=== PATIENT | female | born 1950 | race Caucasian/White ===

== ENCOUNTER 2016-09-24 08:36 | Inpatient (IN) | payer OTHER ==
[2016-09-24] MEDS ORDERED: LIDOCAINE 2% JELLY 20 ML (UROJECT) ONE (09:13)
[2016-09-24] MEDS ORDERED: LIDOCAINE 1% 30 ML SDV ONE (09:13)
[2016-09-24] MEDS ORDERED: IOPAMIDOL (ISOVUE-300) 100 ML BTL ONE ×2 (09:14→17:10)
[2016-09-24] MEDS ORDERED: ONDANSETRON 4 MG/2 ML VIAL ONE (09:42)
[2016-09-24] MEDS ORDERED: fentaNYL 100 MCG/2 ML INJ ONE ×2 (09:43→13:57)
[2016-09-24] MEDS ORDERED: MIDAZOLAM 2 MG/2 ML VIAL ONE (09:43)
[2016-09-24] MEDS ORDERED: GLUCAGON,HUMAN RECOMBINANT 1 MG VIAL ONE (10:30)
[2016-09-24] MEDS ORDERED: fentaNYL 100 MCG/2 ML INJ IVP ONE (14:00)
[2016-09-24] MEDS ORDERED: ONDANSETRON DISINTEGRATING 4 MG TAB PO PRN (16:50)
[2016-09-24] MEDS ORDERED: ACETAMINOPHEN 325 MG TAB PO PRN (16:50)
[2016-09-24] MEDS ORDERED: ONDANSETRON 4 MG/2 ML VIAL IVP PRN (16:50)
[2016-09-24] MEDS ORDERED: HYDROmorphONE/DILAUDID 1 MG/ML SYR IVP ONE (16:53)
[2016-09-24] MEDS ORDERED: HYDROmorphONE/DILAUDID 6 MG/30 ML PCA IV PRN (16:53)
[2016-09-24] MEDS ORDERED: NALOXONE HCL 0.4 MG/ML INJ IVP PRN (16:53)
--- NOTE | 2016-09-24 17:38 | GHP ---
[f rep st] HISTORY AND PHYSICAL DATE OF ADMISSION: 09/24/2016 CHIEF COMPLAINT: Abdominal pain post PEG placement. HISTORY OF PRESENT ILLNESS: This is a 65-year-old female with a history of head and neck cancer, wh o was having a gastrostomy tube placed by Dr. Spears today in preparation for chemo and radiation. In speaking with Dr. Spears, it sounds as though the procedure was very uncomplicated. I reviewed t he operative report which reported no extraluminal contrast post procedure. She tells me her pain i s severe, located in the epigastrium, and worse with any palpation. It has been mildly relieved by IV pain medicines. Recent history is notable for having a colonic perforation due to what sounds li ke diverticulitis, where she received a partial colectomy as well as an ostomy. This was done at [facility]. Her abdominal incision has never fully healed post surgery. Notably, she is on oxycodone 20 mg 4 times a day. Sometimes, she takes a little bit of extra. She thinks she is taking somewhere between 80 and 100 mg daily. PAST MEDICAL/SURGICAL HISTORY: 1. Oropharyngeal cancer, squamous cell, followed by Dr. Dior. 2. Recent colon perforation due to diverticulitis, status post partial colectomy as well as ostomy. 3. Hypothyroid. 4. Asthma. 5. Breast cancer, stage I, status post XRT 4 years ago. 6. Chronic pain, on continuous narcotics. MEDICATIONS: Please see medication reconciliation. ALLERGIES: She had Woods-Edgardo to doxycycline. She has also has a codeine allergy listed. FAMILY HISTORY: No one has cancer in her family. SOCIAL HISTORY: She does not drink or smoke anymore. She did smoke in the past. REVIEW OF SYSTEMS: A 10-point review of systems is conducted and is negative except per the HPI. PHYSICAL EXAMINATION: GENERAL: She appears to be quite uncomfortable, holding her abdomen. VITAL SIGNS: Not currently in the computer. HEENT: Shows her to be normocephalic, atraumatic. CARDIOVA SCULAR: Shows a regular rate and rhythm. No murmurs, rubs, or gallops. PULMONARY: Lungs clear to auscultation bilaterally. ABDOMEN: Soft. She is extremely tender to palpation, mostly in the epi gastrium. She has a PEG tube in the left upper quadrant. She has a left-sided colostomy with a bag , with liquid-appearing stool. SKIN: Shows no rash. : Shows no Kay. NEUROLOGIC: Shows her to be alert and oriented x3. She is moving all extremities. PSYCHIATRIC: Shows a tearful affect. LABORATORY DATA: There are no current labs. I did order labs. DATA: 1. I discussed this with Dr. Spears. We will admit to observation. 2. I reviewed the PEG placement. 3. I reviewed her pathology showing squamous cell cancer. IMPRESSION AND PLAN: A 65-year-old female with oropharyngeal cancer, with uncontrolled pain status post PEG placement. 1. Abdominal pain: Seems out of proportion to a PEG placement. Per the operative note and Dr. Rashad hodgson' report, the procedure was quite unremarkable. Regardless, I have placed a CT scan of her abdom en given the degree of her pain. Her pain may be due to the fact that she is on chronic narcotics a nd has been n.p.o. during the day. 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 2. Oropharyngeal cancer: She will be followed by Dr. Dior. The plan will be for radiation as wel l as chemotherapy. 3. Recent colon perforation, with ostomy in place and nonhealing abdominal incision: I have placed a wound care consult. This was approximately 5 weeks ago. 4. Hypothyroid: Synthroid. 5. Asthma: Inhalers. 6. Chronic pain, on continuous narcotics: We will continue her outpatient oxycodone in addition to IV narcotics for acute pain. 7. Code status: She would like to be a full code. /[id number]/MODL
[2016-09-24] MEDS: morphINE PCA 30 MG/30 ML PCA IV PRN (18:19)
[2016-09-24] MEDS ORDERED: LORazepam 2 MG/ML INJ IVP PRN (18:31)
[2016-09-24 18:38] LABS: % IMMATURE GRANULYOCYTES 0.4 % (0.0-1.1); ABSOLUTE IMMATURE GRANULOCYTES 0.02 10^3/uL (0.00-0.10); ADD DIFF? NO; ADD MORPH? NO; ADD SCAN? NO; ATYPICAL LYMPHOCYTE FLAG 0 (0-99); FRAGMENT RBC FLAG 0 (0-99); HEMATOCRIT 30.2 % (38.0-47.0); HEMOGLOBIN 9.6 g/dL (12.6-16.3); LEFT SHIFT FLG 0 (0-99); LIPEMIA HEMOLYSIS FLAG 80 (0-99); MEAN CELL HEMOGLOBIN 30.3 pg (27.9-34.1); MEAN CELL HEMOGLOBIN CONCENTR. 31.8 g/dL (32.4-36.7); MEAN CELL VOLUME 95.3 fL (81.5-99.8); MEAN PLATELET VOLUME 8.5 fL (8.7-11.7); PLATELET CLUMPS FLAG 10 (0-99); PLATELET COUNT 384 10^3/uL (150-400); RED BLOOD CELL COUNT 3.17 10^6/uL (4.18-5.33); RED CELL DISTRIBUTION WIDTH 17.4 % (11.5-15.2)
[2016-09-24 18:51] LABS: ANION GAP 8 mEq/L (8-16); CALCIUM 8.4 mg/dL (8.5-10.4); CARBON DIOXIDE 22 mEq/l (22-31); CHLORIDE 106 mEq/L (97-110); CREATININE 0.5 mg/dL (0.6-1.0); GLOMERULAR FILTRATION RATE > 60; GLUCOSE 91 mg/dL (70-100); POTASSIUM 3.9 mEq/L (3.5-5.2); SODIUM 136 mEq/L (134-144)
[2016-09-24 18:52] LABS: INR 1.04 (0.83-1.16); PROTIME(PATIENT) 13.5 SEC (12.0-15.0)
[2016-09-24] MEDS: clonazePAM 1 MG TAB PO PRN (19:34)
[2016-09-25] MEDS: clonazePAM 1 MG TAB PO PRN ×2 (03:11→17:25)
[2016-09-25] MEDS: morphINE PCA 30 MG/30 ML PCA IV PRN (06:02)
[2016-09-25] MEDS: NS 1,000 ML IV SCH ×2 (06:03→22:13)
[2016-09-25] MEDS ORDERED: ALBUTEROL 60 PUFFS/8 GM MDI IH PRN (13:16)
[2016-09-25] MEDS ORDERED: OXYCODONE HCL 20 MG PO PRN (13:16)
[2016-09-25] MEDS ORDERED: ALBUTEROL 200 PUFFS/18 GM MDI IH PRN (13:17)
--- NOTE | 2016-09-25 13:43 | HOSPPROG ---
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 ct images reviewed/interpreted by me Objective: Vital Signs Temp Pulse Resp BP Pulse Ox 36.6 C 83 18 121/64 H 97 09/25/16 10:00 09/25/16 12:00 09/25/16 12:00 09/25/16 12:00 09/25/16 12:00 Laboratory Results 09/24/16 18:32 09/24/16 18:32 09/24/16 09/25/16 09/26/16 05:59 05:59 05:59 Intake Total 1529 Output Total 1025 Balance 504 PT 13.5 SEC (12.0-15.0) 09/24/16 18:32 INR 1.04 (0.83-1.16) 09/24/16 18:32 - Physical Exam Constitutional: no apparent distress, appears nourished Eyes: PERRL, anicteric sclera Ears, Nose, Mouth, Throat: moist mucous membranes, hearing normal Cardiovascular: regular rate and rhythym, no murmur, rub, or gallop Respiratory: no respiratory distress, no rales or rhonchi Gastrointestinal: normoactive bowel sounds, soft, non-tender abdomen, other ( low abd incision c/d/i w one area healing by secondary intention. this area has no fluctuance) Genitourinary: no bladder fullness, No dhaliwal in urethra Skin: warm, normal color Musculoskeletal: full muscle strength, no muscle tenderness Neurologic: AAOx3, sensation intact bilaterally Psychiatric: interacting appropriately ICD10 Worksheet Patient Problems: Problems Problem Status Onset Head and neck cancer Acute
[2016-09-25] MEDS ORDERED: BUPIVACAINE 0.5% 30 ML SDV ONE (14:53)
[2016-09-25] MEDS: oxyCODONE IR 5 MG TAB PO PRN ×2 (14:58→20:00)
[2016-09-25 16:41] LABS: COLOR YELLOW; LEUKOCYTE ESTERASE,URINE NEGATIVE (NEGATIVE); NITRITE,URINE NEGATIVE (NEGATIVE)
[2016-09-25] MEDS ORDERED: PHENAZOPYRIDINE HCL 100 MG TAB PO ONE (22:30)
[2016-09-25] MEDS ORDERED: oxyCODONE IR 5 MG TAB PO ONE (22:34)
[2016-09-26] MEDS: oxyCODONE IR 5 MG TAB PO PRN ×2 (00:08→08:52)
[2016-09-26 00:13] VITALS: RESP 18
[2016-09-26] MEDS ORDERED: LEVOTHYROXINE 75 MCG TAB PO SCH (09:00)
[2016-09-26] MEDS ORDERED: SYNTHROID 75 MCG PO SCH (09:00)
[2016-09-26] MEDS ORDERED: FLUTICASONE/SALMETER 250/50MCG DISKUS IH SCH (09:00)
[2016-09-26 09:29] VITALS: BP 137/75; PULSE 78; TEMP 97.6; O2SAT 96
--- NOTE | 2016-09-26 11:24 | HOSPPROG ---
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 hungry, eating. seen by wound care/ostomy nurse Objective: Vital Signs Temp Pulse Resp BP Pulse Ox 36.4 C 78 18 137/75 H 96 09/26/16 07:45 09/26/16 07:45 09/26/16 07:45 09/26/16 07:45 09/26/16 07:45 Laboratory Results 09/24/16 18:32 09/24/16 18:32 09/25/16 09/26/16 09/27/16 05:59 05:59 05:59 Intake Total 1529 1242 Output Total 1025 1700 Balance 504 -458 PT 13.5 SEC (12.0-15.0) 09/24/16 18:32 INR 1.04 (0.83-1.16) 09/24/16 18:32 - Physical Exam Constitutional: no apparent distress, cachectic Eyes: PERRL, anicteric sclera Ears, Nose, Mouth, Throat: moist mucous membranes, hearing normal Cardiovascular: regular rate and rhythym, no murmur, rub, or gallop Respiratory: no respiratory distress, no rales or rhonchi, other (stabples out, midline incision c./d/i) Gastrointestinal: normoactive bowel sounds, soft, non-tender abdomen Genitourinary: no bladder fullness, No dhaliwal in urethra Skin: warm, normal color Musculoskeletal: full muscle strength, no muscle tenderness Neurologic: AAOx3 ICD10 Worksheet Patient Problems: Problems Problem Status Onset Head and neck cancer Acute
--- NOTE | 2016-09-26 11:53 | WOCRNPDOC ---
DAINCRJose Advanced Assessment Note - Skin Integrity Problem, Advanced Assess Medial Abdomen Surgical Wound/Incision Dressing Type: Gauze Dressing Description: Shadowed Closure Description: Bowlegs, Approximated Exudate Amount: Scant Exudate Color: Reddish/Yellow Exudate Characteristic(s): Serosanguinous Integumentary Issue Intervention: Johnnie Removed (10 johnnie removed from midline incision), Silver Gel Applied Marnie Wound Tissue: Erythema (mild, discrete) Marnie Wound Swelling: Mild Wound Bed Color: Red Wound Bed Constitution: Granulation Tissue Wound Edges: Epithelizing Site Odor: None Site Measurement - Head-to-Toe Length X Width X Depth (cm): 1.1cmx1.5cmx0.2cm Skin Integrity Problem Comment: Small, superficial wound along midline abdominal incision, w/ dried, crusted serosanguinous exudate. No necrosis evident. Patient still had 10 intact johnnie from her surgery at [facility] last month. Midline incision well-approximated and fully epithelialized w/ exception of the small wound medially. Removed all 10 exisiting johnnie w/out complication. Dressing applied to midline wound, which should continue to heal by secondary intention. Orders written for home care, and patient advised [facility] if [facility].
--- NOTE | 2016-09-26 12:08 | GDS ---
[f rep st] DISCHARGE SUMMARY DISCHARGE DIAGNOSES: 1. Abdominal pain, status post PEG tube, without evidence of complication. 2. Head and neck cancer, currently undergoing chemotherapy. 3. Recent admission to an outside hospital with colon perforation secondary to diverticulitis with partial colectomy and ostomy. 4. Wound healing by secondary intention in 1 small spot. 5. Chronic pain, on continuous narcotics. HOSPITAL COURSE: Please see admission history and physical by Dr. Abdirizak Manzano. The patient present ed with severe abdominal pain following an outpatient procedure. CAT scan showed no evidence of per foration and appropriate placement of the G-tube through no abdominal viscera. This is felt to be t hat she had been n.p.o. all morning, had not taken her oxycodone, and just had an exaggerated pain r esponse. 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 She was seen by Wound Ost[facility] today, did some local debridement of 1 small may be 2 cm area that is healing by secondary intention. She removed her romy. Her wound looks good . She has no evidence of infection. She is discharged home today on her unchanged home medication regimen. /[id number]/MODL
--- NOTE | 2016-09-26 14:57 | PDIAF ---
- Diagnosis Diagnosis: laryngeal cancer Code Status: Full Code - Medication Management Discharge Medications: Medications to Continue on Transfer Albuterol [Proventil Inhaler HFA (*)] 2 puffs IH Q6 PRN 09/22/16 [Last Taken ] Fluticasone/Salmeter 250/50Mcg [Advair 250/50 (*)] 1 puffs IH DAILY 09/22/16 [ Last Taken 09/24/16 08:00] Oxycodone HCl [Dazidox] 20 mg PO Q4H PRN 09/22/16 [Last Taken 09/24/16 04:00] Synthroid 75 mcg (*) 75 mcg PO DAILY 09/22/16 [Last Taken 09/24/16 08:00] Discharge Medications: Refer to the Discharge Home Medication list for PRN reason. - Orders Services needed: Home Care, Registered Nurse Home Care Face to Face: I certify that this patient was under my care and that I had the required [id number] encounter meeting the encounter requirements on the discharge day. My findings support the fact that the patient is homebound as defined in CMS Chapter 7 Medicare Benefits Manual 30.1.1, The condition of the patient is such that there exists a normal inability to leave home and consequently, leaving home would require a considerable and taxing effort. - Follow Up Care Current Providers and Referrals: Alex Dior MD [Primary Care Provider] -
== END 2016-09-26 13:04 | disposition home health service (06) | DRG 948 ==
LOC: FIMAGING 08:36 → F3E 15:58 → F1N 17:41 → OBSVTOIN 09-25 13:40
PROVIDERS: ADMIT Radiology Diagnostic Radiology; ATTEND Internal Medicine
PROC: 0DH63UZ Insertion of Feeding Device into Stomach, Percutaneous Approach (ICD-10-PCS; principal; 2016-09-24 11:15)
DX: G89.18 Other acute postprocedural pain (principal); C76.0 Malignant neoplasm of head, face and neck; G89.29 Other chronic pain; F11.20 Opioid dependence, uncomplicated; J45.909 Unspecified asthma, uncomplicated; E03.9 Hypothyroidism, unspecified; Z93.3 Colostomy status; Z85.3 Personal history of malignant neoplasm of breast
CPT/HCPCS: 97162-GP; C1729; C1769; G0378; J1170; J1610; J1644; J2250; J2270; J2405; J3010; Q9967

== ENCOUNTER 2016-10-06 16:29 | Inpatient (IN) | payer OTHER ==
--- NOTE | 2016-10-06 16:44 | EDPHY ---
H & P Stated Complaint: fever CA pt Time Seen by Provider: 10/06/16 16:43 HPI/ROS: CHIEF COMPLAINT: Fever, dehydration HISTORY OF PRESENT ILLNESS: The patient presents to the ED from the cancer center with complaints of fever dehydration. The patient has a history of a or pharyngeal cancer. She is currently receiving chemotherapy and radiation. Last radiation was this morning. Last chemotherapy was Tuesday 1 week ago. The patient has had a complicated past medical history including history of a perforated diverticula earlier this year requiring colostomy. The patient has had some symptoms of dysuria for the past week. The patient was hospitalized 1 week ago for PEG tube placement. The patient reportedly had a negative urinalysis at that point time. The patient denies any rash. She has chronic abdominal pain. The patient has been using both benzodiazepines and oral narcotics for her outpatient pain management. REVIEW OF SYSTEMS: A comprehensive 10 point review of systems is otherwise negative aside from elements mentioned in the history of present illness. Source: Patient Exam Limitations: No limitations - Personal History Current Tetanus/Diphtheria Vaccine: Yes Current Tetanus Diphtheria and Acellular Pertussis (TDAP): Yes - Medical/Surgical History Hx Asthma: No Hx Chronic Respiratory Disease: No Hx Diabetes: No Hx Cardiac Disease: No Hx Renal Disease: No Hx Cirrhosis: No Hx Alcoholism: No Hx HIV/AIDS: No Hx Splenectomy or Spleen Trauma: No Other PMH: Appy, colostomy peg tube Breast CA squamous cell - Social History Smoking Status: Former smoker - Physical Exam Exam: General Appearance: Cachectic female Eyes: Pupils equal and round no pallor or injection ENT, Mouth: Dry mucous membranes Respiratory: There are no retractions, lungs are clear to auscultation Cardiovascular: Tachycardic Gastrointestinal: Colostomy and PEG tube Neurological: A&O, normal motor function, normal sensory exam, normal cranial nerves Skin: Warm and dry, no rashes Musculoskeletal: Neck is supple nontender Extremities: symmetrical, full range of motion Constitutional: Initial Vital Signs Temperature (C) 37.3 C 10/06/16 16:40 Heart Rate 118 H 10/06/16 16:40 Respiratory Rate 16 10/06/16 16:40 Blood Pressure 106/69 10/06/16 16:40 O2 Sat (%) 90 L 10/06/16 16:40 O2 Delivery Mode Nasal Cannula O2 (L/minute) 2 Allergies/Adverse Reactions: doxycycline Allergy (Severe, Verified 09/22/16 13:40) Anaphylaxis codeine Allergy (Intermediate, Verified 09/24/16 15:16) Vomiting lorazepam [From Ativan] Allergy (Verified 10/06/16 20:45) Home Medications: Medication Instructions Recorded Albuterol [Proventil Inhaler HFA 2 puffs IH Q6 PRN 09/22/16 (*)] Fluticasone/Salmeter 250/50Mcg 1 puffs IH DAILY 09/22/16 [Advair 250/50 (*)] Levothyroxine Sodium [Synthroid] 75 mcg PO DAILY 10/06/16 Metoclopramide [Reglan 10 mg tab 10 mg PO Q8H 10/06/16 (*)] Oxycodone HCl [OXYCODONE HCL] 20 mg PO TID 10/06/16 Prochlorperazine Maleate 10 mg PO Q6H PRN 10/06/16 [Compazine 10mg (*)] clonazePAM [Clonazepam] 1 mg PO TID PRN 10/06/16 oxyCODONE HCL [OXYCODONE HCL] 10 mg PO QID PRN 10/06/16 Medical Decision Making - Diagnostics Imaging Results: Imaging Impressions Chest X-Ray 10/06/16 17:38 Impression: Suspect airways disease with possible associated left basilar atelectasis. ED Course/Re-evaluation: The patient presents to the ED with dehydration, fever and increasing weakness. The patient has a history of head neck cancer and is currently receiving chemotherapy and radiation. The patient arrived and had blood cultures x2 obtained. Chest x-ray demonstrates no evidence of obvious pneumonia. The patient is noted to be dehydrated with an elevated BUN of 25. The patient did have 2 L of normal saline given IV as well as IV morphine. The patient is not neutropenic. Her initial lactate is reassuring. The patient has no evidence of sepsis, severe sepsis or septic shock. The patient will require admission to the hospital for further evaluation of her fever and dehydration. Consultation was made with Dr. Lo from the hospitalist service who will admit the patient. Differential Diagnosis: Differential diagnosis considered includes dehydration, neutropenic fever, peritonitis, urinary tract infection, pneumonia, renal failure, metabolic abnormality - Data Points Laboratory Results: Laboratory Results 10/06/16 17:37 10/06/16 17:37 10/06/16 10/06/16 10/06/16 17:37 17:37 17:37 WBC 7.14 10^3/uL 10^3/uL (3.80-9.50) RBC 2.94 10^6/uL L 10^6/uL (4.18-5.33) Hgb 9.2 g/dL L g/dL (12.6-16.3) Hct 28.0 % L % (38.0-47.0) MCV 95.2 fL fL (81.5-99.8) MCH 31.3 pg pg (27.9-34.1) MCHC 32.9 g/dL g/dL (32.4-36.7) RDW 16.5 % H % (11.5-15.2) Plt Count 375 10^3/uL 10^3/uL (150-400) MPV 9.4 fL fL (8.7-11.7) Neut % (Auto) 69.8 % % (39.3-74.2) Lymph % (Auto) 13.0 % L % (15.0-45.0) [place] % (Auto) 14.6 % H % (4.5-13.0) Eos % (Auto) 1.3 % % (0.6-7.6) Baso % (Auto) 0.6 % % (0.3-1.7) Nucleat RBC Rel Count 0.0 % % (0.0-0.2) Absolute Neuts (auto) 4.99 10^3/uL 10^3/uL (1.70-6.50) Absolute Lymphs (auto) 0.93 10^3/uL L 10^3/uL (1.00-3.00) Absolute Monos (auto) 1.04 10^3/uL H 10^3/uL (0.30-0.80) Absolute Eos (auto) 0.09 10^3/uL 10^3/uL (0.03-0.40) Absolute Basos (auto) 0.04 10^3/uL 10^3/uL (0.02-0.10) Absolute Nucleated RBC 0.00 10^3/uL 10^3/uL (0-0.01) Immature Gran % 0.7 % % (0.0-1.1) Immature Gran # 0.05 10^3/uL 10^3/uL (0.00-0.10) ABG Lactic Acid Sodium 133 mEq/L L mEq/L (134-144) Potassium 4.0 mEq/L mEq/L (3.5-5.2) Chloride 98 mEq/L mEq/L (97-110) Carbon Dioxide 26 mEq/l mEq/l (22-31) Anion Gap 9 mEq/L mEq/L (8-16) BUN 25 mg/dL H mg/dL (7-23) Creatinine 0.5 mg/dL L mg/dL (0.6-1.0) Estimated GFR > 60 Glucose 105 mg/dL H mg/dL (70-100) Calcium 8.8 mg/dL mg/dL (8.5-10.4) Total Bilirubin 0.9 mg/dL mg/dL (0.1-1.4) Conjugated Bilirubin 0.4 mg/dL mg/dL (0.0-0.5) Unconjugated Bilirubin 0.5 mg/dL mg/dL (0.0-1.1) AST 23 IU/L IU/L (14-46) ALT 23 IU/L IU/L (9-52) Alkaline Phosphatase 73 IU/L IU/L (38-126) Total Protein 6.1 g/dL L g/dL (6.3-8.2) Albumin 3.1 g/dL L g/dL (3.5-5.0) 10/06/16 17:37 WBC RBC Hgb Hct MCV MCH MCHC RDW Plt Count MPV Neut % (Auto) Lymph % (Auto) [place] % (Auto) Eos % (Auto) Baso % (Auto) Nucleat RBC Rel Count Absolute Neuts (auto) Absolute Lymphs (auto) Absolute Monos (auto) Absolute Eos (auto) Absolute Basos (auto) Absolute Nucleated RBC Immature Gran % Immature Gran # ABG Lactic Acid 0.8 mmol/L mmol/L (0.5-1.6) Sodium Potassium Chloride Carbon Dioxide Anion Gap BUN Creatinine Estimated GFR Glucose Calcium Total Bilirubin Conjugated Bilirubin Unconjugated Bilirubin AST ALT Alkaline Phosphatase Total Protein Albumin Medications Given: Discontinued Medications Sodium Chloride (Ns) 1,000 mls @ 0 mls/hr IV ONCE ONE PRN Reason: Wide Open Stop: 10/06/16 17:33 Last Admin: 10/06/16 17:34 Dose: 1,000 mls Sodium Chloride (Ns) 1,000 mls @ 0 mls/hr IV ONCE ONE PRN Reason: Wide Open Stop: 10/06/16 17:33 Last Admin: 10/06/16 18:05 Dose: Not Given Pantoprazole Sodium 40 mg/ (Sodium Chloride) 100 mls @ 200 mls/hr IV ONCE ONE Stop: 10/06/16 22:29 Last Admin: 10/06/16 22:54 Dose: 100 mls Metoclopramide HCl (Reglan Injection) 10 mg IVP EDNOW ONE Stop: 10/06/16 18:37 Last Admin: 10/06/16 18:37 Dose: 10 mg Morphine Sulfate (Morphine) 1 mg IVP EDNOW ONE Stop: 10/06/16 18:20 Last Admin: 10/06/16 18:36 Dose: 1 mg Ondansetron HCl (Zofran) 4 mg IVP EDNOW ONE Stop: 10/06/16 18:23 Last Admin: 10/06/16 18:36 Dose: Not Given Departure - Departure Disposition: [facility] Inpatient Acute Clinical Impression: Head and neck cancer, Fever, Dehydration Condition: Fair
[2016-10-06] MEDS ORDERED: NS 1,000 ML IV ONE ×2 (17:32)
[2016-10-06 17:49] LABS: % IMMATURE GRANULYOCYTES 0.7 % (0.0-1.1); ABSOLUTE IMMATURE GRANULOCYTES 0.05 10^3/uL (0.00-0.10); ADD DIFF? NO; ADD MORPH? NO; ADD SCAN? NO; ATYPICAL LYMPHOCYTE FLAG 70 (0-99); FRAGMENT RBC FLAG 0 (0-99); HEMOGLOBIN 9.2 g/dL (12.6-16.3); LEFT SHIFT FLG 20 (0-99); LIPEMIA HEMOLYSIS FLAG 80 (0-99); MEAN CELL HEMOGLOBIN 31.3 pg (27.9-34.1); MEAN CELL HEMOGLOBIN CONCENTR. 32.9 g/dL (32.4-36.7); MEAN CELL VOLUME 95.2 fL (81.5-99.8); MEAN PLATELET VOLUME 9.4 fL (8.7-11.7); PLATELET CLUMPS FLAG 0 (0-99); PLATELET COUNT 375 10^3/uL (150-400); RED BLOOD CELL COUNT 2.94 10^6/uL (4.18-5.33); RED CELL DISTRIBUTION WIDTH 16.5 % (11.5-15.2)
[2016-10-06 18:06] LABS: ANION GAP 9 mEq/L (8-16); CALCIUM 8.8 mg/dL (8.5-10.4); CARBON DIOXIDE 26 mEq/l (22-31); CHLORIDE 98 mEq/L (97-110); CREATININE 0.5 mg/dL (0.6-1.0); GLOMERULAR FILTRATION RATE > 60; GLUCOSE 105 mg/dL (70-100); SODIUM 133 mEq/L (134-144)
[2016-10-06] MEDS ORDERED: ONDANSETRON 4 MG/2 ML VIAL IVP ONE (18:22)
[2016-10-06] MEDS ORDERED: METOCLOPRAMIDE 10 MG/2 ML VIAL ONE (18:26)
[2016-10-06] MEDS ORDERED: METOCLOPRAMIDE 10 MG/2 ML VIAL IVP ONE (18:36)
[2016-10-06] MEDS ORDERED: ONDANSETRON DISINTEGRATING 4 MG TAB PO PRN (19:28)
[2016-10-06] MEDS ORDERED: PROMETHAZINE HCL 25 MG/ML INJ IVP PRN (20:13)
[2016-10-06] MEDS ORDERED: MAGNESIUM HYDROXIDE 30 ML UDCUP PO PRN (20:15)
[2016-10-06] MEDS ORDERED: ALBUTEROL 200 PUFFS/18 GM MDI IH PRN (20:15)
[2016-10-06] MEDS ORDERED: POLYETHYLENE GLYCOL 3350 17 GM PKT PO PRN (20:15)
[2016-10-06] MEDS ORDERED: LORazepam 2 MG/ML INJ IVP PRN (20:15)
[2016-10-06] MEDS ORDERED: BISACODYL 10 MG SUPP PR PRN (20:15)
[2016-10-06] MEDS ORDERED: LACTULOSE 20 GM/30 ML UDCUP PO PRN (20:15)
[2016-10-06] MEDS ORDERED: PROCHLORPERAZINE MALEATE 10 MG TAB PO PRN (20:15)
[2016-10-06] MEDS ORDERED: KETOROLAC 15 MG/1 ML SDV ONE (20:20)
[2016-10-06] MEDS ORDERED: NS 1,000 ML IV SCH (20:30)
[2016-10-06 20:33] LABS: ALBUMIN 3.1 g/dL (3.5-5.0); BILIRUBIN,TOTAL 0.9 mg/dL (0.1-1.4); BILIRUBIN-CONJUGATED 0.4 mg/dL (0.0-0.5); BILIRUBIN-UNCONJUGATED 0.5 mg/dL (0.0-1.1); TOTAL PROTEIN 6.1 g/dL (6.3-8.2)
[2016-10-06] MEDS: SENNOSIDES/DOCUSATE SODIUM TAB PO SCH (21:32)
--- NOTE | 2016-10-06 21:33 | GHP ---
[f rep st] HISTORY AND PHYSICAL DATE OF ADMISSION: 10/06/2016 CHIEF COMPLAINT: Fever, dehydration. HISTORY OF PRESENT ILLNESS: Patient is a 65-year-old female with recent diagnosis of squamous cell carcinoma head and neck in July 2016. She presented from the Cancer Center with complaints of fever and dehydration. Per daughter temperature there was 102. Her last dose of chemotherapy was on Tuesday the 24th and 2nd dose of radiation was today. Today was the 1st day she took tube feeds in several days due to cramping associated with it. Would have nausea and fullness with tube feeds. Daughter and her home care nurse gave it to her today with good tolerance. The patient was recently admitted 09/25/2016 to [facility] for abdominal pain after a PEG tube was placed. CT abdomen at that time was reassuring. Patient reports chills, cramping pain in stomach associated with tube feeds, but none now. Has a headache from the right side of head to midline. Denies cough. Denies increased stool in her ostomy. Has mild burning with urination. No myalgias. The patient has been sleeping more. When she presented to the emergency room she had RR of 8 and eyes were rolling back in head per nursing staff. REVIEW OF SYSTEMS: I completed a 10-point review of systems, negative except as noted in HPI. PAST MEDICAL HISTORY: 1. Head and neck cancer squamous cell carcinoma. Chemo 1 week ago. Second dose of XRT today. Chronic pain with opioid dependence. 2. Colonic perforation secondary to diverticulitis with subsequent colostomy. 3. Hypothyroidism. 4. Asthma. 5. History of breast cancer, status post radiation therapy. PAST SURGICAL HISTORY: 1. Colostomy. 2. Appendectomy. SOCIAL HISTORY: Lives in [place] with her daughter. Denies alcohol, tobacco or illicits. ALLERGIES: Ativan causes agitation, doxycycline, codeine. HOME MEDICATIONS: 1. Reglan 10 mg q.8. 2. Compazine 10 mg as needed. 3. Levothyroxine 75 mcg daily. 4. Clonazepam 1 mg p.o. t.i.d. 5. OxyContin 20 mg t.i.d. 6. Advair. 7. Albuterol. 8. Oxycodone 10 mg p.o. q.i.d. p.r.n. PHYSICAL EXAM: VITAL SIGNS: Temperature 37.3 here, 102 at Cancer Center. Blood pressure 107/71, heart rate 107, respirations 16, 95% on room air. GENERAL: Patient is severely cachectic with temporal muscle wasting. Somnolent during exam. Will doze off. HEENT: Dry mucous membranes, yellow discoloration and ulceration inside right cheek. No evidence of abscess or purulence. CV: Tachy but regular. No murmur, gallops, or rubs. LUNGS: Clear to auscultation anteriorly. ABDOMEN: Ostomy with yellow-brown stool. Abdomen is soft, nontender, nondistended. Quiet bowel sounds. : No suprapubic tenderness. MUSCULOSKELETAL: Severe muscle wasting throughout all limbs. Weak throughout. NEUROLOGIC: 2 through 12 intact. PSYCH: Alert and oriented x3, but will close her eyes and doze off during conversation. LABORATORY: Lactic acid is 0.8. Sodium 134, potassium 4, chloride 98, carbon dioxide 26, BUN 25, creatinine 0.6, glucose 105, WBC 7, hemoglobin 9.2, hematocrit 28, platelets 375. Chest x-ray personally reviewed by me. Bronchitis. No evidence of pneumonia. UA is pending. ASSESSMENT AND PLAN: 1. Fever: Unclear etiology at this time. Fever [address] [facility]. Chest x -ray is unrevealing. Does complain of dysuria so we will check a UA. Abdominal exam is benign at this time. However, if recurrent fever or increased abdominal pain, would scan abdomen. Will hold off on antibiotics at this time as hemodynamically stable. Blood cultures are pending. 2. Cachexia of malignancy: Patient severely malnourished with inability to tolerate tube feeds recently. We will order a dietary consult for feeds. 3. Chronic pain with chronic opioid use: Concern of over-sedation today which was likely secondary to clonazepam which was new to her. She was using this during radiation for claustrophobia. I recommend that she not use this medication any longer. Consider Ativan; however, daughter said that she had a worse reaction to that. I will dose reduce her OxyContin to 10 mg t.i.d. from 20, reassess in the morning. She has p.r.n. Toradol and low-dose morphine if needed. 4. Hypothyroidism: Continue Synthroid. 5. Squamous cell carcinoma of head and neck: Followed by Dr. Dior. Had planned for XRT tomorrow, but given hospitalization query if patient is going to be able to tolerate further treatment given severe cachexia and weakness. I did strongly recommend to daughter and patient that they be evaluated for Palliative Care that can assist for symptom management through the course. They were agreeable to this and will talk to them tomorrow. 6. Diet: Tube feeds. IV fluids for now. 7. Deep venous thrombosis prophylaxis: Lovenox. DISPOSITION: Patient warrants inpatient admission given fever, weakness and dehydration. Time spent on visit: 75min in which 40 min spent counseling pt and daughter on pain control, goals and palliative care. Remaining time spent examining pt, reviewing labs and old records. /[id number]/MODL MTDD
[2016-10-06] MEDS ORDERED: NON-FORMULARY NEW DRUG (Oxycodone Hcl [Oxycodone Hcl] 20 MG) PO SCH (22:00)
[2016-10-06] MEDS ORDERED: PANTOPRAZOLE SODIUM 40 MG in NS 100 ML IV ONE (22:00)
[2016-10-06] MEDS ORDERED: oxyCODONE IR 5 MG TAB PO PRN (22:32)
[2016-10-06] MEDS: CHLORHEXIDINE GLUCONATE 15 ML UDL PO SCH (23:00)
[2016-10-06] MEDS: PANTOPRAZOLE SODIUM 40 MG in NS 100 ML IV SCH (23:24)
[2016-10-07] MEDS: KETOROLAC 15 MG/1 ML SDV IVP SCH ×4 (01:21→18:20)
[2016-10-07] MEDS: LEVOTHYROXINE 75 MCG TAB PO SCH (04:49)
[2016-10-07 06:05] LABS: % IMMATURE GRANULYOCYTES 0.3 % (0.0-1.1); ABSOLUTE IMMATURE GRANULOCYTES 0.02 10^3/uL (0.00-0.10); ADD DIFF? NO; ADD MORPH? NO; ADD SCAN? NO; ATYPICAL LYMPHOCYTE FLAG 0 (0-99); FRAGMENT RBC FLAG 0 (0-99); HEMATOCRIT 25.8 % (38.0-47.0); HEMOGLOBIN 8.4 g/dL (12.6-16.3); LEFT SHIFT FLG 50 (0-99); LIPEMIA HEMOLYSIS FLAG 80 (0-99); MEAN CELL HEMOGLOBIN 31.5 pg (27.9-34.1); MEAN CELL HEMOGLOBIN CONCENTR. 32.6 g/dL (32.4-36.7); MEAN CELL VOLUME 96.6 fL (81.5-99.8); MEAN PLATELET VOLUME 9.4 fL (8.7-11.7); PLATELET CLUMPS FLAG 0 (0-99); PLATELET COUNT 329 10^3/uL (150-400); RED BLOOD CELL COUNT 2.67 10^6/uL (4.18-5.33); RED CELL DISTRIBUTION WIDTH 16.5 % (11.5-15.2)
[2016-10-07 06:30] LABS: CALCIUM 8.3 mg/dL (8.5-10.4); CARBON DIOXIDE 21 mEq/l (22-31); CHLORIDE 104 mEq/L (97-110); CREATININE 0.5 mg/dL (0.6-1.0); GLOMERULAR FILTRATION RATE > 60; GLUCOSE 96 mg/dL (70-100); SODIUM 133 mEq/L (134-144)
[2016-10-07 06:51] LABS: ANION GAP 8 mEq/L (8-16); POTASSIUM 3.7 mEq/L (3.5-5.2)
[2016-10-07] MEDS: SENNOSIDES/DOCUSATE SODIUM TAB PO SCH ×2 (08:54→20:08)
[2016-10-07] MEDS: CHLORHEXIDINE GLUCONATE 15 ML UDL PO SCH ×2 (08:54→20:20)
[2016-10-07] MEDS: ENOXAPARIN 40 MG/0.4 ML SYR SC SCH (08:55)
[2016-10-07] MEDS: FLUTICASONE/SALMETER 250/50MCG DISKUS IH SCH (08:56)
[2016-10-07] MEDS: PANTOPRAZOLE SODIUM 40 MG in NS 100 ML IV SCH (10:34)
[2016-10-07] MEDS: METOCLOPRAMIDE 10 MG TAB PO SCH ×2 (10:34→15:39)
--- NOTE | 2016-10-07 10:45 | HOSPPROG ---
Hospitalist Progress Note Assessment/Plan: Assessment: 65-year-old female presenting with SIRS in setting of squamous cell carcinoma Plan: 1. SIRS. Acute, new problem, further w/u indicated. Tachycardia (118) and Fever (102F) w/o clearly identifiable source of infxn, CXR w/ peribronchial thickening but no PNA (personally interpreted) - cont in IVF - BCx sent, send RVP, UA - get CTA chest given risk of PE, CT abd/pelv given GI symptoms - hold on Abx 2. BETSEY. 2/2 hypovolemia, evidenced by elevated BUN, Cr in normal range due to low muscle mass - give IVF - monitor UOP 3. Hyponatremia. Acute, 2/2 hypovolemia, cont IVF and recheck Na in AM 4. Squamous Cell Carcinoma. Of head and neck, cont pain Rx (lower 2/2 sedating side effects) - d/w Dr. Dorado, appreciate consultation, we will get her to 1N when able - palliative consultation 5. Atelectasis. Present on CXR, IS 6. Anxiety. 2/2 underlying illness, adjusted benzo to ativan PRN 7. Severe protein calorie malnutrition. Temp muscle wasting, meets ASPEN, cont TF w/ dietary guidance Diet. TF w/ PO, dietary consult appreciated PPx. High risk, on lovenox 40 Code. Full Dispo. ADD uncertain, ongoing SIRS w/ ongoing w/u Subjective: patient very anxious Objective: Vital Signs Temp Pulse Resp BP Pulse Ox 37.7 C 86 18 113/63 96 10/07/16 09:42 10/07/16 07:26 10/07/16 07:26 10/07/16 07:26 10/07/16 07:26 Laboratory Results 10/07/16 05:42 10/07/16 05:42 10/06/16 10/07/16 10/08/16 05:59 05:59 05:59 Intake Total 2100 Output Total 0 Balance 2100 - Time Spent With Patient Time Spent with Patient: greater than 35 minutes Time Spent with Patient: Greater than 35 minutes spent on this patients care, greater than 50% of time spent counseling, educating, and coordinating care regarding the above mentioned plan. - Physical Exam Constitutional: chronically ill appearing, uncomfortable, cachectic, No not in pain (R neck) Cardiovascular: tachycardia, No systolic murmur, No irregularly irregular, No edema Respiratory: no respiratory distress, no rales or rhonchi, clear to auscultation Gastrointestinal: normoactive bowel sounds, soft, non-tender abdomen, no palpable masses, other (scaffoid), No distension Musculoskeletal: other (tender R neck) Neurologic: AAOx3, sensation intact bilaterally Psychiatric: not encephalopathic, thought process linear, anxious, No agitated ICD10 Worksheet Patient Problems: Problems Problem Status Onset Fever Acute Dehydration Acute Palliative care encounter Acute Head and neck cancer Acute
[2016-10-07 11:00] LABS: COLOR YELLOW; LEUKOCYTE ESTERASE,URINE TRACE (NEGATIVE); NITRITE,URINE NEGATIVE (NEGATIVE)
[2016-10-07 11:03] LABS: MUCUS 2+ /lpf (NONE-1+)
[2016-10-07] MEDS ORDERED: ALTEPLASE 2 MG VIAL IVP PRN (12:06)
--- NOTE | 2016-10-07 14:33 | PDPCPN ---
Palliative Care Progress Note Assessment/Plan: Referring provider: Dr Lo Reason for consult: Symptom control HPI: Leonie Ortiz is a 65 yo female with PMH breast CA 2013 in remission, diverticulitis s/p colostomy and locally advanced squamous cell carcinoma of the neck admitted to the hospital for fever of 102 and weakness. Dx with cancer 08/2016 with complication of bowel perf after 1 round of chemo. PEG tube placed for nutrition support during second round of chemo with complications of pain associated with PEG placement. Chemo and XRT recently resumed after being on hold due to previous complications. Work up ongoing of source of infection. Palliative care consulted for symptom management. Met with Leonie and her daughter Marbella at the bedside. They expressed frustration with the setbacks and complications during her cancer treatment. They are hoping to resolve these acute issues to continue with chemotherapy. Per oncology possibility for prolonged remission and treatable disease. Leonie is having ongoing right sided neck pain due to tumor with radiation up the right side of her face. She has tried topical CBD oil as well as icy hot. On oxycontin at home with slight decrease due to possible oversedation. She is not sure if the toradol is helping or not all she knows is "i am in pain". She wants to remain alert and is hesitant to take additional narcotics. Assessment: Physical: - Pain: right facial pain - on oxycontin 10mg TID riky with PRN available - morphine IV PRN - toradol IV PRN - added lidocaine cream which can be helpful for nerve related facial pain. Cannot use 4 hours prior to any radiation treatments - poor appetite/stomach cramping/nausea: - using PEG tube for nutrition - at home on reglan - has zofran PRN - constipation - at risk with opiates - senna and colace scheduled Emotional/psychological: frustrated with not getting better and knowing what is next Advanced Care Planning: Is patient decisional?: Yes Code Status: Full MD POA: unsure who is MDPOA but daughter is contact Plan: Continue with chemotherapy for hopeful remission of disease. PC to follow for symptom management and emotional support. Subjective: the right side of my face hurts Objective: Social History: Has 1 daughter who lives with her. Medication list reviewed ROS: General: fatigue, weakness, weight loss ENT: right facial pain Resp: negative GI: has PEG tube : negative MS: negative Skin: negative Neuro: negative Psych: some memory loss Functional assessment: PPS: 50% Functional status: needs some assistance with ADLs. Vital Signs Temp Pulse Resp BP Pulse Ox 37.7 C 86 18 113/63 96 10/07/16 09:42 10/07/16 07:26 10/07/16 07:26 10/07/16 07:26 10/07/16 07:26 Laboratory Results 10/07/16 05:42 10/07/16 05:42 10/06/16 10/07/16 10/08/16 05:59 05:59 05:59 Intake Total 2100 Output Total 0 Balance 2100 Physical Exam - Physical Exam General Appearance: alert, mild distress, cachetic Respiratory: No respiratory distress, No accessory muscle use Skin: normal color, warm/dry Extremities: No pedal edema Neuro/Psych: alert, disoriented to time ICD10 Worksheet Patient Problems: Problems Problem Status Onset Dehydration Acute Fever Acute Head and neck cancer Acute Palliative care encounter Acute - ICD10 Problem Qualifiers (1) Palliative care encounter
[2016-10-07] MEDS: LIDOCAINE 4% 15 GM CREAM TP SCH ×2 (15:40→20:19)
--- NOTE | 2016-10-07 16:53 | SOAPPROG ---
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 Received Carboplatin + Paclitaxel Cycle 1, Day 1 08/20/16 Diverticular perf. 08/20/16 requiring emergency surgery w/ diverting ostomy. Primary tumor showed immediate Tx response, but with complications delaying continued Tx, she showed mass progression. Now on a plan for Radiation Therapy + low dose systemic chemotherapy for hopefully more manageable Combined Modality approach. She was to have started chemotherapy this week- now delayed with this inpt. hospitalization, 2.) Wt. loss- for nutritional support as discussed today. 3.) S/P Diverting Colostomy - see above. 4.) Hx. of Stage IA, R breast Cancer in remission- diagnosis 07/21/12, [id number] UIQ location G3 ER+, WA+, HER-2/Eduardo Neg (1+), Ki-67 high, 27 % PI. Oncotype Recurrence Score 25 ( Intermediate risk), S/P breast conserving surgery and now on Adjuvant Anastrazole Tx. Plan: 1.) Encourage enteral tube feeding and po diet as can be tolerated. 2.) To continue with daily outpt. Radiation Therapy. 3.) To reschedule outpt. low dose weekly chemotherapy, paclitaxel based once patient stabilized. 4.) Discussed clinical status and Tx plans with patient and her daughter at length today. 5.) Will re- assess 10/08/16. 10/07/16 16:53 Subjective: Sx: Having pain at R anterior cervical cancer mass site. Feels she has a good strategy for regain of wt. via Tube feedings. Daughter at bedside Objective: Low grade fever noted, VSS Thin WF in NAD, lying on Left side. HEENT- partial alopecia, anicteric, no oral lesions. Neck- mass in R neck measures at least 5 x 5 cm. NT. Chest- clear CVS- RSR, no extra HS ABD- soft, NT BS+ EXT- (+) for muscle wasting. Labs as noted here: Hgb 8.4, BUN/CR 22.0.5 Vital Signs Temp Pulse Resp BP Pulse Ox 37.7 C 86 18 113/63 96 10/07/16 09:42 10/07/16 07:26 10/07/16 07:26 10/07/16 07:26 10/07/16 07:26 Laboratory Results 10/07/16 05:42 10/07/16 05:42 10/06/16 10/07/16 10/08/16 05:59 05:59 05:59 Intake Total 2100 Output Total 0 Balance 2100 ICD10 Worksheet Patient Problems: Problems Problem Status Onset Dehydration Acute Fever Acute Head and neck cancer Acute Palliative care encounter Acute
[2016-10-07] MEDS: NS W/ 20 KCl/L 1,000 ML IV SCH (20:08)
[2016-10-08] MEDS: KETOROLAC 15 MG/1 ML SDV IVP SCH ×5 (00:07→23:33)
[2016-10-08] MEDS: ACETAMINOPHEN 325 MG TAB PO PRN (00:24)
[2016-10-08] MEDS: METOCLOPRAMIDE 10 MG TAB PO SCH ×3 (01:09→18:01)
[2016-10-08] MEDS: oxyCODONE IR 5 MG TAB PO PRN ×3 (04:18→22:31)
[2016-10-08] MEDS: LEVOTHYROXINE 75 MCG TAB PO SCH (06:00)
[2016-10-08 06:18] LABS: % IMMATURE GRANULYOCYTES 0.9 % (0.0-1.1); ABSOLUTE IMMATURE GRANULOCYTES 0.07 10^3/uL (0.00-0.10); ADD DIFF? NO; ADD MORPH? NO; ADD SCAN? NO; ATYPICAL LYMPHOCYTE FLAG 60 (0-99); FRAGMENT RBC FLAG 0 (0-99); HEMATOCRIT 25.6 % (38.0-47.0); HEMOGLOBIN 8.3 g/dL (12.6-16.3); LEFT SHIFT FLG 50 (0-99); LIPEMIA HEMOLYSIS FLAG 80 (0-99); MEAN CELL HEMOGLOBIN CONCENTR. 32.4 g/dL (32.4-36.7); MEAN CELL VOLUME 95.5 fL (81.5-99.8); MEAN PLATELET VOLUME 9.4 fL (8.7-11.7); PLATELET CLUMPS FLAG 10 (0-99); PLATELET COUNT 348 10^3/uL (150-400); RED BLOOD CELL COUNT 2.68 10^6/uL (4.18-5.33); RED CELL DISTRIBUTION WIDTH 16.5 % (11.5-15.2)
[2016-10-08 06:39] LABS: ANION GAP 5 mEq/L (8-16); CARBON DIOXIDE 22 mEq/l (22-31); CHLORIDE 104 mEq/L (97-110); CREATININE 0.4 mg/dL (0.6-1.0); GLOMERULAR FILTRATION RATE > 60; GLUCOSE 105 mg/dL (70-100); POTASSIUM 4.3 mEq/L (3.5-5.2); SODIUM 131 mEq/L (134-144)
[2016-10-08] MEDS: NS W/ 20 KCl/L 1,000 ML IV SCH (06:41)
[2016-10-08] MEDS: FLUTICASONE/SALMETER 250/50MCG DISKUS IH SCH (09:12)
[2016-10-08] MEDS ORDERED: IOPAMIDOL (ISOVUE 370) 100 ML BTL IV ONE (09:17)
[2016-10-08] MEDS: ENOXAPARIN 40 MG/0.4 ML SYR SC SCH (10:29)
[2016-10-08] MEDS: SENNOSIDES/DOCUSATE SODIUM TAB PO SCH ×2 (10:29→23:11)
[2016-10-08] MEDS: PANTOPRAZOLE SODIUM 40 MG in NS 100 ML IV SCH (10:30)
[2016-10-08] MEDS: LIDOCAINE 4% 15 GM CREAM TP SCH ×4 (10:30→21:33)
[2016-10-08] MEDS: CHLORHEXIDINE GLUCONATE 15 ML UDL PO SCH ×2 (10:30→21:31)
[2016-10-08] MEDS ORDERED: ERTAPENEM 1 GM in NS 100 ML IV SCH (11:30)
--- NOTE | 2016-10-08 15:02 | HOSPPROG ---
Hospitalist Progress Note Assessment/Plan: Assessment: 65-year-old female presenting with SIRS in setting of squamous cell carcinoma Plan: 1. SIRS. Tachycardia (118) and Fever (102F) w/o clearly identifiable source of infxn, although CT abd results are concerning for possible smoldering pelvic abscess - d/w Dr. Cai who has d/w Dr. Spears, he reports area is not amenable to IR biopsy, but TVUS would be best to characterize it further - d/w Dr. Nicholson, it is certainly possible that she has some microperforation from her prior nolan's, placing on empiric Abx based on prior cx/sensitivity results for combination of enterococcus/e. coli - daughter is ordering outside CT records from [facility] for comparison - cont in IVF 2. BETSEY. 2/2 hypovolemia, resolved 3. Hyponatremia. Acute, 2/2 hypovolemia, resolved 4. Squamous Cell Carcinoma. Of head and neck, cont pain Rx (lowered 2/2 sedating side effects) - palliative consultation - adding low dose gabapentin HS - chemo/XRT on hold while acutely ill 5. Atelectasis. Present on CXR, IS 6. Anxiety. 2/2 underlying illness, adjusted benzo to ativan PRN 7. Severe protein calorie malnutrition. Temp muscle wasting, meets ASPEN, cont TF w/ dietary guidance - place on TPN 8. Chronic pain w/ continuous opiate dependency. Reducing dosages of opiates 9. Hydronephrosis. Mild, 2/2 obstructed ureter from fluid collection - does not currently warrant renal stent, but will continue monitoring Cr level Diet. TF w/ PO, dietary consult appreciated PPx. High risk, on lovenox 40 Code. Full Dispo. ADD uncertain, ongoing SIRS w/ ongoing w/u High medical complexity, high risk of worsening morbidity/mortality, 2/2 above. Subjective: Patient reports that she is more cognitively aware this morning than she was yesterday Objective: Vital Signs Temp Pulse Resp BP Pulse Ox 37.1 C 93 91 H 118/57 L 92 10/08/16 12:00 10/08/16 12:00 10/08/16 12:00 10/08/16 12:00 10/08/16 07:48 Microbiology 10/07/16 20:26 Respiratory Panel (PCR) - Final Nasal, Sinus - Other No Organism Detected Laboratory Results 10/08/16 05:55 10/08/16 05:55 10/07/16 10/08/16 10/09/16 05:59 05:59 05:59 Intake Total 2100 1000 Output Total 0 950 400 Balance 2099 50 -400 - Physical Exam Constitutional: no apparent distress, chronically ill appearing, uncomfortable, cachectic Cardiovascular: systolic murmur (2/6 systolic murmur at the sternum and apex), tachycardia, No irregularly irregular, No edema Respiratory: no respiratory distress, no rales or rhonchi, clear to auscultation Gastrointestinal: normoactive bowel sounds, tenderness (Left lower quadrant mild to moderate palpation), other (Ostomy bag in place), No guarding, No distension Skin: other (No erythema induration fluctuance or edema on the abdomen wall) Neurologic: AAOx3, No weakness (Motor strength 5/5 bilateral lower extremities) Psychiatric: interacting appropriately, not encephalopathic, thought process linear, anxious, No agitated ICD10 Worksheet Patient Problems: Problems Problem Status Onset Fever Acute Dehydration Acute Palliative care encounter Acute Head and neck cancer Acute
[2016-10-08] MEDS ORDERED: D10W 1,000 ML IV PRN (15:04)
--- NOTE | 2016-10-08 15:18 | SOAPPROG ---
SOAP Progress Note Assessment/Plan: Assessment: 1.) Suspected Khoa Pouch perf. with microabscess formation seen by CT today. In need of Surgical consult as to surgical intervention. Discussed with patient and her daughter simultaneously with Dr. Nicholson this afternoon. ABx therapy initiated earlier today. 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 Received Carboplatin + Paclitaxel Cycle 1, Day 1 08/20/16 Diverticular perf. 08/20/16 requiring emergency surgery w/ diverting ostomy. Primary tumor showed immediate Tx response, but with complications delaying continued Tx, she showed mass progression. Now on a plan for Radiation Therapy + low dose systemic chemotherapy for hopefully more manageable Combined Modality approach. She was to have started chemotherapy this week- now delayed with this inpt. hospitalization, 3.) Wt. loss- Likely to be on TPN, with prolonged nutritional support likely needed. 4.) S/P Diverting Colostomy - see above. 5.) Hx. of Stage IA, R breast Cancer in remission- diagnosis 07/21/12, [id number] UIQ location G3 ER+, ND+, HER-2/Eduardo Neg (1+), Ki-67 high, 27 % PI. Oncotype Recurrence Score 25 ( Intermediate risk), S/P breast conserving surgery and now on Adjuvant Anastrazole Tx. 6.) UTI w/ E. coli and E. faecalis. Plan: 1.) Agree with surgical consult as to need for Explor. Lap. and revision of Khoa pouch/perf+ microabscess. 2.) Obviously the new finding interrupts the possibility of resuming combined modality chemotherapy + Radiation Therapy to her Oropharyngeal Sq. Cell CA 3.) Will update Dr. Anand- Radiation Oncology to consider if single modality Rad. Therapy could be resumed next week. Radiation Oncology dept. called by me this afternoon. Additionally, I have contacted Dr. Letha Hadley's primary Medical Oncologist to involve him in new situation and plans from here. 4.) Discussed clinical status and Tx plans with patient and her daughter at length today. Discussion took place in the presence of ID Service- Dr. Sanjuanita Nicholson and I reviewed the urgency of her situation simultaneously. 5.) Our service will re- assess 10/09/16. Dr. Anne-Marie Foreman MD is applications programmer this weekend, and I will inform her of the situation. 10/08/16 15:28 Subjective: Feeling poorly, gary. with fever and unfolding issue of potential perf. with abscess. Daughter at the bedside. Objective: Temp to 102 with tachycardic episode noted- at [place] last evening. Now VSS HEENT- alopecia, anicteric, no oral lesions Neck- R neck mass, unchanged/(+) tender and measures at least 5 x 5 x 3 cm on physical exam. Chest- clear CVS- RSR, no extra HS ABD- soft, NT, no rebound. BS+, Midline incision with small dehiscence at middle of incision, now healing and w/o drainage or odor. Ostomy functioning well. EXT- thin, without edema. Pulses strong/equal. L PICC line in place and NT Labs as noted here: Hgb 8.3, WBC 7.46, BUN/Cr 11/0.4. Urine Cx: (+) for E. Faecalis and E. Coli. Imaging: CTA (-) for PE CT abd/pelvis: Khoa pouch- suggested microperf with microabscess formation adjacent. Possible tubulo-ovarian abscess. Vital Signs Temp Pulse Resp BP Pulse Ox 37.1 C 93 91 H 118/57 L 92 10/08/16 12:00 10/08/16 12:00 10/08/16 12:00 10/08/16 12:00 10/08/16 07:48 Microbiology 10/07/16 20:26 Respiratory Panel (PCR) - Final Nasal, Sinus - Other No Organism Detected Laboratory Results 10/08/16 05:55 10/08/16 05:55 10/07/16 10/08/16 10/09/16 05:59 05:59 05:59 Intake Total 2100 1000 Output Total 0 950 400 Balance 2100 50 -400 ICD10 Worksheet Patient Problems: Problems Problem Status Onset Dehydration Acute Fever Acute Head and neck cancer Acute Palliative care encounter Acute
[2016-10-08] MEDS: FLUCONAZOLE/NaCl 100 ML IV SCH (16:19)
[2016-10-08] MEDS: PIPERACILLIN/TAZO 3.375 GM/DEX 50 ML IV SCH (18:01)
--- NOTE | 2016-10-08 18:14 | GCON ---
[f rep st] CONSULTATION 65-year-old woman with history of squamous cell cancer of unknown origin found as incidental finding on dental exam for loose tooth. The patient has had, over the last 3 months, increasing amounts of soft tissue swelling seen by ENT. Both core biopsy and excisional biopsy demonstrate malignancy li henok from head and neck. She has undergone chemotherapy and is due for radiation. The patient had chemotherapy which resulted in a colon perforation, underwent end colostomy diversion in August. The patient also had G-tube placed by Interventional Radiology here at [facility] on y . The patient currently presented to the hospital with feelings of malaise. Workup was perform ed which demonstrates possible intraabdominal collection above the adnexal structures, possibly with in the uterus as well as phlegmon in the left lower pelvis possibly from disruption of previous stap led rectal stump. Currently the patient is feeling well. She has no specific complaints. She othe rwise would like to eat and try to gain some weight. PAST MEDICAL HISTORY: Significant for squamous cell cancer undergoing chemotherapy and radiation, c hronic pain with opioid dependence, hypothyroidism, asthma, previous history of breast cancer with r adiation therapy. PAST SURGICAL HISTORY: Includes appendectomy and recent end colostomy as well as biopsies of the ri ght neck. SOCIAL HISTORY: The patient denies alcohol, drug, or tobacco use. ALLERGIES: Ativan, codeine, and doxycycline. REVIEW OF SYSTEMS: 10-point review of systems is otherwise negative except for generalized malaise and fever of unknown origin. MEDICATIONS: Her home medications include Reglan, Compazine, levothyroxine, clonazepam, OxyContin, Advair, albuterol, and oxycodone. PHYSICAL EXAMINATION: VITAL SIGNS: Today has a temperature of 37.1, down from 37.5 on admission. Heart rate of 93, blood pressure 118/57, saturating 92% on room air. GENERAL: She appears grossly cachectic. She has alopecia from chemotherapy. HEENT: Sclerae anicteric. Oropharynx is slightly dry. She has a large right-sided mass at the angle of the mandible. Nontender to palpation. Firm. NECK: She has no JVD or thyromegaly. Her trachea is midline. LUNGS: Clear bilaterally. HEART: Regular heart tones. S1 and S2 audible. ABDOMEN: Soft. G-tube site is clean, dry, intact. Mid line incision has a small eschar in the middle but no signs of acute infection. She has a colostomy which is pink, patent, and productive of gas and stool. Extremities: Thin but she has 2+/2+ femor al dorsalis pedis pulses. She has no edema, no CVA tenderness. LABORATORY STUDIES: Reviewed. White blood count of 7.4, hemoglobin of 8.3, hematocrit of 25, plate let count of 384. She has chemistries showing sodium 131, potassium 4.3, chloride 104, bicarb 22, B UN 11, creatinine 0.4. IMAGING STUDIES: Also reviewed, showing phlegmon, possible abscess in the pericolic gutter on the l eft, new enhancing mass on the left lobe of the liver, mild left hydroureter and hydronephrosis. Tr ansvaginal ultrasound shows endometrial fluid and phlegmon in the left adnexa. IMPRESSION: Unlikely new abscess, possible from previous surgery, possible new endometrial infectio n. I will discuss this with Radiology on the next opportunity. PLAN OF CARE: Possible IR drainage versus antibiotic therapy only. Discuss this with Dr. Edouard as well as Dr. Nicholson of Infectious Disease. Will continue to follow while the patient is in the hosp ital. /[id number]/MODL
--- NOTE | 2016-10-08 18:18 | GCON ---
[f rep st] CONSULTATION INFECTIOUS DISEASE CONSULTATION. DATE OF CONSULTATION: 10/08/2016 REASON FOR CONSULTATION: Pelvic abscess. HISTORY OF PRESENT ILLNESS: A 65-year-old woman with a recent diagnosis of squamous cell carcinoma of the head and neck on 07/23/2016 with [id number] disease with PET scan positive for 4.2 x 3.0 right jugular digastric lymph node. Patient received carboplatin and paclitaxel cycle 1, day 1, 08/20/2016 but following that, patient developed abdominal pain and was admitted to the hospital for a diverticular perforation on the same day and subsequently underwent diverting colostomy on the . Intraoperative cultures at that time showed Enterococcus that was ampicillin and Levaquin susceptible E coli, next anaerobes and Casandra albicans. Reviewing medical records from [facility], patient was given Zosyn but discharged on fluconazole alone. In the interim, the patient received a PEG on 09/25/[address] scan of the upper portion of the abdomen without abnormalities noted. Subsequently, patient with fevers at home and was seen in Hematology/Oncology and was transferred to the emergency room for further evaluation due to fever and dehydration. Patient primarily reports right neck pain but on further review, patient does have some crampy abdominal pain in the belly that is generalized. No nausea, vomiting, diarrhea. Patient was approximately 10-15 pounds weight loss over the course of her illness. REVIEW OF SYSTEMS: A complete 10-point review of systems was performed and is negative except as mentioned in the HPI. PAST MEDICAL HISTORY: 1. Head/neck cancer, squamous cell carcinoma as above. Last chemo 08/20/2016. Patient received last XRT on admission 10/06/2016. 2. Sigmoid perforation secondary to diverticulitis with resultant Khoa pouch. 3. Abdominal incisional abscess status post I and D on 09/01. 4. 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 5. Stage IA right breast cancer, in remission, diagnosed 07/21/2012. PAST SURGICAL HISTORY: Exploratory laparotomy, colostomy and sigmoid resection with Khoa pouch formation 08/24/2016, appendectomy. SOCIAL HISTORY: The patient is a former smoker. No alcohol or illicits. 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 She lives in [place] with her daughter. ALLERGIES: Doxycycline causes Woods-Edgardo syndrome. She also reports allergies to Ativan and codeine. MEDICATIONS: The patient received 1 dose of ceftriaxone, 1 g, on 10/07/2016, dose of ertapenem today. She is also on Tylenol, Ventolin, Peridex mouthwash, Lovenox, lactulose, Synthroid, Reglan, morphine, Zofran, Protonix, MiraLAX, Advair. FAMILY HISTORY: Reviewed and noncontributory. PHYSICAL EXAMINATION: VITAL SIGNS: T-max 38.1, T current 37.1, blood pressure 118/57, heart rate 93, saturation 91% on room air. GENERAL: This is a very cachectic woman lying in bed, who is somewhat somnolent but awakes and is conversational. HEENT: Pupils are reactive bilaterally. No conjunctival hemorrhages. Oropharynx: No mucositis. Good dentition, dry mucous membranes. NECK: Patient with obvious swelling on the right side of her neck which is quite tender. Trachea was midline. CARDIOVASCULAR: Regular rate, no murmurs. CHEST: Clear to auscultation bilaterally. ABDOMEN: Midline incision is healed except for a very small superficial area mid incision. She had an ostomy in the left lower quadrant with significant gas and stool present. Her belly was nontender. EXTREMITIES: She has some muscle wasting. No swelling, no joint swelling. SKIN: No splinter hemorrhages or Janeway lesions. NEUROLOGICAL: She was moving all 4 extremities equally and although sleepy was mentating appropriately. LABORATORY: White count 7.4, hematocrit 25, neutrophils 76%. Platelets of 348 , creatinine 0.4, LFTs on admission were within normal limits except for a low total protein albumin at 6.[address] scan was personally reviewed by me with Radiology and showed likely microperforation of the Khoa pouch with a left pelvis phlegmon with microabscess formation, some mild left hydronephrosis likely due to hemipelvis phlegmon. The phlegmon is approximately 5 x 4 cm and non amenable by [address] chest showed spiculated right upper lobe nodules that are not changed since PET in July of 2016. Transvaginal ultrasound is pending at time of dictation. Urine culture growing multiple organisms with low CFUs including E coli, Enterococcus. Blood cultures from 10/06/2016 are no growth to date. ASSESSMENT AND PLAN: This is a 65-year-old woman with squamous cell carcinoma with recent bowel perforation due to diverticulitis requiring a diverting colostomy, who was identified to have tachycardia and fever without a focal infection on admission; therefore, a alberts CT scan was performed, and patient was found to have phlegmon/abscess associated with the incision line of the Khoa pouch. Case was discussed with surgical services, difficult to ascertain if this is associated with the rectal stump and/or reflects ongoing leakage versus residual abscess from prior perforation. Interestingly, patient without leukocytosis but this is not unexpected in this severely debilitated woman with squamous cell carcinoma. 1. Pelvic versus Abdominal abscess with concern of ongoing bowel leak. 2. History of severe drug reaction with Woods-Edgardo to doxycycline. 3. Organisms in urine reflect colonization as patient has no symptoms of UTI RECOMMENDATIONS: 1. Would start Zosyn at standard dosing 3.375 g IV q.6 to cover past culture results which include Enterococcus E coli, mixed anaerobes. Would also initiate fluconazole to cover C albicans. 2. While sorting out source of this phlegmon, it is reasonable to make patient n.p.o. and give TPN for nutritional support for concern of anastomotic leak 3. We will continue to follow cultures. 4. Patient with transvaginal ultrasound to better access phlegmon and location. 5. Appreciate surgical services close assessment to determine if surgical intervention is needed. Thank you for this consult. Time was 75 minutes, greater than 50% time spent with education and counseling regarding potential options of plan, coordination of care with Dr. Edouard, Dr. Cai and radiology. Addendum: Additional CT scan plus transvaginal ultrasound suggest abscess that is 5 x 4 cm is intra uterine, i.e. patient has endometritis. Therefore no evidence of anastomotic leak. Further Gynecology service was consulted for possible D and C. /[id number]/MODL MTDD
[2016-10-08] MEDS: ONDANSETRON 4 MG/2 ML VIAL IVP PRN (23:33)
[2016-10-09] MEDS: METOCLOPRAMIDE 10 MG TAB PO SCH ×3 (01:19→18:04)
[2016-10-09] MEDS: PIPERACILLIN/TAZO 3.375 GM/DEX 50 ML IV SCH ×4 (01:19→18:04)
[2016-10-09 04:57] LABS: ADD MORPH? NO; ADD SCAN? YES; ATYPICAL LYMPHOCYTE FLAG 0 (0-99); FRAGMENT RBC FLAG 0 (0-99); HEMATOCRIT 23.2 % (38.0-47.0); HEMOGLOBIN 7.6 g/dL (12.6-16.3); LIPEMIA HEMOLYSIS FLAG 80 (0-99); MEAN CELL HEMOGLOBIN 31.5 pg (27.9-34.1); MEAN CELL HEMOGLOBIN CONCENTR. 32.8 g/dL (32.4-36.7); MEAN CELL VOLUME 96.3 fL (81.5-99.8); PLATELET CLUMPS FLAG 0 (0-99); PLATELET COUNT 304 10^3/uL (150-400); RED BLOOD CELL COUNT 2.41 10^6/uL (4.18-5.33); RED CELL DISTRIBUTION WIDTH 16.4 % (11.5-15.2)
[2016-10-09 04:58] LABS: LEFT SHIFT FLG 100 (0-99)
[2016-10-09 05:05] LABS: INR 1.14 (0.83-1.16); PROTIME(PATIENT) 14.5 SEC (12.0-15.0)
[2016-10-09 05:06] LABS: APTT 36.9 SEC (23.0-38.0)
[2016-10-09 05:09] LABS: ALANINE AMINOTRANSFERASE 25 IU/L (9-52); ALBUMIN 2.2 g/dL (3.5-5.0); ALKALINE PHOSPHATASE 55 IU/L (38-126); ANION GAP 6 mEq/L (8-16); ASPARTATE AMINOTRANSFERASE 15 IU/L (14-46); BILIRUBIN,TOTAL 0.6 mg/dL (0.1-1.4); CARBON DIOXIDE 24 mEq/l (22-31); CHLORIDE 104 mEq/L (97-110); CREATININE 0.6 mg/dL (0.6-1.0); GLOMERULAR FILTRATION RATE > 60; GLUCOSE 90 mg/dL (70-100); MAGNESIUM 1.6 mg/dL (1.6-2.3); POTASSIUM 4.2 mEq/L (3.5-5.2); SODIUM 134 mEq/L (134-144); TOTAL PROTEIN 4.4 g/dL (6.3-8.2)
[2016-10-09 05:27] LABS: ADD DIFF? YES; SCAN POSITIVE
[2016-10-09 05:32] LABS: LARGE PLATELETS PRESENT; MICROCYTES 1+; PLATELET ESTIMATE ADEQUATE (ADEQ); POLYCHROMASIA 1+; TOXIC GRANULATION PRESENT
--- NOTE | 2016-10-09 05:41 | SOAPPROG ---
SOAP Progress Note Assessment/Plan: Assessment:rough night second to head pain only. no abd complaints. no rectal or pelvic complaints. no nausea. desiring to eat. afebrile. comfortable. abd soft, flat, nontender. soft brown stool in stoma. CT images reviewed - complex pelvic phlegmon with small areas of contained air. care plan discussed at length with patient. i agree with continued ABX treatment at this time rather than surgical drainage (area not amenable to percutaneous sampling). need to optimize nutrition - would use tube feeds with po as able. would re- image next week to assess for abscess evolution. may still require future surgical drainage. plan discussed in detail with patient. all questions entertained. Plan: 10/09/16 05:37 Objective: Vital Signs Temp Pulse Resp BP Pulse Ox 36.7 C 95 14 113/57 L 95 10/09/16 02:54 10/09/16 02:54 10/09/16 02:54 10/09/16 02:54 10/09/16 02:54 Microbiology 10/06/16 21:30 Urine Culture - Final Urine,Catheterized Escherichia Coli Enterococcus Faecalis Five Or More [place] Types 10/07/16 20:26 Respiratory Panel (PCR) - Final Nasal, Sinus - Other No Organism Detected Laboratory Results 10/09/16 04:50 10/09/16 04:50 10/07/16 10/08/16 10/09/16 05:59 05:59 05:59 Intake Total 2100 1000 400 Output Total 0 950 1000 Balance 2100 50 -600 PT 14.5 SEC (12.0-15.0) 10/09/16 04:50 INR 1.14 (0.83-1.16) 10/09/16 04:50 ICD10 Worksheet Patient Problems: Problems Problem Status Onset Dehydration Acute Fever Acute Head and neck cancer Acute Palliative care encounter Acute
[2016-10-09] MEDS: KETOROLAC 15 MG/1 ML SDV IVP SCH ×3 (05:48→18:04)
[2016-10-09] MEDS: LEVOTHYROXINE 75 MCG TAB PO SCH (05:48)
[2016-10-09] MEDS: LIDOCAINE 4% 15 GM CREAM TP SCH ×4 (06:48→22:22)
[2016-10-09] MEDS: FLUTICASONE/SALMETER 250/50MCG DISKUS IH SCH (08:32)
[2016-10-09] MEDS: ENOXAPARIN 40 MG/0.4 ML SYR SC SCH (09:23)
[2016-10-09] MEDS: SENNOSIDES/DOCUSATE SODIUM TAB PO SCH ×3 (09:24→20:23)
[2016-10-09] MEDS: CHLORHEXIDINE GLUCONATE 15 ML UDL PO SCH ×2 (09:24→20:20)
[2016-10-09] MEDS: PANTOPRAZOLE SODIUM 40 MG in NS 100 ML IV SCH (09:25)
[2016-10-09] MEDS: FLUCONAZOLE/NaCl 100 ML IV SCH (09:25)
--- NOTE | 2016-10-09 10:20 | SOAPPROG ---
SOAP Progress Note Assessment/Plan: Assessment/Plan: 1. Complicated pelvic phlegmon - not amenable to IR drainage Transvaginal US reviewed; Appreciate general surgery favor abx and close observation w repeat imaging early next week per surgery ok for TF for nutrition appreciate ID as well 2. Oropharyngeal SCC of unknown primary dx 07/2016, TxN2b, M0 PET scan + 4.2 x [address] w SUV 5.9 Received carbo+taxol C1D1 08/20/16 Diverticular perf same day requiring emergency surgery w diverting ostomy Primary tumor w immediate response but complications delayed tx and mass has progressed Now on plan for XRT w low dose chemo would delay chemo until repeat imaging on phlegmon next week If cytotoxic chemo a concern consider cetuximab for radiation helper electrical Continue radiation next week 3. Wt loss - TF to start soon for nutrition 4. Diverting ostomy 5. Hx of Stage IA breast ca in remission on adjuvant anastrozole 6. UTI w E Coli and E faecalis 7. Anemia - multifactorial; consider transfusing given pt weakness 10/09/16 10:06 10/09/16 10:23 10/09/16 10:23 Subjective: Fatigues and sad today feels situation is hopeless Denies pain occasional SOB which is not new ostomy functioning Objective: Vital Signs Temp Pulse Resp BP Pulse Ox 37.1 C 82 14 106/63 93 10/09/16 08:00 10/09/16 08:35 10/09/16 08:35 10/09/16 08:00 10/09/16 08:35 Microbiology 10/06/16 21:30 Urine Culture - Final Urine,Catheterized Escherichia Coli Enterococcus Faecalis Five Or More [place] Types 10/07/16 20:26 Respiratory Panel (PCR) - Final Nasal, Sinus - Other No Organism Detected Laboratory Results 10/09/16 04:50 10/09/16 04:50 10/08/16 10/09/16 10/10/16 05:59 05:59 05:59 Intake Total 1000 400 Output Total 950 1400 Balance 50 -1000 PT 14.5 SEC (12.0-15.0) 10/09/16 04:50 INR 1.14 (0.83-1.16) 10/09/16 04:50 Gen - cachectic HEENT - R neck mass measures 5x5cm on exam Chest - CTA CV - RRR Abd - soft, BS+, ostomy intact; G tube intact Ext - thin, no edema ICD10 Worksheet Patient Problems: Problems Problem Status Onset Dehydration Acute Fever Acute Head and neck cancer Acute Palliative care encounter Acute
[2016-10-09] MEDS ORDERED: MAGNESIUM HYDROXIDE 30 ML UDCUP PO ONE (12:36)
[2016-10-09] MEDS ORDERED: MAGNESIUM HYDROXIDE 30 ML UDCUP PO PRN (12:37)
--- NOTE | 2016-10-09 12:41 | PCMIDPN ---
Assessment/Plan: # SIRS due to pelvic infection: CT findings now determined to be Endometritis with associated phlegmon L adnexa, suspect this is a complication of prior diverticular perforation mid August, suspect GI tarun. Prior isolates include Ecoli, enterococcus, mixed anaerobes, aidan albicans (all at OSH). No evidence of bowel leak after re-eval CT in setting of prior CT scans. 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 Likely transition to PO Augmentin + fluconazole for dc to be crushed into PEG --duration of antibiotics to be determined # Bandemia: likely due to infection above zosyn 3.75gm IV q6h fluconazole 200mg IV daily 08/22/2016 E coli AMPICILLIN <=2 S CEFAZOLIN <=4 S GENTAMICIN <=1 S LEVOFLOXACIN 0.12 S PIPERACILLIN/TAZOBACTAM VITEK <=4 S TRIMETH/SULFA S 2 diff colonies enterococcus AMPICILLIN <=2 S LEVOFLOXACIN 1 S Subjective: Patient reports a rough night due to right neck pain. Objective: Vital Signs Temp Pulse Resp BP Pulse Ox 37.0 C 85 18 107/50 L 95 10/09/16 12:00 10/09/16 12:00 10/09/16 12:00 10/09/16 12:00 10/09/16 12:00 Microbiology 10/06/16 21:30 Urine Culture - Final Urine,Catheterized Escherichia Coli Enterococcus Faecalis Five Or More [place] Types Laboratory Results 10/09/16 04:50 10/09/16 04:50 10/08/16 10/09/16 10/10/16 05:59 05:59 05:59 Intake Total 1000 400 Output Total 950 1400 Balance 50 -1000 - Physical Exam General Appearance: alert, cachetic, non-toxic EENT: dry mucous membranes, No thrush Respiratory: lungs clear, No accessory muscle use Neck: tender lateral (Right neck swelling and tenderness due to malignancy) Cardiac/Chest: regular rate, rhythm Abdomen: non-tender, soft, other (Ostomy with light brown stool, peg tube in place with some small amount of discharge but no surrounding erythema) Pelvic Exam: No dhaliwal Skin: No rash Neuro/Psych: alert, normal mood/affect, oriented x 3 - Line/s LUE PICC Lines: No drainage, No erythema - Time Spent With Patient Time Spent with Patient: greater than 35 minutes (Reviewed CT scans with Dr. Mei and Dr. Concepcion, coordination of care with Dr. Edouard. Reviewed findings with patient and daugher) Time Spent with Patient: Greater than 35 minutes spent on this patients care, greater than 50% of time spent counseling, educating, and coordinating care regarding the above mentioned plan. ICD10 Worksheet Patient Problems: Problems Problem Status Onset Dehydration Acute Fever Acute Head and neck cancer Acute Palliative care encounter Acute
--- NOTE | 2016-10-09 12:41 | HOSPPROG ---
Hospitalist Progress Note Assessment/Plan: Assessment: 65-year-old female presenting with SIRS in setting of squamous cell carcinoma, c/b possible endometritis Plan: 1. SIRS. Tachycardia (118) and Fever (102F) w/o clearly identifiable source of infxn, although CT abd results are concerning for possible endometritis - d/w Dr. Nicholson, we agree that the TVUS seems more indicative of endometritis and that the findings appear to be evolved from prior CT imaging - d/w Dr. Peres from OB, consultation appreciated, she recommends ongoing use of Abx at this time - cont on Zosyn, will consider adjustment to PO - cont in IVF 2. BETSEY. 2/2 hypovolemia, resolved 3. Hyponatremia. Acute, 2/2 hypovolemia, resolved 4. Squamous Cell Carcinoma. Of head and neck, cont pain Rx (lowered 2/2 sedating side effects) - palliative consultation - added low dose gabapentin HS - chemo/XRT on hold while acutely ill 5. Atelectasis. Present on CXR, IS 6. Anxiety. 2/2 underlying illness, adjusted benzo to ativan PRN 7. Severe protein calorie malnutrition. Temp muscle wasting, meets ASPEN, cont TF w/ dietary guidance - supplements, encourage PO, hold on TPN 8. Chronic pain w/ continuous opiate dependency. Reduced doses of opiates, pain level increasing - counseled patient and daughter re: risk of oversedation w/ increasing doses, but we are monitoring her so safe to trial higher dose of CR to 15mg bid as well as increase range/frequency of oxy IR - start MoM to prevent constipation 9. Hydronephrosis. Mild, 2/2 obstructed ureter from fluid collection - does not currently warrant renal stent, but will continue monitoring Cr level Diet. TF w/ PO, dietary consult appreciated PPx. High risk, on lovenox 40 Code. Full Dispo. ADD uncertain, ongoing infxn w/u High medical complexity, high risk of worsening morbidity/mortality, 2/2 above. Subjective: No bowel movements, patient reports suboptimal pain control of the right neck Objective: Vital Signs Temp Pulse Resp BP Pulse Ox 37.0 C 85 18 107/50 L 95 10/09/16 12:00 10/09/16 12:00 10/09/16 12:00 10/09/16 12:00 10/09/16 12:00 Microbiology 10/06/16 21:30 Urine Culture - Final Urine,Catheterized Escherichia Coli Enterococcus Faecalis Five Or More [place] Types Laboratory Results 10/09/16 04:50 10/09/16 04:50 10/08/16 10/09/16 10/10/16 05:59 05:59 05:59 Intake Total 1000 400 Output Total 950 1400 Balance 50 -1000 PT 14.5 SEC (12.0-15.0) 10/09/16 04:50 INR 1.14 (0.83-1.16) 10/09/16 04:50 - Physical Exam Constitutional: no apparent distress, chronically ill appearing, uncomfortable, cachectic Cardiovascular: regular rate and rhythym, no murmur, rub, or gallop, No edema Respiratory: no respiratory distress, no rales or rhonchi, clear to auscultation Gastrointestinal: tenderness (Left lower quadrant), guarding (Voluntary left lower quadrant), other (Ostomy bag in place, healthy-appearing stoma), No normoactive bowel sounds (Hypoactive bowel sounds), No distension Genitourinary: other (Fullness in the suprapubic area) Neurologic: AAOx3 Psychiatric: interacting appropriately, not encephalopathic, thought process linear, anxious, No agitated ICD10 Worksheet Patient Problems: Problems Problem Status Onset Fever Acute Dehydration Acute Palliative care encounter Acute Head and neck cancer Acute
[2016-10-09] MEDS: oxyCODONE IR 5 MG TAB PO PRN ×2 (14:39→20:20)
--- NOTE | 2016-10-09 15:49 | GCON ---
[f rep st] CONSULTATION REFERRING PHYSICIAN: Balbir Edouard MD HISTORY OF PRESENT ILLNESS: The patient is a 65-year-old G1, P1-0-0-1, with a history of head and neck squamous cell carcinoma that was found earlier this year. She has begun treatment, including chemotherapy. Her course has been complicated by a perforated diverticulitis that resulted in surgery at the end of August, where she underwent an exploratory laparotomy with end colostomy diversion. She also had a G-tube placed by Interventional Radiology at [facility] on September 24. She was initially doing well after surgery. However, she recently presented to the hospital on October 06 after having a fever at and complaining of malaise with evidence of SIRS and dehydration. She had a normal CT of the chest. She then underwent a CT scan of the pelvis which showed a phlegmon had formed in the left pelvis. At this time, she underwent a transvaginal ultrasound which confirmed there is a tubo-ovarian abscess/ phlegmon on the left and also a large collection of fluid and gas within the uterus, concerning for possible endometritis. This finding was not present on her prior CT scan. The patient today states she is feeling overall well though with low morale. She is most distressed that her cancer treatment is being delayed for other medical issues. She denies any abdominal pain or cramping. She denies any vaginal discharge or vaginal bleeding. She went through menopause at approximately age 51. She has not taken any hormone therapy. She did take an aromatase inhibitor after diagnosis of breast cancer 4 years ago. REVIEW OF SYSTEMS: Negative except as stated in the HPI. PAST MEDICAL HISTORY: Head and neck squamous cell cancer as noted, chronic pain with opioid dependence, hypothyroidism, asthma, previous history of breast cancer with radiation therapy, history of frequent pneumonia, history of idiopathic neuropathy of bilateral feet. PAST SURGICAL HISTORY: Appendectomy, orthopedic repair of leg and elbow after accident, tonsillectomy. SOCIAL HISTORY: The patient denies alcohol, drug, or tobacco use. ALLERGIES: Ativan, codeine, and doxycycline (rash). FAMILY HISTORY: Noncontributory. MEDICATIONS: Reglan, Compazine, levothyroxine, clonazepam, OxyContin, Advair, albuterol, and oxycodone. BOTTLE SORTER HISTORY: History of 1 which resulted in a term, uncomplicated vaginal delivery. Remote history of mild cervical dysplasia that was treated with cryotherapy and subsequently resolved. Denies any history of pelvic inflammatory disease or pelvic infections such as gonorrhea or chlamydia. She denies having any surgery on her uterus or ovaries. PHYSICAL EXAM: VITAL SIGNS: Blood pressure 107/50, pulse 85, respirations 18, temperature 37. GENERAL: Alert, awake, and oriented, in no acute distress. Cachectic appearing. Alopecia from chemotherapy. LUNGS: Respirations clear. HEART: Regular heart tones. ABDOMEN: Soft, nondistended, nontender. G-tube site is clean, dry, and intact. Vertical incision inferior to the umbilicus is well healed. Colostomy which is pink, patent, and productive of gas and stool. EXTREMITIES: No edema. Normal pulses. LABORATORY TESTS: White blood count of 7.4, hemoglobin 8.3, hematocrit 25, platelet count 384. Chemistries showing sodium 134, potassium 4.2, chloride 104 , carbon dioxide 24, creatinine 0.6, BUN 5. Liver function tests normal apart from a low total protein of 4.4 and low albumin of 2.2. Urinalysis demonstrates trace ketones, trace leukocyte esterase, 3-5 WBCs, and 2+ mucus. Urine culture indicative of 6000 colony-forming units/mL of E coli, 2000 colony- forming units/mL of Enterococcus, and 5 or more mixed colony types of urogenital and skin tarun. Blood cultures show no growth at 36 hours. IMAGING: Transvaginal ultrasound was performed and images were reviewed by me. The ultrasound demonstrates a left adnexal phlegmon, as was previously shown on the CT abdomen and pelvis, a normal right ovary and also fluid and gas within the endometrial cavity measuring 4.5 cm in length by 1.9 cm long. IMPRESSION: Expect there has been seeding of the left adnexa and uterus from her prior ruptured diverticulitis, resulting in a left-sided tubo-ovarian abscess, and now concurrent endometritis with a large fluid collection in the uterus. Fluid collection could be a pyometra, blood, or other serous inflammatory fluid. She is currently receiving IV Zosyn for antibiotic therapy as recommended by Infectious Disease consultation, which should provide adequate anaerobic and gram negative coverage. She is currently clinically stable with normal vital signs. At this point, blood culture shows no growth to date. She has no evidence of urine infection. General Surgery, Dr. Mei, has been consulted and recommends ongoing treatment with antibiotics at this time with consideration for surgical intervention in the future if antibiotic therapy is not successful. Per the chart, discussion with Interventional Radiology has occurred and they do not feel the intraabdominal phlegmon is amenable to percutaneous drainage at this time. PLAN: I discussed the patient's course and her care in detail and answered all of her questions. We reviewed my impression that this is a complication from her prior ruptured diverticulitis. I discussed with her that if in the event the general surgery team feels it is indicated to perform an exploratory laparotomy, I would recommend she have removal of the uterus and bilateral tubes and ovaries at that time, as they appear to have been seeded with this infection. However, I agree that a trial of IV antibiotics should be completed prior to entertaining this type of surgical intervention. We also discussed the fluid collection inside the uterus, and we reviewed the options of waiting to see if this improves on repeat imaging or proceeding with transcervical drainage of the fluid collection. After discussing the risks and benefits, she strongly desires to proceed with drainage of the fluid collection as her goal is to get better as soon as possible so she can resume cancer treatment. We discussed this procedure does not guarantee faster clinical improvement nor does it necessarily make it less likely she will need additional surgery. There is a benefit of obtaining a sample of the fluid for microbacterial analysis to tailor antibiotics moving forward, and also the possibility of hastening her improvement from this infection and reducing the risk of spontaneous uterine perforation which could negatively impact her course. We discussed the risks and benefits of the procedure in detail. She would like to be under anesthesia as she states she has already been through a lot of pain and would like to be completely asleep during the procedure. We discussed risks including pain, infection, possible risk of bleeding or blood transfusion. We discussed there is a risk of failure to complete the procedure due to cervical stenosis. We also discussed the most serious risk of uterine perforation, for which she is at higher risk given the active infection. We reviewed the plan to dilate the cervix, evacuate the fluid collection, and place an indwelling Kay catheter for ongoing flushing and drainage of the uterus. After discussion in detail, she strongly desires to proceed with this procedure. Consent forms were signed. She will be made n.p.o. after midnight with plan to proceed to the operating room at 0800 tomorrow. We will do cervical preparation with misoprostol 200 mcg per vagina tonight. Thank you for this consult. Home Office Claims Examiner will continue to follow this patient. /[id number]/MODL MTDD
[2016-10-09] MEDS: oxyCODONE CR 15 MG TAB PO SCH ×2 (16:11→22:17)
[2016-10-09] MEDS: GABAPENTIN 300 MG CAP PO SCH (20:21)
[2016-10-09] MEDS ORDERED: TPN 1 EA BAG IV SCH (21:00)
[2016-10-09] MEDS ORDERED: GABAPENTIN 100 MG CAP PO SCH (21:00)
[2016-10-09] MEDS ORDERED: MISOPROSTOL 200 MCG TAB VG ONE (21:00)
[2016-10-09] MEDS: NS W/ 20 KCl/L 1,000 ML IV SCH (22:17)
[2016-10-10] MEDS: PIPERACILLIN/TAZO 3.375 GM/DEX 50 ML IV SCH ×4 (00:39→19:44)
[2016-10-10] MEDS: KETOROLAC 15 MG/1 ML SDV IVP SCH ×4 (00:39→19:44)
[2016-10-10] MEDS: METOCLOPRAMIDE 10 MG TAB PO SCH ×3 (00:40→19:48)
[2016-10-10] MEDS: oxyCODONE IR 5 MG TAB PO PRN ×3 (00:40→13:10)
[2016-10-10] MEDS: ACETAMINOPHEN 325 MG TAB PO PRN ×2 (02:59→03:02)
[2016-10-10] MEDS: LEVOTHYROXINE 75 MCG TAB PO SCH (04:26)
[2016-10-10 04:52] LABS: % IMMATURE GRANULYOCYTES 1.6 % (0.0-1.1); ABSOLUTE IMMATURE GRANULOCYTES 0.09 10^3/uL (0.00-0.10); ADD DIFF? NO; ADD MORPH? NO; ADD SCAN? NO; ATYPICAL LYMPHOCYTE FLAG 90 (0-99); FRAGMENT RBC FLAG 40 (0-99); HEMATOCRIT 24.2 % (38.0-47.0); HEMOGLOBIN 7.7 g/dL (12.6-16.3); LEFT SHIFT FLG 20 (0-99); LIPEMIA HEMOLYSIS FLAG 80 (0-99); MEAN CELL HEMOGLOBIN 30.3 pg (27.9-34.1); MEAN CELL HEMOGLOBIN CONCENTR. 31.8 g/dL (32.4-36.7); MEAN CELL VOLUME 95.3 fL (81.5-99.8); MEAN PLATELET VOLUME 9.2 fL (8.7-11.7); PLATELET CLUMPS FLAG 0 (0-99); PLATELET COUNT 392 10^3/uL (150-400); RED BLOOD CELL COUNT 2.54 10^6/uL (4.18-5.33); RED CELL DISTRIBUTION WIDTH 16.5 % (11.5-15.2)
[2016-10-10 05:11] LABS: ALANINE AMINOTRANSFERASE 23 IU/L (9-52); ALBUMIN 2.2 g/dL (3.5-5.0); ALKALINE PHOSPHATASE 60 IU/L (38-126); ANION GAP 5 mEq/L (8-16); ASPARTATE AMINOTRANSFERASE 14 IU/L (14-46); BILIRUBIN,TOTAL 0.5 mg/dL (0.1-1.4); CALCIUM 8.1 mg/dL (8.5-10.4); CARBON DIOXIDE 24 mEq/l (22-31); CHLORIDE 103 mEq/L (97-110); CREATININE 0.7 mg/dL (0.6-1.0); GLOMERULAR FILTRATION RATE > 60; GLUCOSE 89 mg/dL (70-100); MAGNESIUM 1.7 mg/dL (1.6-2.3); POTASSIUM 4.7 mEq/L (3.5-5.2); SODIUM 132 mEq/L (134-144); TOTAL PROTEIN 4.8 g/dL (6.3-8.2)
[2016-10-10] MEDS: LIDOCAINE 4% 15 GM CREAM TP SCH ×4 (05:34→22:08)
[2016-10-10] MEDS ORDERED: LIDOCAINE 1% 300 MG/30 ML SDV ONE (07:31)
[2016-10-10] MEDS ORDERED: SILVER NITRATE APPLICATOR 1 APPL TP ONE (07:31)
[2016-10-10] MEDS ORDERED: DEXAMETHASONE 4 MG/ML VIAL ONE (07:54)
[2016-10-10] MEDS ORDERED: fentaNYL 100 MCG/2 ML INJ ONE ×3 (07:54→09:37)
[2016-10-10] MEDS ORDERED: ONDANSETRON 4 MG/2 ML VIAL ONE (07:54)
[2016-10-10] MEDS ORDERED: LIDOCAINE 2% 100 MG/5 ML SYR ONE (07:54)
[2016-10-10] MEDS ORDERED: PROPOFOL 200 MG/20 ML VIAL ONE (07:55)
[2016-10-10] MEDS ORDERED: MIDAZOLAM 2 MG/2 ML VIAL ONE (07:56)
[2016-10-10] MEDS ORDERED: HYDROmorphONE/DILAUDID 1 MG/ML SYR IVP PRN ×2 (09:00→13:47)
[2016-10-10] MEDS ORDERED: HYDROmorphONE/DILAUDID 2 MG/ML INJ ONE (09:09)
[2016-10-10] MEDS ORDERED: oxyCODONE IR 5 MG TAB ONE (09:16)
--- NOTE | 2016-10-10 09:27 | GOP ---
[f rep st] OPERATIVE REPORT DATE OF OPERATION: 10/10/2016 SURGEON: Fabby Peres MD ANESTHESIA: General with LMA. ANESTHESIOLOGIST: Dr. Neela ROWAN. PREOPERATIVE DIAGNOSIS: Pyometra secondary to perforated diverticulitis. POSTOPERATIVE DIAGNOSIS: Pyometra secondary to perforated diverticulitis. PROCEDURE PERFORMED: Cervical dilation, evacuation of uterine pyometra, placement of intrauterine Kay catheter. FINDINGS: Small midline uterus on bimanual exam. Gush of purulent fluid at time of entry into uterus with dilator. SPECIMENS: 1) Catheter-specimen urine for culture 2) Pyometrial fluid for gram stain, aerobic/anaerobic culture ESTIMATED BLOOD LOSS: Minimal. 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 She had a ruptured diverticulitis 2 months ago that resulted in an intraabdominal surgery for a diverting colostomy. She was initially doing well, however presented to the hospital on October 06 with malaise, fever at home and SIRS. Imaging demonstrated a left lower quadrant phlegmon and also was consistent with endometritis and uterine pyometra, which was likely an extension from the extra uterine disease. She was started on IV Zosyn per ID consult. Given the fluid within the uterus as noted on transvaginal ultrasound, I recommended cervical dilation to drain this collection and placement of catheter for further drainage. We discussed the risks and benefits of the procedure and she agreed to proceed. DESCRIPTION OF PROCEDURE: Patient was brought to the operating room and a time- out was performed. General anesthetic with LMA was obtained. She was prepped and draped in the normal sterile fashion in dorsal lithotomy with Gregory stirrups. A bladder catheterization was performed and the urine was sent off for evaluation. A final time-out was performed. A speculum was placed and the cervix was further cleansed with Betadine. A single-tooth tenaculum was placed on the anterior lip of the cervix. The cervix was sequentially dilated from 2 mm to 7 mm. As noted above, at time of entry into the uterus there was a gush of purulent fluid. The fluid was collected sterilely and was sent for evaluation. An 18-gauge Kay catheter was inserted through the internal os and was filled with 20 cc of saline. A small amount of purulent discharge was able to be drawn back from the catheter confirming that it was in the correct intrauterine location. The vagina was thoroughly irrigated. All instruments were removed. Hemostasis was noted at this time. The patient was awakened and brought to the recovery room in stable condition. She will continue IV Zosyn until further microbiology analysis is available to help tailor antibiotics. Counts were correct x2. COMPLICATIONS: None. /[id number]/MODL MTDD
--- NOTE | 2016-10-10 10:27 | SOAPPROG ---
SOAP Progress Note Assessment/Plan: Assessment/Plan: 1. Complicated pelvic phlegmon - appreciate Dr Peres Turns out pt had pyometra due to previous perforated diverticulitis Pt s/p evacuation this morning and cultures sent Abx per ID 2. Oropharyngeal SCC of unknown primary dx 07/2016, TxN2b, M0 PET scan + 4.[address] w SUV 5.9 Received carbo+taxol C1D1 08/20/16 Diverticular perforation same day requiring emergency surgery w diverting ostomy Primary tumor w immediate response but complications delayed tx and mass has progressed Now back on XRT Cytotoxic chemo a concern given above but believe low dose should be considered for best response Can also consider cetuximab for radiation overnight stocker 3. Wt loss - cont TF 4. Diverting ostomy 5. Hx of Stage IA breast ca in remission on adjuvant anastrozole 6. UTI w E Coli and E faecalis 7. Anemia - Hgb stable; multifactorial; consider transfusing given pt weakness 10/10/16 10:27 Subjective: Pt not seen this am as still recovering in PACU Objective: Vital Signs Temp Pulse Resp BP Pulse Ox 36.6 C 71 16 141/78 H 100 10/10/16 09:52 10/10/16 09:52 10/10/16 09:52 10/10/16 09:52 10/10/16 09:52 Laboratory Results 10/10/16 04:40 10/10/16 04:40 10/09/16 10/10/16 10/11/16 05:59 05:59 05:59 Intake Total 400 1560 800 Output Total 1400 1300 5 Balance -1000 260 795 PT 14.5 SEC (12.0-15.0) 10/09/16 04:50 INR 1.14 (0.83-1.16) 10/09/16 04:50 Pt not examined today Vitals and labs reviewed ICD10 Worksheet Patient Problems: Problems Problem Status Onset Dehydration Acute Fever Acute Head and neck cancer Acute Palliative care encounter Acute
[2016-10-10] MEDS: PANTOPRAZOLE SODIUM 40 MG in NS 100 ML IV SCH (11:11)
[2016-10-10] MEDS: oxyCODONE CR 15 MG TAB PO SCH ×3 (11:15→21:37)
[2016-10-10] MEDS: ENOXAPARIN 40 MG/0.4 ML SYR SC SCH (11:28)
[2016-10-10] MEDS: CHLORHEXIDINE GLUCONATE 15 ML UDL PO SCH ×2 (11:38→21:37)
[2016-10-10] MEDS: ONDANSETRON 4 MG/2 ML VIAL IVP PRN (12:03)
[2016-10-10] MEDS: FLUCONAZOLE 100 MG TAB TUBE SCH (12:05)
[2016-10-10] MEDS: FLUTICASONE/SALMETER 250/50MCG DISKUS IH SCH (12:18)
[2016-10-10] MEDS: SENNOSIDES/DOCUSATE SODIUM TAB PO SCH ×2 (12:49→21:37)
--- NOTE | 2016-10-10 13:17 | PCMIDPN ---
Assessment/Plan: # SIRS due to pelvic infection: Pyometra/Endometritis with associated phlegmon L adnexa, suspect this is a complication of prior diverticular perforation mid August. s/p D&C this AM. Prior isolates include Ecoli, enterococcus, mixed anaerobes, aidan albicans (see sensi below). No clear evidence of bowel leak. --antibiotic therapy and repeat imaging 7-10 day to re-assess phlegmon --continue zosyn, fluconazole for now. Based on current micro data could transition to PO Augmentin + fluconazole for dc to be crushed into PEG --duration of antibiotics to be determined --follow uterine fluid cultures from today meds zosyn 3.75gm IV q6h, #1 fluconazole 200mg PO daily, #2 microbiology 10/06 blood cx (2) NGTD 10/10 pelvic tissue cx pending 08/22/2016 cultures E coli AMPICILLIN <=2 S CEFAZOLIN <=4 S GENTAMICIN <=1 S LEVOFLOXACIN 0.12 S PIPERACILLIN/TAZOBACTAM VITEK <=4 S TRIMETH/SULFA S 2 diff colonies enterococcus AMPICILLIN <=2 S LEVOFLOXACIN 1 S Subjective: some low pelvic pain s/p D&C; overall feeling a bit better worried about not being able to tolerate radiation tomorrow Objective: Vital Signs Temp Pulse Resp BP Pulse Ox 36.7 C 78 18 138/72 H 94 10/10/16 11:45 10/10/16 12:15 10/10/16 12:15 10/10/16 11:45 10/10/16 12:15 Laboratory Results 10/10/16 04:40 10/10/16 04:40 10/09/16 10/10/16 10/11/16 05:59 05:59 05:59 Intake Total 400 1560 800 Output Total 1400 1300 5 Balance -1000 260 795 - Physical Exam General Appearance: alert, no apparent distress, cachetic EENT: pale conjunctiva, other (good dentition), No scleral icterus, No thrush Respiratory: lungs clear Neck: tender lateral (obvious right neck swelling) Cardiac/Chest: regular rate, rhythm Extremities: No pedal edema Abdomen: non-tender, soft Pelvic Exam: other (dhaliwal in VAGINA with seronsang fluid in bag) Skin: pallor, No rash Neuro/Psych: alert, normal mood/affect, oriented x 3 - Line/s LUE PICC Lines: No drainage, No erythema - Time Spent With Patient Time Spent with Patient: greater than 35 minutes (case discussed with Dr. Edouard ) Time Spent with Patient: Greater than 35 minutes spent on this patients care, greater than 50% of time spent counseling, educating, and coordinating care regarding the above mentioned plan. ICD10 Worksheet Patient Problems: Problems Problem Status Onset Dehydration Acute Fever Acute Head and neck cancer Acute Palliative care encounter Acute
--- NOTE | 2016-10-10 14:04 | HOSPPROG ---
Hospitalist Progress Note Assessment/Plan: Assessment: 65-year-old female presenting with SIRS and pyometria/endometritis in setting of squamous cell carcinoma Plan: 1. SIRS. Tachycardia (118) and Fever (102F) most likely 2/2 pyometria/ endometritis and ongoing phlegmon in L adnexa - cont IVF, Abx, monitor fever curve and WBC 2. BETSEY. 2/2 hypovolemia, resolved 3. Hyponatremia. Acute, 2/2 hypovolemia, resolved 4. Squamous Cell Carcinoma. Of head and neck, is currently scheduled for XRT tomorrow by Dr. Da Silva - patient will let us know tomorrow if she feels up to XRT - appreciate ongoing [facility] vision care associate involvement - appreciate onc consultation, plan to resume chemo as outpt once infxn is stabilized 5. Atelectasis. Present on CXR, IS 6. Anxiety. 2/2 underlying illness, adjusted benzo to ativan PRN 7. Severe protein calorie malnutrition. Temp muscle wasting, meets ASPEN, cont TF w/ dietary guidance - supplements, encourage PO, hold on TPN 8. Chronic pain w/ continuous opiate dependency. Escalating pain post-procedure - increased dose of oxycodone CR to 15mg tid 10/09 - increased frequency of oxy IR to q3 10/10 - initiated on gabapentin 300 HS 6/3 PM - discontinued klonopin on presentation b/c oversedation - cont PRN nsaid - cont bowel regimen - reduce CR above if demonstrating signs of oversedation 9. Hydronephrosis. Mild, 2/2 obstructed ureter from fluid collection - does not currently warrant renal stent, but will continue monitoring Cr level 10. Pyometria/Endometritis. Likely cause of patient's recent decline in energy, mentation, and pelvic pain - s/p cervical drainage of purulent fluid 10/[address] Peres, catheter remains in place for ongoing drainage - d/w Dr. Nicholson, we agree that patient will need ongoing outpt imaging surveillance in 7-10 days to assess whether additional pelvic fluid collection/ adnexa is improving w/ Abx - if not, patient has been seen by Drs. Cai/Sigifredo, and surgery would be next if not improving - cont Zosyn and Fluconazole, see Dr. Nicholson's consult for transition to PO when appropriate Diet. TF w/ PO, dietary consult appreciated PPx. High risk, on lovenox 40 Code. Full Dispo. ADD uncertain, ongoing IV Abx and post-procedural reassessment Subjective: Dr. Nicholson and I counseled the patient regarding her ongoing need for antibiotics, surveillance imaging, more aggressive pain management today postprocedure early, consideration of XRT tomorrow Objective: Vital Signs Temp Pulse Resp BP Pulse Ox 37.0 C 80 18 105/62 94 10/10/16 13:29 10/10/16 13:29 10/10/16 13:29 10/10/16 13:29 10/10/16 13:29 Laboratory Results 10/10/16 04:40 10/10/16 04:40 10/09/16 10/10/16 10/11/16 05:59 05:59 05:59 Intake Total 400 1560 800 Output Total 1400 1300 5 Balance -1000 260 795 PT 14.5 SEC (12.0-15.0) 10/09/16 04:50 INR 1.14 (0.83-1.16) 10/09/16 04:50 - Time Spent With Patient Time Spent with Patient: greater than 35 minutes Time Spent with Patient: Greater than 35 minutes spent on this patients care, greater than 50% of time spent counseling, educating, and coordinating care regarding the above mentioned plan. - Physical Exam Constitutional: chronically ill appearing, uncomfortable, cachectic, No not in pain Cardiovascular: regular rate and rhythym, no murmur, rub, or gallop, No edema Respiratory: no respiratory distress, no rales or rhonchi, clear to auscultation Gastrointestinal: normoactive bowel sounds, other (ostomy in place), No tenderness, No guarding, No distension Genitourinary: other (dhaliwal in place) Neurologic: AAOx3 Psychiatric: not encephalopathic, thought process linear, anxious, No agitated ICD10 Worksheet Patient Problems: Problems Problem Status Onset Fever Acute Dehydration Acute Palliative care encounter Acute Head and neck cancer Acute
[2016-10-10] MEDS: NS 1,000 ML IV SCH ×2 (14:12→21:37)
--- NOTE | 2016-10-10 16:30 | SOAPPROG ---
SOAP Progress Note Assessment/Plan: Assessment: decent night. underwent endometrial drainage by EVALUATION ADVISOR. she remains without abdominal or pelvic complaints. pain reasonably controlled. tube feeds and po restarted. AVSS. abd soft, nontender. discussed care plan at length again with daughter and patient. await endometrial cultures. will unlikely need pelvic abscess addressed surgically. would suggest reimaging later in week to assure no significant change in pelvic phlegmon - query sterile post peritonitis changes given lack of symptoms? agree with continuing ABX in interim time given severe malnutrition and immunocompromised state. tube feeding care directly reviewed with daughter. no other new reccs at this time. Plan: 10/09/16 05:37 10/10/16 16:26 Objective: Vital Signs Temp Pulse Resp BP Pulse Ox 36.7 C 73 18 99/62 L 94 10/10/16 15:38 10/10/16 15:38 10/10/16 15:38 10/10/16 15:38 10/10/16 15:38 Laboratory Results 10/10/16 04:40 10/10/16 04:40 10/09/16 10/10/16 10/11/16 05:59 05:59 05:59 Intake Total 400 1560 1050 Output Total 1400 1300 305 Balance -1000 260 745 PT 14.5 SEC (12.0-15.0) 10/09/16 04:50 INR 1.14 (0.83-1.16) 10/09/16 04:50 ICD10 Worksheet Patient Problems: Problems Problem Status Onset Dehydration Acute Fever Acute Head and neck cancer Acute Palliative care encounter Acute
--- NOTE | 2016-10-10 19:22 | SOAPPROG ---
SOAP Progress Note Assessment/Plan: Assessment: POD#0 s/p cervical dilation, evacuation of pyometra, and placement of intrauterine balloon Recovering appropriately No further drainage seen, expect all purulent fluid was removed at time of procedure. At this time would not expect pyometra to reaccumulate as cervix is dilated and patent Plan: Reimage in 7-10 days as recommended by surgery and ID Continue abx, tailor per pending cultures Offered to remove catheter tonight as no further drainage and no further e/o fluid collection in uterus, pt prefers to leave in for now in the event any further drainage may occur. Would remove at time of discharge from hospital ( can be done by nursing staff). Balloon has 30 cc fluid. Pt aware I am not in hospital tomorrow and will f/u with her on Tuesday assuming she has not been discharged If moving forward she needs surgical intervention for LLQ phlegmon with general surgery, would also recommend hysterectomy at that time. 10/10/16 19:15 10/10/16 19:22 10/10/16 19:23 Subjective: Feels very well. Pain controlled after adjustments made by Dr. Edouard, though she is worried about pain control tonight. Uterine catheter not bothersome to her. Objective: Vital Signs Temp Pulse Resp BP Pulse Ox 36.7 C 73 18 99/62 L 94 10/10/16 15:38 10/10/16 15:38 10/10/16 15:38 10/10/16 15:38 10/10/16 15:38 Laboratory Results 10/10/16 04:40 10/10/16 04:40 10/09/16 10/10/16 10/11/16 05:59 05:59 05:59 Intake Total 400 1560 1050 Output Total 1400 1300 305 Balance -1000 260 745 PT 14.5 SEC (12.0-15.0) 10/09/16 04:50 INR 1.14 (0.83-1.16) 10/09/16 04:50 Gen: NAD Abd: soft, nontender Bedside US performed: Limited visualization due to overlying bowel gas, dhaliwal bulb seen, no other significant fluid collection seen Attempted to flush catheter as drainage minimal--some fluid is coming out around bulb through cervix. No other significant drainage. ICD10 Worksheet Patient Problems: Problems Problem Status Onset Dehydration Acute Fever Acute Head and neck cancer Acute Palliative care encounter Acute
[2016-10-10] MEDS: GABAPENTIN 300 MG CAP PO SCH (21:37)
[2016-10-11] MEDS: KETOROLAC 15 MG/1 ML SDV IVP SCH ×4 (00:26→17:59)
[2016-10-11] MEDS: METOCLOPRAMIDE 10 MG TAB PO SCH ×4 (00:26→23:18)
[2016-10-11] MEDS: PIPERACILLIN/TAZO 3.375 GM/DEX 50 ML IV SCH ×4 (00:26→17:59)
[2016-10-11] MEDS: LEVOTHYROXINE 75 MCG TAB PO SCH (05:32)
[2016-10-11] MEDS: CHLORHEXIDINE GLUCONATE 15 ML UDL PO SCH ×2 (11:14→21:18)
[2016-10-11] MEDS: LIDOCAINE 4% 15 GM CREAM TP SCH ×4 (11:14→21:46)
[2016-10-11] MEDS: oxyCODONE CR 15 MG TAB PO SCH ×3 (11:15→23:16)
[2016-10-11] MEDS: FLUCONAZOLE 100 MG TAB TUBE SCH (11:15)
[2016-10-11] MEDS: PANTOPRAZOLE SODIUM 40 MG in NS 100 ML IV SCH (11:15)
[2016-10-11] MEDS: ENOXAPARIN 40 MG/0.4 ML SYR SC SCH (11:15)
[2016-10-11] MEDS: SENNOSIDES/DOCUSATE SODIUM TAB PO SCH ×2 (11:16→21:47)
[2016-10-11] MEDS: FLUTICASONE/SALMETER 250/50MCG DISKUS IH SCH (11:24)
--- NOTE | 2016-10-11 12:21 | HOSPPROG ---
Hospitalist Progress Note Assessment/Plan: DIAGNOSES: - SIRS - endometriosis, possibly as a complication of recent perforated diverticulitis - Recent diverting ileostomy for complicated perforated diverticulitis - recently placed percutaneous gastrostomy tube for feeding, with significant residuals today and yesterday upon attempted bolus feeding - Severe protein calorie malnutrition - Advanced stage squamous cell carcinoma of head and neck, currently restarting radiation therapy, considerations for restarting chemotherapy or under discussion - Chronic pain of cancer with chronic daily opiate use - PLANS: -Continue current antibiotics -Will change her tube feeds to continuous infusion by pump at this time until her residuals have decreased -Continue physical occupational therapy -Follow course of her endometritis as Kay catheter is removed from the uterus -Continue Rad Therapy -Await further word from oncology as far as possible radiation treatments - SUBJECTIVE: feels better overall Did eat some solid food last night No abdominal Pain No fever symptoms The nurses do note she had very significant residuals from her tube feeds last night and this morning and also that there is a slight leak around her tube which was placed 2 weeks ago OBJECTIVE Vitals reviewed: stable without fever Exam: alert oriented to person place and time, but does have some memory deficit and some mild processing difficulties that she and her daughter say are typical for her at this point skin warm dry pale resps not labored lungs clear BSs heart regular abd soft nondistended nontender, bowel sounds present and normal in quality, feeding tube in good position limbs warm, no edema iv site ok laboratory data all pending at this time Objective: Vital Signs Temp Pulse Resp BP Pulse Ox 36.5 C 81 16 109/62 92 10/11/16 04:00 10/11/16 04:00 10/11/16 04:00 10/11/16 04:00 10/11/16 04:00 Microbiology 10/10/16 08:45 Gram Stain - Final Pelvis - Tissue 10/10/16 10/11/16 10/12/16 06:59 06:59 06:59 Intake Total 1560 1230 Output Total 1300 455 Balance 260 775 PT 14.5 SEC (12.0-15.0) 10/09/16 04:50 INR 1.14 (0.83-1.16) 10/09/16 04:50 ICD10 Worksheet Patient Problems: Problems Problem Status Onset Dehydration Acute Fever Acute Head and neck cancer Acute Palliative care encounter Acute
--- NOTE | 2016-10-11 12:23 | PCMIDPN ---
Assessment/Plan: Assessment: Endometritis with phlegmon/abscess-D and C culture showing polymicrobial intestinal tarun. This is what would be expected given the theorized etiology of this infection being related to her ruptured diverticula from August. In discussion with the microbiology laboratory there is only 1 gram-negative growing. They will work up the isolates to identification and sensitivities. Currently she is being covered with Zosyn and fluconazole. This is a reasonable empiric regimen. Plan to follow up with the sensitivity information to see that correlates with this choice. Patient is clearly clinically improved today. Suspect this is mostly due to adequate source control following her procedure. Plan: 1. Continue Zosyn. 2. Continue fluconazole. 3. Follow up on microbiologic laboratory results. 4. Follow clinical course. Subjective: Patient is resting in her hospital bed. She is in good spirits. States that she feels much better than she did a few days ago. Denies fevers, chills or sweats. No rash. Objective: Zosyn # 2 Fluconazole # 3 Vital Signs Temp Pulse Resp BP Pulse Ox 36.5 C 81 16 109/62 92 10/11/16 04:00 10/11/16 04:00 10/11/16 04:00 10/11/16 04:00 10/11/16 04:00 Microbiology 10/10/16 08:45 Gram Stain - Final Pelvis - Tissue 10/10/16 10/11/16 10/12/16 05:59 05:59 05:59 Intake Total 1560 1230 Output Total 1300 455 Balance 260 775 - Physical Exam General Appearance: WD/WN, alert, thin, non-toxic Respiratory: lungs clear, normal breath sounds, No respiratory distress Cardiac/Chest: regular rate, rhythm, No tachycardia Extremities: non-tender, normal inspection Abdomen: soft, No non-tender (As expected postoperatively) Skin: normal color, warm/dry, No rash Neuro/Psych: alert, normal mood/affect, oriented x 3 ICD10 Worksheet Patient Problems: Problems Problem Status Onset Dehydration Acute Fever Acute Head and neck cancer Acute Palliative care encounter Acute
[2016-10-11 12:59] LABS: % IMMATURE GRANULYOCYTES 1.2 % (0.0-1.1); ABSOLUTE IMMATURE GRANULOCYTES 0.11 10^3/uL (0.00-0.10); ADD DIFF? NO; ADD MORPH? NO; ADD SCAN? NO; ATYPICAL LYMPHOCYTE FLAG 40 (0-99); FRAGMENT RBC FLAG 40 (0-99); HEMATOCRIT 26.1 % (38.0-47.0); HEMOGLOBIN 8.4 g/dL (12.6-16.3); LEFT SHIFT FLG 20 (0-99); LIPEMIA HEMOLYSIS FLAG 80 (0-99); MEAN CELL HEMOGLOBIN 30.9 pg (27.9-34.1); MEAN CELL HEMOGLOBIN CONCENTR. 32.2 g/dL (32.4-36.7); MEAN PLATELET VOLUME 9.4 fL (8.7-11.7); PLATELET CLUMPS FLAG 0 (0-99); PLATELET COUNT 420 10^3/uL (150-400); RED BLOOD CELL COUNT 2.72 10^6/uL (4.18-5.33); RED CELL DISTRIBUTION WIDTH 16.8 % (11.5-15.2)
[2016-10-11 14:43] LABS: ALANINE AMINOTRANSFERASE 24 IU/L (9-52); ALBUMIN 2.4 g/dL (3.5-5.0); ALKALINE PHOSPHATASE 60 IU/L (38-126); ANION GAP 7 mEq/L (8-16); ASPARTATE AMINOTRANSFERASE 12 IU/L (14-46); BILIRUBIN,TOTAL 0.4 mg/dL (0.1-1.4); CALCIUM 8.2 mg/dL (8.5-10.4); CARBON DIOXIDE 23 mEq/l (22-31); CHLORIDE 104 mEq/L (97-110); CREATININE 0.6 mg/dL (0.6-1.0); GLOMERULAR FILTRATION RATE > 60; GLUCOSE 124 mg/dL (70-100); MAGNESIUM 1.8 mg/dL (1.6-2.3); POTASSIUM 4.7 mEq/L (3.5-5.2); SODIUM 134 mEq/L (134-144); TOTAL PROTEIN 4.7 g/dL (6.3-8.2)
[2016-10-11] MEDS: GABAPENTIN 300 MG CAP PO SCH (21:18)
[2016-10-11] MEDS: oxyCODONE IR 5 MG TAB PO PRN (21:20)
--- NOTE | 2016-10-11 21:24 | SOAPPROG ---
SOAP Progress Note Assessment/Plan: Assessment/Plan: Endometrial infection. No signs of intraperitoneal active infectious process. Tolerating diet Cachetic nutritional support especially with upcoming chemo/rad therapy surgery will sign off at this time 10/11/16 21:21 Objective: Vital Signs Temp Pulse Resp BP Pulse Ox 36.5 C 79 18 137/76 H 93 10/11/16 16:00 10/11/16 16:00 10/11/16 16:00 10/11/16 16:00 10/11/16 16:00 Microbiology 10/10/16 08:45 Gram Stain - Final Pelvis - Tissue 10/10/16 08:45 Mycobacterial Smear (SHENA) - Final Pelvis - Tissue Laboratory Results 10/11/16 05:30 10/11/16 05:30 10/10/16 10/11/16 10/12/16 05:59 05:59 05:59 Intake Total 1560 1230 Output Total 1300 455 Balance 260 775 PT 14.5 SEC (12.0-15.0) 10/09/16 04:50 INR 1.14 (0.83-1.16) 10/09/16 04:50 ICD10 Worksheet Patient Problems: Problems Problem Status Onset Dehydration Acute Fever Acute Head and neck cancer Acute Palliative care encounter Acute
[2016-10-11 23:11] VITALS: RESP 16; TEMP 98
[2016-10-12] MEDS: PIPERACILLIN/TAZO 3.375 GM/DEX 50 ML IV SCH ×4 (00:43→17:29)
[2016-10-12] MEDS: KETOROLAC 15 MG/1 ML SDV IVP SCH (00:43)
[2016-10-12] MEDS: oxyCODONE IR 5 MG TAB PO PRN (04:35)
[2016-10-12] MEDS: LEVOTHYROXINE 75 MCG TAB PO SCH (05:38)
[2016-10-12] MEDS: LIDOCAINE 4% 15 GM CREAM TP SCH ×3 (05:39→15:33)
[2016-10-12] MEDS: PANTOPRAZOLE SODIUM 40 MG in NS 100 ML IV SCH (08:30)
[2016-10-12] MEDS: METOCLOPRAMIDE 10 MG TAB PO SCH ×2 (08:42→16:45)
[2016-10-12] MEDS: oxyCODONE CR 15 MG TAB PO SCH ×3 (08:42→16:45)
[2016-10-12] MEDS: FLUCONAZOLE 100 MG TAB TUBE SCH (08:42)
[2016-10-12] MEDS: CHLORHEXIDINE GLUCONATE 15 ML UDL PO SCH (08:44)
[2016-10-12] MEDS: ENOXAPARIN 40 MG/0.4 ML SYR SC SCH (08:44)
[2016-10-12] MEDS: SENNOSIDES/DOCUSATE SODIUM TAB PO SCH (08:44)
[2016-10-12] MEDS: FLUTICASONE/SALMETER 250/50MCG DISKUS IH SCH (09:45)
--- NOTE | 2016-10-12 10:41 | PCMIDPN ---
Assessment/Plan: #Pyometra with associated phlegmon L adnexa, suspect this is a complication of prior diverticular perforation mid August. s/p D&C Prior isolates include E coli, enterococcus, mixed anaerobes, aidan albicans (see sensi below). No clear evidence of bowel leak. --Dc on PO Augmentin 875mg PO BID, fluconazole 200mg /day. Abx orders sent to patient's local pharmacy --probably leave picc line for chemo --will repeat Ct scan in another week or so --follow up with me next week, will time with radiation --will continue to monitor OR cultures meds zosyn 3.75gm IV q6h, #3 fluconazole 200mg PO daily, #4 microbiology 10/06 blood cx (2) NGTD 10/10 pelvic tissue cx pending 08/22/2016 cultures E coli AMPICILLIN <=2 S CEFAZOLIN <=4 S GENTAMICIN <=1 S LEVOFLOXACIN 0.12 S PIPERACILLIN/TAZOBACTAM VITEK <=4 S TRIMETH/SULFA S 2 diff colonies enterococcus AMPICILLIN <=2 S LEVOFLOXACIN 1 S Subjective: patient wonders if issues with PEG, leaked a bit yesterday mild pelvic pain getting radiation today at 9:45 Objective: Vital Signs Temp Pulse Resp BP Pulse Ox 36.6 C 84 16 136/78 H 94 10/12/16 07:31 10/12/16 07:31 10/12/16 07:31 10/12/16 07:31 10/12/16 07:31 Microbiology 10/10/16 08:45 Gram Stain - Final Pelvis - Tissue 10/10/16 08:45 Mycobacterial Smear (SHENA) - Final Pelvis - Tissue Laboratory Results 10/11/16 05:30 10/11/16 05:30 10/11/16 10/12/16 10/13/16 05:59 05:59 05:59 Intake Total 1230 Output Total 455 Balance 775 General Appearance: alert, no apparent distress, cachetic, appears much more vigorous than a couple days ago EENT: pale conjunctiva, good dentition, No scleral icterus, No thrush, no oral ulcerations Respiratory: lungs clear Neck: tender lateral with obvious right neck swelling Cardiac/Chest: regular rate, rhythm Extremities: No pedal edema Abdomen: non-tender, soft, pEG c/d/i Pelvic Exam: dhaliwal in VAGINA with seronsang fluid in bag Skin: pallor, No rash Neuro/Psych: alert, normal mood/affect, oriented x 3 LUE PICC: No drainage, No erythema ICD10 Worksheet Patient Problems: Problems Problem Status Onset Dehydration Acute Fever Acute Head and neck cancer Acute Palliative care encounter Acute
--- NOTE | 2016-10-12 11:18 | SOAPPROG ---
SOAP Progress Note Assessment/Plan: Assessment: POD#2 s/p cervical dilation, evacuation of pyometra, and placement of intrauterine balloon Recovering appropriately Catheter removed today Plan: Reimage in 7-10 days as outpatient. Hopefully uterine fluid collection will be gone on reimaging, if not would recommend another drainage at that time. ID to recommend oral abx today, pt states she will be discharged home likely today or tomorrow, pending determination of whether her tube feeds will need to be continuous 10/12/16 11:18 Subjective: In good spirits today. Had radiation yesterday and is going again this morning. Rare lower pelvic cramps, otherwise no abdominal/pelvic pain. Objective: Vital Signs Temp Pulse Resp BP Pulse Ox 36.6 C 84 16 136/78 H 94 10/12/16 07:31 10/12/16 07:31 10/12/16 07:31 10/12/16 07:31 10/12/16 07:31 Microbiology 10/10/16 08:45 Gram Stain - Final Pelvis - Tissue 10/10/16 08:45 Mycobacterial Smear (SHENA) - Final Pelvis - Tissue 10/10/16 08:21 Urine Culture - Final Urine,Clean Catch Laboratory Results 10/11/16 05:30 10/11/16 05:30 10/11/16 10/12/16 10/13/16 05:59 05:59 05:59 Intake Total 1230 Output Total 455 Balance 775 PT 14.5 SEC (12.0-15.0) 10/09/16 04:50 INR 1.14 (0.83-1.16) 10/09/16 04:50 Gen: awake, alert, NAD, cachectic Resp: unlabored CV: RRR Abd: soft, nondistended, nontender Ext: no edema No drainage from intrauterine dhaliwal catheter. Balloon deflated and catheter removed, pt tolerated well ICD10 Worksheet Patient Problems: Problems Problem Status Onset Dehydration Acute Fever Acute Head and neck cancer Acute Palliative care encounter Acute
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
[2016-10-12 12:10] VITALS: BP 153/81; PULSE 88; O2SAT 96
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
--- NOTE | 2016-10-12 14:53 | PDIAF ---
- Diagnosis Diagnosis: SCCA of neck; endometritis; malnutrition; cancer pain Code Status: Full Code - Medication Management Discharge Medications: Medications to Continue on Transfer Albuterol [Proventil Inhaler HFA (*)] 2 puffs IH Q6 PRN 09/22/16 [Last Taken ] Fluticasone/Salmeter 250/50Mcg [Advair 250/50 (*)] 1 puffs IH DAILY 09/22/16 [ Last Taken 09/24/16 08:00] Levothyroxine Sodium [Synthroid] 75 mcg PO DAILY 10/06/16 [Last Taken Unknown] Metoclopramide [Reglan 10 mg tab (*)] 10 mg PO Q8H 10/06/16 [Last Taken Unknown] Prochlorperazine Maleate [Compazine 10mg (*)] 10 mg PO Q6H PRN 10/06/16 [Last Taken Unknown] clonazePAM [Clonazepam] 1 mg PO TID PRN 10/06/16 [Last Taken Unknown] oxyCODONE HCL [OXYCODONE HCL] 10 mg PO QID PRN 10/06/16 [Last Taken Unknown] Amoxicillin/Clavulanate Pot [Augmentin 875 MG TAB (*)] 875 mg TUBE BID #20 tab 10/12/16 [Last Taken Unknown] Fluconazole [Diflucan (*)] 200 mg TUBE DAILY #10 tab 10/12/16 [Last Taken Unknown] Gabapentin 300 mg PO HS #30 ml 10/12/16 [Last Taken Unknown] oxyCODONE CR [Oxycontin] 15 mg PO TID #90 tab 10/12/16 [Last Taken Unknown] Discharge Medications: Refer to the Discharge Home Medication list for PRN reason. PICC Care - Routine: Yes - Orders Services needed: Home Care, Registered Nurse Home Care Face to Face: I certify that this patient was under my care and that I had the required [id number] encounter meeting the encounter requirements on the discharge day. My findings support the fact that the patient is homebound as defined in CMS Chapter 7 Medicare Benefits Manual 30.1.1, The condition of the patient is such that there exists a normal inability to leave home and consequently, leaving home would require a considerable and taxing effort. Diet Recommendation: no restrictions on diet Diet Texture: Regular Texture Diet, Thin Liquids, Meds Whole w/Liquids Tube feeding: Jevity 1.5 40 ml/hour x 12 hours overnight; to 60 ml/hr after 1 week Equipment: gravity device or pump for tube feeds - Follow Up Care Current Providers and Referrals: Suma Nicholson MD [Medical Doctor] - follow up in 1 week DIANA GARZA [Primary Care Provider] - As per Instructions
--- NOTE | 2016-10-12 18:03 | PDDCSUM ---
Discharge Summary Discharge Summary: DISCHARGE DIAGNOSES: - Acute sepsis - endometritis and pyometra - Recent diverting ileostomy for complicated perforated diverticulitis - recently placed percutaneous gastrostomy tube for feeding, with significant residuals today and yesterday upon attempted bolus feeding - Severe protein calorie malnutrition - Advanced stage squamous cell carcinoma of head and neck, currently restarting radiation therapy, considerations for restarting chemotherapy or under discussion - Chronic pain of cancer with chronic daily opiate use CONSULTANTS: Dr. Suma Barnes PROCEDURES: Cervical dilation and evacuation of parametrial PICC catheter placement CT scan abdomen and pelvis HOSPITAL COURSE SUMMARY: This patient with the ongoing cancer and cancer treatment comes in with abdominal faint pain and fevers and SIRS criteria was found to have acute endometritis and pyometra. patient was taken to the OR where she had cervical dilatation and evacuation of pyelo meter. She tolerated this well. She was treated with intravenous antibiotics covering bowel floor and recovered very nicely here in the hospital. At this time she is stable for discharge to home with oral antibiotics as recommended by Infectious Disease. She will be on Augmentin. There are plans for repeat CT scan of the abdomen in 1-2 weeks depending on her progress. Incidentally the patient does have squamous cell carcinoma head and neck and is with ongoing treatment. While here she did receive radiation therapy sessions. She will continue this as an outpatient and will begin chemotherapy in the near future under the direction of Dr. Alex Dior. She has an appointment with him in 2 days. PENDING TEST RESULTS: None MEDICATION CHANGES: Addition of Augmentin 875 mg twice daily FOLLOW-UP PLAN: With Dr. Dior in 2 days, with [facility] next week Greater than 35 minutes bedside and care coordination time today
== END 2016-10-12 18:34 | disposition home health service (06) | DRG 856 ==
LOC: OBSVTOIN 18:27 → F3E 22:21
PROVIDERS: ADMIT Internal Medicine; ATTEND Internal Medicine
PROC: 02HV33Z Insertion of Infusion Device into Superior Vena Cava, Percutaneous Approach (ICD-10-PCS; 2016-10-07)
PROC: 0U9 Female Reproductive System, Drainage (ICD-10-PCS; principal; 2016-10-10 08:01)
DX: T81.4XXA Infection following a procedure, initial encounter (principal); A41.9 Sepsis, unspecified organism; E43 Unspecified severe protein-calorie malnutrition; N71.9 Inflammatory disease of uterus, unspecified; E03.9 Hypothyroidism, unspecified; C76.0 Malignant neoplasm of head, face and neck; G89.3 Neoplasm related pain (acute) (chronic); Z93.2 Ileostomy status; Z93.1 Gastrostomy status; Z85.3 Personal history of malignant neoplasm of breast
CPT/HCPCS: 92526-GN; 92610-GN; 96374; 97110-GP; 97116-GP; 97161-GP; 97166-GO; 97530-GO; 97535-GO; C1751; G8978-GP-CI; G8979-GP-CI; G8987-GO-CK; G8988-GO-CI; G8996-GN-CI; G8997-GN-CH; J0696; J1100; J1170; J1335; J1450; J1650; J1885; J2001; J2250; J2405; J2543; J2704; J2765; J3010; Q9967

== ENCOUNTER 2016-10-18 10:37 | Inpatient (IN) | payer OTHER ==
[2016-10-18] MEDS ORDERED: NS 500 ML IV ONE (11:30)
--- NOTE | 2016-10-18 11:41 | EDPHY ---
H & P Smoking Status: Former smoker Time Seen by Provider: 10/18/16 10:56 HPI/ROS: CHIEF COMPLAINT: Weakness, dehydration HISTORY OF PRESENT ILLNESS: 65-year-old female presents to the emergency department by private vehicle feeling extremely weak and dehydrated. She has a history of advanced squamous cell carcinoma of the head and neck and is currently undergoing chemotherapy with the last dose being 1 week ago and had radiation today. She has a history of colostomy and has an ileostomy for complicated perforated diverticulum. The patient feels very weak. She states that she is unable to eat. She does have a feeding tube. She denies fever. She has had ongoing shortness of breath. She has ongoing pain in the left leg as well as in her neck and back. No reported trauma. No reports of vomiting or diarrhea. No melena. The patient lives independently and has home health that comes occasionally. REVIEW OF SYSTEMS: Constitutional: No fever, no chills. Eyes: No double or blurry vision. ENT: No sore throat. Respiratory: No cough, no shortness of breath. Cardiac: No chest pain. Gastrointestinal: No abdominal pain, vomiting or diarrhea. Genitourinary: No dysuria. Musculoskeletal: No neck or back pain. Skin: No rashes. Neurological: No headache. (Sammie Loomis) Past Medical/Surgical History: Advanced squamous cell carcinoma of the head and neck last chemo 1 week ago, radiation treatment today, chronic pain on opiates, ileostomy for complicated perforated diverticula, sepsis admitted 10/06/2016, malnutrition, hypothyroidism , asthma (Sammie Loomis) Social History: Single and lives in [place] (Sammie Loomis) Physical Exam: General Appearance: lethargic, cachectic Temperature 36.8 degrees, heart rate 109, respirations 16, blood pressure 114/78, 98% on room air Eyes: Pupils equal and round. Extraocular motions are all intact. ENT: Mouth: Mucous membranes are dry. Neck is supple. Very painful mass to the lateral aspect of the right side of the neck. Respiratory: No wheezing, rhonchi, or rales, lungs are clear to auscultation. Cardiovascular: Regular rate and rhythm. Gastrointestinal: Abdomen is soft and nontender, no masses, no rebound or guarding, bowel sounds normal. Neurological: Alert and oriented x 3, cranial nerves II through XII grossly intact Skin: Warm and dry, no rashes. Musculoskeletal: Nontender to palpate along the cervical, thoracic or lumbar spine. Neck is supple. Extremities: Full range of motion and no peripheral edema. Psychiatric: Patient is oriented X 3, there is no agitation. (Sammie Loomis) Constitutional: Initial Vital Signs Temperature (C) 36.8 C 10/18/16 10:43 Heart Rate 109 H 10/18/16 10:43 Respiratory Rate 16 10/18/16 10:43 Blood Pressure 114/78 10/18/16 10:43 O2 Sat (%) 98 10/18/16 10:43 O2 Delivery Mode Room Air Allergies/Adverse Reactions: doxycycline Allergy (Severe, Verified 09/22/16 13:40) Anaphylaxis codeine Allergy (Intermediate, Verified 09/24/16 15:16) Vomiting lorazepam [From Ativan] Allergy (Verified 10/06/16 20:45) Home Medications: Medication Instructions Recorded Albuterol [Proventil Inhaler HFA 2 puffs IH Q6 PRN 09/22/16 (*)] Fluticasone/Salmeter 250/50Mcg 1 puffs IH DAILY 09/22/16 [Advair 250/50 (*)] Levothyroxine Sodium [Synthroid] 75 mcg PO DAILY 10/06/16 Metoclopramide [Reglan 10 mg tab 10 mg PO Q8H PRN 10/06/16 (*)] Prochlorperazine Maleate 10 mg PO Q6H PRN 10/06/16 [Compazine 10mg (*)] clonazePAM [Clonazepam] 1 mg PO TID PRN 10/06/16 oxyCODONE HCL [OXYCODONE HCL] 10 mg PO QID PRN 10/06/16 Gabapentin 300 mg PO HS #30 ml 10/12/16 oxyCODONE CR [Oxycontin] 15 mg PO TID PRN 10/18/16 oxyCODONE HCL [Oxycodone HCl ER] 20 mg PO TID PRN 10/18/16 Medical Decision Making ED Course/Re-evaluation: I have discussed this case and examined the patient with Sammie Loomis. This patient is essentially having failure to thrive and unable to eat and drink hardly at all after her head neck radiation and chemo from diffuse squamous cell carcinoma. She will require admission and palliative care until the radiation affects diminished so that she can appropriately eat and drink. ( Caleb Arrieta) 65-year-old female presents to the emergency department feeling very weak and dehydrated. The patient has a history of advanced squamous cell carcinoma of the head and neck. She is currently undergoing chemotherapy and radiation. She has a feeding to however she is not tolerating this well. She lives independently and has occasional home health. The patient has lost weight. She is not taking care of herself. She describes diffuse pain. She does have a history of narcotic dependence due to her chronic pain. Laboratory studies are unremarkable. Patient will be admitted to the hospitalist, Dr. Slava Duron to the medical- surgical floor. (Sammie Loomis) Differential Diagnosis: Including but not limited to malnutrition, dehydration, electrolyte abnormality , maligament carcinoma, pulmonary embolism (Sammie Loomis) - Data Points Laboratory Results: Laboratory Results 10/18/16 11:30 10/18/16 11:30 10/18/16 10/18/16 11:30 11:30 WBC 9.04 10^3/uL 10^3/uL (3.80-9.50) RBC 3.09 10^6/uL L 10^6/uL (4.18-5.33) Hgb 9.3 g/dL L g/dL (12.6-16.3) Hct 29.1 % L % (38.0-47.0) MCV 94.2 fL fL (81.5-99.8) MCH 30.1 pg pg (27.9-34.1) MCHC 32.0 g/dL L g/dL (32.4-36.7) RDW 16.6 % H % (11.5-15.2) Plt Count 305 10^3/uL 10^3/uL (150-400) MPV 9.3 fL fL (8.7-11.7) Neut % (Auto) 83.2 % H % (39.3-74.2) Lymph % (Auto) 7.6 % L % (15.0-45.0) Real % (Auto) 7.1 % % (4.5-13.0) Eos % (Auto) 0.6 % % (0.6-7.6) Baso % (Auto) 0.4 % % (0.3-1.7) Nucleat RBC Rel Count 0.0 % % (0.0-0.2) Absolute Neuts (auto) 7.52 10^3/uL H 10^3/uL (1.70-6.50) Absolute Lymphs (auto) 0.69 10^3/uL L 10^3/uL (1.00-3.00) Absolute Monos (auto) 0.64 10^3/uL 10^3/uL (0.30-0.80) Absolute Eos (auto) 0.05 10^3/uL 10^3/uL (0.03-0.40) Absolute Basos (auto) 0.04 10^3/uL 10^3/uL (0.02-0.10) Absolute Nucleated RBC 0.00 10^3/uL 10^3/uL (0-0.01) Immature Gran % 1.1 % % (0.0-1.1) Immature Gran # 0.10 10^3/uL 10^3/uL (0.00-0.10) Sodium 131 mEq/L L mEq/L (134-144) Potassium 3.8 mEq/L mEq/L (3.5-5.2) Chloride 98 mEq/L mEq/L (97-110) Carbon Dioxide 21 mEq/l L mEq/l (22-31) Anion Gap 12 mEq/L mEq/L (8-16) BUN 13 mg/dL mg/dL (7-23) Creatinine 0.5 mg/dL L mg/dL (0.6-1.0) Estimated GFR > 60 Glucose 116 mg/dL H mg/dL (70-100) Calcium 9.1 mg/dL mg/dL (8.5-10.4) Medications Given: Discontinued Medications Sodium Chloride (Ns) 500 mls @ 1,500 mls/hr IV ONCE ONE Stop: 10/18/16 11:49 Last Admin: 10/18/16 11:31 Dose: 500 mls Oxycodone HCl (Oxycodone Ir) 10 mg PO EDNOW ONE Stop: 10/18/16 12:18 Last Admin: 10/18/16 12:30 Dose: 10 mg Departure - Departure Disposition: [facility] Inpatient Acute Clinical Impression: Head and neck cancer, Dehydration, Cachexia Condition: Good
[2016-10-18 11:48] LABS: % IMMATURE GRANULYOCYTES 1.1 % (0.0-1.1); ADD DIFF? NO; ADD MORPH? NO; ADD SCAN? NO; ATYPICAL LYMPHOCYTE FLAG 0 (0-99); FRAGMENT RBC FLAG 0 (0-99); HEMATOCRIT 29.1 % (38.0-47.0); HEMOGLOBIN 9.3 g/dL (12.6-16.3); LEFT SHIFT FLG 20 (0-99); LIPEMIA HEMOLYSIS FLAG 80 (0-99); MEAN CELL HEMOGLOBIN 30.1 pg (27.9-34.1); MEAN CELL VOLUME 94.2 fL (81.5-99.8); MEAN PLATELET VOLUME 9.3 fL (8.7-11.7); PLATELET CLUMPS FLAG 0 (0-99); PLATELET COUNT 305 10^3/uL (150-400); RED BLOOD CELL COUNT 3.09 10^6/uL (4.18-5.33); RED CELL DISTRIBUTION WIDTH 16.6 % (11.5-15.2)
[2016-10-18 12:04] LABS: ANION GAP 12 mEq/L (8-16); CALCIUM 9.1 mg/dL (8.5-10.4); CARBON DIOXIDE 21 mEq/l (22-31); CHLORIDE 98 mEq/L (97-110); CREATININE 0.5 mg/dL (0.6-1.0); GLOMERULAR FILTRATION RATE > 60; GLUCOSE 116 mg/dL (70-100); POTASSIUM 3.8 mEq/L (3.5-5.2); SODIUM 131 mEq/L (134-144)
[2016-10-18] MEDS ORDERED: oxyCODONE IR 5 MG TAB PO ONE (12:17)
[2016-10-18] MEDS ORDERED: ALBUTEROL 200 PUFFS/18 GM MDI IH PRN (14:23)
[2016-10-18] MEDS ORDERED: PROCHLORPERAZINE MALEATE 10 MG TAB PO PRN (14:23)
[2016-10-18] MEDS ORDERED: ONDANSETRON DISINTEGRATING 4 MG TAB PO PRN (14:26)
[2016-10-18] MEDS ORDERED: NS 1,000 ML IV SCH (14:30)
--- NOTE | 2016-10-18 15:18 | GHP ---
[f rep st] HISTORY AND PHYSICAL DATE OF ADMISSION: 10/18/2016 HISTORY OF PRESENT ILLNESS: The patient is a pleasant 65-year-old female, with a history of head an d neck cancer, perforated diverticulitis with ostomy, cachexia, recent admission with pyometra, who presents essentially with failure to thrive. She has been weak, she has been unable to care for her self at home. She has an ostomy. She has PICC line. She has a PEG tube. She got chemotherapy las t week, she got radiation today. According to her oncologist, prognosis for her cancer in and of itself is good, however she has been struggling as of late. She said she is not noting high output coming out of her ostomy or high res iduals in her feeding tube, but she basically feels overwhelmed by trying to manage that. She does have some vaginal discharge that looks like the end of a period, she has no lower abdominal tenderness, it is not foul smelling. She has not had fever, chills. She has not had cough. She h as not had urgency, frequency, dysuria. She has not had nausea or vomiting. She has soft, but not liquid, stool in her ostomy bag. REVIEW OF SYSTEMS: Complete 10-point review of systems conducted, and negative as noted in the HPI. PAST MEDICAL HISTORY: 1. Head and neck cancer. 2. Continuous narcotic dependence with chronic pain. 3. Pyometra status post cervical dilation in the operating room with removal of pus. 4. Colonic perforation secondary to diverticulosis with subsequent colostomy. 5. Hypothyroidism. 6. Asthma. 7. Remote history of breast cancer status post radiation therapy. 8. She has had a colostomy and appendectomy. SOCIAL HISTORY: She lives in [place] with her daughter, although daughter is returning to [facility]. No alcohol, tobacco or illicits. FAMILY HISTORY: Parents . PHYSICAL EXAM: VITAL SIGNS: Temp 36.8, blood pressure 114/78, pulse 109; now 95, breathing 16 time s a minute, 98% on room air. GENERAL: Cachectic. No acute distress. Tearful. HEENT: Sclerae an icteric. Oropharynx clear. Mucous membranes are moist. NECK: Supple without lymphadenopathy or J VD. LUNGS: Clear to auscultation bilaterally. HEART: S1, S2. Not tachycardic. ABDOMEN: Soft. Her ostomy has liquid dark stool and her PEG tube is clean, dry, and intact. There is no lower abd ominal tenderness detected on pelvic exam. LOWER EXTREMITIES: No edema. Calves nontender. SKIN: Without rash. NEUROLOGIC: Nonfocal. LABORATORY DATA: White count 9, hematocrit 29.1 which is greater than her baseline, platelets of 20 5,000. Sodium 131, potassium 3.8, chloride 91, bicarb 21, BUN 13, creatinine 0.5, glucose 116. The re is no urinalysis. There is no imaging. I reviewed and summarized previous hospital records in t HPI and discussed the case with ABENA Clarke, in the emergency department. ASSESSMENT/PLAN: A 65-year-old female with head and neck cancer, recent admission for pyometra, adm itted with cachexia, failure to thrive, generalized weakness, hyponatremia. 1. Hyponatremia, this is mild. She has had hyponatremia before, I am not convinced this is driving the cause. Will go ahead and give her IV fluids and follow. I am not worried about it correcting too quickly. 2. Weakness, I think this is multifactorial. She is profoundly malnourished. She has PT/OT to see her and I suspect she will need senior care facility placement following this. 3. History of pyometra. She has a nontender lower abdominal exam, no leukocytosis, no fevers. Leonardo l follow. 4. History of head and neck cancer. She is currently getting radiation therapy. Apparently, her p rognosis is good. Her primary oncologist is Dr. Alex Dior. 5. Prophylaxis. Pharmacologic prophylaxis is indicated. I will give her enoxaparin 30 mg a day be cause her creatinine clearance is likely low given her very low body weight. 6. Cachexia. I have a dietary consult in for tube feeds. I will put her on a regular diet. 7. Disposition: Inpatient status. /[id number]/MODL
[2016-10-18] MEDS: oxyCODONE IR 5 MG TAB PO PRN (19:17)
[2016-10-18] MEDS: oxyCODONE CR 15 MG TAB PO PRN (19:34)
[2016-10-18] MEDS: GABAPENTIN 300 MG CAP PO SCH (20:20)
[2016-10-18] MEDS: METOCLOPRAMIDE 10 MG TAB PO PRN (20:20)
[2016-10-18] MEDS ORDERED: ALTEPLASE 2 MG VIAL IVP ONE (20:30)
[2016-10-18] MEDS: ONDANSETRON 4 MG/2 ML VIAL IVP PRN (23:59)
[2016-10-18] MEDS: AMOXICILLIN/CLAVULANATE POT 875/125 MG TAB PO SCH (23:59)
[2016-10-19 05:04] LABS: % IMMATURE GRANULYOCYTES 0.8 % (0.0-1.1); ABSOLUTE IMMATURE GRANULOCYTES 0.07 10^3/uL (0.00-0.10); ADD DIFF? NO; ADD MORPH? NO; ADD SCAN? NO; ATYPICAL LYMPHOCYTE FLAG 10 (0-99); FRAGMENT RBC FLAG 0 (0-99); HEMATOCRIT 24.3 % (38.0-47.0); HEMOGLOBIN 7.8 g/dL (12.6-16.3); LEFT SHIFT FLG 0 (0-99); LIPEMIA HEMOLYSIS FLAG 80 (0-99); MEAN CELL HEMOGLOBIN 30.1 pg (27.9-34.1); MEAN CELL HEMOGLOBIN CONCENTR. 32.1 g/dL (32.4-36.7); MEAN CELL VOLUME 93.8 fL (81.5-99.8); PLATELET CLUMPS FLAG 10 (0-99); PLATELET COUNT 270 10^3/uL (150-400); RED BLOOD CELL COUNT 2.59 10^6/uL (4.18-5.33); RED CELL DISTRIBUTION WIDTH 16.7 % (11.5-15.2)
[2016-10-19] MEDS: LEVOTHYROXINE 75 MCG TAB PO SCH (05:22)
[2016-10-19] MEDS: oxyCODONE IR 5 MG TAB PO PRN ×2 (05:22→14:05)
[2016-10-19 05:32] LABS: ANION GAP 8 mEq/L (8-16); CALCIUM 8.5 mg/dL (8.5-10.4); CARBON DIOXIDE 22 mEq/l (22-31); CHLORIDE 101 mEq/L (97-110); CREATININE 0.5 mg/dL (0.6-1.0); GLOMERULAR FILTRATION RATE > 60; GLUCOSE 107 mg/dL (70-100); POTASSIUM 4.1 mEq/L (3.5-5.2); SODIUM 131 mEq/L (134-144)
[2016-10-19] MEDS: AMOXICILLIN/CLAVULANATE POT 875/125 MG TAB PO SCH (08:04)
[2016-10-19] MEDS: FLUTICASONE/SALMETER 250/50MCG DISKUS IH SCH (08:29)
[2016-10-19] MEDS ORDERED: FLUCONAZOLE 100 MG TAB PO SCH (09:00)
[2016-10-19] MEDS ORDERED: ENOXAPARIN 30 MG/0.3 ML SYR SC SCH (09:00)
--- NOTE | 2016-10-19 10:05 | HOSPPROG ---
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 # FTT - multifactorial; she is overwhelmed by her self care duties (PICC, PEG, ostomy) - check CT of pelvis to assess for residual infection - nutrition, PT, OT, CM assistance # uncontrolled pain - start fentanyl patch 37mcg, transition off oxycontin - discussed with pharmacy # hx pyometra/diverticulitis - currently on augmentin - appreciate Dr Nicholson's help # PEG, ostomy # severe protein calorie malnutrition # dvt ppx - lovenox 30 Subjective: feels like she cannot manage at home Objective: Vital Signs Temp Pulse Resp BP Pulse Ox 36.6 C 90 16 94/50 L 94 10/19/16 09:01 10/19/16 09:01 10/19/16 09:01 10/19/16 09:01 10/19/16 09:01 Laboratory Results 10/19/16 04:55 10/19/16 04:55 10/18/16 10/19/16 10/20/16 05:59 05:59 05:59 Intake Total 2400 Output Total 500 Balance 1900 - Physical Exam Constitutional: cachectic Cardiovascular: regular rate and rhythym, no murmur, rub, or gallop Respiratory: no respiratory distress, no rales or rhonchi, clear to auscultation Gastrointestinal: normoactive bowel sounds, other (ostomy and PEG; TTP lower abd , no masses) ICD10 Worksheet Patient Problems: Problems Problem Status Onset Cachexia Acute Dehydration Acute Head and neck cancer Acute Fever Acute Palliative care encounter Acute
[2016-10-19] MEDS: fentaNYL 12 MCG PATCH TD SCH (10:50)
[2016-10-19] MEDS: fentaNYL 25 MCG PATCH TD SCH (10:50)
[2016-10-19] MEDS ORDERED: IOPAMIDOL (ISOVUE-300) 100 ML BTL ONE (11:48)
[2016-10-19] MEDS ORDERED: FLUCONAZOLE 100 MG TAB PO ONE (12:00)
--- NOTE | 2016-10-19 13:04 | PCMIDPN ---
Assessment/Plan: # Pyometra and left adnexal phlegmon, suspect this is a complication of prior diverticular perforation mid August. s/p D&C 10/10/2016 with cultures showing E coli and Citrobacter both susceptible to ampicillin /sulbactam. -- decreased bowel function and concern for appropriate absorption of p.o. antibiotics therefore will lara to IV Unasyn and fluconazole for now and monitor bowel function. -- Tentatively plan a total of 3 weeks of antibiotics, currently day #9 post D &C. Microbiology 10/10/16 08:45 Pelvis - Tissue Anaerobic Culture - Final Escherichia Coli Citrobacter Braakii Subjective: patient readmitted to the hospital for inability to manage medical issues at home. No specific troubles with antibiotics, although she states today "I will not be able to swallow crushed pills much longer. " Objective: Vital Signs Temp Pulse Resp BP Pulse Ox 36.7 C 95 18 119/57 L 92 10/19/16 12:30 10/19/16 12:30 10/19/16 12:30 10/19/16 12:30 10/19/16 12:30 Laboratory Results 10/19/16 04:55 10/19/16 04:55 10/18/16 10/19/16 10/20/16 05:59 05:59 05:59 Intake Total 2400 Output Total 500 Balance 1900 - Physical Exam General Appearance: alert, no apparent distress, thin, non-toxic EENT: No thrush Respiratory: lungs clear, No accessory muscle use Neck: supple Cardiac/Chest: regular rate, rhythm Abdomen: non-tender, soft, other ( mild left adnexal tenderness) Skin: No rash Neuro/Psych: alert, normal mood/affect, oriented x 3 - Time Spent With Patient Time Spent with Patient: greater than 35 minutes (reviewed CT scan with Radiology, coordination of care with Dr. Curtis Manzano) Time Spent with Patient: Greater than 35 minutes spent on this patients care, greater than 50% of time spent counseling, educating, and coordinating care regarding the above mentioned plan. ICD10 Worksheet Patient Problems: Problems Problem Status Onset Cachexia Acute Dehydration Acute Head and neck cancer Acute Fever Acute Palliative care encounter Acute
[2016-10-19] MEDS: MAGNESIUM HYDROXIDE 30 ML UDCUP PO PRN ×2 (14:02→22:38)
[2016-10-19] MEDS: ACETAMINOPHEN 325 MG TAB PO PRN ×3 (14:05→22:30)
[2016-10-19] MEDS ORDERED: FLUCONAZOLE/NaCl 100 ML IV SCH (15:30)
[2016-10-19] MEDS: AMPICILLIN/SULBACTAM 3 GM in NS 100 ML IV SCH (17:58)
[2016-10-19] MEDS: clonazePAM 1 MG TAB PO PRN (22:02)
[2016-10-19] MEDS: METOCLOPRAMIDE 10 MG TAB PO PRN (22:02)
[2016-10-19] MEDS: GABAPENTIN 300 MG CAP PO SCH (22:02)
[2016-10-20] MEDS: AMPICILLIN/SULBACTAM 3 GM in NS 100 ML IV SCH ×5 (00:32→23:16)
[2016-10-20] MEDS: oxyCODONE IR 5 MG TAB PO PRN ×5 (01:30→23:14)
[2016-10-20] MEDS: LEVOTHYROXINE 75 MCG TAB PO SCH (05:23)
[2016-10-20] MEDS: oxyCODONE CR 15 MG TAB PO PRN (05:44)
[2016-10-20 05:55] LABS: % IMMATURE GRANULYOCYTES 0.7 % (0.0-1.1); ABSOLUTE IMMATURE GRANULOCYTES 0.06 10^3/uL (0.00-0.10); ADD DIFF? NO; ADD MORPH? NO; ADD SCAN? NO; ATYPICAL LYMPHOCYTE FLAG 0 (0-99); FRAGMENT RBC FLAG 0 (0-99); HEMATOCRIT 23.9 % (38.0-47.0); HEMOGLOBIN 7.8 g/dL (12.6-16.3); LEFT SHIFT FLG 10 (0-99); LIPEMIA HEMOLYSIS FLAG 80 (0-99); MEAN CELL HEMOGLOBIN 30.5 pg (27.9-34.1); MEAN CELL HEMOGLOBIN CONCENTR. 32.6 g/dL (32.4-36.7); MEAN CELL VOLUME 93.4 fL (81.5-99.8); MEAN PLATELET VOLUME 9.3 fL (8.7-11.7); PLATELET CLUMPS FLAG 20 (0-99); PLATELET COUNT 274 10^3/uL (150-400); RED BLOOD CELL COUNT 2.56 10^6/uL (4.18-5.33); RED CELL DISTRIBUTION WIDTH 16.4 % (11.5-15.2)
[2016-10-20] MEDS: ACETAMINOPHEN 325 MG TAB PO PRN ×2 (05:59→23:15)
[2016-10-20 06:25] LABS: ANION GAP 7 mEq/L (8-16); CALCIUM 8.6 mg/dL (8.5-10.4); CARBON DIOXIDE 24 mEq/l (22-31); CHLORIDE 99 mEq/L (97-110); CREATININE 0.4 mg/dL (0.6-1.0); GLOMERULAR FILTRATION RATE > 60; GLUCOSE 87 mg/dL (70-100); POTASSIUM 4.1 mEq/L (3.5-5.2); SODIUM 130 mEq/L (134-144)
[2016-10-20] MEDS: FLUTICASONE/SALMETER 250/50MCG DISKUS IH SCH (08:30)
[2016-10-20] MEDS: FLUCONAZOLE/NaCl 100 ML IV SCH (08:37)
[2016-10-20] MEDS: ENOXAPARIN 40 MG/0.4 ML SYR SC SCH (08:37)
[2016-10-20] MEDS ORDERED: FLUCONAZOLE 100 MG TAB PO SCH (09:00)
[2016-10-20] MEDS: METOCLOPRAMIDE 10 MG TAB PO PRN ×2 (09:05→17:41)
--- NOTE | 2016-10-20 09:29 | PCMIDPN ---
Assessment/Plan: # Pyometra and left adnexal phlegmon, suspect this is a complication of prior diverticular perforation mid August. s/p D&C 10/10/2016 with cultures showing E coli and Citrobacter both susceptible to ampicillin /sulbactam. -- continue IV Unasyn and fluconazole for now since lost G tube -- Tentatively plan a total of 3 weeks of antibiotics, currently day #02/26 post D&C. Microbiology 10/10/16 08:45 Pelvis - Tissue Anaerobic Culture - Final Escherichia Coli Citrobacter Braakii Medications, antibiotic #02/26 Unasyn 3 g IV Q 6 Fluconazole 200 mg IV daily Subjective: G tube fell out last night intermittent L Leg pain reports pain not well controlled Objective: Vital Signs Temp Pulse Resp BP Pulse Ox 36.8 C 79 18 127/73 H 89 L 10/20/16 08:03 10/20/16 08:03 10/20/16 08:03 10/20/16 08:03 10/20/16 08:03 Laboratory Results 10/20/16 05:30 10/20/16 05:30 10/19/16 10/20/16 10/21/16 05:59 05:59 05:59 Intake Total 2400 800 Output Total 500 400 Balance 1900 400 - Physical Exam General Appearance: alert, no apparent distress EENT: other (No oral ulcerations), No thrush Respiratory: No accessory muscle use Neck: other (Swelling right lateral neck, stable) Extremities: No pedal edema Abdomen: non-tender, soft, other (G-tube site without abnormality, no stool in ostomy bag) Pelvic Exam: No dhaliwal Skin: No rash Neuro/Psych: alert, normal mood/affect, oriented x 3 - Line/s LUE PICC Lines: No drainage, No erythema ICD10 Worksheet Patient Problems: Problems Problem Status Onset Cachexia Acute Dehydration Acute Head and neck cancer Acute Fever Acute Palliative care encounter Acute
[2016-10-20] MEDS ORDERED: fentaNYL 100 MCG/2 ML INJ IVP PRN (12:38)
[2016-10-20] MEDS: D5W LR 1,000 ML IV SCH (13:00)
[2016-10-20] MEDS ORDERED: NS 1,000 ML IV SCH (14:30)
[2016-10-20] MEDS ORDERED: NALOXONE HCL 0.4 MG/ML INJ ONE (15:02)
[2016-10-20] MEDS ORDERED: fentaNYL 100 MCG/2 ML INJ ONE (15:02)
[2016-10-20] MEDS ORDERED: MIDAZOLAM 2 MG/2 ML VIAL ONE (15:02)
[2016-10-20] MEDS ORDERED: FLUMAZENIL 0.5 MG/5 ML MDV IVP ONE (15:02)
--- NOTE | 2016-10-20 15:02 | HOSPPROG ---
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 # pulled PEG - replacing today # FTT - multifactorial; she is overwhelmed by her self care duties (PICC, PEG, ostomy) - nutrition, PT, OT, CM assistance # uncontrolled pain - fentanyl patch 37mcg started 10/19 - cont oxycodone IR prn - fentanyl IV prn - high risk # hx pyometra/diverticulitis - currently on unasyn - appreciate Dr Nicholson's help # PEG (replacing), ostomy # severe protein calorie malnutrition # dvt ppx - lovenox 30 Subjective: pulled PEG overnight; states her pain is uncontrolled Objective: Vital Signs Temp Pulse Resp BP Pulse Ox 36.8 C 79 20 127/73 H 93 10/20/16 08:03 10/20/16 11:22 10/20/16 11:22 10/20/16 08:03 10/20/16 11:22 Laboratory Results 10/20/16 05:30 10/20/16 05:30 10/19/16 10/20/16 10/21/16 05:59 05:59 05:59 Intake Total 2400 800 Output Total 500 400 Balance 1900 400 - Physical Exam Constitutional: chronically ill appearing, cachectic Cardiovascular: regular rate and rhythym, no murmur, rub, or gallop Respiratory: no respiratory distress, no rales or rhonchi, clear to auscultation Gastrointestinal: normoactive bowel sounds, other (ostomy; soft, no TTP) ICD10 Worksheet Patient Problems: Problems Problem Status Onset Fever Acute Dehydration Acute Palliative care encounter Acute Cachexia Acute Head and neck cancer Acute
[2016-10-20] MEDS ORDERED: LIDOCAINE 2% JELLY 20 ML (UROJECT) ONE (15:52)
--- NOTE | 2016-10-20 17:08 | WOCRNPDOC ---
CHRISTINA Advanced Assessment Note - Skin Integrity Problem, Advanced Assess Right Ischial Tuberosity Pressure Injury Dressing Type: Allevyn Life Dressing Description: Clean/Dry, Intact Exudate Amount: None Integumentary Issue Intervention: Visualized Under Dressing Marnie Wound Tissue: Erythema, Non-blanching, Thin Marnie Wound Swelling: None Site Odor: None Site Measurement - Head-to-Toe Length X Width X Depth (cm): 5 x 3 x 0 Pressure Injury Stage: Stage 1 Pressure Injury Present on Admit: Yes Skin Integrity Problem Comment: Assessed while in PACU. Thin, dry, intact but friable skin with appearance resembling a Stage 1 pressure injury, appearance suggestive of a healed prior injury, adjacent to and partially surrounding the injury present at the coccyx. It is appropriately protected by a sacrum dressing. When on Cancer Care, patient is resting on an Accumax surface with pump. A TAPS will be placed to promote her comfort during repositioning. Report to ISAAC Hill. Coccyx Pressure Injury Dressing Type: Allevyn Life Dressing Description: Clean/Dry, Intact Exudate Amount: None Integumentary Issue Intervention: Visualized Under Dressing Marnie Wound Tissue: Erythema, Non-blanching, Thin, Dry Wound Bed Color: Brown Wound Bed Constitution: Adhered Slough (100%) Wound Edges: Scarred Site Odor: None Site Measurement - Head-to-Toe Length X Width X Depth (cm): 0.5 x 0.5 x 0 ( slough) Pressure Injury Stage: Unstageable (see comment below) Skin Integrity Problem Comment: Assessed patient while in PACU, prior to return to Cancer Care unit. Dried adhered slough in the context of cheloid-like scar tissue presents with an appearance consistent with that of an unstageable pressure injury, suggestive of a prior pressure injury of unknown dimensions and depth. It is appropriately protected by a sacrum dressing. When on Cancer Care, patient is resting on an Accumax surface with pump. A TAPS will be placed to promote her comfort during repositioning. Report to ISAAC Hill. - Colostomy Assessment, Advanced Left Lower Abdomen Colostomy Stoma Colostomy Appliance Intact: Yes Colostomy Appliance Currently in Use: Two Piece Flat, 2 1/4 Colostomy Effluent: Fecal, Pasty Colostomy Comment/Treatment Details: Visualized in PACU, post PEG procedure. Did not eval patient for established stoma at this time. Provided marnie care for stooling from rectum. envelope machine adjuster to enter photographic colorist consult if needed.
[2016-10-20] MEDS: fentaNYL 100 MCG/2 ML INJ IVP PRN ×2 (18:35→21:19)
[2016-10-20] MEDS: clonazePAM 1 MG TAB PO PRN ×2 (21:20→21:32)
[2016-10-20] MEDS: GABAPENTIN 300 MG CAP PO SCH ×2 (21:21→21:32)
[2016-10-21] MEDS: oxyCODONE IR 5 MG TAB PO PRN (04:27)
[2016-10-21] MEDS: LEVOTHYROXINE 75 MCG TAB PO SCH (04:28)
[2016-10-21] MEDS: AMPICILLIN/SULBACTAM 3 GM in NS 100 ML IV SCH ×3 (04:29→18:51)
[2016-10-21] MEDS: D5W LR 1,000 ML IV SCH (04:29)
[2016-10-21 05:01] LABS: % IMMATURE GRANULYOCYTES 0.7 % (0.0-1.1); ABSOLUTE IMMATURE GRANULOCYTES 0.06 10^3/uL (0.00-0.10); ADD DIFF? NO; ADD MORPH? NO; ADD SCAN? NO; ATYPICAL LYMPHOCYTE FLAG 0 (0-99); FRAGMENT RBC FLAG 0 (0-99); HEMATOCRIT 23.1 % (38.0-47.0); HEMOGLOBIN 7.5 g/dL (12.6-16.3); LEFT SHIFT FLG 20 (0-99); LIPEMIA HEMOLYSIS FLAG 80 (0-99); MEAN CELL HEMOGLOBIN 30.2 pg (27.9-34.1); MEAN CELL HEMOGLOBIN CONCENTR. 32.5 g/dL (32.4-36.7); MEAN CELL VOLUME 93.1 fL (81.5-99.8); MEAN PLATELET VOLUME 9.4 fL (8.7-11.7); PLATELET CLUMPS FLAG 0 (0-99); PLATELET COUNT 226 10^3/uL (150-400); RED BLOOD CELL COUNT 2.48 10^6/uL (4.18-5.33); RED CELL DISTRIBUTION WIDTH 16.2 % (11.5-15.2)
[2016-10-21 05:18] LABS: ANION GAP 9 mEq/L (8-16); CALCIUM 8.6 mg/dL (8.5-10.4); CARBON DIOXIDE 23 mEq/l (22-31); CHLORIDE 98 mEq/L (97-110); CREATININE 0.4 mg/dL (0.6-1.0); GLOMERULAR FILTRATION RATE > 60; GLUCOSE 110 mg/dL (70-100); POTASSIUM 3.7 mEq/L (3.5-5.2); SODIUM 130 mEq/L (134-144)
[2016-10-21] MEDS ORDERED: oxyCODONE IR 5 MG TAB TUBE PRN (07:29)
[2016-10-21] MEDS: fentaNYL 100 MCG/2 ML INJ IVP PRN (07:34)
--- NOTE | 2016-10-21 09:07 | PCMIDPN ---
Assessment/Plan: # Pyometra and left adnexal phlegmon, suspect this is a complication of prior diverticular perforation mid August. s/p D&C 10/10/2016 with cultures showing E coli and Citrobacter both susceptible to ampicillin /sulbactam. -- continue IV Unasyn, change back to fluconazole via tube. Change Augmentin back to Unasyn tomorrow; MAR adjusted -- Tentatively plan a total of 3 weeks of antibiotics, currently day #03/29 post D&C., 10/31/16 stop date -- transfer to SNF at any point ok from ID perspective. Will follow peripherally Microbiology 10/10/16 08:45 Pelvis - Tissue Anaerobic Culture - Final Escherichia Coli Citrobacter Braakii Medications, antibiotic #03/29 Unasyn 3 g IV Q 6 Fluconazole 200 mg IV daily Subjective: very upset because inadequate pain control defecated via rectum last night and worried about that Objective: Vital Signs Temp Pulse Resp BP Pulse Ox 37.1 C 90 20 134/79 H 90 L 10/21/16 07:55 10/21/16 07:55 10/21/16 07:55 10/21/16 07:55 10/21/16 07:55 Laboratory Results 10/21/16 04:48 10/21/16 04:48 10/20/16 10/21/16 10/22/16 05:59 05:59 05:59 Intake Total 800 1813 Output Total 400 650 Balance 400 1163 General Appearance: alert, no apparent distress EENT: No oral ulcerations, No thrush Respiratory: No accessory muscle use Neck: Swelling right lateral neck, stable Extremities: No pedal edema Abdomen: non-tender, soft, G-tube , no stool in ostomy bag) Pelvic Exam: No dhaliwal Skin: No rash Neuro/Psych: alert, normal mood/affect, oriented x 3 LUE PICC: No drainage, No erythema ICD10 Worksheet Patient Problems: Problems Problem Status Onset Cachexia Acute Dehydration Acute Head and neck cancer Acute Fever Acute Palliative care encounter Acute
[2016-10-21] MEDS ORDERED: FLUCONAZOLE 100 MG TAB TUBE SCH (09:15)
[2016-10-21] MEDS ORDERED: IBUPROFEN SUSP 100 MG/5 ML UDCUP TUBE ONE (09:17)
[2016-10-21] MEDS: FLUTICASONE/SALMETER 250/50MCG DISKUS IH SCH (09:26)
[2016-10-21 09:30] LABS: ALBUMIN 2.6 g/dL (3.5-5.0); BILIRUBIN,TOTAL 0.2 mg/dL (0.1-1.4); BILIRUBIN-UNCONJUGATED 0.2 mg/dL (0.0-1.1); TOTAL PROTEIN 5.3 g/dL (6.3-8.2)
[2016-10-21] MEDS: METOCLOPRAMIDE 10 MG TAB TUBE PRN (09:30)
[2016-10-21] MEDS: oxyCODONE IR 5 MG TAB TUBE PRN ×3 (09:30→20:26)
[2016-10-21] MEDS: ENOXAPARIN 40 MG/0.4 ML SYR SC SCH (09:35)
[2016-10-21] MEDS: FLUCONAZOLE 40 MG/1 ML 35 ML BOTTLE TUBE SCH (13:24)
[2016-10-21] MEDS: ONDANSETRON 4 MG/2 ML VIAL IVP PRN (13:25)
[2016-10-21] MEDS: FLUCONAZOLE/NaCl 100 ML IV SCH (13:38)
[2016-10-21] MEDS ORDERED: DIAZEPAM 2 MG TAB PO PRN (13:55)
--- NOTE | 2016-10-21 13:55 | HOSPPROG ---
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/chemo # pulled PEG - replaced, currently functioning # FTT - multifactorial; she is overwhelmed by her self care duties (PICC, PEG, ostomy) - nutrition, PT, OT, CM assistance # uncontrolled pain - fentanyl patch 37mcg started 10/19 - increase tomorrow - cont oxycodone IR prn at increased dose - fentanyl IV prn - high risk, monitor on continuous pulseOx # leg cramps - lytes ok; trial of valium for muscle spasms # hx pyometra/diverticulitis - currently on augmentin - appreciate Dr Nicholson's help # PEG, ostomy (recent perforated colon) # severe protein calorie malnutrition # dvt ppx - lovenox 30 # dispo - trying for SNF which may be difficult as she will need XRT and chemo; CM involved Subjective: tearful; complaining of bilat leg cramping Objective: Vital Signs Temp Pulse Resp BP Pulse Ox 37.1 C 90 20 134/79 H 90 L 10/21/16 07:55 10/21/16 07:55 10/21/16 07:55 10/21/16 07:55 10/21/16 07:55 Laboratory Results 10/21/16 04:48 10/21/16 04:48 10/20/16 10/21/16 10/22/16 05:59 05:59 05:59 Intake Total 800 1813 Output Total 400 650 Balance 400 1163 - Time Spent With Patient Time Spent with Patient: greater than 25 minutes Time Spent with Patient: Greater than 25 minutes spent on this patients care, greater than 50% of time spent counseling, educating, and coordinating care regarding the above mentioned plan. - Physical Exam Constitutional: uncomfortable, cachectic ICD10 Worksheet Patient Problems: Problems Problem Status Onset Fever Acute Dehydration Acute Palliative care encounter Acute Cachexia Acute Head and neck cancer Acute
[2016-10-21] MEDS: GABAPENTIN 300 MG CAP TUBE SCH (20:44)
[2016-10-22] MEDS: AMPICILLIN/SULBACTAM 3 GM in NS 100 ML IV SCH ×2 (00:04→06:31)
[2016-10-22] MEDS: oxyCODONE IR 5 MG TAB TUBE PRN ×4 (00:12→23:47)
[2016-10-22 07:02] LABS: ANION GAP 7 mEq/L (8-16); CALCIUM 8.2 mg/dL (8.5-10.4); CARBON DIOXIDE 24 mEq/l (22-31); CHLORIDE 103 mEq/L (97-110); CREATININE 0.5 mg/dL (0.6-1.0); GLOMERULAR FILTRATION RATE > 60; GLUCOSE 90 mg/dL (70-100); POTASSIUM 3.6 mEq/L (3.5-5.2); SODIUM 134 mEq/L (134-144)
[2016-10-22] MEDS: ENOXAPARIN 40 MG/0.4 ML SYR SC SCH (09:29)
[2016-10-22] MEDS: FLUTICASONE/SALMETER 250/50MCG DISKUS IH SCH (09:30)
--- NOTE | 2016-10-22 10:56 | HOSPPROG ---
Hospitalist Progress Note Assessment/Plan: DIAGNOSES: # head and neck squamous cell cancer -currently getting XRT/chemo, dose is scheduled for today # severe protein calorie malnutrition PEG Came out again last night, uncertain how this happened- - will need replacement again today # FTT - multifactorial; she is overwhelmed by her self care duties (PICC, PEG, ostomy) - nutrition, PT, OT, CM assistance # uncontrolled pain - sounds somewhat better today - fentanyl patch 37mcg started 10/19 - cont oxycodone IR prn at increased dose - fentanyl IV prn - high risk, monitor on continuous pulseOx # leg cramps - lytes ok; trial of valium for muscle spasms # hx pyometra/diverticulitis - currently on augmentin - appreciate Dr Nicholson's help # ostomy (recent perforated colon) # dvt ppx - lovenox 30 PLANS: - I have ordered replacement of her feeding to in radiology -I will review with Oncology and case management but as the patient is receiving the chemotherapy this will complicate plans to get her to correction therapy center -Continue pain management titration SUBJECTIVE: she is very upset about dislodging of her percutaneous feeding tube again overnight. She does not have any knowledge or recollection of how this tube came out but seems to recall hearing some type of popping sound at 1 point and wonders if that was related She does not today mention her pain to me or any other new complaints. Remains very weak OBJECTIVE Vitals reviewed: stable without fever Exam: Severe cachexia still present alert oriented skin warm dry color ok resps not labored lungs clear BSs heart regular abd soft nondistended nontender, bowel sounds present; her percutaneous feeding tube site aside from the absence of the tube looks very good limbs warm, no edema iv site ok Objective: Vital Signs Temp Pulse Resp BP Pulse Ox 37.2 C 84 18 127/64 H 91 L 10/22/16 08:03 10/22/16 09:30 10/22/16 09:30 10/22/16 08:03 10/22/16 08:03 Laboratory Results 10/21/16 04:48 10/22/16 06:30 10/21/16 10/22/16 10/23/16 06:59 06:59 06:59 Intake Total 1813 1200 Output Total 650 Balance 1163 1200 - Time Spent With Patient Time Spent with Patient: greater than 35 minutes Time Spent with Patient: Greater than 35 minutes spent on this patients care, greater than 50% of time spent counseling, educating, and coordinating care regarding the above mentioned plan. ICD10 Worksheet Patient Problems: Problems Problem Status Onset Cachexia Acute Dehydration Acute Head and neck cancer Acute Fever Acute Palliative care encounter Acute
[2016-10-22] MEDS ORDERED: NALOXONE HCL 0.4 MG/ML INJ ONE (13:06)
[2016-10-22] MEDS ORDERED: FLUMAZENIL 0.5 MG/5 ML MDV IVP ONE (13:06)
[2016-10-22] MEDS ORDERED: fentaNYL 250 MCG/5 ML INJ ONE (13:07)
[2016-10-22] MEDS ORDERED: MIDAZOLAM 2 MG/2 ML VIAL ONE (13:07)
[2016-10-22] MEDS ORDERED: IOPAMIDOL (ISOVUE-300) 100 ML BTL ONE (13:53)
--- NOTE | 2016-10-22 14:10 | GCON ---
[f rep st] CONSULTATION REFERRING PHYSICIAN: Dc Cervantes MD REASON FOR CONSULTATION: Patient known to Dr. Dior with locally advanced oropharyngeal cancer admi tted for failure to thrive. HISTORY OF PRESENT ILLNESS: The patient is a 65-year-old woman who noticed a lump in her neck in spring. She eventually saw Dr. London. An aspiration was performed on July 29, 2016 which michel wed malignant cells consistent with a poorly differentiated neoplasm. The inside sales lead favored metast atic squamous cell carcinoma. A second biopsy was not diagnostic. She was scheduled for an excisio nal biopsy which confirmed squamous cell. Lump was painful, and she was having a significant amount of trouble with that. PET-CT performed August 04, 2016 showed large round essentially necrotic righ t jugulodigastric node deep in the right parotid gland with a maximum SUV of 5.9, measured roughly 4 .2 x 3.0 cm. Caudal to this in the right neck, there was small lateral node on image 70 with minima l FDG uptake with an SUV of 1. At the level of the larynx and below the larynx were 2 small lymph n odes associated with more prominent increased FDG activity. There was no evidence of distant diseas e. Her staging was Tx N2b M0. She received carbo Taxol initially cycle 1 day 1 on 08/20/2016. Unfortu nately, she had a diverticular perforation on the same day requiring emergency surgery with divertin g ostomy. The primary tumor had immediate response but several complications have delayed treatment , and mass has progressed. The patient was in the hospital a couple weeks ago for pyometrium, thoug ht that her previous diverticular abscess had seated the endometrium, and she is status post dilatio n and curettage of this infection. She remains on Augmentin and follows with Dr. Suma Nicholson. She was discharged on October 12, 2016 and seen in the office with Dr. Dior. She was given cycle 1 day 1 o f cisplatin on 10/14/2016. Unfortunately, she returned to the hospital on October 18 with failure to t hrive and malfunctioning PEG tube. She also reported being weak and unable to care for herself at [facility]. She has an ostomy from previous emergent surgery. She has a PICC line and a PEG tube. She is still dealing with a lot of pain and difficulty taking care of herself. Her feeding tube has falle n out twice during this admission. On review of systems today, she is feeling stronger. Pain is better controlled. She is unsure if t he right neck mass has begun to shrink in size again, but she reports improved head pain that was as sociated with this. She is not currently running fevers, and labs were reviewed today. PAST MEDICAL HISTORY: 1. As described above. Also had breast cancer diagnosed in 2012, ER/DE positive. Been on anastroz ole since October 2012. She had an intermediate recurrence score but declined chemotherapy. She did r eceive adjuvant radiation. 2. Continuous narcotic dependence with chronic pain. 3. Pyometra, status post cervical dilatation in the OR a couple weeks ago. 4. Colon perforation secondary to diverticulosis with subsequent colostomy. 5. Hypothyroidism. 6. Asthma. SOCIAL HISTORY: Lives in [place] with her daughter. Her brother is present today. FAMILY HISTORY: Noncontributory. PHYSICAL EXAMINATION: VITAL SIGNS: Today show blood pressure 104/48, pulse of 97, saturating 98% o n room air. GENERAL: Chronically ill woman not in acute distress. Alert and oriented. HEENT: La rge right next neck mass actually appears smaller than when I saw her a couple weeks ago. HEART: R egular rate and rhythm. ABDOMEN: Soft. Ostomy intact. Her PEG tube site is draining just a minim al amount of clear fluid. EXTREMITIES: Lower extremities thin, cachectic. LABORATORIES: Today show white blood cell count 8.7, hemoglobin 7.5, hematocrit 23.1, platelet coun t of 226,000. Her CMP was reviewed, most recent total protein 5.3, albumin 2.6. Her creatinine is 0.5 today. Sodium 134. She did have an abdominal x-ray on this admission showing persistent mild to moderate left hydroneph rosis due to inflammatory process and low pelvis, no evidence of obstruction or adynamic ileus. She had a pelvic CT showing a nicely drained uterine cavity from 11 days prior, improving inflammatory process and phlegmon in the left adnexa, decreased fluid and residual gas in the suspected fallopian tube. No new pelvic collection or abscess. ASSESSMENT AND PLAN: 65-year-old woman with pharyngeal squamous cell cancer of unknown primary diag nosed July 2016 currently on therapy but with multiple complications since therapy initiated. Admi tted with failure to thrive, weakness and percutaneous endoscopic gastrostomy tube malfunction. 1. Failure to thrive. Multifactorial. Patient looks better today. Will likely need short-term re hab. She requires more attention to nutrition and pain control and appreciate Internal Medicine hel p with this during this admission. Hopefully she will be able to go to a rehab soon. Will need to continue tube feeds at home but trying to work out reason for PEG tube malfunction. 2. Most recent pelvic phlegmon. Dr. Barnes evacuated a pyometra. She continues on antibiotics per Lopez Nicholson at this time. No evidence of recurrence. 3. Diverticular abscess, status post perforation. She now has an ostomy, and this appears to be fu nctioning well. 4. Pharyngeal squamous cell of unknown primary, diagnosed 07/2016, Tx N2b M0. PET scan shows a 4.2 x 3.0 right jugulodigastric lymph node with SUV of 5.9, received carbo Taxol cycle 1, day one 08/20. Primary tumor had immediate response but multiple complications delayed treatment. She is n ow on weekly cisplatin. She was due yesterday but will plan to give in the hospital tomorrow once w e can obtain drugs. She will be premedicated and prehydrated. Follow up with Dr. Dior as an outpa tient. Clinically the right neck mass is stable. 5. Anemia. Hemoglobin stable. Multifactorial. Consider transfusion given patient's weakness prio r to discharge. 6. History of stage IA breast cancer. I do not see adjuvant anastrozole on her medical administrat ion list but will make sure that this continues. 7. All other issues per Internal Medicine. We will continue to follow along. /[id number]/MODL
[2016-10-22] MEDS: AMOX TR/K CLAV 400 MG/5 ML 100ML BULK BTL TUBE SCH (16:19)
[2016-10-22] MEDS: FLUCONAZOLE 40 MG/1 ML 35 ML BOTTLE TUBE SCH (16:21)
[2016-10-22] MEDS: LEVOTHYROXINE 75 MCG TAB TUBE SCH (16:21)
[2016-10-22] MEDS ORDERED: fentaNYL 50 MCG PATCH TD SCH (17:30)
[2016-10-22] MEDS: ONDANSETRON 4 MG/2 ML VIAL IVP PRN (17:39)
[2016-10-22] MEDS: METOCLOPRAMIDE 10 MG TAB TUBE PRN (17:39)
[2016-10-22] MEDS: fentaNYL 25 MCG PATCH TD SCH (19:13)
[2016-10-22] MEDS: fentaNYL 12 MCG PATCH TD SCH (19:14)
[2016-10-22] MEDS: MAGNESIUM HYDROXIDE 30 ML UDCUP TUBE PRN (21:47)
[2016-10-22] MEDS: GABAPENTIN 300 MG CAP TUBE SCH (21:49)
[2016-10-23] MEDS: LEVOTHYROXINE 75 MCG TAB TUBE SCH (06:11)
[2016-10-23] MEDS: AMOX TR/K CLAV 400 MG/5 ML 100ML BULK BTL TUBE SCH ×3 (06:11→21:33)
[2016-10-23] MEDS: oxyCODONE IR 5 MG TAB TUBE PRN (06:29)
[2016-10-23] MEDS: METOCLOPRAMIDE 10 MG TAB TUBE PRN ×2 (06:29→21:33)
[2016-10-23] MEDS: FLUTICASONE/SALMETER 250/50MCG DISKUS IH SCH (09:19)
[2016-10-23] MEDS: FLUCONAZOLE 40 MG/1 ML 35 ML BOTTLE TUBE SCH (09:59)
[2016-10-23] MEDS: ANASTROZOLE 1 MG TAB PO SCH (09:59)
--- NOTE | 2016-10-23 11:22 | SOAPPROG ---
SOAP Progress Note Assessment/Plan: E&M for H&N cancer * SCC H&N; TxN2b: week 2 of weekly cisplatin + xrt. Ok to receive chemo today. * Severe protein calorie malnutrition and FTT: PEG feeding restarted after replacement. * Cancer related pain: patch increased to 50 mcg 10/22. It may not work as well due to significant loss of fat. Oxy IR works well for her and will have available as breakthrough. Will need to determine whether to continue patch or stop * Pyometra/diverticulitis - currently on augmentin and followed by Dr Nicholson's Subjective: Not getting any pain relief from fentanyl patch. 20 oxy IR every 4-6 hours at home was very effective. Feeding tube replaced and nutrition restarted. +BM after MOM. Objective: Vital Signs Temp Pulse Resp BP Pulse Ox 36.4 C 86 17 172/80 H 90 L 10/23/16 09:16 10/23/16 09:16 10/23/16 09:16 10/23/16 09:16 10/23/16 09:16 Laboratory Results 10/21/16 04:48 10/22/16 06:30 10/22/16 10/23/16 10/24/16 05:59 05:59 05:59 Intake Total 1200 450 Balance 1200 450 Physical Exam - Physical Exam General Appearance: cachetic Neck: other (mass posterior right cervical chain) Cardiac/Chest: regular rate, rhythm, No edema Abdomen: normal bowel sounds, non-tender, soft, other (feeding tube without infection; colostomy with brown stool) ICD10 Worksheet Patient Problems: Problems Problem Status Onset Cachexia Acute Dehydration Acute Head and neck cancer Acute Fever Acute Palliative care encounter Acute
[2016-10-23] MEDS: oxyCODONE ORAL SOLUTION 10 MG/0.5 ML UDSYR TUBE PRN ×3 (11:53→21:33)
[2016-10-23] MEDS: MAGNESIUM SULFATE IV SCH (12:44)
[2016-10-23] MEDS: NS IV SCH (12:44)
[2016-10-23] MEDS: ENOXAPARIN 40 MG/0.4 ML SYR SC SCH (12:44)
[2016-10-23] MEDS: POTASSIUM CL IV SCH (12:44)
[2016-10-23] MEDS ORDERED: FOSAPREPITANT 150 MG in NS 250 ML IV SCH (13:30)
[2016-10-23] MEDS ORDERED: PALONOSETRON HCL 0.25 MG/5 ML VIAL IVP SCH (13:30)
--- NOTE | 2016-10-23 13:46 | HOSPPROG ---
Hospitalist Progress Note Assessment/Plan: DIAGNOSES: # head and neck squamous cell cancer -currently getting XRT/chemo, dose is scheduled for today # severe protein calorie malnutrition PEG Came out again last night, uncertain how this happened- - will need replacement again today # FTT - multifactorial; she is overwhelmed by her self care duties (PICC, PEG, ostomy) - nutrition, PT, OT, CM assistance # uncontrolled pain - sounds somewhat better today - fentanyl patch 37mcg started 10/19 - cont oxycodone IR prn at increased dose - fentanyl IV prn - high risk, monitor on continuous pulseOx # leg cramps - lytes ok; trial of valium for muscle spasms # hx pyometra/diverticulitis - currently on augmentin - appreciate Dr Nicholson's help # ostomy (recent perforated colon) # dvt ppx - lovenox 30 I have reviewed her progress and plans with Dr Murray today PLANS: -continue tube feedings on 24 drip schedule for now, watch for residuals or abdominal pain; may need to slow rate for a few days -Continue pain management titration -PT OT as able -DC planning: her family members are out visiting SNF's today SUBJECTIVE: more relaxed and comfortable so far today no nausea no pain from PEG feels bloated with tube feeds going in at 50 per hour but not painful OBJECTIVE Vitals reviewed: stable without fever Exam: Severe cachexia still present alert oriented skin warm dry color ok resps not labored lungs clear BSs heart regular abd soft nondistended nontender, bowel sounds present; Per Gastrostomy tube in good position and secured limbs warm, no edema iv site ok Objective: Vital Signs Temp Pulse Resp BP Pulse Ox 36.4 C 86 17 153/78 H 90 L 10/23/16 09:16 10/23/16 09:16 10/23/16 09:16 10/23/16 12:50 10/23/16 09:16 Laboratory Results 10/21/16 04:48 10/22/16 06:30 10/22/16 10/23/16 10/24/16 06:59 06:59 06:59 Intake Total 1200 450 Balance 1200 450 ICD10 Worksheet Patient Problems: Problems Problem Status Onset Cachexia Acute Dehydration Acute Head and neck cancer Acute Fever Acute Palliative care encounter Acute
[2016-10-23] MEDS ORDERED: CISPLATIN IV SCH (14:00)
[2016-10-23] MEDS ORDERED: NS IV SCH ×2 (14:00→16:00)
[2016-10-23] MEDS ORDERED: MAGNESIUM SULFATE IV SCH (16:00)
[2016-10-23] MEDS ORDERED: POTASSIUM CL IV SCH (16:00)
[2016-10-23] MEDS: MAGNESIUM HYDROXIDE 30 ML UDCUP TUBE PRN (21:33)
[2016-10-23] MEDS: GABAPENTIN 300 MG CAP TUBE SCH (21:33)
[2016-10-24] MEDS: oxyCODONE ORAL SOLUTION 10 MG/0.5 ML UDSYR TUBE PRN ×4 (02:21→23:21)
[2016-10-24] MEDS: LEVOTHYROXINE 75 MCG TAB TUBE SCH (05:44)
[2016-10-24] MEDS: ANASTROZOLE 1 MG TAB PO SCH (08:12)
[2016-10-24] MEDS: AMOX TR/K CLAV 400 MG/5 ML 100ML BULK BTL TUBE SCH ×2 (08:13→21:22)
[2016-10-24] MEDS: FLUCONAZOLE 40 MG/1 ML 35 ML BOTTLE TUBE SCH (08:14)
[2016-10-24] MEDS: ENOXAPARIN 40 MG/0.4 ML SYR SC SCH (08:30)
[2016-10-24] MEDS: METOCLOPRAMIDE 10 MG TAB TUBE PRN (08:36)
[2016-10-24] MEDS: FLUTICASONE/SALMETER 250/50MCG DISKUS IH SCH (09:05)
[2016-10-24] MEDS ORDERED: LORazepam 0.5 MG TAB TUBE PRN (12:42)
--- NOTE | 2016-10-24 12:46 | SOAPPROG ---
SOAP Progress Note Assessment/Plan: E&M for H&N cancer * SCC H&N; TxN2b: week 2 of weekly cisplatin + xrt. Received cis 30mg/m2 10/23. * Severe protein calorie malnutrition and FTT: PEG feeding restarted after replacement. * Severe Nausea: TF on hold; Should be well covered by [employer] and Emend give . I will increase reglan and try ativan. Listed as allergy and will verify what kind of reaction. I spoke to the nurse. Will stop fentanyl patch. * Cancer related pain: patch increased to 50 mcg 10/22. It may not work as well due to significant loss of fat. Oxy IR works well for her and will have available as breakthrough. Not certain but it may be contributing to her n/v. Due to all these factors, I will stop it and have her just use Oxy IR. * Pyometra/diverticulitis - currently on augmentin and followed by Dr Nicholson's Subjective: More trouble with nausea today; some dry heaves. Not feeling well. Very fatigued. Objective: Vital Signs Temp Pulse Resp BP Pulse Ox 36.7 C 86 16 147/76 H 98 10/24/16 07:07 10/24/16 09:10 10/24/16 09:10 10/24/16 07:07 10/24/16 09:10 Laboratory Results 10/21/16 04:48 10/22/16 06:30 10/23/16 10/24/16 10/25/16 05:59 05:59 05:59 Intake Total 450 2038 Output Total 400 400 Balance 450 1638 -400 Physical Exam - Physical Exam General Appearance: mild distress Respiratory: lungs clear Cardiac/Chest: regular rate, rhythm Abdomen: other (tube feeding off. Tube in place), No normal bowel sounds ( decreased) ICD10 Worksheet Patient Problems: Problems Problem Status Onset Cachexia Acute Dehydration Acute Head and neck cancer Acute Fever Acute Palliative care encounter Acute
[2016-10-24] MEDS: NS 1,000 ML IV SCH (13:13)
[2016-10-24] MEDS: PROCHLORPERAZINE MALEATE 10 MG TAB TUBE PRN ×2 (13:15→21:22)
[2016-10-24] MEDS: MAGNESIUM SULFATE IV SCH (13:56)
[2016-10-24] MEDS: POTASSIUM CL IV SCH (13:56)
[2016-10-24] MEDS: NS IV SCH (13:56)
[2016-10-24] MEDS ORDERED: DEXAMETHASONE 4 MG/ML VIAL IVP ONE ×2 (14:32→17:45)
[2016-10-24] MEDS: ALTEPLASE 2 MG VIAL IVP PRN (18:44)
[2016-10-24] MEDS: GABAPENTIN 300 MG CAP TUBE SCH (21:22)
[2016-10-24] MEDS: ACETAMINOPHEN 325 MG TAB TUBE PRN (21:24)
[2016-10-25] MEDS: NS 1,000 ML IV SCH ×2 (00:14→23:19)
[2016-10-25] MEDS: PROCHLORPERAZINE MALEATE 10 MG TAB TUBE PRN ×3 (03:21→18:56)
[2016-10-25] MEDS: oxyCODONE ORAL SOLUTION 10 MG/0.5 ML UDSYR TUBE PRN ×5 (03:23→23:25)
[2016-10-25 04:14] LABS: ADD DIFF? NO; ADD MORPH? NO
[2016-10-25 04:32] LABS: % IMMATURE GRANULYOCYTES 0.5 % (0.0-1.1); ABSOLUTE IMMATURE GRANULOCYTES 0.01 10^3/uL (0.00-0.10); ADD SCAN? NO; ATYPICAL LYMPHOCYTE FLAG 0 (0-99); FRAGMENT RBC FLAG 0 (0-99); HEMATOCRIT 24.9 % (38.0-47.0); LEFT SHIFT FLG 10 (0-99); LIPEMIA HEMOLYSIS FLAG 80 (0-99); MEAN CELL HEMOGLOBIN CONCENTR. 32.1 g/dL (32.4-36.7); MEAN CELL VOLUME 93.3 fL (81.5-99.8); MEAN PLATELET VOLUME 9.4 fL (8.7-11.7); PLATELET CLUMPS FLAG 10 (0-99); PLATELET COUNT 212 10^3/uL (150-400); RED BLOOD CELL COUNT 2.67 10^6/uL (4.18-5.33); RED CELL DISTRIBUTION WIDTH 16.3 % (11.5-15.2)
[2016-10-25 04:38] LABS: ALANINE AMINOTRANSFERASE 27 IU/L (9-52); ALBUMIN 2.8 g/dL (3.5-5.0); ALKALINE PHOSPHATASE 65 IU/L (38-126); ANION GAP 11 mEq/L (8-16); ASPARTATE AMINOTRANSFERASE 18 IU/L (14-46); BILIRUBIN,TOTAL 0.6 mg/dL (0.1-1.4); CALCIUM 8.3 mg/dL (8.5-10.4); CARBON DIOXIDE 23 mEq/l (22-31); CHLORIDE 96 mEq/L (97-110); CREATININE 0.4 mg/dL (0.6-1.0); GLOMERULAR FILTRATION RATE > 60; GLUCOSE 121 mg/dL (70-100); MAGNESIUM 1.7 mg/dL (1.6-2.3); POTASSIUM 4.3 mEq/L (3.5-5.2); SODIUM 130 mEq/L (134-144); TOTAL PROTEIN 5.5 g/dL (6.3-8.2)
[2016-10-25] MEDS: ENOXAPARIN 40 MG/0.4 ML SYR SC SCH (08:09)
[2016-10-25] MEDS: LEVOTHYROXINE 75 MCG TAB TUBE SCH (08:09)
[2016-10-25] MEDS: ANASTROZOLE 1 MG TAB PO SCH (08:10)
[2016-10-25] MEDS: AMOX TR/K CLAV 400 MG/5 ML 100ML BULK BTL TUBE SCH ×2 (08:10→22:15)
[2016-10-25] MEDS: FLUCONAZOLE 40 MG/1 ML 35 ML BOTTLE TUBE SCH (08:12)
[2016-10-25] MEDS: FLUTICASONE/SALMETER 250/50MCG DISKUS IH SCH (08:49)
[2016-10-25] MEDS: ANASTROZOLE 1 MG TAB TUBE SCH (08:51)
--- NOTE | 2016-10-25 10:58 | HOSPPROG ---
Hospitalist Progress Note Assessment/Plan: DIAGNOSES: # head and neck squamous cell cancer -currently getting XRT/chemo, dose is scheduled for today # intractable nausea vomiting after chemotherapy # severe protein calorie malnutrition PEG Came out again last night, uncertain how this happened- - will need replacement again today # FTT - multifactorial; she is overwhelmed by her self care duties (PICC, PEG, ostomy) - nutrition, PT, OT, CM assistance # uncontrolled pain - sounds somewhat better today - fentanyl patch 37mcg started 10/19 - cont oxycodone IR prn at increased dose - fentanyl IV prn - high risk, monitor on continuous pulseOx # leg cramps - lytes ok; trial of valium for muscle spasms # hx pyometra/diverticulitis - currently on augmentin - appreciate Dr Nicholson's help # ostomy (recent perforated colon) # dvt ppx - lovenox 30 I have reviewed her progress and plans with Dr Murray today She is very weak, and tolerating her chemotherapy very poorly PLANS: -continue tube feedings on 24 drip schedule when she resolves the nausea -Continue pain management titration -PT OT as able -DC planning: her family members are out visiting SNF's today SUBJECTIVE: severe nausea today with frequent vomiting, despite aggressive antiemetic regimen no abdominal pain no fever sxs no diarrhea not able to take any PO and her tube feeds are stopped OBJECTIVE Vitals reviewed: stable without fever Exam: Severe cachexia still present alert oriented, looks miserable due to nausea skin warm dry color ok resps not labored lungs clear BSs heart regular abd soft nondistended nontender, bowel sounds present; Per Gastrostomy tube in good position and secured limbs warm, no edema iv site ok Objective: Vital Signs Temp Pulse Resp BP Pulse Ox 36.6 C 20 L 20 121/72 H 96 10/25/16 07:54 10/25/16 08:50 10/25/16 08:50 10/25/16 07:54 10/25/16 08:50 Laboratory Results 10/25/16 03:30 10/25/16 03:30 10/24/16 10/25/16 10/26/16 06:59 06:59 06:59 Intake Total 2037 1979 Output Total 400 1500 Balance 1638 480 ICD10 Worksheet Patient Problems: Problems Problem Status Onset Cachexia Acute Dehydration Acute Head and neck cancer Acute Fever Acute Palliative care encounter Acute
--- NOTE | 2016-10-25 13:27 | HOSPPROG ---
Hospitalist Progress Note Assessment/Plan: DIAGNOSES: # head and neck squamous cell cancer -currently getting XRT/chemo, dose is scheduled for today # intractable nausea vomiting after chemotherapy # severe protein calorie malnutrition PEG Came out again last night, uncertain how this happened- - will need replacement again today # FTT - multifactorial; she is overwhelmed by her self care duties (PICC, PEG, ostomy) - nutrition, PT, OT, CM assistance # uncontrolled pain - sounds somewhat better today - fentanyl patch 37mcg started 10/19 - cont oxycodone IR prn at increased dose - fentanyl IV prn - high risk, monitor on continuous pulseOx # leg cramps - lytes ok; trial of valium for muscle spasms # hx pyometra/diverticulitis - currently on augmentin - appreciate Dr Nicholson's help # ostomy (recent perforated colon) # dvt ppx - lovenox 30 I have reviewed her progress and plans with Dr Pope today she certainly needs better pain control and if she is going to continue on with chemotherapy will need better nausea management, particularly if she is to try and do this from a nursing facility PLANS: -continue tube feedings on 24 drip schedule; changed formula today to higher concentrations so that we can decrease volume -Continue pain management titration: will add Lidoderm patch and will review possible options for long acting analgesic with pharmacy, I wonder if we can use methadone through her tube as she cannot swallow pills -PT OT as able -DC planning: waiting to hear from DC planning regarding senior living facility SUBJECTIVE: Still with nausea but less than today, no vomiting today so far Is tolerating tube feeds reasonably well so far today Ongoing severe pain in her neck and right lower quadrant, not particularly worse since fentanyl patch stopped but still not nearly satisfactory OBJECTIVE Vitals reviewed: stable without fever Exam: Severe cachexia still present alert oriented, looks a bit more relaxed today skin warm dry color ok, no jaundice resps not labored lungs clear BSs heart regular abd soft nondistended nontender, bowel sounds present; perc gastrostomy tube in good position and secured limbs warm, no edema iv site ok Laboratory data: now neutropenic at 1680 Objective: Vital Signs Temp Pulse Resp BP Pulse Ox 36.6 C 20 L 20 121/72 H 96 10/25/16 07:54 10/25/16 08:50 10/25/16 08:50 10/25/16 07:54 10/25/16 08:50 Laboratory Results 10/25/16 03:30 10/25/16 03:30 10/24/16 10/25/16 10/26/16 06:59 06:59 06:59 Intake Total 2037 1979 Output Total 400 1500 Balance 1638 480 - Time Spent With Patient Time Spent with Patient: greater than 35 minutes Time Spent with Patient: Greater than 35 minutes spent on this patients care, greater than 50% of time spent counseling, educating, and coordinating care regarding the above mentioned plan. ICD10 Worksheet Patient Problems: Problems Problem Status Onset Cachexia Acute Dehydration Acute Head and neck cancer Acute Fever Acute Palliative care encounter Acute
[2016-10-25] MEDS ORDERED: LIDOCAINE 5% 1 EA PATCH TD SCH (13:30)
--- NOTE | 2016-10-25 17:56 | SOAPPROG ---
SOAP Progress Note Assessment/Plan: Assessment: SOAP Progress Note Assessment/Plan: E&M for H&N cancer * SCC H&N; TxN2b: week 2 of weekly cisplatin + xrt. Received cis 30mg/m2 10/23. * Severe protein calorie malnutrition and FTT: PEG feeding restarted after replacement. Seems to be going ok today. * Severe Nausea: somewhat improved today. * Cancer related pain: not significantly different since stopping fentanyl patch. Oxy IR works well for her and will have available as breakthrough. * Pyometra/diverticulitis - currently on augmentin and followed by Dr Nicholson's Plan: 10/25/16 17:53 Subjective: less nausea, very anxious about placement issues Objective: Vital Signs Temp Pulse Resp BP Pulse Ox 36.6 C 20 L 20 121/72 H 96 10/25/16 07:54 10/25/16 08:50 10/25/16 08:50 10/25/16 07:54 10/25/16 08:50 Laboratory Results 10/25/16 03:30 10/25/16 03:30 10/24/16 10/25/16 10/26/16 05:59 05:59 05:59 Intake Total 2037 1979 Output Total 400 1500 Balance 1638 480 Physical Exam - Physical Exam General Appearance: alert, cachetic Neck: other (firm indurated mass at the angle of the right jaw, no signs of infection) Respiratory: lungs clear Abdomen: other (PEG and ostomy, soft, nontender) Extremities: No pedal edema ICD10 Worksheet Patient Problems: Problems Problem Status Onset Cachexia Acute Dehydration Acute Head and neck cancer Acute Fever Acute Palliative care encounter Acute
[2016-10-25] MEDS ORDERED: PATCH REMOVAL 1 EA PATCH TD SCH (21:00)
[2016-10-25] MEDS: METOCLOPRAMIDE 10 MG TAB TUBE PRN (22:10)
[2016-10-25] MEDS: GABAPENTIN 300 MG CAP TUBE SCH (22:10)
[2016-10-26] MEDS: oxyCODONE ORAL SOLUTION 10 MG/0.5 ML UDSYR TUBE PRN ×4 (05:43→19:57)
[2016-10-26] MEDS: LEVOTHYROXINE 75 MCG TAB TUBE SCH (05:43)
[2016-10-26] MEDS: FLUTICASONE/SALMETER 250/50MCG DISKUS IH SCH (09:00)
--- NOTE | 2016-10-26 10:16 | HOSPPROG ---
Hospitalist Progress Note Assessment/Plan: This patient with SqCCA of neck has multiple ongoing medical issues due to complications of her illness and treatments. She does have ongoing poorly controlled pain, and has inability to swallow pills making that harder. She had colonic perforation recently treated elsewhere with ostomy, then was here after that with pelvic abscess and pyometra. She is still on abx for that but recovering ok. As she has cachexia and not able to swallow much she has a PEG, though this has fallen out twice and been replaced twice during this admission. She is using continuous feedings as she does not yet tolerate a high infusion rate. DIAGNOSES: # head and neck squamous cell cancer -currently getting XRT/chemo -cisplatin given sat 10/23 # intractable nausea vomiting after chemotherapy -better today and tolerating feeds ok # neutropenia after chemotherapy -will follow cell counts closely, may need to be placed on neutropenic precautions # blurring of vision L eye L lateral field, ?etiology (new symptom 10/26) -will try to reexamine with ophthalmoscopy today -no grossly obvious corneal lesion; # severe protein calorie malnutrition, with cachexia, ongoing -tube feeds by PEG # FTT - multifactorial; she is overwhelmed by her self care duties (PICC, PEG, ostomy) - nutrition, PT, OT, CM assistance # uncontrolled cancer pain - sounds somewhat better today (neck and upper abdomen) -cont oxycodone IR prn at increased dose -fentayl patch was ineffective, likely due to minimal sub Q fat -I have added lidoderm patch for her neck, will see how that helps -she is unable to swallow pills; have mentioned liquid methadone by tube, she has been reluctant but will continue to offer that to her, as it can be given as liquid thru PEG and a low dose may be very effective for her # hx pyometra/diverticulitis - currently on augmentin, 3 week course will be completed 10/29 - appreciate Dr Nicholson's help # ostomy (recent perforated colon treated elsewhere): no problems w ostomy or appliances # dvt ppx - lovenox 30 I have reviewed her progress and plans with Dr Pope today DC planning is difficult: she is unable to care for self at home but due to her high intensity nursing needs and daily radiation with weekly chemo (4 more weeks of each) SNF placement may not be possible. SUBJECTIVE: nausea much better today taking tube feeds ok today mentions sudden onset of blurry vision in the L lateral visual field of L eye only, no pain or tearing OBJECTIVE Vitals reviewed: stable without fever Exam: Severe cachexia still present alert oriented, looks a bit more relaxed today Her L eye appears grossly normal, vision in R eye normal, but w R eye covered notes "blurring" of L lateral vis field in Left eye, no visual field loss and central vision is good skin warm dry color ok, no jaundice resps not labored lungs clear BSs heart regular abd soft nondistended nontender, bowel sounds present; perc gastrostomy tube in good position and secured limbs warm, no edema iv site ok Laboratory data: now neutropenic at 1680 Objective: Vital Signs Temp Pulse Resp BP Pulse Ox 36.6 C 78 18 133/71 H 94 10/26/16 08:19 10/26/16 09:01 10/26/16 09:01 10/26/16 08:19 10/26/16 09:01 Laboratory Results 10/25/16 03:30 10/25/16 03:30 10/25/16 10/26/16 10/27/16 06:59 06:59 06:59 Intake Total 1979 2932 Output Total 1500 800 Balance 480 2132 - Time Spent With Patient Time Spent with Patient: greater than 35 minutes Time Spent with Patient: Greater than 35 minutes spent on this patients care, greater than 50% of time spent counseling, educating, and coordinating care regarding the above mentioned plan. ICD10 Worksheet Patient Problems: Problems Problem Status Onset Cachexia Acute Dehydration Acute Head and neck cancer Acute Fever Acute Palliative care encounter Acute
[2016-10-26] MEDS: ENOXAPARIN 40 MG/0.4 ML SYR SC SCH (10:56)
[2016-10-26] MEDS: PROCHLORPERAZINE MALEATE 10 MG TAB TUBE PRN (10:56)
[2016-10-26] MEDS: ANASTROZOLE 1 MG TAB TUBE SCH (10:56)
[2016-10-26] MEDS: ONDANSETRON DISINTEGRATING 4 MG TAB TUBE PRN (10:56)
[2016-10-26] MEDS: FLUCONAZOLE 40 MG/1 ML 35 ML BOTTLE TUBE SCH (10:57)
[2016-10-26] MEDS: PATCH REMOVAL 1 EA PATCH TD SCH (10:57)
[2016-10-26] MEDS: AMOX TR/K CLAV 400 MG/5 ML 100ML BULK BTL TUBE SCH ×2 (10:59→21:33)
[2016-10-26] MEDS: ONDANSETRON 4 MG/2 ML VIAL IVP PRN (14:32)
[2016-10-26] MEDS: METOCLOPRAMIDE 10 MG TAB TUBE PRN (15:17)
--- NOTE | 2016-10-26 16:42 | PCMIDPN ---
Assessment/Plan: # Pyometra and left adnexal phlegmon, suspect this is a complication of prior diverticular perforation mid August. s/p D&C 10/10/2016 with cultures showing E coli and Citrobacter both susceptible to ampicillin /sulbactam. -- planning 21 days of antibiotics originally but now with possible impending neutropenia will await counts before dc antibiotics # leukopenia secondary to chemo Microbiology 10/10/16 08:45 Pelvis - Tissue Anaerobic Culture - Final Escherichia Coli Citrobacter Braakii Medications, antibiotic # Augmentin 875 mg bid Fluconazole 200 mg IV daily Discussed with Dr. Pope Subjective: feeling better today Objective: Vital Signs Temp Pulse Resp BP Pulse Ox 36.6 C 78 18 133/71 H 94 10/26/16 08:19 10/26/16 09:01 10/26/16 09:01 10/26/16 08:19 10/26/16 09:01 Laboratory Results 10/25/16 03:30 10/25/16 03:30 10/25/16 10/26/16 10/27/16 05:59 05:59 05:59 Intake Total 1980 2932 Output Total 1500 800 Balance 480 2132 - Physical Exam General Appearance: no apparent distress, cachetic EENT: No pharyngeal erythema, No thrush Respiratory: lungs clear, accessory muscle use Cardiac/Chest: regular rate, rhythm Extremities: No pedal edema Abdomen: non-tender, soft, other (ostomy LLQ without abn; midline incision healed) Skin: No rash Neuro/Psych: alert, normal mood/affect - Line/s LUE PICC Lines: No drainage, No erythema - Time Spent With Patient Time Spent with Patient: greater than 25 minutes Time Spent with Patient: Greater than 25 minutes spent on this patients care, greater than 50% of time spent counseling, educating, and coordinating care regarding the above mentioned plan. ICD10 Worksheet Patient Problems: Problems Problem Status Onset Cachexia Acute Dehydration Acute Head and neck cancer Acute Fever Acute Palliative care encounter Acute
--- NOTE | 2016-10-26 19:50 | SOAPPROG ---
SOAP Progress Note Assessment/Plan: Assessment: SOAP Progress Note Assessment/Plan: E&M for H&N cancer * SCC H&N; TxN2b: week 2 of weekly cisplatin + xrt. Received cis 30mg/m2 10/23. will likely get next dose on Tuesday if counts ok and performance status adequate. WBC yesterday dropping, will recheck cbc tomorrow. Continue with daily radiation * Severe protein calorie malnutrition and FTT: PEG feeding restarted after replacement. Seems to be going ok today. would have low threshold to start TPN if tube feeds continue to be interrupted. * Cancer related pain: not significantly different since stopping fentanyl patch. Oxy IR works well for her and will have available as breakthrough. would be reasonable to start a long acting agent. doesnt tolerate long acting morphine and fentanyl patch not effective. ? methadone. patient has been reluctant. * Pyometra/diverticulitis - currently on augmentin and followed by Dr Nicholson. * s/p colonic perforation-ostomy functioning well * Placement-will likely need to be here for the course of treatment Plan: 10/25/16 17:53 10/26/16 19:46 10/26/16 19:51 Subjective: pain is stable, tube feeds going ok Objective: Vital Signs Temp Pulse Resp BP Pulse Ox 36.7 C 84 16 134/77 H 94 10/26/16 16:44 10/26/16 16:44 10/26/16 16:44 10/26/16 16:44 10/26/16 16:44 Laboratory Results 10/25/16 03:30 10/25/16 03:30 10/25/16 10/26/16 10/27/16 05:59 05:59 05:59 Intake Total 1842 2932 1720 Output Total 1500 800 900 Balance 480 2132 820 Physical Exam - Physical Exam General Appearance: cachetic Neck: other (right neck mass) Respiratory: lungs clear Abdomen: other (PEG and ostomy) ICD10 Worksheet Patient Problems: Problems Problem Status Onset Cachexia Acute Dehydration Acute Head and neck cancer Acute Fever Acute Palliative care encounter Acute
[2016-10-26] MEDS: GABAPENTIN 300 MG CAP TUBE SCH (21:34)
[2016-10-26] MEDS: ACETAMINOPHEN 325 MG TAB TUBE PRN (21:34)
[2016-10-26] MEDS: MAGNESIUM HYDROXIDE 30 ML UDCUP TUBE PRN (21:56)
[2016-10-26] MEDS: LIDOCAINE 5% 1 EA PATCH TD SCH (23:47)
[2016-10-27] MEDS: oxyCODONE ORAL SOLUTION 10 MG/0.5 ML UDSYR TUBE PRN ×5 (00:22→20:38)
[2016-10-27] MEDS: NS 1,000 ML IV SCH ×2 (04:58→23:49)
[2016-10-27] MEDS: LEVOTHYROXINE 75 MCG TAB TUBE SCH (05:01)
[2016-10-27] MEDS: ALTEPLASE 2 MG VIAL IVP PRN ×2 (05:54→14:06)
[2016-10-27] MEDS: FLUTICASONE/SALMETER 250/50MCG DISKUS IH SCH (08:52)
[2016-10-27] MEDS: ONDANSETRON DISINTEGRATING 4 MG TAB TUBE PRN (09:00)
[2016-10-27] MEDS: ANASTROZOLE 1 MG TAB TUBE SCH (09:02)
[2016-10-27] MEDS: METOCLOPRAMIDE 10 MG TAB TUBE PRN (09:02)
[2016-10-27] MEDS: AMOX TR/K CLAV 400 MG/5 ML 100ML BULK BTL TUBE SCH ×2 (09:02→22:16)
[2016-10-27] MEDS: ENOXAPARIN 40 MG/0.4 ML SYR SC SCH (09:03)
[2016-10-27] MEDS: PATCH REMOVAL 1 EA PATCH TD SCH (09:09)
[2016-10-27 09:23] LABS: % IMMATURE GRANULYOCYTES 0.5 % (0.0-1.1); ABSOLUTE IMMATURE GRANULOCYTES 0.02 10^3/uL (0.00-0.10); ADD DIFF? NO; ADD MORPH? NO; ADD SCAN? NO; ATYPICAL LYMPHOCYTE FLAG 0 (0-99); FRAGMENT RBC FLAG 0 (0-99); HEMATOCRIT 25.2 % (38.0-47.0); HEMOGLOBIN 8.1 g/dL (12.6-16.3); LEFT SHIFT FLG 0 (0-99); LIPEMIA HEMOLYSIS FLAG 80 (0-99); MEAN CELL HEMOGLOBIN CONCENTR. 32.1 g/dL (32.4-36.7); MEAN CELL VOLUME 93.3 fL (81.5-99.8); MEAN PLATELET VOLUME 9.4 fL (8.7-11.7); PLATELET CLUMPS FLAG 0 (0-99); PLATELET COUNT 193 10^3/uL (150-400); RED CELL DISTRIBUTION WIDTH 16.6 % (11.5-15.2)
[2016-10-27 09:27] LABS: ALANINE AMINOTRANSFERASE 30 IU/L (9-52); ALBUMIN 2.9 g/dL (3.5-5.0); ALKALINE PHOSPHATASE 70 IU/L (38-126); ANION GAP 8 mEq/L (8-16); ASPARTATE AMINOTRANSFERASE 26 IU/L (14-46); BILIRUBIN,TOTAL 0.5 mg/dL (0.1-1.4); BILIRUBIN-CONJUGATED 0.5 mg/dL (0.0-0.5); CALCIUM 8.2 mg/dL (8.5-10.4); CARBON DIOXIDE 25 mEq/l (22-31); CHLORIDE 98 mEq/L (97-110); CREATININE 0.4 mg/dL (0.6-1.0); GLOMERULAR FILTRATION RATE > 60; GLUCOSE 85 mg/dL (70-100); POTASSIUM 3.6 mEq/L (3.5-5.2); SODIUM 131 mEq/L (134-144); TOTAL PROTEIN 5.4 g/dL (6.3-8.2)
[2016-10-27] MEDS: FLUCONAZOLE 40 MG/1 ML 35 ML BOTTLE TUBE SCH (11:12)
[2016-10-27] MEDS: ACETAMINOPHEN 325 MG TAB TUBE PRN ×3 (12:16→22:15)
--- NOTE | 2016-10-27 13:12 | SOAPPROG ---
SOAP Progress Note Assessment/Plan: Assessment: * SCC H&N; TxN2b: week 2 of weekly cisplatin + xrt. Received cis 30mg/m2 10/23. Plan next dose on Tuesday if counts ok and performance status adequate. Continue with daily radiation. * Severe protein calorie malnutrition and FTT: PEG feeding restarted after replacement and functioning well thus far. Would have low threshold to start TPN if tube feeds continue to be interrupted. * Cancer related pain: Oxy IR works well for her and will have available as breakthrough. would be reasonable to start a long acting agent. doesnt tolerate long acting morphine and fentanyl patch not effective (minimal sc fat). Liquid methadone suggested, patient reluctant. * Pyometra/diverticulitis: currently on augmentin and followed by Dr Nicholson. * s/p colonic perforation-: stomy functioning well. * Dispo: given her needs and inability to be treated as outpatient, she will likely need to remain inpatient through completion of therapy as SNF placement will be difficult (chemo, RT). 10/27/16 13:08 Subjective: S: neck pain unchanged. TF without problems. O: VS reviewed, AF. Gen: cachectic, fatigued. Lungs: CTA, breathing comfortably. Abd: PEG and ostomy, nontender. CV: no edema. Labs: Laboratory Tests 10/27/16 10/27/16 09:10 09:10 WBC 4.31 Hgb 8.1 L Plt Count 193 Absolute Neuts (auto) 3.52 Sodium 131 L Potassium 3.6 Chloride 98 Carbon Dioxide 25 BUN 5 L Creatinine 0.4 L Glucose 85 Total Bilirubin 0.5 AST 26 ALT 30 Alkaline Phosphatase 70 Objective: Vital Signs Temp Pulse Resp BP Pulse Ox 36.5 C 88 16 128/60 H 94 10/27/16 08:42 10/27/16 08:42 10/27/16 08:53 10/27/16 08:42 10/27/16 08:42 Laboratory Results 10/27/16 09:10 10/27/16 09:10 10/26/16 10/27/16 10/28/16 05:59 05:59 05:59 Intake Total 2932 1870 1767 Output Total 800 2250 Balance 2132 -380 1767 ICD10 Worksheet Patient Problems: Problems Problem Status Onset Cachexia Acute Dehydration Acute Head and neck cancer Acute Fever Acute Palliative care encounter Acute
--- NOTE | 2016-10-27 14:24 | HOSPPROG ---
Hospitalist Progress Note Assessment/Plan: 65 yo F with hx of head and neck cancer, as well as hx of perforated diverticulitis with ostomy placement and recent issues with pyometra/phlegmon in pelvis # head neck cancer: currently underling daily xrt, last cisplatin was 10/23 with plan for next round of chemo on 11/01 pending clinical course. Oncology following , likely will need to complete tx as an inpatient given her debilitated state # FTT: in setting of above, has had issues in particular managing PICC, PEG, ostomy. She is cachectic and having difficulty with her ADLs. Will likely need snf after discharge. # intractable n/v: better controlled at this point, will continue prn antiemetics # acute on chronic pain with continuous opiate use and dependence: continue current regimen, pain currently well controlled # pyometra/pelvic phlegmon: with d&c on 10/10 showing e coli/citrobacter, plan to continue abx until 10/29--currently on augmentin # diverticulitis with perforation and ostomy # SPCM: with BMI of 15, on tube feeds # neutropenia: 2/2 chemo, following counts # anemia: as above # IP status, will need to complete course of treatment in house Patient is new to my care. Old records reviewed and summarized as above. Care plan reviewed with onc. Further hx obtained from patients sister present at bedside. Subjective: no significant overnight events, patient currently feeling better, xrt without issues Objective: Vital Signs Temp Pulse Resp BP Pulse Ox 36.5 C 88 16 128/60 H 94 10/27/16 08:42 10/27/16 08:42 10/27/16 08:53 10/27/16 08:42 10/27/16 08:42 Laboratory Results 10/27/16 09:10 10/27/16 09:10 10/26/16 10/27/16 10/28/16 05:59 05:59 05:59 Intake Total 2932 1870 1767 Output Total 800 2250 Balance 2132 -380 1767 awake alert chronically ill appearing cachectic op clear anicteric rrr no mrg cta to ant exam soft ostomy/gtube present no cce warm dry well perfused oriented appropriate ICD10 Worksheet Patient Problems: Problems Problem Status Onset Fever Acute Dehydration Acute Palliative care encounter Acute Cachexia Acute Head and neck cancer Acute
[2016-10-27] MEDS: LIDOCAINE 5% 1 EA PATCH TD SCH (20:38)
[2016-10-27] MEDS: GABAPENTIN 300 MG CAP TUBE SCH (22:15)
[2016-10-27] MEDS: MAGNESIUM HYDROXIDE 30 ML UDCUP TUBE PRN (22:15)
[2016-10-27] MEDS ORDERED: HYDROmorphONE/DILAUDID 1 MG/ML SYR IVP PRN (23:37)
[2016-10-28] MEDS: traMADol 50 MG TAB PO PRN ×2 (00:09→06:02)
[2016-10-28] MEDS: clonazePAM 1 MG TAB TUBE PRN ×2 (00:14→12:26)
[2016-10-28] MEDS: oxyCODONE ORAL SOLUTION 10 MG/0.5 ML UDSYR TUBE PRN ×6 (00:54→21:38)
[2016-10-28] MEDS: PATCH REMOVAL 1 EA PATCH TD SCH (05:08)
[2016-10-28] MEDS: METOCLOPRAMIDE 10 MG TAB TUBE PRN (05:11)
[2016-10-28] MEDS: LEVOTHYROXINE 75 MCG TAB TUBE SCH (05:11)
[2016-10-28 05:16] LABS: % IMMATURE GRANULYOCYTES 0.3 % (0.0-1.1); ABSOLUTE IMMATURE GRANULOCYTES 0.01 10^3/uL (0.00-0.10); ADD DIFF? NO; ADD MORPH? NO; ADD SCAN? NO; ATYPICAL LYMPHOCYTE FLAG 20 (0-99); FRAGMENT RBC FLAG 0 (0-99); HEMATOCRIT 22.6 % (38.0-47.0); HEMOGLOBIN 7.3 g/dL (12.6-16.3); LEFT SHIFT FLG 0 (0-99); LIPEMIA HEMOLYSIS FLAG 80 (0-99); MEAN CELL HEMOGLOBIN CONCENTR. 32.3 g/dL (32.4-36.7); MEAN PLATELET VOLUME 9.2 fL (8.7-11.7); PLATELET CLUMPS FLAG 0 (0-99); PLATELET COUNT 168 10^3/uL (150-400); RED BLOOD CELL COUNT 2.43 10^6/uL (4.18-5.33); RED CELL DISTRIBUTION WIDTH 16.4 % (11.5-15.2)
[2016-10-28] MEDS: ANASTROZOLE 1 MG TAB TUBE SCH (07:28)
[2016-10-28] MEDS: ACETAMINOPHEN 325 MG TAB TUBE PRN ×2 (07:58→16:55)
[2016-10-28] MEDS: ONDANSETRON DISINTEGRATING 4 MG TAB TUBE PRN (07:58)
[2016-10-28] MEDS: AMOX TR/K CLAV 400 MG/5 ML 100ML BULK BTL TUBE SCH ×2 (07:58→21:39)
[2016-10-28] MEDS: FLUCONAZOLE 40 MG/1 ML 35 ML BOTTLE TUBE SCH (07:59)
[2016-10-28] MEDS: ENOXAPARIN 40 MG/0.4 ML SYR SC SCH (08:00)
--- NOTE | 2016-10-28 09:34 | PCMIDPN ---
Assessment/Plan: # Pyometra and left adnexal phlegmon, suspect this is a complication of prior diverticular perforation mid August. s/p D&C 10/10/2016 with cultures showing E coli and Citrobacter both susceptible to ampicillin /sulbactam. Clinically improving, planning duration of antibiotics 3-4 weeks -- re-assess stopping Augmentin/Fluconazole next week -- ID will follow peripherally, please call us with questions. # leukopenia secondary to chemo, mild. AF. Concern for significant prolonged neutropenia due to cisplatin, but so far has not manifested Microbiology 10/10/16 08:45 Pelvis - Tissue Anaerobic Culture - Final Escherichia Coli Citrobacter Braakii Medications, antibiotic #20 Augmentin 875 mg bid Fluconazole 200 mg PO daily Discussed with Dr. Pope Subjective: c/o neck pain today Objective: Vital Signs Temp Pulse Resp BP Pulse Ox 36.7 C 86 16 134/69 H 92 10/28/16 08:56 10/28/16 08:56 10/28/16 08:56 10/28/16 08:56 10/28/16 08:56 Laboratory Results 10/28/16 05:00 10/27/16 09:10 10/27/16 10/28/16 10/29/16 05:59 05:59 05:59 Intake Total 1870 4575 Output Total 2250 1650 Balance -380 2925 - Physical Exam General Appearance: alert, no apparent distress EENT: dry mucous membranes, other (no oral ulcerations), No scleral icterus Respiratory: No accessory muscle use Extremities: No pedal edema Abdomen: non-tender, soft, other (Ostomy bag without stool) Pelvic Exam: No dhaliwal Skin: No rash Neuro/Psych: alert, normal mood/affect, oriented x 3 - Line/s LUE PICC Lines: No drainage, No erythema ICD10 Worksheet Patient Problems: Problems Problem Status Onset Cachexia Acute Dehydration Acute Head and neck cancer Acute Fever Acute Palliative care encounter Acute
--- NOTE | 2016-10-28 10:46 | SOAPPROG ---
SOAP Progress Note Assessment/Plan: Assessment: SOAP Progress Note Assessment/Plan: E&M for H&N cancer * SCC H&N; TxN2b: week 2 of weekly cisplatin + xrt. Received cis 30mg/m2 10/23. will likely get next dose on Tuesday if counts ok and performance status adequate. Continue with daily radiation. Being treated with curative intent. * Severe protein calorie malnutrition and FTT: PEG feedings appear to be going well. would have low threshold to start TPN if tube feeds continue to be interrupted. * Cancer related pain: Oxy IR works well for her and will have available as breakthrough. would be reasonable to start a long acting agent. doesnt tolerate long acting morphine and fentanyl patch not effective. she continues to be reluctant to try low dose methadone. * Left neck pain-suspect musclespasm related. Discussed trial of NSAID and/or flexeril. Massage if available. Can do imaging if pain worsens. * Pyometra/diverticulitis - currently on augmentin and followed by Dr Nicholson. * s/p colonic perforation-ostomy functioning well * Placement-will likely need to be here for the course of treatment Subjective: notes new left neck pain starting last night. Objective: Vital Signs Temp Pulse Resp BP Pulse Ox 36.7 C 86 16 134/69 H 92 10/28/16 08:56 10/28/16 08:56 10/28/16 08:56 10/28/16 08:56 10/28/16 08:56 Laboratory Results 10/28/16 05:00 10/27/16 09:10 10/27/16 10/28/16 10/29/16 05:59 05:59 05:59 Intake Total 1870 4575 Output Total 2250 1650 Balance -380 2925 Physical Exam - Physical Exam General Appearance: alert, other (uncomfortable with left neck pain) Neck: other (right cervical adenopathy unchanged, tender over tight/spasmed muscle on left neck) Respiratory: lungs clear Abdomen: other (ostomy and Gtube) ICD10 Worksheet Patient Problems: Problems Problem Status Onset Cachexia Acute Dehydration Acute Head and neck cancer Acute Fever Acute Palliative care encounter Acute
[2016-10-28] MEDS: FLUTICASONE/SALMETER 250/50MCG DISKUS IH SCH (11:51)
[2016-10-28] MEDS: IBUPROFEN 200 MG TAB PO PRN (12:26)
[2016-10-28] MEDS: traMADol 50 MG TAB TUBE PRN (14:35)
[2016-10-28] MEDS: METAXALONE 800 MG TAB TUBE PRN ×2 (14:35→21:39)
[2016-10-28] MEDS: MAGNESIUM HYDROXIDE 30 ML UDCUP TUBE PRN (16:55)
--- NOTE | 2016-10-28 17:00 | HOSPPROG ---
Hospitalist Progress Note Assessment/Plan: 65 yo F with hx of head and neck cancer, as well as hx of perforated diverticulitis with ostomy placement and recent issues with pyometra/phlegmon in pelvis # head neck cancer: currently underling daily xrt, last cisplatin was 10/23 with plan for next round of chemo on 11/01 pending clinical course. Oncology following , likely will need to complete tx as an inpatient given her debilitated state and lack of viable placement options # FTT: in setting of above, has had issues in particular managing PICC, PEG, ostomy. She is cachectic and having difficulty with her ADLs. Will likely need snf after discharge. # intractable n/v: better controlled at this point, will continue prn antiemetics # neck pain: most c/w muscle spasm, started on muscle relaxant and attempting to get IP massage. # acute on chronic pain with continuous opiate use and dependence: continue current regimen, pain currently well controlled # pyometra/pelvic phlegmon: with d&c on 10/10 showing e coli/citrobacter, plan to continue abx until 10/29--currently on augmentin # diverticulitis with perforation and ostomy # SPCM: with BMI of 15, on tube feeds # neutropenia: 2/2 chemo, following counts # anemia: as above, no need for tx today # IP status, will need to complete course of treatment in house Care plan reviewed with oncology Subjective: no significant overnight events, went to xrt Objective: Vital Signs Temp Pulse Resp BP Pulse Ox 36.8 C 84 14 128/72 H 94 10/28/16 16:47 10/28/16 16:47 10/28/16 16:47 10/28/16 16:47 10/28/16 16:47 Laboratory Results 10/28/16 05:00 10/27/16 09:10 10/27/16 10/28/16 10/29/16 05:59 05:59 05:59 Intake Total 1870 4575 Output Total 2250 1650 Balance -380 2925 awake alert chronically ill appearing cachectic op clear anicteric rrr no mrg cta to ant exam soft ostomy/gtube present no cce warm dry well perfused oriented appropriate ICD10 Worksheet Patient Problems: Problems Problem Status Onset Cachexia Acute Dehydration Acute Head and neck cancer Acute Fever Acute Palliative care encounter Acute
[2016-10-28] MEDS: DIAZEPAM 2 MG TAB TUBE PRN (18:09)
[2016-10-28] MEDS: LIDOCAINE 5% 1 EA PATCH TD SCH (21:31)
[2016-10-28] MEDS: GABAPENTIN 300 MG CAP TUBE SCH (21:39)
[2016-10-28] MEDS: NS 1,000 ML IV SCH (23:27)
[2016-10-29 05:18] LABS: % IMMATURE GRANULYOCYTES 1.1 % (0.0-1.1); ABSOLUTE IMMATURE GRANULOCYTES 0.04 10^3/uL (0.00-0.10); ABSOLUTE NRBC COUNT 0.03 10^3/uL (0-0.01); ADD DIFF? NO; ADD MORPH? NO; ADD SCAN? NO; ATYPICAL LYMPHOCYTE FLAG 0 (0-99); FRAGMENT RBC FLAG 0 (0-99); HEMATOCRIT 22.5 % (38.0-47.0); HEMOGLOBIN 7.1 g/dL (12.6-16.3); LEFT SHIFT FLG 60 (0-99); LIPEMIA HEMOLYSIS FLAG 80 (0-99); MEAN CELL HEMOGLOBIN 29.5 pg (27.9-34.1); MEAN CELL HEMOGLOBIN CONCENTR. 31.6 g/dL (32.4-36.7); MEAN CELL VOLUME 93.4 fL (81.5-99.8); MEAN PLATELET VOLUME 9.3 fL (8.7-11.7); NRBC-AUTO% 0.8 % (0.0-0.2); PLATELET CLUMPS FLAG 0 (0-99); PLATELET COUNT 178 10^3/uL (150-400); RED BLOOD CELL COUNT 2.41 10^6/uL (4.18-5.33); RED CELL DISTRIBUTION WIDTH 16.4 % (11.5-15.2)
[2016-10-29] MEDS: LEVOTHYROXINE 75 MCG TAB TUBE SCH (05:21)
[2016-10-29] MEDS: oxyCODONE ORAL SOLUTION 10 MG/0.5 ML UDSYR TUBE PRN ×4 (05:21→20:55)
[2016-10-29] MEDS: METAXALONE 800 MG TAB TUBE PRN ×4 (05:28→16:39)
[2016-10-29 05:34] LABS: ALANINE AMINOTRANSFERASE 24 IU/L (9-52); ALBUMIN 2.5 g/dL (3.5-5.0); ALKALINE PHOSPHATASE 71 IU/L (38-126); ANION GAP 7 mEq/L (8-16); ASPARTATE AMINOTRANSFERASE 19 IU/L (14-46); BILIRUBIN,TOTAL 0.4 mg/dL (0.1-1.4); CALCIUM 8.2 mg/dL (8.5-10.4); CARBON DIOXIDE 24 mEq/l (22-31); CHLORIDE 99 mEq/L (97-110); CREATININE 0.4 mg/dL (0.6-1.0); GLOMERULAR FILTRATION RATE > 60; GLUCOSE 87 mg/dL (70-100); POTASSIUM 3.9 mEq/L (3.5-5.2); SODIUM 130 mEq/L (134-144); TOTAL PROTEIN 5.2 g/dL (6.3-8.2)
[2016-10-29] MEDS: FLUCONAZOLE 40 MG/1 ML 35 ML BOTTLE TUBE SCH (08:01)
[2016-10-29] MEDS: AMOX TR/K CLAV 400 MG/5 ML 100ML BULK BTL TUBE SCH ×2 (08:01→20:24)
[2016-10-29] MEDS: IBUPROFEN 200 MG TAB PO PRN ×2 (08:01→16:43)
[2016-10-29] MEDS: ENOXAPARIN 40 MG/0.4 ML SYR SC SCH (08:02)
[2016-10-29] MEDS: PATCH REMOVAL 1 EA PATCH TD SCH (08:59)
[2016-10-29] MEDS: FLUTICASONE/SALMETER 250/50MCG DISKUS IH SCH (09:32)
[2016-10-29] MEDS: METOCLOPRAMIDE 10 MG TAB TUBE PRN ×2 (09:36→20:33)
[2016-10-29] MEDS: ONDANSETRON DISINTEGRATING 4 MG TAB TUBE PRN ×2 (09:36→16:43)
[2016-10-29] MEDS: ACETAMINOPHEN 325 MG TAB TUBE PRN ×2 (09:36→15:05)
[2016-10-29] MEDS ORDERED: HYDROmorphONE/DILAUDID 1 MG/ML SYR IVP ONE (10:54)
[2016-10-29] MEDS ORDERED: HYDROmorphONE/DILAUDID 1 MG/ML SYR IVP PRN (10:55)
[2016-10-29] MEDS ORDERED: D10W 1,000 ML IV PRN (11:33)
[2016-10-29] MEDS: traMADol 50 MG TAB TUBE PRN (12:00)
--- NOTE | 2016-10-29 12:25 | WOCRNPDOC ---
WOCRN Advanced Assessment Note - Skin Integrity Problem, Advanced Assess Coccyx Pressure Injury Dressing Type: Allevyn Life Dressing Description: Clean/Dry, Intact Exudate Amount: Scant Exudate Color: Reddish/Yellow Exudate Characteristic(s): Serosanguinous Integumentary Issue Intervention: Visualized Under Dressing Marnie Wound Tissue: Blanching, Erythema Marnie Wound Swelling: Mild Wound Bed Color: Yellow Wound Bed Constitution: Adhered Slough Site Odor: None Site Measurement - Head-to-Toe Length X Width X Depth (cm): 0.8cmx0.3cmx slough Pressure Injury Stage: Unstageable Pressure Injury Present on Admit: Yes (documented by Wound RN) Skin Integrity Problem Comment: Discrete, slough-filled wound noted directly over patient's coccyx, consistent in appearance w/ an unstageable pressure injury. Marnie-wound skin is intact, with blanching erythema throughout. Nursing applied an Accu-max pump to patient's bed;discussed ordering a P500 bed, which off-loads more aggressively. Patient expressed some reluctance about changing beds, but agreed to this intervention after this author explained she can always go back to the Accu-max if she prefers. Will initiate tx today to autolytically debride slough using honey hydrogel sheet, followed by bordered foam protective dressing. Wound care will follow up with patient on Tuesday 10/31.
[2016-10-29 12:34] LABS: MAGNESIUM 1.7 mg/dL (1.6-2.3)
[2016-10-29] MEDS ORDERED: MAGNESIUM SULF 1 GM/DEXTROSE 100 ML IV ONE (13:00)
[2016-10-29] MEDS ORDERED: K PHOS 10 MMOL in D5W 250 ML IV ONE (13:00)
--- NOTE | 2016-10-29 13:12 | HOSPPROG ---
Hospitalist Progress Note Assessment/Plan: 65 yo F with hx of head and neck cancer, as well as hx of perforated diverticulitis with ostomy placement and recent issues with pyometra/phlegmon in pelvis # head neck cancer: currently underling daily xrt, last cisplatin was 10/23 with plan for next round of chemo on 11/01 pending clinical course. Oncology following , likely will need to complete tx as an inpatient given her debilitated state and lack of viable placement options. Today after tx to XRT she is having increased neck pain, sounds as if her stretcher may have bumped in transport. # FTT: in setting of above, has had issues in particular managing PICC, PEG, ostomy. She is cachectic and having difficulty with her ADLs. Will likely need snf after discharge. # intractable n/v: better controlled at this point, will continue prn antiemetics # neck pain: most c/w muscle spasm, started on muscle relaxant and attempting to get IP massage. # acute on chronic pain with continuous opiate use and dependence: continue current regimen, pain currently well controlled # pyometra/pelvic phlegmon: with d&c on 10/10 showing e coli/citrobacter, plan to continue abx until 10/29--currently on augmentin # diverticulitis with perforation and ostomy # SPCM: with BMI of 15, on tube feeds but is not currently reaching her goal and in fact is pretty far from it, will add TPN for now to supplement calories # neutropenia: 2/2 chemo, following counts # anemia: as above, no need for tx today # IP status, will need to complete course of treatment in house Care plan reviewed with oncology Subjective: no significant overnight events, patient is having worse neck pain today after transferring over to xrt Objective: Vital Signs Temp Pulse Resp BP Pulse Ox 37.1 C 81 185 H 146/79 H 93 10/29/16 09:23 10/29/16 09:23 10/29/16 09:23 10/29/16 09:23 10/29/16 09:23 Laboratory Results 10/29/16 04:45 10/29/16 04:45 10/28/16 10/29/16 10/30/16 05:59 05:59 05:59 Intake Total 4575 2564 Output Total 1650 1250 Balance 2925 1314 awake alert chronically ill appearing cachectic op clear anicteric rrr no mrg cta to ant exam soft ostomy/gtube present no cce warm dry well perfused oriented appropriate ICD10 Worksheet Patient Problems: Problems Problem Status Onset Cachexia Acute Dehydration Acute Head and neck cancer Acute Fever Acute Palliative care encounter Acute
[2016-10-29] MEDS ORDERED: METHADONE HCL 1 MG/ML SYR TUBE SCH (13:45)
--- NOTE | 2016-10-29 13:50 | SOAPPROG ---
SOAP Progress Note Assessment/Plan: Assessment: * SCC H&N; TxN2b: week 2 of weekly cisplatin + xrt. Received cis 30mg/m2 10/23. Plan next dose on Tuesday if counts ok and performance status adequate. Continue with daily radiation. * Severe protein calorie malnutrition and FTT: PEG feeding limited by residuals. Adding TPN today. Replace phos, watch for refeeding syndrome. * Cancer related pain: inadequate control. Discussed with pharmacy - using oxycodone 60 mg/d. She is now willing to try methadone (limited options for liquid longacting, fentanyl patch not effective due to minimal sc fat, did not tolerate MS Contin). - start methadone 5 mg BID, if tolerated can increase to 5 mg TID * Pyometra/diverticulitis: currently on Augmentin mcc given expected neutropenia. * s/p colonic perforation-: stomy functioning well. * Dispo: given her needs and inability to be treated as outpatient, she will likely need to remain inpatient through completion of therapy as SNF placement will be difficult (chemo, RT). 10/29/16 13:51 Subjective: Pain control inadequate. O: VS reviewed. Gen: cachectic, chronically-ill appearing, A&O. Neck: right neck mass. Lungs: breathing comfortably. Laboratory Tests 10/29/16 10/29/16 10/29/16 04:45 04:45 04:45 WBC 3.70 L Hgb 7.1 L Plt Count 178 Absolute Neuts (auto) 3.10 Sodium 130 L Potassium 3.9 Chloride 99 Carbon Dioxide 24 BUN 8 Creatinine 0.4 L Glucose 87 Phosphorus 2.3 L Magnesium 1.7 Total Bilirubin 0.4 AST 19 ALT 24 Alkaline Phosphatase 71 Objective: Vital Signs Temp Pulse Resp BP Pulse Ox 37.1 C 81 185 H 146/79 H 93 10/29/16 09:23 10/29/16 09:23 10/29/16 09:23 10/29/16 09:23 10/29/16 09:23 Laboratory Results 10/29/16 04:45 10/29/16 04:45 10/28/16 10/29/16 10/30/16 05:59 05:59 05:59 Intake Total 5875 7554 Output Total 1650 1250 Balance 2925 1314 ICD10 Worksheet Patient Problems: Problems Problem Status Onset Cachexia Acute Dehydration Acute Head and neck cancer Acute Fever Acute Palliative care encounter Acute
[2016-10-29] MEDS: MAGNESIUM HYDROXIDE 30 ML UDCUP TUBE PRN (16:39)
[2016-10-29] MEDS: LIDOCAINE 5% 1 EA PATCH TD SCH (20:17)
[2016-10-29] MEDS: GABAPENTIN 300 MG CAP TUBE SCH (20:24)
[2016-10-29] MEDS: DIAZEPAM 2 MG TAB TUBE PRN (20:24)
[2016-10-29] MEDS: TPN 1 EA BAG IV SCH (20:27)
[2016-10-29] MEDS: METHADONE HCL 5 MG TAB TUBE SCH (20:32)
[2016-10-30] MEDS: traMADol 50 MG TAB TUBE PRN (00:01)
[2016-10-30] MEDS: ONDANSETRON 4 MG/2 ML VIAL IVP PRN ×5 (00:05→17:20)
[2016-10-30] MEDS: ACETAMINOPHEN 325 MG TAB TUBE PRN (00:19)
[2016-10-30] MEDS: oxyCODONE ORAL SOLUTION 10 MG/0.5 ML UDSYR TUBE PRN ×3 (01:10→10:09)
[2016-10-30] MEDS: DIAZEPAM 2 MG TAB TUBE PRN (02:26)
[2016-10-30] MEDS: LEVOTHYROXINE 75 MCG TAB TUBE SCH (04:53)
[2016-10-30 05:43] LABS: INR 0.96 (0.83-1.16); PROTIME(PATIENT) 12.7 SEC (12.0-15.0)
[2016-10-30 05:44] LABS: % IMMATURE GRANULYOCYTES 0.7 % (0.0-1.1); ABSOLUTE IMMATURE GRANULOCYTES 0.03 10^3/uL (0.00-0.10); ADD DIFF? NO; ADD MORPH? NO; ADD SCAN? NO; ATYPICAL LYMPHOCYTE FLAG 0 (0-99); FRAGMENT RBC FLAG 0 (0-99); HEMOGLOBIN 7.1 g/dL (12.6-16.3); LEFT SHIFT FLG 90 (0-99); LIPEMIA HEMOLYSIS FLAG 80 (0-99); MEAN CELL HEMOGLOBIN 29.8 pg (27.9-34.1); MEAN CELL HEMOGLOBIN CONCENTR. 32.3 g/dL (32.4-36.7); MEAN CELL VOLUME 92.4 fL (81.5-99.8); MEAN PLATELET VOLUME 9.9 fL (8.7-11.7); PLATELET CLUMPS FLAG 0 (0-99); PLATELET COUNT 160 10^3/uL (150-400); RED BLOOD CELL COUNT 2.38 10^6/uL (4.18-5.33); RED CELL DISTRIBUTION WIDTH 16.4 % (11.5-15.2)
[2016-10-30 05:50] LABS: ALANINE AMINOTRANSFERASE 28 IU/L (9-52); ALBUMIN 2.7 g/dL (3.5-5.0); ALKALINE PHOSPHATASE 68 IU/L (38-126); ANION GAP 8 mEq/L (8-16); ASPARTATE AMINOTRANSFERASE 17 IU/L (14-46); BILIRUBIN,TOTAL 0.4 mg/dL (0.1-1.4); CALCIUM 8.4 mg/dL (8.5-10.4); CARBON DIOXIDE 24 mEq/l (22-31); CHLORIDE 97 mEq/L (97-110); CREATININE 0.4 mg/dL (0.6-1.0); GLOMERULAR FILTRATION RATE > 60; GLUCOSE 71 mg/dL (70-100); MAGNESIUM 1.8 mg/dL (1.6-2.3); POTASSIUM 4.3 mEq/L (3.5-5.2); SODIUM 129 mEq/L (134-144); TOTAL PROTEIN 5.4 g/dL (6.3-8.2)
[2016-10-30] MEDS: DIAZEPAM 10 MG/2 ML SYR IVP PRN ×2 (07:43→17:20)
[2016-10-30] MEDS: FLUTICASONE/SALMETER 250/50MCG DISKUS IH SCH (08:55)
[2016-10-30] MEDS: ENOXAPARIN 40 MG/0.4 ML SYR SC SCH (10:07)
[2016-10-30] MEDS: AMOX TR/K CLAV 400 MG/5 ML 100ML BULK BTL TUBE SCH (10:08)
[2016-10-30] MEDS: FLUCONAZOLE 40 MG/1 ML 35 ML BOTTLE TUBE SCH (10:08)
[2016-10-30] MEDS: METHADONE HCL 5 MG TAB TUBE SCH (10:08)
[2016-10-30] MEDS: PROCHLORPERAZINE MALEATE 10 MG TAB TUBE PRN (11:09)
[2016-10-30] MEDS: METOCLOPRAMIDE 10 MG TAB TUBE PRN (11:09)
[2016-10-30] MEDS: clonazePAM 1 MG TAB TUBE PRN (11:09)
[2016-10-30] MEDS: PATCH REMOVAL 1 EA PATCH TD SCH (11:12)
--- NOTE | 2016-10-30 11:21 | SOAPPROG ---
SOAP Progress Note Assessment/Plan: Assessment: 1. Head and neck cancer, TxT2b. Currently on RT/weekly cisplatin. Next dose due Mon 11/01 2. Perf diverticulitus - s/p ostomy 3. Malnutrition 4. Anemia Plan: - increase methadone to 5 mg TID. Unclear if it is helping. 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 Pt is being treated w/ curative intent. 10/30/16 11:19 Subjective: c/o headache, pain at neck tumor, nausea. Objective: exam: cachectic OP dry Lungs CTAB CV RRR no mGR Abd: +BS NT ND Ext: no edema Vital Signs Temp Pulse Resp BP Pulse Ox 36.7 C 83 18 123/83 H 96 10/30/16 08:00 10/30/16 08:00 10/30/16 08:00 10/30/16 08:00 10/30/16 08:00 Laboratory Results 10/30/16 05:25 10/30/16 05:25 10/29/16 10/30/16 10/31/16 05:59 05:59 05:59 Intake Total 2564 1910 Output Total 1250 450 Balance 1314 1460 PT 12.7 SEC (12.0-15.0) 10/30/16 05:25 INR 0.96 (0.83-1.16) 10/30/16 05:25 ICD10 Worksheet Patient Problems: Problems Problem Status Onset Cachexia Acute Dehydration Acute Head and neck cancer Acute Fever Acute Palliative care encounter Acute
[2016-10-30 11:27] LABS: % SATURATION 18 % (20-55); TOTAL IRON BINDING CAPACITY 179 ug/dL (260-490)
[2016-10-30] MEDS ORDERED: morphINE PCA 30 MG/30 ML PCA IV PRN (11:33)
[2016-10-30] MEDS ORDERED: NALOXONE HCL 0.4 MG/ML INJ IVP PRN (11:33)
[2016-10-30] MEDS: SCOPOLAMINE HYDROBROMIDE 1.5 MG PATCH TD SCH (12:02)
[2016-10-30 12:25] LABS: FOLATE SERUM 4.71 ng/mL (2.80 - >20.00)
--- NOTE | 2016-10-30 14:19 | HOSPPROG ---
Hospitalist Progress Note Assessment/Plan: 65 yo F with hx of head and neck cancer, as well as hx of perforated diverticulitis with ostomy placement and recent issues with pyometra/phlegmon in pelvis # head neck cancer-currently underling daily xrt, last cisplatin was 10/23 with plan for next round of chemo on 11/01 pending clinical course. Oncology following , Expect completion of tx as an inpatient given her debilitated state and lack of viable placement options - Oncology following - XRT and chemo per oncology # intractable N/V - pt debilitated today with n/v - Abd xray 10/23 (personally reviewed and interpreted) no bowel dilatation - cont zofran, promethazine and valium - adding scopolamine patch # FTT- in setting of above, has had issues in particular managing PICC, PEG, ostomy-She is cachectic and having difficulty with her ADLs. -Will need snf after discharge. # neck pain- markedly severe today - changing morphine to [employer]US SECURITY OFFICER (hope can wean tomorrow if stabilizes) # acute on chronic pain with continuous opiate use and dependence- oxygen saturations 92% on RA - morphine C[employer] SEC[employer]ITY OFFICER as above will hold methadone # pyometra/pelvic phlegmon-with d&c on 10/10 showing e coli/citrobacter, plan to continue abx until 10/31/16 -discontinue Augmentin tomorrow # diverticulitis with perforation and ostomy- supportive care and ostomy care # Sever protein calorie malnutrition-with BMI of 15, on tube feeds but is not currently reaching her goal and in fact is pretty far from it - cont TPN for now to supplement calories - cont TF's # neutropenia: 2/2 chemo, following counts # anemia: as above, no need for tx today # IP status, will need to complete course of treatment in house I have discussed the case with Oncology - we will change to C[employer] SEC[employer]ITY OFFICER today and add scopolamine Subjective: terrible dizziness and nausea Objective: Vital Signs Temp Pulse Resp BP Pulse Ox 36.7 C 83 18 123/83 H 96 10/30/16 08:00 10/30/16 08:00 10/30/16 08:00 10/30/16 08:00 10/30/16 08:00 Laboratory Results 10/30/16 05:25 10/30/16 05:25 10/29/16 10/30/16 10/31/16 05:59 05:59 05:59 Intake Total 2564 1910 Output Total 1250 450 Balance 1314 1460 PT 12.7 SEC (12.0-15.0) 10/30/16 05:25 INR 0.96 (0.83-1.16) 10/30/16 05:25 - Physical Exam Constitutional: cachectic Eyes: anicteric sclera Ears, Nose, Mouth, Throat: dry mucous membranes Cardiovascular: regular rate and rhythym Respiratory: no respiratory distress Gastrointestinal: normoactive bowel sounds, tenderness, No guarding, No rebound Genitourinary: no bladder fullness Skin: warm, normal color Musculoskeletal: No asymmetric calves Neurologic: AAOx3 Psychiatric: depressed Lymph, Heme, Immunologic: no cervical LAD ICD10 Worksheet Patient Problems: Problems Problem Status Onset Cachexia Acute Dehydration Acute Head and neck cancer Acute Fever Acute Palliative care encounter Acute
[2016-10-30] MEDS ORDERED: METHADONE HCL 5 MG TAB TUBE SCH (16:00)
[2016-10-30] MEDS: TPN 1 EA BAG IV SCH (20:39)
[2016-10-30] MEDS: GABAPENTIN 300 MG CAP TUBE SCH (20:40)
[2016-10-30] MEDS: LIDOCAINE 5% 1 EA PATCH TD SCH (20:41)
[2016-10-31] MEDS: ALTEPLASE 2 MG VIAL IVP PRN ×2 (05:54→20:49)
[2016-10-31] MEDS: LEVOTHYROXINE 75 MCG TAB TUBE SCH (05:55)
[2016-10-31] MEDS: oxyCODONE ORAL SOLUTION 10 MG/0.5 ML UDSYR TUBE PRN (08:37)
[2016-10-31] MEDS: ACETAMINOPHEN 325 MG TAB TUBE PRN ×2 (08:37→21:01)
[2016-10-31] MEDS: ENOXAPARIN 40 MG/0.4 ML SYR SC SCH (08:38)
[2016-10-31] MEDS: METOCLOPRAMIDE 10 MG TAB TUBE PRN (08:38)
[2016-10-31] MEDS: FLUCONAZOLE 40 MG/1 ML 35 ML BOTTLE TUBE SCH (08:43)
[2016-10-31] MEDS: FLUTICASONE/SALMETER 250/50MCG DISKUS IH SCH (08:56)
--- NOTE | 2016-10-31 10:27 | SOAPPROG ---
TRUNG Progress Note Assessment/Plan: Assessment: 1. Head and neck cancer, TxT2b. Currently on RT/weekly cisplatin. Next dose due Mon 11/01 2. Perf diverticulitus - s/p ostomy 3. Malnutrition 4. Anemia Feels better today. She thinks the oxycodone liquid works best for her. Did not like the VACUUM FILTER OPERATOR. Plan: - oxycodone 30 mg q4h scheduled. Will continue methadone as well for longer acting pain relief - continue TPN. No plans to advance tube feeds right now. Will need to get most /all of her caloric needs met through TPN - anemia - due to chronic inflammation. transfuse for <7.0 - chemo tomorrow - cisplatin 30 mg/m2 (weekly) . Will resume RT d/w Dr. Elliott @ bedside. Subjective: feels better today. Objective: exam: more alert, seems more comfortable no mucositis Lungs CTAB CV RRR no MGR ABd: +BS. mod distension. G tube in place, site looks good Ext: no edema Vital Signs Temp Pulse Resp BP Pulse Ox 36.6 C 90 16 138/68 H 97 10/31/16 09:16 10/31/16 09:16 10/31/16 09:16 10/31/16 09:16 10/31/16 09:16 Laboratory Results 10/30/16 05:25 10/30/16 05:25 10/30/16 10/31/16 11/01/16 05:59 05:59 05:59 Intake Total 1910 1260 Output Total 450 1450 Balance 1460 -190 PT 12.7 SEC (12.0-15.0) 10/30/16 05:25 INR 0.96 (0.83-1.16) 10/30/16 05:25 ICD10 Worksheet Patient Problems: Problems Problem Status Onset Cachexia Acute Dehydration Acute Head and neck cancer Acute Fever Acute Palliative care encounter Acute
--- NOTE | 2016-10-31 11:22 | WOCRNPDOC ---
WOCRN Advanced Assessment Note - Skin Integrity Problem, Advanced Assess Coccyx Pressure Injury Dressing Type: [employer], Other Other Dressing Type: [employer] Dressing Description: Intact Exudate Amount: Scant Integumentary Issue Intervention: Visualized Under Dressing Marnie Wound Tissue: Blanching, Erythema Marnie Wound Swelling: None Wound Bed Color: Yellow Wound Bed Constitution: Mixed Loose & Adhered Slough/Eschar Site Odor: None Pressure Injury Stage: Unstageable Pressure Injury Present on Admit: Yes (Documented by nursing) Skin Integrity Problem Comment: Wound bed continues to be slough-filled, though this appears to be loosening since initiation on [facility] on Tuesday. Attempted to remove slough w/ gauze, however patient remains too tender and c/o exquisite pain to this site. Re-covered, and will continue w/ tx, evaluating next on Thursday 11/02 for possible conservative sharp debridement. Marnie-wound tissue is intact and blanching. Per nursing report and direct observation, this patient needs ongoing reminders to off-load her coccyx/sacrum. She was switched over to a P500 low air loss mattress on Tuesday to mitigate pressure, however she needs to continue off-loading this wound. Report given to radio producer October.
[2016-10-31 12:11] LABS: % IMMATURE GRANULYOCYTES 0.3 % (0.0-1.1); ABSOLUTE IMMATURE GRANULOCYTES 0.01 10^3/uL (0.00-0.10); ADD DIFF? NO; ADD MORPH? NO; ADD SCAN? YES; ATYPICAL LYMPHOCYTE FLAG 50 (0-99); FRAGMENT RBC FLAG 0 (0-99); HEMOGLOBIN 8.5 g/dL (12.6-16.3); LEFT SHIFT FLG 0 (0-99); LIPEMIA HEMOLYSIS FLAG 80 (0-99); MEAN CELL HEMOGLOBIN 30.4 pg (27.9-34.1); MEAN CELL HEMOGLOBIN CONCENTR. 32.7 g/dL (32.4-36.7); MEAN CELL VOLUME 92.9 fL (81.5-99.8); MEAN PLATELET VOLUME 10.1 fL (8.7-11.7); PLATELET CLUMPS FLAG 10 (0-99); PLATELET COUNT 167 10^3/uL (150-400); RED CELL DISTRIBUTION WIDTH 16.8 % (11.5-15.2)
[2016-10-31 12:35] LABS: ALANINE AMINOTRANSFERASE 24 IU/L (9-52); ALBUMIN 3.2 g/dL (3.5-5.0); ALKALINE PHOSPHATASE 79 IU/L (38-126); ANION GAP 11 mEq/L (8-16); ASPARTATE AMINOTRANSFERASE 19 IU/L (14-46); BILIRUBIN,TOTAL 0.5 mg/dL (0.1-1.4); CALCIUM 9.2 mg/dL (8.5-10.4); CARBON DIOXIDE 22 mEq/l (22-31); CHLORIDE 100 mEq/L (97-110); CREATININE 0.5 mg/dL (0.6-1.0); GLOMERULAR FILTRATION RATE > 60; GLUCOSE 100 mg/dL (70-100); MAGNESIUM 1.8 mg/dL (1.6-2.3); POTASSIUM 5.3 mEq/L (3.5-5.2); SODIUM 133 mEq/L (134-144); TOTAL PROTEIN 6.1 g/dL (6.3-8.2)
[2016-10-31 12:45] LABS: SCAN NEGATIVE
[2016-10-31] MEDS: oxyCODONE ORAL SOLUTION 10 MG/0.5 ML UDSYR TUBE SCH ×3 (12:55→21:02)
[2016-10-31 13:02] LABS: PROTIME(PATIENT) 13.1 SEC (12.0-15.0)
[2016-10-31 13:03] LABS: APTT 34.9 SEC (23.0-38.0)
[2016-10-31] MEDS: PATCH REMOVAL 1 EA PATCH TD SCH (13:17)
--- NOTE | 2016-10-31 14:12 | HOSPPROG ---
Hospitalist Progress Note Assessment/Plan: 65 yo F with hx of head and neck cancer, as well as hx of perforated diverticulitis with ostomy placement and recent issues with pyometra/phlegmon in pelvis # head neck cancer-currently underling daily xrt, last cisplatin was 10/23 with plan for next round of chemo on 11/01 pending clinical course. Oncology following , Expect completion of tx as an inpatient given her debilitated state and lack of viable placement options - Oncology following - XRT and chemo this week per oncology # intractable N/V - markedly improved this am - pt sitting up and communicating needs without difficulty- WBC 3.2 this am Abd xray (personally reviewed and interpreted) no bowel dilatation - cont zofran, promethazine and valium - continue scopolamine patch # FTT- in setting of above, has had issues in particular managing PICC, PEG, ostomy-She is cachectic and having difficulty with her ADLs. -Will need snf after discharge. # neck pain- markedly severe today - dc morphine TRAY PACKER this am - increase oxycodone to 30mg scheduled Q4 - dc methadone - continue tylenol, ultram # acute on chronic pain with continuous opiate use and dependence- oxygen saturations 92% on RA - meds as above # pyometra/pelvic phlegmon-with d&c on 10/10 showing e coli/citrobacter, plan to continue abx until 10/31/16 -discontinue Augmentin tomorrow # diverticulitis with perforation and ostomy- supportive care and ostomy care # Sever protein calorie malnutrition-with BMI of 15, on tube feeds but is not currently reaching her goal and in fact is pretty far from it - cont TPN for now to supplement calories - cont TF's increse as tolerated # neutropenia: 2/2 chemo, following counts # anemia: as above, no need for tx today # IP status, will need to complete course of treatment in house I have discussed the case with Oncology - we will schedule oxycodone at higher dose today and dc IV meds Subjective: n/v improved Objective: Vital Signs Temp Pulse Resp BP Pulse Ox 36.7 C 81 16 135/61 H 96 10/31/16 11:59 10/31/16 11:59 10/31/16 11:59 10/31/16 11:59 10/31/16 11:59 Laboratory Results 10/31/16 11:55 10/31/16 11:55 10/30/16 10/31/16 11/01/16 05:59 05:59 05:59 Intake Total 1910 1260 Output Total 450 1450 Balance 1460 -190 PT 13.1 SEC (12.0-15.0) 10/31/16 12:49 INR 1.00 (0.83-1.16) 10/31/16 12:49 - Physical Exam Constitutional: chronically ill appearing, cachectic Eyes: anicteric sclera Ears, Nose, Mouth, Throat: dry mucous membranes Cardiovascular: regular rate and rhythym Respiratory: no respiratory distress, no rales or rhonchi Gastrointestinal: normoactive bowel sounds, tenderness, No guarding, No rebound Genitourinary: no bladder fullness Skin: warm, normal color Musculoskeletal: No asymmetric calves Neurologic: AAOx3 Psychiatric: depressed, No agitated Lymph, Heme, Immunologic: no cervical LAD ICD10 Worksheet Patient Problems: Problems Problem Status Onset Cachexia Acute Dehydration Acute Head and neck cancer Acute Fever Acute Palliative care encounter Acute
[2016-10-31] MEDS: GABAPENTIN 300 MG CAP TUBE SCH (21:02)
[2016-10-31] MEDS: LIDOCAINE 5% 1 EA PATCH TD SCH (22:35)
[2016-10-31] MEDS: TPN 1 EA BAG IV SCH (22:44)
[2016-11-01] MEDS: oxyCODONE ORAL SOLUTION 10 MG/0.5 ML UDSYR TUBE SCH ×6 (01:04→22:21)
[2016-11-01 04:27] LABS: % IMMATURE GRANULYOCYTES 0.3 % (0.0-1.1); ABSOLUTE IMMATURE GRANULOCYTES 0.01 10^3/uL (0.00-0.10); ADD DIFF? NO; ADD MORPH? YES; ADD SCAN? NO; ATYPICAL LYMPHOCYTE FLAG 60 (0-99); FRAGMENT RBC FLAG 0 (0-99); HEMATOCRIT 20.6 % (38.0-47.0); LEFT SHIFT FLG 30 (0-99); LIPEMIA HEMOLYSIS FLAG 80 (0-99); MEAN CELL HEMOGLOBIN 30.1 pg (27.9-34.1); MEAN CELL VOLUME 94.1 fL (81.5-99.8); MEAN PLATELET VOLUME 9.9 fL (8.7-11.7); PLATELET CLUMPS FLAG 10 (0-99); PLATELET COUNT 180 10^3/uL (150-400); RED BLOOD CELL COUNT 2.19 10^6/uL (4.18-5.33); RED CELL DISTRIBUTION WIDTH 17.1 % (11.5-15.2)
[2016-11-01 04:34] LABS: HEMOGLOBIN 6.6 g/dL (12.6-16.3)
[2016-11-01 04:36] LABS: INR 0.97 (0.83-1.16); PROTIME(PATIENT) 12.8 SEC (12.0-15.0)
[2016-11-01 04:37] LABS: APTT 22.9 SEC (23.0-38.0)
[2016-11-01 04:45] LABS: ALANINE AMINOTRANSFERASE 26 IU/L (9-52); ALBUMIN 2.9 g/dL (3.5-5.0); ALKALINE PHOSPHATASE 67 IU/L (38-126); ANION GAP 8 mEq/L (8-16); ASPARTATE AMINOTRANSFERASE 21 IU/L (14-46); BILIRUBIN,TOTAL 0.4 mg/dL (0.1-1.4); CALCIUM 8.7 mg/dL (8.5-10.4); CARBON DIOXIDE 23 mEq/l (22-31); CHLORIDE 98 mEq/L (97-110); CREATININE 0.5 mg/dL (0.6-1.0); GLOMERULAR FILTRATION RATE > 60; GLUCOSE 83 mg/dL (70-100); MAGNESIUM 1.7 mg/dL (1.6-2.3); POTASSIUM 4.2 mEq/L (3.5-5.2); SODIUM 129 mEq/L (134-144); TOTAL PROTEIN 5.6 g/dL (6.3-8.2); TRIGLYCERIDE 180 mg/dL (35-135)
[2016-11-01] MEDS: LEVOTHYROXINE 75 MCG TAB TUBE SCH (05:15)
[2016-11-01 05:16] LABS: MACROCYTES 1+
[2016-11-01 05:17] LABS: HYPOCHROMIA 1+
[2016-11-01 05:18] LABS: PLATELET ESTIMATE ADEQUATE (ADEQ); POLYCHROMASIA 2+
[2016-11-01] MEDS: ACETAMINOPHEN 325 MG TAB TUBE PRN (05:25)
[2016-11-01 06:12] LABS: % IMMATURE GRANULYOCYTES 0.8 % (0.0-1.1); ABSOLUTE IMMATURE GRANULOCYTES 0.03 10^3/uL (0.00-0.10); ADD DIFF? NO; ADD MORPH? NO; ADD SCAN? NO; ATYPICAL LYMPHOCYTE FLAG 50 (0-99); FRAGMENT RBC FLAG 0 (0-99); HEMATOCRIT 24.4 % (38.0-47.0); HEMOGLOBIN 7.8 g/dL (12.6-16.3); LEFT SHIFT FLG 0 (0-99); LIPEMIA HEMOLYSIS FLAG 80 (0-99); MEAN CELL HEMOGLOBIN 30.4 pg (27.9-34.1); MEAN CELL VOLUME 94.9 fL (81.5-99.8); MEAN PLATELET VOLUME 9.9 fL (8.7-11.7); PLATELET CLUMPS FLAG 10 (0-99); PLATELET COUNT 162 10^3/uL (150-400); RED BLOOD CELL COUNT 2.57 10^6/uL (4.18-5.33); RED CELL DISTRIBUTION WIDTH 17.2 % (11.5-15.2)
[2016-11-01 06:27] LABS: INR 0.99 (0.83-1.16)
[2016-11-01 06:28] LABS: APTT 22.4 SEC (23.0-38.0)
[2016-11-01 06:45] LABS: ALANINE AMINOTRANSFERASE 23 IU/L (9-52); ALKALINE PHOSPHATASE 65 IU/L (38-126); ANION GAP 11 mEq/L (8-16); ASPARTATE AMINOTRANSFERASE 22 IU/L (14-46); BILIRUBIN,TOTAL 0.5 mg/dL (0.1-1.4); CALCIUM 8.4 mg/dL (8.5-10.4); CARBON DIOXIDE 18 mEq/l (22-31); CHLORIDE 100 mEq/L (97-110); CREATININE 0.4 mg/dL (0.6-1.0); GLOMERULAR FILTRATION RATE > 60; GLUCOSE 103 mg/dL (70-100); MAGNESIUM 1.8 mg/dL (1.6-2.3); POTASSIUM 3.8 mEq/L (3.5-5.2); SODIUM 129 mEq/L (134-144); TOTAL PROTEIN 5.5 g/dL (6.3-8.2); TRIGLYCERIDE 176 mg/dL (35-135)
[2016-11-01] MEDS: ENOXAPARIN 40 MG/0.4 ML SYR SC SCH (09:02)
[2016-11-01] MEDS: METOCLOPRAMIDE 10 MG TAB TUBE PRN ×2 (09:03→20:30)
[2016-11-01] MEDS: FLUCONAZOLE 40 MG/1 ML 35 ML BOTTLE TUBE SCH (09:03)
[2016-11-01] MEDS: PATCH REMOVAL 1 EA PATCH TD SCH (09:05)
[2016-11-01] MEDS: FLUTICASONE/SALMETER 250/50MCG DISKUS IH SCH (11:40)
[2016-11-01] MEDS ORDERED: FOSAPREPITANT 150 MG in NS 250 ML IV ONE (12:30)
[2016-11-01] MEDS ORDERED: MAGNESIUM SULFATE IV ONE ×2 (13:00→17:30)
[2016-11-01] MEDS ORDERED: POTASSIUM CL IV ONE ×2 (13:00→17:30)
[2016-11-01] MEDS ORDERED: NS IV ONE ×3 (13:00→17:30)
[2016-11-01] MEDS ORDERED: PALONOSETRON HCL 0.25 MG/5 ML VIAL IVP ONE ×2 (14:30→15:00)
[2016-11-01] MEDS ORDERED: DEXAMETHASONE SOD PHOSPHATE 10 MG in NS 50 ML IV ONE ×2 (14:30→15:00)
[2016-11-01] MEDS ORDERED: CISPLATIN IV ONE (15:30)
--- NOTE | 2016-11-01 15:45 | HOSPPROG ---
Hospitalist Progress Note Assessment/Plan: 65 yo F with hx of head and neck cancer, as well as hx of perforated diverticulitis with ostomy placement and recent issues with pyometra/phlegmon in pelvis # head neck cancer-currently underling daily xrt, last cisplatin was 10/23 with plan for next round of chemo on 11/01 pending clinical course. Expect completion of tx as an inpatient given her debilitated state and lack of viable placement options - Oncology following - XRT and chemo today # intractable N/V - markedly improved this am - pt sitting up and communicating needs without difficulty- WBC 3.75 this am Abd xray (personally reviewed and interpreted) no bowel dilatation or constipation - cont zofran, promethazine and valium - continue scopolamine patch # FTT- in setting of above, has had issues in particular managing PICC, PEG, ostomy-She is cachectic and having difficulty with her ADLs. -Will need snf after discharge. # neck pain- markedly improved today - continue increases oxycodone to 30mg scheduled Q4 - continue tylenol, ultram # acute on chronic pain with continuous opiate use and dependence- oxygen saturations 92% on RA - meds as above # pyometra/pelvic phlegmon-with d&c on 10/10 showing e coli/citrobacter, plan to continue abx through 10/31/16 -completed Augmentin # diverticulitis with perforation and ostomy- supportive care and ostomy care # Sever protein calorie malnutrition-with BMI of 15, on tube feeds but is not currently reaching her goal and in fact is pretty far from it - cont TPN for now to supplement calories - cont TF's increase as tolerated # neutropenia: 2/2 chemo, following counts # anemia: as above, no need for tx today # IP status, will need to complete course of treatment in house I have discussed the case with Oncology - plan for XRT and chemotherapy today Subjective: feeling much better today Objective: Vital Signs Temp Pulse Resp BP Pulse Ox 36.8 C 89 18 132/68 H 99 11/01/16 09:00 11/01/16 11:40 11/01/16 11:40 11/01/16 09:00 11/01/16 11:40 Laboratory Results 11/01/16 06:03 11/01/16 06:03 10/31/16 11/01/1617 05:59 05:59 05:59 Intake Total 1260 817 Output Total 1450 350 Balance -190 467 PT 13.0 SEC (12.0-15.0) 11/01/16 06:03 INR 0.99 (0.83-1.16) 11/01/16 06:03 - Physical Exam Constitutional: cachectic Eyes: anicteric sclera Ears, Nose, Mouth, Throat: dry mucous membranes Cardiovascular: regular rate and rhythym Respiratory: no respiratory distress, no rales or rhonchi Gastrointestinal: normoactive bowel sounds, soft, non-tender abdomen Genitourinary: no bladder fullness Skin: warm, normal color Musculoskeletal: No asymmetric calves Neurologic: AAOx3 Psychiatric: interacting appropriately Lymph, Heme, Immunologic: no cervical LAD ICD10 Worksheet Patient Problems: Problems Problem Status Onset Cachexia Acute Dehydration Acute Head and neck cancer Acute Fever Acute Palliative care encounter Acute
--- NOTE | 2016-11-01 16:35 | SOAPPROG ---
SOAP Progress Note Assessment/Plan: E&M for H&N cancer * SCC H&N; TxN2b: week 3 of weekly cisplatin + xrt. Received cis 30mg/m2 10/23, 11/01. * Severe protein calorie malnutrition and FTT: PEG feeding only at 10 ml/hour. Also on TPN. * Cancer related pain: Patch stopped as not helping. Pain controlled with oxycodone; methadone stopped * Pyometra/diverticulitis - abx stopped by Dr Goetzs * Anemia: multifactorial due to chronic inflammation, malnutrition, chemotherapy. transfuse for <7.0 Subjective: Neck tumor smaller but char conveyor tender cellar. No BM and likes MOM + prune juice. Objective: Vital Signs Temp Pulse Resp BP Pulse Ox 36.8 C 89 18 132/68 H 99 11/01/16 09:00 11/01/16 11:40 11/01/16 11:40 11/01/16 09:00 11/01/16 11:40 Laboratory Results 11/01/16 06:03 11/01/16 06:03 10/31/16 11/01/16 11/02/16 05:59 05:59 05:59 Intake Total 1260 817 Output Total 1450 350 Balance -190 467 PT 13.0 SEC (12.0-15.0) 11/01/16 06:03 INR 0.99 (0.83-1.16) 11/01/16 06:03 Physical Exam - Physical Exam General Appearance: cachetic Respiratory: lungs clear Cardiac/Chest: regular rate, rhythm Abdomen: soft, other (PEG in place; colostomy) Lymphatic: other (right posterior cervical mass is smaller but very tender) Neuro/Psych: motor weakness (generalized) ICD10 Worksheet Patient Problems: Problems Problem Status Onset Cachexia Acute Dehydration Acute Head and neck cancer Acute Fever Acute Palliative care encounter Acute
[2016-11-01] MEDS: GABAPENTIN 300 MG CAP TUBE SCH (20:30)
[2016-11-01] MEDS: TPN 1 EA BAG IV SCH (20:36)
[2016-11-01] MEDS: LIDOCAINE 5% 1 EA PATCH TD SCH (22:19)
[2016-11-02] MEDS: LEVOTHYROXINE 75 MCG TAB TUBE SCH (04:45)
[2016-11-02] MEDS: oxyCODONE ORAL SOLUTION 10 MG/0.5 ML UDSYR TUBE SCH ×6 (04:46→22:16)
[2016-11-02] MEDS: FLUTICASONE/SALMETER 250/50MCG DISKUS IH SCH (08:39)
[2016-11-02] MEDS: FLUCONAZOLE 40 MG/1 ML 35 ML BOTTLE TUBE SCH (09:17)
[2016-11-02] MEDS: METOCLOPRAMIDE 10 MG TAB TUBE PRN (09:17)
[2016-11-02] MEDS: ENOXAPARIN 40 MG/0.4 ML SYR SC SCH (09:18)
[2016-11-02] MEDS: PATCH REMOVAL 1 EA PATCH TD SCH (09:19)
--- NOTE | 2016-11-02 10:06 | SOAPPROG ---
SOAP Progress Note Assessment/Plan: E&M for H&N cancer * SCC H&N; TxN2b: week 3 of weekly cisplatin + xrt. Received cis 30mg/m2 10/23, 11/01. * Severe protein calorie malnutrition and FTT: PEG feeding only at 10 ml/hour. Also on TPN. May try to increase PEG feeding tomorrow. * Cancer related pain: Patch and methadone stopped as not helping. Pain controlled with oxycodone; * Pyometra/diverticulitis - abx stopped by Dr Goetzs * Anemia: multifactorial due to chronic inflammation, malnutrition, chemotherapy. transfuse for <7.0 * Voice Changes: probably related to therapy. Will have speech talk to her and can try magic mouthwash Subjective: Initially very upset due to change in her voice, which was high pitched. Feels like she has trouble talking but denies pain or worsening trouble swallowing.Tolerated chemotherapy yesterday. Has headache this morning. Objective: Vital Signs Temp Pulse Resp BP Pulse Ox 36.6 C 89 20 144/72 H 95 11/02/16 05:59 11/02/16 05:59 11/02/16 08:41 11/02/16 05:59 11/02/16 08:41 Laboratory Results 11/01/16 06:03 11/01/16 06:03 11/01/16 11/02/16 11/03/16 05:59 05:59 05:59 Intake Total 817 1730 2023 Output Total 350 1700 Balance 244 19 2569 PT 13.0 SEC (12.0-15.0) 11/01/16 06:03 INR 0.99 (0.83-1.16) 11/01/16 06:03 Physical Exam - Physical Exam General Appearance: no apparent distress, anxiety, cachetic EENT: pharynx normal, other (voice higher pitched although better when she relaxed) Respiratory: lungs clear Cardiac/Chest: regular rate, rhythm Abdomen: non-tender, soft, other (PEG ok.) ICD10 Worksheet Patient Problems: Problems Problem Status Onset Cachexia Acute Dehydration Acute Head and neck cancer Acute Fever Acute Palliative care encounter Acute
--- NOTE | 2016-11-02 13:22 | HOSPPROG ---
Hospitalist Progress Note Assessment/Plan: 65 yo F with hx of head and neck cancer, as well as hx of perforated diverticulitis with ostomy placement and recent issues with pyometra/phlegmon in pelvis # head neck cancer-currently underling daily xrt, last cisplatin was yesterday Expect completion of tx as an inpatient given her debilitated state and lack of viable placement options - Oncology following - XRT today # N/V - remains improved - pt sitting up and communicating needs without difficulty- WBC 3.75 this am Abd xray - no bowel dilatation or constipation - cont zofran, promethazine and valium - continue scopolamine patch # hyponatremia - sodium 129 - has been chronic - - continue following on TPN and adjusting fluid accordingly - follow daily # FTT- in setting of above, has had issues in particular managing PICC, PEG, ostomy-She is cachectic and having difficulty with her ADLs. -Will need snf after discharge. # neck pain- remains improved today - continue increases oxycodone to 30mg scheduled Q4 - continue tylenol, ultram # acute on chronic pain with continuous opiate use and dependence- oxygen saturations 95% on RA - meds as above # pyometra/pelvic phlegmon-with d&c on 10/10 showing e coli/citrobacter, plan to continue abx through 10/31/[address] (personally reviewed and interpreted) shows drained uterine cavity -completed Augmentin - follow clinically # diverticulitis with perforation and ostomy- supportive care and ostomy care # Sever protein calorie malnutrition-with BMI of 15, on tube feeds but is not currently reaching her goal and in fact is pretty far from it - cont TPN for now to supplement calories - cont TF's increase as tolerated # neutropenia: 2/2 chemo, following counts # anemia: as above, no need for tx today # IP status, will need to complete course of treatment in house I have discussed the case with Oncology - plan to continue XRT and chemotherapy on current course Subjective: pain Objective: Vital Signs Temp Pulse Resp BP Pulse Ox 36.8 C 87 16 116/51 L 95 11/02/16 10:56 11/02/16 10:56 11/02/16 10:56 11/02/16 10:56 11/02/16 10:56 Laboratory Results 11/01/16 06:03 11/01/16 06:03 11/01/16 11/02/16 11/03/16 05:59 05:59 05:59 Intake Total 817 1730 2022 Output Total 350 1700 Balance 763 89 9476 PT 13.0 SEC (12.0-15.0) 11/01/16 06:03 INR 0.99 (0.83-1.16) 11/01/16 06:03 - Physical Exam Constitutional: chronically ill appearing, cachectic Eyes: anicteric sclera Ears, Nose, Mouth, Throat: dry mucous membranes Cardiovascular: regular rate and rhythym Respiratory: no respiratory distress, no rales or rhonchi Gastrointestinal: normoactive bowel sounds, soft, non-tender abdomen Genitourinary: no bladder fullness Skin: warm, normal color Musculoskeletal: No asymmetric calves Neurologic: AAOx3 Psychiatric: anxious, depressed Lymph, Heme, Immunologic: no cervical LAD ICD10 Worksheet Patient Problems: Problems Problem Status Onset Cachexia Acute Dehydration Acute Head and neck cancer Acute Fever Acute Palliative care encounter Acute
[2016-11-02] MEDS: MAGNESIUM HYDROXIDE 30 ML UDCUP TUBE SCH (15:43)
[2016-11-02] MEDS: SCOPOLAMINE HYDROBROMIDE 1.5 MG PATCH TD SCH (15:44)
[2016-11-02 17:01] LABS: ANION GAP 9 mEq/L (8-16); CALCIUM 8.3 mg/dL (8.5-10.4); CARBON DIOXIDE 23 mEq/l (22-31); CHLORIDE 97 mEq/L (97-110); CREATININE 0.4 mg/dL (0.6-1.0); GLOMERULAR FILTRATION RATE > 60; GLUCOSE 75 mg/dL (70-100); POTASSIUM 3.5 mEq/L (3.5-5.2); SODIUM 129 mEq/L (134-144)
[2016-11-02] MEDS: GABAPENTIN 300 MG CAP TUBE SCH (22:16)
[2016-11-02] MEDS: PROCHLORPERAZINE MALEATE 10 MG TAB TUBE PRN (22:16)
[2016-11-02] MEDS: DIAZEPAM 2 MG TAB TUBE PRN (22:16)
[2016-11-02] MEDS: LIDOCAINE 5% 1 EA PATCH TD SCH (22:22)
[2016-11-02] MEDS: TPN 1 EA BAG IV SCH (22:36)
[2016-11-03] MEDS: clonazePAM 1 MG TAB TUBE PRN ×2 (01:05→21:41)
[2016-11-03] MEDS: oxyCODONE ORAL SOLUTION 10 MG/0.5 ML UDSYR TUBE SCH ×6 (01:05→21:39)
[2016-11-03] MEDS: traMADol 50 MG TAB TUBE PRN ×2 (01:05→08:31)
[2016-11-03] MEDS: ACETAMINOPHEN 325 MG TAB TUBE PRN ×2 (03:57→08:31)
[2016-11-03] MEDS: LEVOTHYROXINE 75 MCG TAB TUBE SCH (05:10)
[2016-11-03 06:46] LABS: ANION GAP 7 mEq/L (8-16); CALCIUM 7.8 mg/dL (8.5-10.4); CARBON DIOXIDE 25 mEq/l (22-31); CHLORIDE 97 mEq/L (97-110); CREATININE 0.4 mg/dL (0.6-1.0); GLOMERULAR FILTRATION RATE > 60; GLUCOSE 107 mg/dL (70-100); MAGNESIUM 1.8 mg/dL (1.6-2.3); POTASSIUM 3.6 mEq/L (3.5-5.2); SODIUM 129 mEq/L (134-144)
[2016-11-03] MEDS: MAGNESIUM HYDROXIDE 30 ML UDCUP TUBE SCH (08:31)
[2016-11-03] MEDS: ENOXAPARIN 40 MG/0.4 ML SYR SC SCH (08:32)
[2016-11-03] MEDS: IBUPROFEN SUSP 100 MG/5 ML UDCUP TUBE PRN (08:32)
[2016-11-03] MEDS: FLUCONAZOLE 40 MG/1 ML 35 ML BOTTLE TUBE SCH (08:42)
[2016-11-03] MEDS: FLUTICASONE/SALMETER 250/50MCG DISKUS IH SCH (09:20)
[2016-11-03] MEDS: METOCLOPRAMIDE 10 MG TAB TUBE PRN (09:32)
[2016-11-03] MEDS: PATCH REMOVAL 1 EA PATCH TD SCH (09:55)
--- NOTE | 2016-11-03 13:45 | SOAPPROG ---
SOAP Progress Note Assessment/Plan: E&M for H&N cancer * SCC H&N; TxN2b: week 3 of weekly cisplatin + xrt. Received cis 30mg/m2 10/23, 11/01. * Severe protein calorie malnutrition and FTT: PEG feeding only at 10 ml/hour. Also on TPN. Too high residuals to increase TF. * Cancer related pain: Fentanyl patch and methadone stopped as not helping. Pain controlled with oxycodone * Pyometra/diverticulitis - abx stopped by Dr Goetzs * Anemia: multifactorial due to chronic inflammation, malnutrition, chemotherapy. transfuse for <7.0. Currently stable. Subjective: Good pain control when meds are on schedule. Voice still high pitched and weak but no new complaints. Objective: Vital Signs Temp Pulse Resp BP Pulse Ox 36.7 C 79 16 137/70 H 95 11/03/16 08:48 11/03/16 08:48 11/03/16 08:48 11/03/16 08:48 11/03/16 08:48 Laboratory Results 11/01/16 06:03 11/03/16 06:20 11/02/16 11/03/16 11/04/16 05:59 05:59 05:59 Intake Total 1730 3738 Output Total 1700 100 Balance 30 3638 PT 13.0 SEC (12.0-15.0) 11/01/16 06:03 INR 0.99 (0.83-1.16) 11/01/16 06:03 Laboratory Tests 10/31/16 11/01/16 11/01/16 11:55 04:05 06:03 Hgb 8.5 L 6.6 L 7.8 L Physical Exam - Physical Exam General Appearance: no apparent distress Respiratory: lungs clear Cardiac/Chest: regular rate, rhythm Abdomen: normal bowel sounds, non-tender, soft Lymphatic: other (right posterior cervical) ICD10 Worksheet Patient Problems: Problems Problem Status Onset Cachexia Acute Dehydration Acute Head and neck cancer Acute Fever Acute Palliative care encounter Acute
--- NOTE | 2016-11-03 14:02 | WOCRNPDOC ---
WOCRN Advanced Assessment Note - Skin Integrity Problem, Advanced Assess Coccyx Pressure Injury Dressing Type: Allevyn Life, Honey Sheet Dressing Description: Clean/Dry, Intact Exudate Amount: None Integumentary Issue Intervention: Visualized Under Dressing Marnie Wound Tissue: Erythema Marnie Wound Swelling: Mild Wound Bed Color: Sisters, Red Wound Bed Constitution: Granulation Tissue (40%), Smooth Tissue (60%) Wound Edges: Not Attached, Irregular Site Measurement - Head-to-Toe Length X Width X Depth (cm): 0.8x0.3x0.3 Pressure Injury Stage: Stage 3 Pressure Injury Present on Admit: Yes Skin Integrity Problem Comment: Wound has been fully autolytically debrided. Wound bed clean. Now stagable and a Stage 3. Orders will be adjusted accordingly. Continue offloading. Wound care will round on Thursday 11/09.
--- NOTE | 2016-11-03 14:23 | HOSPPROG ---
Hospitalist Progress Note Assessment/Plan: 65 yo F with hx of head and neck cancer, as well as hx of perforated diverticulitis with ostomy placement and recent issues with pyometra/phlegmon in pelvis # head neck cancer-currently underling daily xrt, last cisplatin was 11/01 - with voice weakness and dryness today Expect completion of tx as an inpatient given her debilitated state and lack of viable placement options - Oncology following - XRT today - magic mouthwash # N/V - remains improved - pt sitting up and communicating needs without difficulty- WBC 3.75 this am Abd xray (personally reviewed and interpreted) no SBO - cont zofran, promethazine and valium - continue scopolamine patch # hyponatremia - sodium remains at 129 - continue following on TPN and adjusting fluid accordingly - follow daily # FTT- in setting of above, has had issues in particular managing PICC, PEG, ostomy-She is cachectic and having difficulty with her ADLs. -Will need snf after discharge. # neck pain- remains improved today - continue increases oxycodone to 30mg scheduled Q4 - continue tylenol, ultram # acute on chronic pain with continuous opiate use and dependence- oxygen saturations 95% on RA - meds as above # pyometra/pelvic phlegmon-with d&c on 10/10 showing e coli/citrobacter, plan to continue abx through 10/31/[address] - shows drained uterine cavity -completed Augmentin - follow clinically # diverticulitis with perforation and ostomy- supportive care and ostomy care # Sever protein calorie malnutrition-with BMI of 15, on tube feeds but is not currently reaching her goal and in fact is pretty far from it - cont TPN for now to supplement calories - cont TF's increase as tolerated # neutropenia: 2/2 chemo, following counts # anemia: as above, no need for tx today # IP status, will need to complete course of treatment in house I have discussed the case with Oncology - adding magic mouthwash for voice changes Subjective: voice is dry and weak Objective: Vital Signs Temp Pulse Resp BP Pulse Ox 36.7 C 79 16 137/70 H 95 11/03/16 08:48 11/03/16 08:48 11/03/16 08:48 11/03/16 08:48 11/03/16 08:48 Laboratory Results 11/01/16 06:03 11/03/16 06:20 11/02/16 11/03/16 11/04/16 05:59 05:59 05:59 Intake Total 1730 3738 Output Total 1700 100 Balance 30 3638 PT 13.0 SEC (12.0-15.0) 11/01/16 06:03 INR 0.99 (0.83-1.16) 11/01/16 06:03 - Physical Exam Constitutional: cachectic Eyes: anicteric sclera Ears, Nose, Mouth, Throat: dry mucous membranes Cardiovascular: regular rate and rhythym Respiratory: no respiratory distress, no rales or rhonchi Gastrointestinal: normoactive bowel sounds Genitourinary: no bladder fullness Skin: warm, normal color Musculoskeletal: No asymmetric calves Neurologic: AAOx3 Psychiatric: anxious Lymph, Heme, Immunologic: no cervical LAD ICD10 Worksheet Patient Problems: Problems Problem Status Onset Cachexia Acute Dehydration Acute Head and neck cancer Acute Fever Acute Palliative care encounter Acute
[2016-11-03] MEDS: NS 1,000 ML IV SCH ×2 (14:40→18:05)
[2016-11-03] MEDS: MBX SOLN 30 ML BOTTLE PO PRN ×2 (15:00→19:38)
[2016-11-03] MEDS: TPN 1 EA BAG IV SCH (20:31)
[2016-11-03] MEDS: GABAPENTIN 300 MG CAP TUBE SCH (21:39)
[2016-11-03] MEDS: LIDOCAINE 5% 1 EA PATCH TD SCH (22:04)
[2016-11-04] MEDS: oxyCODONE ORAL SOLUTION 10 MG/0.5 ML UDSYR TUBE SCH ×6 (01:19→21:31)
[2016-11-04] MEDS: DIAZEPAM 2 MG TAB TUBE PRN (01:19)
[2016-11-04] MEDS: traMADol 50 MG TAB TUBE PRN ×2 (01:32→15:56)
[2016-11-04] MEDS: MBX SOLN 30 ML BOTTLE PO PRN ×4 (03:45→16:43)
[2016-11-04] MEDS: LEVOTHYROXINE 75 MCG TAB TUBE SCH (06:07)
[2016-11-04] MEDS: clonazePAM 1 MG TAB TUBE PRN (06:07)
[2016-11-04] MEDS: METOCLOPRAMIDE 10 MG TAB TUBE PRN ×2 (06:26→21:45)
[2016-11-04] MEDS: ACETAMINOPHEN 325 MG TAB TUBE PRN ×3 (07:27→21:30)
[2016-11-04] MEDS: FLUTICASONE/SALMETER 250/50MCG DISKUS IH SCH (07:39)
[2016-11-04] MEDS: IPRATROPIUM/ALBUTEROL 3 ML DEYVIAL IH PRN (07:42)
[2016-11-04 08:44] LABS: % IMMATURE GRANULYOCYTES 0.6 % (0.0-1.1); ABSOLUTE IMMATURE GRANULOCYTES 0.02 10^3/uL (0.00-0.10); ADD DIFF? NO; ADD MORPH? NO; ADD SCAN? NO; ATYPICAL LYMPHOCYTE FLAG 0 (0-99); FRAGMENT RBC FLAG 0 (0-99); HEMATOCRIT 22.5 % (38.0-47.0); HEMOGLOBIN 7.3 g/dL (12.6-16.3); LEFT SHIFT FLG 10 (0-99); LIPEMIA HEMOLYSIS FLAG 80 (0-99); MEAN CELL HEMOGLOBIN 30.7 pg (27.9-34.1); MEAN CELL HEMOGLOBIN CONCENTR. 32.4 g/dL (32.4-36.7); MEAN CELL VOLUME 94.5 fL (81.5-99.8); MEAN PLATELET VOLUME 9.7 fL (8.7-11.7); PLATELET CLUMPS FLAG 10 (0-99); PLATELET COUNT 134 10^3/uL (150-400); RED BLOOD CELL COUNT 2.38 10^6/uL (4.18-5.33); RED CELL DISTRIBUTION WIDTH 18.6 % (11.5-15.2)
[2016-11-04 09:32] LABS: ANION GAP 9 mEq/L (8-16); CALCIUM 8.2 mg/dL (8.5-10.4); CARBON DIOXIDE 23 mEq/l (22-31); CHLORIDE 96 mEq/L (97-110); CREATININE 0.4 mg/dL (0.6-1.0); GLOMERULAR FILTRATION RATE > 60; GLUCOSE 122 mg/dL (70-100); SODIUM 128 mEq/L (134-144)
[2016-11-04] MEDS: ENOXAPARIN 40 MG/0.4 ML SYR SC SCH (09:36)
[2016-11-04] MEDS: MAGNESIUM HYDROXIDE 30 ML UDCUP TUBE SCH (09:36)
[2016-11-04] MEDS: FLUCONAZOLE 40 MG/1 ML 35 ML BOTTLE TUBE SCH (09:36)
[2016-11-04] MEDS: PATCH REMOVAL 1 EA PATCH TD SCH (09:37)
--- NOTE | 2016-11-04 10:21 | HOSPPROG ---
Hospitalist Progress Note Assessment/Plan: 65 yo F with hx of head and neck cancer, as well as hx of perforated diverticulitis with ostomy placement and recent issues with pyometra/phlegmon in pelvis # head neck cancer - currently undergoing daily xrt, last cisplatin was 11/01 - with voice weakness and dryness Expect completion of tx as an inpatient given her debilitated state and lack of viable placement options - Oncology following - XRT today - magic mouthwash # N/V - improved Abd xray (personally reviewed and interpreted) no SBO - cont zofran, promethazine and valium - continue scopolamine patch # hyponatremia - sodium remains stable, 128 this am. Adding Na / salt tabs. - continue following on TPN / tube feeds and adjusting fluid accordingly - follow daily # FTT- in setting of above, has had issues in particular managing PICC, PEG, ostomy-She is cachectic and having difficulty with her ADLs. -Will need snf after discharge. # neck pain- remains improved today - has required increased oxycodone to 30mg scheduled Q4 - continue tylenol, ultram # acute on chronic pain with continuous opiate use and dependence- oxygen saturations 95% on RA - meds as above # pyometra/pelvic phlegmon-with d&c on 10/10 showing e coli/citrobacter, completed abtx course 10/[address] - shows drained uterine cavity -completed Augmentin - follow clinically # diverticulitis with perforation and ostomy- supportive care and ostomy care # Sever protein calorie malnutrition-with BMI of 15, on tube feeds, only 10 mL/ hr due to high residuals, not currently reaching her goal and in fact is pretty far from it. - cont TPN for now to supplement calories - cont TF's increase as tolerated # neutropenia: 2/2 chemo, following counts # anemia: as above, no need for tx today # IP status, will need to complete course of treatment in house. Palliative care to address care goals is appropriate. Subjective: Pt very weak, difficulty with speaking. pain controlled. little oral intake, mostly receiving nutrition via tube feeds and tpn. Objective: Vital Signs Temp Pulse Resp BP Pulse Ox 37 C 91 16 141/74 H 92 11/04/16 07:04 11/04/16 07:04 11/04/16 07:44 11/04/16 07:04 11/04/16 07:44 Laboratory Results 11/04/16 08:30 11/04/16 08:30 11/03/16 11/04/16 11/05/16 05:59 05:59 05:59 Intake Total 3738 892 Output Total 100 350 200 Balance 3638 542 -200 PT 13.0 SEC (12.0-15.0) 11/01/16 06:03 INR 0.99 (0.83-1.16) 11/01/16 06:03 - Physical Exam Constitutional: chronically ill appearing, cachectic Ears, Nose, Mouth, Throat: dry mucous membranes Cardiovascular: regular rate and rhythym Respiratory: no respiratory distress Gastrointestinal: normoactive bowel sounds, soft, non-tender abdomen Neurologic: AAOx3 Psychiatric: interacting appropriately ICD10 Worksheet Patient Problems: Problems Problem Status Onset Cachexia Acute Dehydration Acute Head and neck cancer Acute Fever Acute Palliative care encounter Acute
--- NOTE | 2016-11-04 15:04 | SOAPPROG ---
SOAP Progress Note Assessment/Plan: E&M for H&N cancer * SCC H&N; TxN2b: week 3 of weekly cisplatin + xrt. Received cis 30mg/m2 10/23, 11/01. * Severe protein calorie malnutrition and FTT: PEG feeding only at 10 ml/hour. Also on TPN. Too high residuals to increase TF. * Cancer related pain: Fentanyl patch and methadone stopped as not helping. Pain controlled with oxycodone * Pyometra/diverticulitis - abx stopped by Dr Goetzs * Anemia: multifactorial due to chronic inflammation, malnutrition, chemotherapy. transfuse for <7.0. Currently stable. * Laryngitis: probably related to radiation. Speech saw her but haven't had ENT ; not sure if much can do. Will continue magic mouthwash and add nystatin. No trouble swallowing or breathing. Will monitor. Subjective: Upset about losing her voice. Able to swallow and not much pain in throat. Neck tumor perhaps a little better. Objective: Vital Signs Temp Pulse Resp BP Pulse Ox 37 C 91 16 141/74 H 92 11/04/16 07:04 11/04/16 07:04 11/04/16 07:44 11/04/16 07:04 11/04/16 07:44 Laboratory Results 11/04/16 08:30 11/04/16 08:30 11/03/16 11/04/16 11/05/16 05:59 05:59 05:59 Intake Total 3738 892 Output Total 100 350 750 Balance 3638 542 -750 PT 13.0 SEC (12.0-15.0) 11/01/16 06:03 INR 0.99 (0.83-1.16) 11/01/16 06:03 Physical Exam - Physical Exam General Appearance: mild distress EENT: other (dry and erythematous in posterior pharynx. No obvious thrush. She is hoarse.) Respiratory: lungs clear Cardiac/Chest: regular rate, rhythm Abdomen: normal bowel sounds, non-tender, soft, other (PEG ok; Colostomy OK) ICD10 Worksheet Patient Problems: Problems Problem Status Onset Cachexia Acute Dehydration Acute Head and neck cancer Acute Fever Acute Palliative care encounter Acute
[2016-11-04] MEDS: NYSTATIN SUSP 500000 UNIT/5 ML UDCUP PO SCH ×2 (15:55→21:30)
[2016-11-04] MEDS: NS 1,000 ML IV SCH (16:44)
[2016-11-04] MEDS: TPN 1 EA BAG IV SCH (20:26)
[2016-11-04] MEDS: GABAPENTIN 300 MG CAP TUBE SCH (21:30)
[2016-11-04] MEDS: LIDOCAINE 5% 1 EA PATCH TD SCH (21:53)
[2016-11-04] MEDS: DIAZEPAM 10 MG/2 ML SYR IVP PRN (22:37)
[2016-11-05] MEDS: traMADol 50 MG TAB TUBE PRN (00:02)
[2016-11-05] MEDS: oxyCODONE ORAL SOLUTION 10 MG/0.5 ML UDSYR TUBE SCH ×6 (02:28→21:43)
[2016-11-05] MEDS: NYSTATIN SUSP 500000 UNIT/5 ML UDCUP PO SCH ×4 (04:29→21:43)
[2016-11-05] MEDS: LEVOTHYROXINE 75 MCG TAB TUBE SCH (06:11)
[2016-11-05] MEDS: ACETAMINOPHEN 325 MG TAB TUBE PRN ×2 (06:33→18:07)
[2016-11-05 06:53] LABS: ANION GAP 7 mEq/L (8-16); CALCIUM 8.4 mg/dL (8.5-10.4); CARBON DIOXIDE 24 mEq/l (22-31); CHLORIDE 100 mEq/L (97-110); CREATININE 0.3 mg/dL (0.6-1.0); GLOMERULAR FILTRATION RATE > 60; GLUCOSE 101 mg/dL (70-100); MAGNESIUM 1.9 mg/dL (1.6-2.3); POTASSIUM 4.2 mEq/L (3.5-5.2); SODIUM 131 mEq/L (134-144)
[2016-11-05] MEDS: FLUCONAZOLE 40 MG/1 ML 35 ML BOTTLE TUBE SCH (08:29)
[2016-11-05] MEDS: ENOXAPARIN 40 MG/0.4 ML SYR SC SCH (08:29)
[2016-11-05] MEDS: MAGNESIUM HYDROXIDE 30 ML UDCUP TUBE SCH ×2 (08:29→08:34)
[2016-11-05] MEDS: METOCLOPRAMIDE 10 MG TAB TUBE PRN (08:36)
[2016-11-05] MEDS: PATCH REMOVAL 1 EA PATCH TD SCH (08:48)
[2016-11-05] MEDS: MBX SOLN 30 ML BOTTLE PO PRN ×4 (08:52→21:41)
[2016-11-05] MEDS: FLUTICASONE/SALMETER 250/50MCG DISKUS IH SCH (09:06)
[2016-11-05] MEDS: IPRATROPIUM/ALBUTEROL 3 ML DEYVIAL IH PRN (11:28)
--- NOTE | 2016-11-05 13:17 | HOSPPROG ---
Hospitalist Progress Note Assessment/Plan: 65 yo F with hx of head and neck cancer, as well as hx of perforated diverticulitis with ostomy placement and recent issues with pyometra/phlegmon in pelvis # head neck cancer - currently undergoing daily xrt, last cisplatin was 11/01 - with voice weakness and dryness Expect completion of tx as an inpatient given her debilitated state and lack of viable placement options - Oncology following - XRT for 3 more weeks planned - magic mouthwash # N/V - improved Abd xray (personally reviewed and interpreted) no SBO - cont zofran, promethazine and valium - continue scopolamine patch # hyponatremia - sodium improved, 131 this am. - continue following on TPN / tube feeds and adjusting fluid accordingly # FTT- in setting of above, has had issues in particular managing PICC, PEG, ostomy - She is cachectic and having difficulty with her ADLs. -Will need snf after discharge. # neck pain - stable - has required increased oxycodone to 30mg scheduled Q4 - continue tylenol, ultram # acute on chronic pain with continuous opiate use, bzd use and dependence - oxygen saturations 95% on RA - meds as above - cont home dose of clonazepam per tube, d/c IV valium for safety # pyometra/pelvic phlegmon-with d&c on 10/10 showing e coli/citrobacter, completed abtx course 10/[address] - shows drained uterine cavity -completed Augmentin - follow clinically # diverticulitis with perforation and ostomy- supportive care and ostomy care # Severe protein calorie malnutrition-with BMI of 15, on tube feeds, only 10 mL /hr due to high residuals, not currently reaching her goal and in fact is pretty far from it. - cont TPN for now to supplement calories - cont TF's increase as tolerated # neutropenia: 2/2 chemo, following counts # anemia: hgb 7.3 today, transfuse as indicated. # IP status, will need to complete course of treatment in house. Discussed care goals today, pt wants to get better and complete tx course. Subjective: Pt complains of pain, upset about losing her voice. She appears sedated. No fevers/chills. Objective: Vital Signs Temp Pulse Resp BP Pulse Ox 36.8 C 92 18 121/77 H 92 11/05/16 07:31 11/05/16 07:31 11/05/16 07:31 11/05/16 07:31 11/05/16 07:31 Laboratory Results 11/04/16 08:30 11/05/16 06:19 11/04/16 11/05/16 11/06/16 05:59 05:59 05:59 Intake Total 892 3901 Output Total 350 752 Balance 542 3149 PT 13.0 SEC (12.0-15.0) 11/01/16 06:03 INR 0.99 (0.83-1.16) 11/01/16 06:03 - Physical Exam Constitutional: chronically ill appearing, cachectic Cardiovascular: regular rate and rhythym Respiratory: no respiratory distress Gastrointestinal: normoactive bowel sounds, soft, non-tender abdomen, other ( ostomy functioning nl) Skin: warm Musculoskeletal: generalized weakness Neurologic: AAOx3 Psychiatric: anxious ICD10 Worksheet Patient Problems: Problems Problem Status Onset Fever Acute Dehydration Acute Palliative care encounter Acute Cachexia Acute Head and neck cancer Acute
[2016-11-05] MEDS: SCOPOLAMINE HYDROBROMIDE 1.5 MG PATCH TD SCH (13:24)
--- NOTE | 2016-11-05 14:51 | SOAPPROG ---
SOAP Progress Note Assessment/Plan: E&M for H&N cancer * SCC H&N; TxN2b: week 3 of weekly cisplatin + xrt. Received cis 30mg/m2 10/23, 11/01. * Severe protein calorie malnutrition and FTT: PEG feeding only at 10 ml/hour. Also on TPN. Too high residuals to increase TF. * Cancer related pain: Fentanyl patch and methadone stopped as not helping. Pain controlled with oxycodone * Pyometra/diverticulitis - abx stopped by Dr Goetzs * Anemia: multifactorial due to chronic inflammation, malnutrition, chemotherapy. transfuse for <7.0. Currently stable. * Dysphonia: probably related to radiation. Speech saw her and working with her ; not sure if much more can do until radiation complete. Will continue magic mouthwash and add nystatin. Pain with swallowing but no trouble breathing. Subjective: Patient sleeping. Still with dysphonia. Objective: Vital Signs Temp Pulse Resp BP Pulse Ox 36.8 C 92 18 121/77 H 92 11/05/16 07:31 11/05/16 07:31 11/05/16 07:31 11/05/16 07:31 11/05/16 07:31 Laboratory Results 11/04/16 08:30 11/05/16 06:19 11/04/16 11/05/16 11/06/16 05:59 05:59 05:59 Intake Total 892 3901 Output Total 350 752 Balance 542 3149 PT 13.0 SEC (12.0-15.0) 11/01/16 06:03 INR 0.99 (0.83-1.16) 11/01/16 06:03 Physical Exam - Physical Exam General Appearance: no apparent distress Respiratory: lungs clear Cardiac/Chest: regular rate, rhythm Abdomen: normal bowel sounds, soft, other (PEG ok) ICD10 Worksheet Patient Problems: Problems Problem Status Onset Cachexia Acute Dehydration Acute Head and neck cancer Acute Fever Acute Palliative care encounter Acute
--- NOTE | 2016-11-05 15:57 | PCMIDPN ---
Assessment/Plan: 66-year-old woman with head & neck cancer who I previously saw for Pyometra and left adnexal phlegmon, now s/p antibiotic therapy. Stopped by today for social visit and provided emotional support. Objective: Vital Signs Temp Pulse Resp BP Pulse Ox 36.8 C 95 18 105/52 L 95 11/05/16 15:15 11/05/16 15:15 11/05/16 15:15 11/05/16 15:15 11/05/16 15:15 Laboratory Results 11/04/16 08:30 11/05/16 06:19 11/04/16 11/05/16 11/06/16 05:59 05:59 05:59 Intake Total 892 3901 Output Total 350 752 Balance 543 4381 ICD10 Worksheet Patient Problems: Problems Problem Status Onset Cachexia Acute Dehydration Acute Head and neck cancer Acute Fever Acute Palliative care encounter Acute
[2016-11-05] MEDS: NS 1,000 ML IV SCH (18:11)
[2016-11-05] MEDS: TPN 1 EA BAG IV SCH (21:40)
[2016-11-05] MEDS: GABAPENTIN 300 MG CAP TUBE SCH (21:43)
[2016-11-05] MEDS: LIDOCAINE 5% 1 EA PATCH TD SCH (22:00)
[2016-11-06] MEDS: LIDOCAINE 5% 1 EA PATCH TD SCH (02:19)
[2016-11-06] MEDS: oxyCODONE ORAL SOLUTION 10 MG/0.5 ML UDSYR TUBE SCH ×6 (02:21→21:05)
[2016-11-06] MEDS: NYSTATIN SUSP 500000 UNIT/5 ML UDCUP PO SCH ×4 (05:22→21:05)
[2016-11-06] MEDS: LEVOTHYROXINE 75 MCG TAB TUBE SCH (05:23)
[2016-11-06 05:49] LABS: % IMMATURE GRANULYOCYTES 0.6 % (0.0-1.1); ABSOLUTE IMMATURE GRANULOCYTES 0.01 10^3/uL (0.00-0.10); ADD DIFF? NO; ADD MORPH? NO; ADD SCAN? NO; ATYPICAL LYMPHOCYTE FLAG 60 (0-99); FRAGMENT RBC FLAG 0 (0-99); HEMATOCRIT 22.2 % (38.0-47.0); LEFT SHIFT FLG 20 (0-99); LIPEMIA HEMOLYSIS FLAG 80 (0-99); MEAN CELL HEMOGLOBIN 30.2 pg (27.9-34.1); MEAN CELL HEMOGLOBIN CONCENTR. 31.5 g/dL (32.4-36.7); MEAN CELL VOLUME 95.7 fL (81.5-99.8); MEAN PLATELET VOLUME 9.5 fL (8.7-11.7); PLATELET CLUMPS FLAG 0 (0-99); PLATELET COUNT 152 10^3/uL (150-400); RED BLOOD CELL COUNT 2.32 10^6/uL (4.18-5.33); RED CELL DISTRIBUTION WIDTH 18.5 % (11.5-15.2)
[2016-11-06 06:08] LABS: ANION GAP 10 mEq/L (8-16); CALCIUM 8.4 mg/dL (8.5-10.4); CARBON DIOXIDE 22 mEq/l (22-31); CHLORIDE 104 mEq/L (97-110); CREATININE 0.4 mg/dL (0.6-1.0); GLOMERULAR FILTRATION RATE > 60; GLUCOSE 86 mg/dL (70-100); POTASSIUM 4.4 mEq/L (3.5-5.2); SODIUM 136 mEq/L (134-144)
[2016-11-06] MEDS: FLUTICASONE/SALMETER 250/50MCG DISKUS IH SCH (08:21)
[2016-11-06] MEDS: ACETAMINOPHEN 325 MG TAB TUBE PRN (09:21)
[2016-11-06] MEDS: MAGNESIUM HYDROXIDE 30 ML UDCUP TUBE SCH (09:22)
[2016-11-06] MEDS: ENOXAPARIN 40 MG/0.4 ML SYR SC SCH (09:22)
[2016-11-06] MEDS: traMADol 50 MG TAB TUBE PRN (09:22)
[2016-11-06] MEDS: PATCH REMOVAL 1 EA PATCH TD SCH (09:30)
[2016-11-06] MEDS: clonazePAM 1 MG TAB TUBE PRN (10:37)
[2016-11-06] MEDS: NS 1,000 ML IV SCH (10:37)
[2016-11-06] MEDS: IPRATROPIUM/ALBUTEROL 3 ML DEYVIAL IH PRN (10:56)
--- NOTE | 2016-11-06 12:42 | SOAPPROG ---
SOAP Progress Note Assessment/Plan: Assessment: E&M for H&N cancer * SCC H&N; TxN2b: week 3 of weekly cisplatin + xrt. Received cis 30mg/m2 10/23, 11/01. She wants to continue therapy. * Severe protein calorie malnutrition and FTT: PEG feeding only at 10 ml/hour. Also on TPN. Too high residuals to increase TF. * Cancer related pain: Fentanyl patch and methadone stopped as not helping. Pain controlled not well. Will add viscous xylocaine. * Pyometra/diverticulitis - abx stopped by Dr Nicholson's * Anemia: multifactorial due to chronic inflammation, malnutrition, chemotherapy. transfuse for <7.0. Currently stable. * Dysphonia: probably related to radiation. Speech saw her and working with her ; not sure if much more can do until radiation complete. Will continue magic mouthwash and add nystatin. Pain with swallowing but no trouble breathing. Plan: 11/06/16 12:42 11/06/16 12:52 Subjective: Destiney stevens a 66 yo with advanced H&N cancer with a large neck mass. She is developing dysphonia from therapy. She co pain in her throat. These problems are stable. I explained that they will not get better until the radiation stops Objective: Vital Signs Temp Pulse Resp BP Pulse Ox 36.7 C 88 22 H 118/71 94 11/06/16 07:46 11/06/16 10:56 11/06/16 10:56 11/06/16 07:46 11/06/16 10:56 Laboratory Results 11/06/16 05:30 11/06/16 05:30 11/05/16 11/06/16 11/07/16 05:59 05:59 05:59 Intake Total 3901 4121 409 Output Total 752 955 Balance 3149 1589 409 PT 13.0 SEC (12.0-15.0) 11/01/16 06:03 INR 0.99 (0.83-1.16) 11/01/16 06:03 Neck mass is present but better significantly. ICD10 Worksheet Patient Problems: Problems Problem Status Onset Fever Acute Dehydration Acute Palliative care encounter Acute Cachexia Acute Head and neck cancer Acute
[2016-11-06] MEDS: ONDANSETRON 4 MG/2 ML VIAL IVP PRN ×2 (13:21→18:27)
--- NOTE | 2016-11-06 14:29 | HOSPPROG ---
Hospitalist Progress Note Assessment/Plan: 65 yo F with hx of head and neck cancer, as well as hx of perforated diverticulitis with ostomy placement and recent issues with pyometra/phlegmon in pelvis # head neck cancer - currently undergoing daily xrt, last cisplatin was 11/01 - with voice weakness and dryness Expect completion of tx as an inpatient given her debilitated state and lack of viable placement options - Oncology following - XRT for 3 more weeks planned - magic mouthwash # N/V - improved - cont zofran, promethazine and valium - continue scopolamine patch # hyponatremia - sodium improved, 131 this am. - continue following on TPN / tube feeds and adjusting fluid accordingly # FTT- in setting of above, has had issues in particular managing PICC, PEG, ostomy - She is cachectic and having difficulty with her ADLs. -Will need snf after discharge. # neck pain - stable - has required increased oxycodone to 30mg scheduled Q4 - continue tylenol, ultram # acute on chronic pain with continuous opiate use, bzd use and dependence - oxygen saturations 95% on RA - meds as above - cont home dose of clonazepam per tube, d/c'd IV valium for safety # pyometra/pelvic phlegmon-with d&c on 10/10 showing e coli/citrobacter, completed abtx course 10/[address] - showed drained uterine cavity -completed Augmentin - follow clinically # diverticulitis with perforation and ostomy- supportive care and ostomy care # Severe protein calorie malnutrition-with BMI of 15, on tube feeds, only 10 mL /hr due to high residuals, not currently reaching her goal and in fact is pretty far from it. - cont TPN for now to supplement calories - cont TF's increase as tolerated # neutropenia: 2/2 chemo, following counts # anemia: hgb 7.3 today, transfuse as indicated. # IP status, will need to complete course of treatment in house. Discussed care goals today, pt wants to get better and complete tx course. Subjective: Pt sleeping. No complaints. Objective: Vital Signs Temp Pulse Resp BP Pulse Ox 36.7 C 88 22 H 118/71 94 11/06/16 07:46 11/06/16 10:56 11/06/16 10:56 11/06/16 07:46 11/06/16 10:56 Laboratory Results 11/06/16 05:30 11/06/16 05:30 11/05/16 11/06/16 11/07/16 05:59 05:59 05:59 Intake Total 3901 2544 409 Output Total 752 955 Balance 3149 1589 409 PT 13.0 SEC (12.0-15.0) 11/01/16 06:03 INR 0.99 (0.83-1.16) 11/01/16 06:03 - Physical Exam Constitutional: chronically ill appearing, cachectic Cardiovascular: regular rate and rhythym Respiratory: no respiratory distress Gastrointestinal: soft, non-tender abdomen Skin: warm Musculoskeletal: generalized weakness ICD10 Worksheet Patient Problems: Problems Problem Status Onset Cachexia Acute Dehydration Acute Head and neck cancer Acute Fever Acute Palliative care encounter Acute
[2016-11-06] MEDS: OXYMETAZOLINE 30 ML NASAL SPRAY EACHNARE PRN (14:44)
[2016-11-06] MEDS: MBX SOLN 30 ML BOTTLE PO PRN (18:23)
[2016-11-06] MEDS: METOCLOPRAMIDE 10 MG TAB TUBE PRN (18:27)
[2016-11-06] MEDS: TPN 1 EA BAG IV SCH (21:04)
[2016-11-06] MEDS: GABAPENTIN 300 MG CAP TUBE SCH (21:05)
[2016-11-07] MEDS: traMADol 50 MG TAB TUBE PRN ×2 (00:48→17:39)
[2016-11-07] MEDS: IBUPROFEN SUSP 100 MG/5 ML UDCUP TUBE PRN ×2 (00:48→19:56)
[2016-11-07] MEDS: oxyCODONE ORAL SOLUTION 10 MG/0.5 ML UDSYR TUBE SCH ×6 (02:53→21:15)
[2016-11-07] MEDS: LIDOCAINE 2% VISCOUS 15 ML UDCUP PO PRN (06:24)
[2016-11-07] MEDS: NYSTATIN SUSP 500000 UNIT/5 ML UDCUP PO SCH ×4 (06:25→19:56)
[2016-11-07] MEDS: LEVOTHYROXINE 75 MCG TAB TUBE SCH (06:25)
[2016-11-07] MEDS: MBX SOLN 30 ML BOTTLE PO PRN ×2 (06:25→16:45)
[2016-11-07 07:07] LABS: % IMMATURE GRANULYOCYTES 0.6 % (0.0-1.1); ABSOLUTE IMMATURE GRANULOCYTES 0.01 10^3/uL (0.00-0.10); ADD DIFF? NO; ADD MORPH? YES; ADD SCAN? NO; ATYPICAL LYMPHOCYTE FLAG 0 (0-99); FRAGMENT RBC FLAG 0 (0-99); HEMATOCRIT 20.7 % (38.0-47.0); LEFT SHIFT FLG 30 (0-99); LIPEMIA HEMOLYSIS FLAG 80 (0-99); MEAN CELL HEMOGLOBIN 30.4 pg (27.9-34.1); MEAN CELL HEMOGLOBIN CONCENTR. 31.4 g/dL (32.4-36.7); MEAN CELL VOLUME 96.7 fL (81.5-99.8); MEAN PLATELET VOLUME 9.8 fL (8.7-11.7); PLATELET CLUMPS FLAG 0 (0-99); PLATELET COUNT 151 10^3/uL (150-400); RED BLOOD CELL COUNT 2.14 10^6/uL (4.18-5.33); RED CELL DISTRIBUTION WIDTH 18.4 % (11.5-15.2)
[2016-11-07 07:15] LABS: HEMOGLOBIN 6.5 g/dL (12.6-16.3)
[2016-11-07] MEDS: MAGNESIUM HYDROXIDE 30 ML UDCUP TUBE SCH (08:01)
[2016-11-07] MEDS: ENOXAPARIN 40 MG/0.4 ML SYR SC SCH (08:01)
[2016-11-07] MEDS: METOCLOPRAMIDE 10 MG TAB TUBE PRN (08:01)
[2016-11-07] MEDS: IPRATROPIUM/ALBUTEROL 3 ML DEYVIAL IH PRN (08:27)
[2016-11-07] MEDS: FLUTICASONE/SALMETER 250/50MCG DISKUS IH SCH (08:28)
[2016-11-07 08:49] LABS: PLATELET ESTIMATE ADEQUATE (ADEQ)
[2016-11-07 08:52] LABS: MACROCYTES 1+
[2016-11-07] MEDS: clonazePAM 1 MG TAB TUBE PRN ×2 (09:33→19:57)
[2016-11-07] MEDS: OXYMETAZOLINE 30 ML NASAL SPRAY EACHNARE PRN (09:34)
[2016-11-07] MEDS: ACETAMINOPHEN 325 MG TAB TUBE PRN ×2 (09:39→19:53)
[2016-11-07] MEDS: PATCH REMOVAL 1 EA PATCH TD SCH (09:49)
--- NOTE | 2016-11-07 10:26 | SOAPPROG ---
SOAP Progress Note Assessment/Plan: Assessment: E&M for H&N cancer * SCC H&N; TxN2b: week 3 of weekly cisplatin + xrt. Received cis 30mg/m2 10/23, 11/01. She wants to continue therapy. Counts too low for chemo tomorrow. We'll see how she is. * Severe protein calorie malnutrition and FTT: PEG feeding only at 10 ml/hour. Also on TPN. Too high residuals to increase TF. * Cancer related pain: Fentanyl patch and methadone stopped as not helping. Pain controlled not well. Will add viscous xylocaine. * Pyometra/diverticulitis - abx stopped by Dr Nicholson's * Anemia: multifactorial due to chronic inflammation, malnutrition, chemotherapy. transfuse for <7.0. Currently stable. * Dysphonia: probably related to radiation. Speech saw her and working with her ; not sure if much more can do until radiation complete. Will continue magic mouthwash and add nystatin. Pain with swallowing but no trouble breathing. Plan: 11/06/16 12:42 11/06/16 12:52 11/07/16 10:26 Subjective: This is a 66 yo with advanced H&N cancer with a large neck mass. She is developing dysphonia from therapy. She co pain in her throat. These problems are stable. I explained that they will not get better until the radiation stops. She is alert but cachectic. Objective: Vital Signs Temp Pulse Resp BP Pulse Ox 36.8 C 85 16 138/94 H 97 11/06/16 20:04 11/07/16 08:34 11/07/16 08:34 11/06/16 20:04 11/07/16 08:34 Laboratory Results 11/07/16 06:30 11/06/16 05:30 11/06/16 11/07/16 11/08/16 05:59 05:59 05:59 Intake Total 1164 3159 266 Output Total 138 4899 Balance 1589 1634 266 PT 13.0 SEC (12.0-15.0) 11/01/16 06:03 INR 0.99 (0.83-1.16) 11/01/16 06:03 Cachectic. Mass in neck is better ICD10 Worksheet Patient Problems: Problems Problem Status Onset Fever Acute Dehydration Acute Palliative care encounter Acute Cachexia Acute Head and neck cancer Acute
[2016-11-07] MEDS: ONDANSETRON DISINTEGRATING 4 MG TAB TUBE PRN (10:34)
--- NOTE | 2016-11-07 12:48 | HOSPPROG ---
Hospitalist Progress Note Assessment/Plan: 65 yo F with hx of head and neck cancer, as well as hx of perforated diverticulitis with ostomy placement and recent issues with pyometra/phlegmon in pelvis s/p atbx completion # head neck cancer - currently undergoing daily xrt, last cisplatin was 11/01 - with voice weakness and dryness. Expect completion of tx as an inpatient given her debilitated state and lack of viable placement options - Oncology following, holding chemo tomorrow due to weakness and malnutrition - XRT for 3 more weeks planned - magic mouthwash - discussed with Dr. Mota # N/V - improved - cont zofran, promethazine and valium - continue scopolamine patch # Nasal congestion - she has afrin at her bedside. Recommended use only for 48 hrs. - nasal saline - trial flonase # hyponatremia - resolved - continue following on TPN / tube feeds and adjusting fluid accordingly # FTT- in setting of above, has had issues in particular managing PICC, PEG, ostomy - She is cachectic and having difficulty with her ADLs. -Will need snf after discharge. # neck pain - stable -better control with increased oxycodone to 30mg scheduled Q4 -continue tylenol, ultram # acute on chronic pain with continuous opiate use, bzd use and dependence - oxygen saturations 95% on RA - meds as above - cont home dose of clonazepam per tube, d/c'd IV valium for safety # pyometra/pelvic phlegmon-with d&c on 10/10 showing e coli/citrobacter, completed abtx course 10/[address] - showed drained uterine cavity -completed Augmentin -follow clinically # diverticulitis with perforation and ostomy- supportive care and ostomy care # Severe protein calorie malnutrition-with BMI of 15, on tube feeds, only 10 mL /hr due to high residuals, not currently reaching her goal and remains pretty far from it. - cont TPN for now to supplement calories - cont TF's increase as tolerated # neutropenia: 2/2 chemo, following counts # anemia: hgb 6.5 today, transfuse 1 u prbc's # IP status, will need to complete course of treatment in house. Goals of care discussed, pt doing very poorly, but wants to persist with tx if able. Palliative care consult may be warranted. Subjective: Pt c/o stuffy nose, using afrin. Pain fairly well controlled. She is very weak. Intermittently tearful. Objective: Vital Signs Temp Pulse Resp BP Pulse Ox 36.8 C 85 16 138/94 H 97 11/06/16 20:04 11/07/16 08:34 11/07/16 08:34 11/06/16 20:04 11/07/16 08:34 Laboratory Results 11/07/16 06:30 11/06/16 05:30 11/06/16 11/07/16 11/08/16 05:59 05:59 05:59 Intake Total 2544 3159 266 Output Total 955 1525 250 Balance 1589 1634 16 PT 13.0 SEC (12.0-15.0) 11/01/16 06:03 INR 0.99 (0.83-1.16) 11/01/16 06:03 - Physical Exam Constitutional: chronically ill appearing, cachectic Ears, Nose, Mouth, Throat: dry mucous membranes Cardiovascular: regular rate and rhythym Respiratory: no respiratory distress Gastrointestinal: normoactive bowel sounds, soft, non-tender abdomen Skin: warm Musculoskeletal: generalized weakness Neurologic: AAOx3 Psychiatric: anxious ICD10 Worksheet Patient Problems: Problems Problem Status Onset Cachexia Acute Dehydration Acute Head and neck cancer Acute Fever Acute Palliative care encounter Acute
[2016-11-07] MEDS ORDERED: SODIUM CL NASAL 45 ML BTL EACHNARE PRN (12:49)
[2016-11-07] MEDS: FLUTICASONE NASAL 120 SPRAYS/16 GM MDI EACHNARE SCH (13:55)
[2016-11-07] MEDS: GABAPENTIN 300 MG CAP TUBE SCH (19:57)
[2016-11-07] MEDS: LIDOCAINE 5% 1 EA PATCH TD SCH ×2 (19:57→20:44)
[2016-11-07] MEDS: TPN 1 EA BAG IV SCH (19:58)
[2016-11-08] MEDS: oxyCODONE ORAL SOLUTION 10 MG/0.5 ML UDSYR TUBE SCH ×5 (01:11→17:45)
[2016-11-08] MEDS: LEVOTHYROXINE 75 MCG TAB TUBE SCH (05:55)
[2016-11-08] MEDS: NYSTATIN SUSP 500000 UNIT/5 ML UDCUP PO SCH ×4 (05:55→21:16)
[2016-11-08 06:27] LABS: % IMMATURE GRANULYOCYTES 0.5 % (0.0-1.1); ABSOLUTE IMMATURE GRANULOCYTES 0.01 10^3/uL (0.00-0.10); ADD DIFF? NO; ADD MORPH? NO; ADD SCAN? NO; ATYPICAL LYMPHOCYTE FLAG 0 (0-99); FRAGMENT RBC FLAG 0 (0-99); HEMATOCRIT 26.3 % (38.0-47.0); HEMOGLOBIN 8.5 g/dL (12.6-16.3); LEFT SHIFT FLG 20 (0-99); LIPEMIA HEMOLYSIS FLAG 80 (0-99); MEAN CELL HEMOGLOBIN 30.4 pg (27.9-34.1); MEAN CELL HEMOGLOBIN CONCENTR. 32.3 g/dL (32.4-36.7); MEAN CELL VOLUME 93.9 fL (81.5-99.8); MEAN PLATELET VOLUME 9.3 fL (8.7-11.7); PLATELET CLUMPS FLAG 10 (0-99); PLATELET COUNT 151 10^3/uL (150-400)
[2016-11-08 06:35] LABS: ALANINE AMINOTRANSFERASE 25 IU/L (9-52); ALBUMIN 2.7 g/dL (3.5-5.0); ALKALINE PHOSPHATASE 78 IU/L (38-126); ANION GAP 8 mEq/L (8-16); ASPARTATE AMINOTRANSFERASE 19 IU/L (14-46); BILIRUBIN,TOTAL 0.5 mg/dL (0.1-1.4); CALCIUM 8.5 mg/dL (8.5-10.4); CARBON DIOXIDE 24 mEq/l (22-31); CHLORIDE 104 mEq/L (97-110); CREATININE 0.4 mg/dL (0.6-1.0); GLOMERULAR FILTRATION RATE > 60; GLUCOSE 72 mg/dL (70-100); MAGNESIUM 1.8 mg/dL (1.6-2.3); POTASSIUM 4.6 mEq/L (3.5-5.2); SODIUM 136 mEq/L (134-144); TOTAL PROTEIN 5.3 g/dL (6.3-8.2); TRIGLYCERIDE 156 mg/dL (35-135)
[2016-11-08 06:36] LABS: INR 0.95 (0.83-1.16); PROTIME(PATIENT) 12.6 SEC (12.0-15.0)
[2016-11-08 06:37] LABS: APTT 29.4 SEC (23.0-38.0)
[2016-11-08] MEDS: FLUTICASONE/SALMETER 250/50MCG DISKUS IH SCH (08:39)
[2016-11-08] MEDS: MAGNESIUM HYDROXIDE 30 ML UDCUP TUBE SCH (09:26)
[2016-11-08] MEDS: ENOXAPARIN 40 MG/0.4 ML SYR SC SCH (09:26)
[2016-11-08] MEDS: FLUTICASONE NASAL 120 SPRAYS/16 GM MDI EACHNARE SCH ×2 (09:27→09:38)
--- NOTE | 2016-11-08 09:28 | SOAPPROG ---
SOAP Progress Note Assessment/Plan: Assessment: 1. Head and neck cancer, TxT2b. Currently on RT/weekly cisplatin. 2. Perf diverticulitus - s/p ostomy 3. Malnutrition 4. Anemia of chronic inflammation Plan: - continue with RT. - braxton defer cisplatin until tomorrow per pt request. She is feeling somewhat nauseated today. - continue TPN and tube feeds as tolerated - Afrin and FLonase for nasal congestion. 25 min spent w/ pt and in coordination of care. Subjective: feels about the same. has nasal congestion - concerned it will make it hard for her to get RT. Objective: exam: cachectic, tearful at times R neck mass smaller than previously Lungs CTAB CV RRR no MGR Abd: +BS NT ND Ext: no edema Vital Signs Temp Pulse Resp BP Pulse Ox 36.6 C 90 20 99/44 L 95 11/08/16 07:54 11/08/16 08:41 11/08/16 08:41 11/08/16 07:54 11/08/16 08:41 Laboratory Results 11/08/16 06:00 11/08/16 06:00 11/07/16 11/08/16 11/09/16 05:59 05:59 05:59 Intake Total 3159 2490 Output Total 1525 550 50 Balance 1634 1940 -50 PT 12.6 SEC (12.0-15.0) 11/08/16 06:00 INR 0.95 (0.83-1.16) 11/08/16 06:00 ICD10 Worksheet Patient Problems: Problems Problem Status Onset Cachexia Acute Dehydration Acute Head and neck cancer Acute Fever Acute Palliative care encounter Acute
[2016-11-08] MEDS: ONDANSETRON 4 MG/2 ML VIAL IVP PRN (10:53)
[2016-11-08] MEDS: SCOPOLAMINE HYDROBROMIDE 1.5 MG PATCH TD SCH (10:53)
[2016-11-08] MEDS: PATCH REMOVAL 1 EA PATCH TD SCH (10:59)
--- NOTE | 2016-11-08 12:13 | HOSPPROG ---
Hospitalist Progress Note Assessment/Plan: 65 yo F with hx of head and neck cancer, as well as hx of perforated diverticulitis with ostomy placement and recent issues with pyometra/phlegmon in pelvis s/p atbx completion # head neck cancer / SCC - cont daily xrt, last cisplatin was 11/01 - with voice weakness and dryness. Expect completion of tx as an inpatient given her debilitated state and lack of viable placement options - Oncology following, holding chemo today due to weakness and malnutrition - XRT for 3 more weeks planned - magic mouthwash # neutropenia: 2/2 chemo, following counts, ANC stable ~1,100 # anemia: hgb 8.5 today s/p 1 u prbc's # N/V - improved - cont zofran, promethazine, scopolamine patch # Nasal congestion - she has afrin at her bedside. Recommended use only for 48 hrs. - nasal saline - trial flonase # hyponatremia - resolved - continue following on TPN / tube feeds and adjusting fluid accordingly # neck pain - stable -better control with increased oxycodone to 30mg scheduled Q4 -continue tylenol, ultram # pyometra/pelvic phlegmon- d&c on 10/10 showing e coli/citrobacter, completed abtx course 10/[address] - showed drained uterine cavity -completed Augmentin -follow clinically # diverticulitis with perforation and ostomy- supportive care and ostomy care # Severe protein calorie malnutrition-with BMI of 15, meeting nutrition goals with TPN and tube feeds, though unable to tolerate increasing tube feeds, still at 10 mls/hr - cont TPN to maintain nutrition - try to increase tube feeds by 1 mL per hr per day if tolerates # FTT- in setting of cancer/chemo, has had issues managing PICC, PEG, ostomy - She is cachectic and having difficulty with her ADLs. -Will need snf after discharge. # anxiety: Pt found taking klonopin pills from her purse. Discussed with her having her meds held in pharmacy for her safety. She refuses this, but agrees to let daughter take them home. Her concern is having klonopin available when she wakes up at 5 am. Will schedule dose for 5 am and cont prn BID klonopin in addition. # acute on chronic pain with continuous opiate and bzd dependence - oxygen saturations 95% on RA - home dose of clonazepam by po, d/c'd IV valium for safety # IP status, will need to complete course of treatment in house. Goals of care discussed, pt doing very poorly, but wants to persist with tx if able. Palliative care consult may be warranted if her nutrition and functional status continues to decline. Subjective: Pt is anxious after it was discovered she is taking home klonopin from her purse. She says she likes to "bite off a piece when she needs it". Pain controlled. Objective: Vital Signs Temp Pulse Resp BP Pulse Ox 36.6 C 90 20 99/44 L 95 11/08/16 07:54 11/08/16 08:41 11/08/16 08:41 11/08/16 07:54 11/08/16 08:41 Laboratory Results 11/08/16 06:00 11/08/16 06:00 11/07/16 11/08/16 11/09/16 05:59 05:59 05:59 Intake Total 3159 2490 Output Total 1525 550 50 Balance 1634 1940 -50 PT 12.6 SEC (12.0-15.0) 11/08/16 06:00 INR 0.95 (0.83-1.16) 11/08/16 06:00 - Physical Exam Constitutional: chronically ill appearing, cachectic Ears, Nose, Mouth, Throat: moist mucous membranes Cardiovascular: regular rate and rhythym Respiratory: no respiratory distress Gastrointestinal: normoactive bowel sounds, soft, non-tender abdomen Skin: warm Musculoskeletal: generalized weakness Neurologic: AAOx3, other (voice hoarse) Psychiatric: interacting appropriately ICD10 Worksheet Patient Problems: Problems Problem Status Onset Cachexia Acute Dehydration Acute Head and neck cancer Acute Fever Acute Palliative care encounter Acute
[2016-11-08] MEDS ORDERED: clonazePAM 1 MG TAB TUBE PRN (12:19)
[2016-11-08] MEDS ORDERED: clonazePAM 1 MG TAB PO PRN (12:24)
[2016-11-08] MEDS: NS 1,000 ML IV SCH (13:31)
--- NOTE | 2016-11-08 15:40 | WOCRNPDOC ---
WOCRN Advanced Assessment Note - Skin Integrity Problem, Advanced Assess Coccyx Pressure Injury Dressing Type: Allevyn Life Dressing Description: Intact Exudate Amount: Scant Exudate Characteristic(s): Bloody Integumentary Issue Intervention: Dressing Removed, Mechanical Debridement Marnie Wound Tissue: Erythema, Painful/Tender Wound Bed Color: [place], Red Wound Bed Constitution: Granulation Tissue (30%), Smooth Tissue (70%) Wound Edges: Epithelizing Site Measurement - Head-to-Toe Length X Width X Depth (cm): 1.3x0.8x0.2 Pressure Injury Stage: Stage 3 Pressure Injury Present on Admit: Yes Skin Integrity Problem Comment: Wound is healing. Was covered with 100% loose slough but area was mechanically debrided with gauze. revealing a clean wound bed. Education with patient, daughter and RN October about pressure injury prevention, treatment and plan of care. Wound care will round again Tuesday.
[2016-11-08] MEDS: clonazePAM 1 MG TAB PO PRN ×2 (16:34→17:53)
[2016-11-08] MEDS: ACETAMINOPHEN 325 MG TAB TUBE PRN (21:15)
[2016-11-08] MEDS: GABAPENTIN 300 MG CAP TUBE SCH (21:16)
[2016-11-08] MEDS: TPN 1 EA BAG IV SCH (21:48)
[2016-11-08] MEDS: LIDOCAINE 5% 1 EA PATCH TD SCH (23:14)
[2016-11-09] MEDS: traMADol 50 MG TAB TUBE PRN ×2 (00:51→20:20)
[2016-11-09] MEDS: MBX SOLN 30 ML BOTTLE PO PRN ×2 (02:24→08:27)
[2016-11-09] MEDS: NYSTATIN SUSP 500000 UNIT/5 ML UDCUP PO SCH ×4 (05:58→20:19)
[2016-11-09] MEDS: LEVOTHYROXINE 75 MCG TAB TUBE SCH (05:58)
[2016-11-09 06:04] LABS: % IMMATURE GRANULYOCYTES 0.5 % (0.0-1.1); ABSOLUTE IMMATURE GRANULOCYTES 0.01 10^3/uL (0.00-0.10); ADD DIFF? NO; ADD MORPH? NO; ADD SCAN? NO; ATYPICAL LYMPHOCYTE FLAG 0 (0-99); FRAGMENT RBC FLAG 0 (0-99); HEMATOCRIT 25.4 % (38.0-47.0); HEMOGLOBIN 8.4 g/dL (12.6-16.3); LEFT SHIFT FLG 30 (0-99); LIPEMIA HEMOLYSIS FLAG 80 (0-99); MEAN CELL HEMOGLOBIN 31.1 pg (27.9-34.1); MEAN CELL HEMOGLOBIN CONCENTR. 33.1 g/dL (32.4-36.7); MEAN CELL VOLUME 94.1 fL (81.5-99.8); MEAN PLATELET VOLUME 9.5 fL (8.7-11.7); PLATELET CLUMPS FLAG 0 (0-99); PLATELET COUNT 139 10^3/uL (150-400); RED CELL DISTRIBUTION WIDTH 17.7 % (11.5-15.2)
[2016-11-09] MEDS: clonazePAM 1 MG TAB PO SCH (06:07)
[2016-11-09] MEDS: FLUTICASONE/SALMETER 250/50MCG DISKUS IH SCH (08:02)
[2016-11-09] MEDS: PATCH REMOVAL 1 EA PATCH TD SCH (08:20)
[2016-11-09] MEDS: MAGNESIUM HYDROXIDE 30 ML UDCUP TUBE SCH (08:21)
[2016-11-09] MEDS: ENOXAPARIN 40 MG/0.4 ML SYR SC SCH (08:21)
[2016-11-09] MEDS: METOCLOPRAMIDE 10 MG TAB TUBE PRN (08:22)
[2016-11-09] MEDS: FLUTICASONE NASAL 120 SPRAYS/16 GM MDI EACHNARE SCH ×2 (08:23→14:27)
[2016-11-09] MEDS: LIDOCAINE 2% VISCOUS 15 ML UDCUP PO PRN (08:27)
[2016-11-09] MEDS: NS 1,000 ML IV SCH (10:33)
--- NOTE | 2016-11-09 11:16 | SOAPPROG ---
SOAP Progress Note Assessment/Plan: Assessment: 1. Head and neck cancer, TxT2b. Currently on RT/weekly cisplatin.Some response r neck tumor but still fairly prominent 2. Perf diverticulitus - s/p ostomy 3. Malnutrition 4. Anemia of chronic inflammation Plan: - continue with RT. - will give cisplatin today, counts and creatinine ok - continue TPN and tube feeds as tolerated - Afrin and Flonase for nasal congestion. - continue scheduled pain meds 25 min spent w/ pt and in coordination of care. 11/09/16 11:13 Subjective: Mouth pain Objective: Vital Signs Temp Pulse Resp BP Pulse Ox 98.5 F 129 H 16 104/60 95 11/09/16 09:27 11/09/16 09:27 11/09/16 09:27 11/09/16 09:27 11/09/16 09:27 Laboratory Results 11/09/16 05:55 11/08/16 06:00 11/08/16 11/09/16 11/10/16 05:59 05:59 05:59 Intake Total 2490 1460 1544 Output Total 496 217 5375 Balance 1940 606 544 PT 12.6 SEC (12.0-15.0) 11/08/16 06:00 INR 0.95 (0.83-1.16) 11/08/16 06:00 Physical Exam - Physical Exam General Appearance: mild distress EENT: No pharynx normal Respiratory: lungs clear Cardiac/Chest: regular rate, rhythm Abdomen: other (ostomy, feeding tube) ICD10 Worksheet Patient Problems: Problems Problem Status Onset Cachexia Acute Dehydration Acute Head and neck cancer Acute Fever Acute Palliative care encounter Acute
[2016-11-09] MEDS ORDERED: NS IV SCH ×2 (11:30→14:00)
[2016-11-09] MEDS ORDERED: MAGNESIUM SULFATE IV SCH (11:30)
[2016-11-09] MEDS ORDERED: POTASSIUM CL IV SCH (11:30)
[2016-11-09] MEDS ORDERED: FOSAPREPITANT 150 MG in NS 250 ML IV SCH (13:30)
--- NOTE | 2016-11-09 13:58 | HOSPPROG ---
Hospitalist Progress Note Assessment/Plan: 65 yo F with hx of head and neck cancer, as well as hx of perforated diverticulitis with ostomy placement and recent issues with pyometra/phlegmon in pelvis # head neck cancer-currently underling daily xrt, last cisplatin was 11/01 - Expect completion of tx as an inpatient given her debilitated state and lack of viable placement options - cisplatin today - no XRT today - continue magic mouthwash # anxiety- patient found taking personal Klonopin from her purse- 5:00 a.m. dose added p.r.n. for insomnia - continue otherwise twice daily p.r.n. - risks of polypharmacy discussed with patient at length # N/V - improved - reports adequate control this am Abd xray (personally reviewed and interpreted) no SBO - cont zofran, promethazine and valium - continue scopolamine patch # hyponatremia - resolved- 136 - continue following on TPN and adjusting fluid accordingly - follow daily # FTT- in setting of above, has had issues in particular managing PICC, PEG, ostomy-She is cachectic and having difficulty with her ADLs. -Will need snf after discharge. # neck pain- patient's as pain poorly controlled today - continue oxycodone to 30mg scheduled Q4 - continue tylenol, ultram # acute on chronic pain with continuous opiate use and dependence- oxygen saturations 95% on RA - meds as above # pyometra/pelvic phlegmon-with d&c on 10/10 showing e coli/citrobacter, plan to continue abx through 10/31/[address] - shows drained uterine cavity -completed Augmentin - follow clinically # diverticulitis with perforation and ostomy- supportive care and ostomy care # Sever protein calorie malnutrition-with BMI of 15, on tube feeds but is not currently reaching her goal - cont TPN for now to supplement calories - cont TF's increase as tolerated # neutropenia: 2/2 chemo, following counts # anemia: as above, no need for tx today # IP status, will need to complete course of treatment in house I have discussed the case with Oncology - treatment acknowledged as very aggressive targeted at cure Subjective: pain uncontrolled Objective: Vital Signs Temp Pulse Resp BP Pulse Ox 36.9 C 129 H 16 104/60 95 11/09/16 09:27 11/09/16 09:27 11/09/16 09:27 11/09/16 09:27 11/09/16 09:27 Laboratory Results 11/09/16 05:55 11/08/16 06:00 11/08/16 11/09/16 11/10/16 05:59 05:59 05:59 Intake Total 2490 1460 1710 Output Total 107 777 1304 Balance 1940 606 410 PT 12.6 SEC (12.0-15.0) 11/08/16 06:00 INR 0.95 (0.83-1.16) 11/08/16 06:00 - Physical Exam Constitutional: cachectic Eyes: PERRL Ears, Nose, Mouth, Throat: moist mucous membranes Cardiovascular: regular rate and rhythym Respiratory: no respiratory distress Gastrointestinal: normoactive bowel sounds, soft, non-tender abdomen Genitourinary: no bladder fullness Skin: warm, normal color Musculoskeletal: No asymmetric calves Neurologic: AAOx3 Psychiatric: anxious, depressed Lymph, Heme, Immunologic: no cervical LAD ICD10 Worksheet Patient Problems: Problems Problem Status Onset Cachexia Acute Dehydration Acute Head and neck cancer Acute Fever Acute Palliative care encounter Acute
[2016-11-09] MEDS ORDERED: CISPLATIN IV SCH (14:00)
[2016-11-09] MEDS ORDERED: DEXAMETHASONE SOD PHOSPHATE 10 MG in NS 50 ML IV SCH (14:00)
[2016-11-09] MEDS ORDERED: PALONOSETRON HCL 0.25 MG/5 ML VIAL IVP SCH (14:00)
[2016-11-09] MEDS ORDERED: NS IV ONE (16:00)
[2016-11-09] MEDS ORDERED: MAGNESIUM SULFATE IV ONE (16:00)
[2016-11-09] MEDS ORDERED: POTASSIUM CL IV ONE (16:00)
[2016-11-09] MEDS: PROCHLORPERAZINE MALEATE 10 MG TAB TUBE PRN (18:06)
[2016-11-09] MEDS: TPN 1 EA BAG IV SCH (20:04)
[2016-11-09] MEDS: ACETAMINOPHEN 325 MG TAB TUBE PRN (20:21)
[2016-11-09] MEDS: LIDOCAINE 5% 1 EA PATCH TD SCH (20:21)
[2016-11-09] MEDS: GABAPENTIN 300 MG CAP TUBE SCH (20:21)
[2016-11-10] MEDS: NYSTATIN SUSP 500000 UNIT/5 ML UDCUP PO SCH ×4 (05:45→21:17)
[2016-11-10] MEDS: LEVOTHYROXINE 75 MCG TAB TUBE SCH (05:46)
[2016-11-10] MEDS: PROCHLORPERAZINE MALEATE 10 MG TAB TUBE PRN ×2 (05:54→13:33)
[2016-11-10 06:21] LABS: HEMATOCRIT 25.6 % (38.0-47.0); HEMOGLOBIN 8.5 g/dL (12.6-16.3); MEAN CELL HEMOGLOBIN CONCENTR. 33.2 g/dL (32.4-36.7); MEAN CELL VOLUME 93.4 fL (81.5-99.8); RED BLOOD CELL COUNT 2.74 10^6/uL (4.18-5.33); RED CELL DISTRIBUTION WIDTH 17.5 % (11.5-15.2)
[2016-11-10 06:43] LABS: ANION GAP 10 mEq/L (8-16); CALCIUM 8.5 mg/dL (8.5-10.4); CARBON DIOXIDE 23 mEq/l (22-31); CHLORIDE 103 mEq/L (97-110); CREATININE 0.3 mg/dL (0.6-1.0); GLOMERULAR FILTRATION RATE > 60; GLUCOSE 135 mg/dL (70-100); MAGNESIUM 2.2 mg/dL (1.6-2.3); POTASSIUM 3.9 mEq/L (3.5-5.2); SODIUM 136 mEq/L (134-144)
[2016-11-10] MEDS: METOCLOPRAMIDE 10 MG TAB TUBE PRN ×2 (08:42→17:29)
[2016-11-10] MEDS: FLUTICASONE/SALMETER 250/50MCG DISKUS IH SCH (08:59)
[2016-11-10] MEDS: MAGNESIUM HYDROXIDE 30 ML UDCUP TUBE SCH (09:27)
[2016-11-10] MEDS: PROMETHAZINE HCL 25 MG/ML INJ IVP PRN (09:46)
[2016-11-10] MEDS: NS 1,000 ML IV SCH (09:53)
[2016-11-10] MEDS: clonazePAM 1 MG TAB PO SCH (09:54)
[2016-11-10] MEDS: ENOXAPARIN 40 MG/0.4 ML SYR SC SCH (10:04)
[2016-11-10] MEDS: FLUTICASONE NASAL 120 SPRAYS/16 GM MDI EACHNARE SCH (10:05)
[2016-11-10] MEDS: PATCH REMOVAL 1 EA PATCH TD SCH (10:07)
[2016-11-10] MEDS ORDERED: LORazepam 2 MG/ML INJ IVP PRN (10:15)
--- NOTE | 2016-11-10 10:18 | SOAPPROG ---
SOAP Progress Note Assessment/Plan: Assessment: 1. Head and neck cancer, TxT2b. Currently on RT/weekly cisplatin. 2. Perf diverticulitus - s/p ostomy 3. Malnutrition 4. Anemia of chronic inflammation Plan: - continue with RT. - will add ativan for nausea (chart states allergy but pt doesn't recall reaction; says "my daughter doesn't want me to have it." will give a small dose - oxycodone PRN in addition to scheduled for optimal pain control - continue TPN and tube feeds as tolerated 25 min spent w/ pt and in coordination of care. 11/10/16 10:16 Subjective: pt feels very nauseated today. got cisplatin yesterday. Objective: exam: uncnanged Vital Signs Temp Pulse Resp BP Pulse Ox 36.6 C 96 18 141/77 H 97 11/10/16 08:00 11/10/16 09:00 11/10/16 09:00 11/10/16 08:00 11/10/16 09:00 Laboratory Results 11/10/16 06:05 11/10/16 06:05 11/09/16 11/10/16 11/11/16 05:59 05:59 05:59 Intake Total 1460 3852 1457 Output Total 854 2825 Balance 606 1027 1457 PT 12.6 SEC (12.0-15.0) 11/08/16 06:00 INR 0.95 (0.83-1.16) 11/08/16 06:00 ICD10 Worksheet Patient Problems: Problems Problem Status Onset Cachexia Acute Dehydration Acute Head and neck cancer Acute Fever Acute Palliative care encounter Acute
--- NOTE | 2016-11-10 16:14 | HOSPPROG ---
Hospitalist Progress Note Assessment/Plan: 65 yo F with hx of head and neck cancer, as well as hx of perforated diverticulitis with ostomy placement and recent issues with pyometra/phlegmon in pelvis # head neck cancer-currently underling daily xrt, last cisplatin was 11/01 - Expect completion of tx as an inpatient given her debilitated state and lack of viable placement options - cisplatin yesterday - cont XRT per oncology - continue magic mouthwash # anxiety- patient found taking personal Klonopin from her purse- 5:00 a.m. dose added p.r.n. for insomnia - continue otherwise twice daily p.r.n. - risks of polypharmacy discussed with patient at length # N/V - improved - adding ativan prn per Dr. Raphael Rebollar xray (personally reviewed and interpreted) no SBO - cont zofran, promethazine and valium - continue scopolamine patch # hyponatremia - resolved- 136 - continue following on TPN and adjusting fluid accordingly - follow daily # FTT- in setting of above, has had issues in particular managing PICC, PEG, ostomy-She is cachectic and having difficulty with her ADLs. -Will need snf after discharge. # neck pain- patient's as pain poorly controlled today - continue oxycodone to 30mg scheduled Q4 - continue tylenol, ultram # acute on chronic pain with continuous opiate use and dependence- oxygen saturations 95% on RA - meds as above # pyometra/pelvic phlegmon-with d&c on 10/10 showing e coli/citrobacter, plan to continue abx through 10/31/[address] - shows drained uterine cavity -completed Augmentin - follow clinically # diverticulitis with perforation and ostomy- supportive care and ostomy care # Sever protein calorie malnutrition-with BMI of 15, on tube feeds but is not currently reaching her goal - cont TPN for now to supplement calories - cont TF's increase as tolerated # neutropenia: 2/2 chemo, following counts # anemia: as above, no need for tx today # IP status, will need to complete course of treatment in house I have discussed the case with palliative care - they will provide staffing support for duress around the patients overall health status Subjective: nauseated and having pain Objective: Vital Signs Temp Pulse Resp BP Pulse Ox 36.6 C 96 18 141/77 H 97 11/10/16 08:00 11/10/16 09:00 11/10/16 09:00 11/10/16 08:00 11/10/16 09:00 Laboratory Results 11/10/16 06:05 11/10/16 06:05 11/09/16 11/10/16 11/11/16 05:59 05:59 05:59 Intake Total 1460 3852 1457 Output Total 854 2825 Balance 606 1027 1457 PT 12.6 SEC (12.0-15.0) 11/08/16 06:00 INR 0.95 (0.83-1.16) 11/08/16 06:00 - Physical Exam Constitutional: chronically ill appearing, cachectic Eyes: anicteric sclera Ears, Nose, Mouth, Throat: dry mucous membranes Cardiovascular: regular rate and rhythym Respiratory: no respiratory distress, no rales or rhonchi Gastrointestinal: normoactive bowel sounds, soft, non-tender abdomen Genitourinary: no bladder fullness Skin: warm, normal color Musculoskeletal: No asymmetric calves Neurologic: AAOx3 Psychiatric: depressed, flat affect Lymph, Heme, Immunologic: no cervical LAD ICD10 Worksheet Patient Problems: Problems Problem Status Onset Cachexia Acute Dehydration Acute Head and neck cancer Acute Fever Acute Palliative care encounter Acute
[2016-11-10] MEDS: MBX SOLN 30 ML BOTTLE PO PRN (17:37)
[2016-11-10] MEDS: GABAPENTIN 300 MG CAP TUBE SCH (20:02)
[2016-11-10] MEDS: TPN 1 EA BAG IV SCH (20:02)
[2016-11-10] MEDS: LIDOCAINE 5% 1 EA PATCH TD SCH (21:16)
[2016-11-11] MEDS: NYSTATIN SUSP 500000 UNIT/5 ML UDCUP PO SCH ×4 (05:52→19:46)
[2016-11-11] MEDS: LEVOTHYROXINE 75 MCG TAB TUBE SCH (05:53)
[2016-11-11 06:11] LABS: HEMATOCRIT 25.8 % (38.0-47.0); HEMOGLOBIN 8.4 g/dL (12.6-16.3); MEAN CELL HEMOGLOBIN 31.2 pg (27.9-34.1); MEAN CELL HEMOGLOBIN CONCENTR. 32.6 g/dL (32.4-36.7); MEAN CELL VOLUME 95.9 fL (81.5-99.8); RED BLOOD CELL COUNT 2.69 10^6/uL (4.18-5.33); RED CELL DISTRIBUTION WIDTH 18.6 % (11.5-15.2)
[2016-11-11 06:28] LABS: ANION GAP 10 mEq/L (8-16); CALCIUM 7.9 mg/dL (8.5-10.4); CARBON DIOXIDE 25 mEq/l (22-31); CHLORIDE 101 mEq/L (97-110); CREATININE 0.4 mg/dL (0.6-1.0); GLOMERULAR FILTRATION RATE > 60; GLUCOSE 101 mg/dL (70-100); POTASSIUM 3.6 mEq/L (3.5-5.2); SODIUM 136 mEq/L (134-144)
[2016-11-11] MEDS: ACETAMINOPHEN 325 MG TAB TUBE PRN ×2 (07:26→16:02)
[2016-11-11] MEDS: FLUTICASONE/SALMETER 250/50MCG DISKUS IH SCH (08:38)
[2016-11-11] MEDS: IPRATROPIUM/ALBUTEROL 3 ML DEYVIAL IH PRN (08:38)
[2016-11-11] MEDS: clonazePAM 1 MG TAB PO SCH (09:20)
[2016-11-11] MEDS: METOCLOPRAMIDE 10 MG TAB TUBE PRN (09:20)
[2016-11-11] MEDS: ENOXAPARIN 40 MG/0.4 ML SYR SC SCH (09:21)
[2016-11-11] MEDS: MAGNESIUM HYDROXIDE 30 ML UDCUP TUBE SCH (09:21)
[2016-11-11] MEDS: PROCHLORPERAZINE MALEATE 10 MG TAB TUBE PRN (10:54)
[2016-11-11] MEDS: SCOPOLAMINE HYDROBROMIDE 1.5 MG PATCH TD SCH (10:54)
[2016-11-11] MEDS: FLUTICASONE NASAL 120 SPRAYS/16 GM MDI EACHNARE SCH (10:55)
[2016-11-11] MEDS: PATCH REMOVAL 1 EA PATCH TD SCH (10:55)
--- NOTE | 2016-11-11 11:09 | SOAPPROG ---
SOAP Progress Note Assessment/Plan: Assessment: 1. Head and neck cancer, TxT2b. Currently on RT/weekly cisplatin. 2. Perf diverticulitus - s/p ostomy 3. Malnutrition 4. Anemia of chronic inflammation Plan: - continue with RT. - continue TPN and tube feeds as tolerated - encourage ambulation and PT Subjective: feels somewhat better today Objective: exam unchanged Vital Signs Temp Pulse Resp BP Pulse Ox 37.7 C 86 22 H 134/88 H 96 11/11/16 05:44 11/11/16 08:39 11/11/16 08:39 11/11/16 07:56 11/11/16 08:39 Laboratory Results 11/11/16 06:00 11/11/16 06:00 11/10/16 11/11/16 11/12/16 05:59 05:59 05:59 Intake Total 3852 1567 1350 Output Total 2825 225 Balance 1027 1567 1125 PT 12.6 SEC (12.0-15.0) 11/08/16 06:00 INR 0.95 (0.83-1.16) 11/08/16 06:00 ICD10 Worksheet Patient Problems: Problems Problem Status Onset Cachexia Acute Dehydration Acute Head and neck cancer Acute Fever Acute Palliative care encounter Acute
[2016-11-11] MEDS: PROMETHAZINE HCL 25 MG/ML INJ IVP PRN (12:18)
--- NOTE | 2016-11-11 14:19 | HOSPPROG ---
Hospitalist Progress Note Assessment/Plan: 65 yo F with hx of head and neck cancer, as well as hx of perforated diverticulitis with ostomy placement and recent issues with pyometra/phlegmon in pelvis # head neck cancer-currently underling daily xrt, last cisplatin was 11/09 - Expect completion of tx as an inpatient given her debilitated state and lack of viable placement options - cont cisplatin per Oncology - cont XRT per oncology - continue magic mouthwash # anxiety- patient found taking personal Klonopin from her purse- a.m. dose added p.r.n. for insomnia/XRT - continue otherwise twice daily p.r.n. - risks of polypharmacy discussed with patient at length # N/V - improved - adding ativan prn per Dr. Raphael fong (personally reviewed and interpreted) no SBO - cont zofran, promethazine and valium - continue scopolamine patch # hyponatremia - resolved- 136 - continue following on TPN and adjusting fluid accordingly - follow daily # FTT- in setting of above, has had issues in particular managing PICC, PEG, ostomy-She is cachectic and having difficulty with her ADLs. -Will need snf after discharge. # neck pain- patient's as pain poorly controlled today - continue oxycodone to 30mg scheduled Q4 - continue tylenol, ultram, ibuprofen prn # acute on chronic pain with continuous opiate use and dependence- oxygen saturations 95% on RA - meds as above # pyometra/pelvic phlegmon-with d&c on 10/10 showing e coli/citrobacter, plan to continue abx through 10/31/[address] - shows drained uterine cavity -completed Augmentin - follow clinically # diverticulitis with perforation and ostomy- supportive care and ostomy care # Sever protein calorie malnutrition-with BMI of 15, on tube feeds but is not currently reaching her goal - cont TPN for now to supplement calories - cont TF's increase as tolerated # neutropenia: 2/2 chemo, following counts # anemia: as above, no need for tx today # IP status, will need to complete course of treatment in house I have discussed the case with RN bedside with patient- patient asking us to support her desire for full court press Subjective: Tearful asking for her care team to function [employer] Objective: Vital Signs Temp Pulse Resp BP Pulse Ox 37.7 C 86 22 H 134/88 H 96 11/11/16 05:44 11/11/16 08:39 11/11/16 08:39 11/11/16 07:56 11/11/16 08:39 Laboratory Results 11/11/16 06:00 11/11/16 06:00 11/10/16 11/11/16 11/12/16 05:59 05:59 05:59 Intake Total 3852 1567 1350 Output Total 2825 225 Balance 1027 1567 1125 PT 12.6 SEC (12.0-15.0) 11/08/16 06:00 INR 0.95 (0.83-1.16) 11/08/16 06:00 - Physical Exam Constitutional: cachectic Eyes: anicteric sclera Ears, Nose, Mouth, Throat: dry mucous membranes Cardiovascular: regular rate and rhythym Respiratory: no respiratory distress, no rales or rhonchi Gastrointestinal: normoactive bowel sounds, soft, non-tender abdomen Genitourinary: no bladder fullness Skin: warm, normal color Musculoskeletal: No asymmetric calves Neurologic: AAOx3 Psychiatric: depressed Lymph, Heme, Immunologic: no cervical LAD ICD10 Worksheet Patient Problems: Problems Problem Status Onset Cachexia Acute Dehydration Acute Head and neck cancer Acute Fever Acute Palliative care encounter Acute
[2016-11-11] MEDS: oxyCODONE ORAL SOLUTION 10 MG/0.5 ML UDSYR TUBE PRN (16:07)
[2016-11-11] MEDS: BIOTENE DRY MOUTH MOUTHWASH 237 ML BTL MM SCH ×2 (18:23→22:08)
[2016-11-11] MEDS: TPN 1 EA BAG IV SCH (19:45)
[2016-11-11] MEDS: GABAPENTIN 300 MG CAP TUBE SCH (19:46)
[2016-11-11] MEDS: LIDOCAINE 5% 1 EA PATCH TD SCH (19:47)
[2016-11-12] MEDS: oxyCODONE ORAL SOLUTION 10 MG/0.5 ML UDSYR TUBE PRN ×2 (00:49→23:27)
[2016-11-12] MEDS: METOCLOPRAMIDE 10 MG TAB TUBE PRN ×3 (00:58→14:22)
[2016-11-12] MEDS: clonazePAM 1 MG TAB PO PRN (01:09)
[2016-11-12] MEDS: LEVOTHYROXINE 75 MCG TAB TUBE SCH (05:45)
[2016-11-12] MEDS: NYSTATIN SUSP 500000 UNIT/5 ML UDCUP PO SCH ×4 (05:46→21:29)
[2016-11-12 06:00] LABS: HEMATOCRIT 26.1 % (38.0-47.0); HEMOGLOBIN 8.4 g/dL (12.6-16.3); MEAN CELL HEMOGLOBIN 30.8 pg (27.9-34.1); MEAN CELL HEMOGLOBIN CONCENTR. 32.2 g/dL (32.4-36.7); MEAN CELL VOLUME 95.6 fL (81.5-99.8); RED BLOOD CELL COUNT 2.73 10^6/uL (4.18-5.33); RED CELL DISTRIBUTION WIDTH 18.6 % (11.5-15.2)
[2016-11-12 06:16] LABS: ANION GAP 7 mEq/L (8-16); CALCIUM 8.2 mg/dL (8.5-10.4); CARBON DIOXIDE 27 mEq/l (22-31); CHLORIDE 100 mEq/L (97-110); CREATININE 0.4 mg/dL (0.6-1.0); GLOMERULAR FILTRATION RATE > 60; GLUCOSE 79 mg/dL (70-100); MAGNESIUM 1.9 mg/dL (1.6-2.3); POTASSIUM 4.3 mEq/L (3.5-5.2); SODIUM 134 mEq/L (134-144)
--- NOTE | 2016-11-12 08:22 | SOAPPROG ---
SOAP Progress Note Assessment/Plan: Assessment: 1. Head and neck cancer, TxT2b. Currently on RT/weekly cisplatin. 2. Perf diverticulitus - s/p ostomy 3. Malnutrition 4. Anemia of chronic inflammation Plan: - continue with RT. - continue TPN and tube feeds as tolerated. TF rate up to 20 cc/hr. Goal is to get her off of the TPN. - encourage ambulation and PT 11/12/16 08:19 Subjective: some intermittent nausea. feels better than yesterday. glad to be approaching the end of her treatment. Objective: exam unchanged Vital Signs Temp Pulse Resp BP Pulse Ox 36.9 C 94 16 135/80 H 96 11/12/16 07:11 11/12/16 07:11 11/12/16 07:11 11/12/16 07:11 11/12/16 07:11 Laboratory Results 11/12/16 05:50 11/12/16 05:50 11/11/16 11/12/16 11/13/16 05:59 05:59 05:59 Intake Total 1567 2263 1049 Output Total 2150 Balance 4015 684 9993 PT 12.6 SEC (12.0-15.0) 11/08/16 06:00 INR 0.95 (0.83-1.16) 11/08/16 06:00 ICD10 Worksheet Patient Problems: Problems Problem Status Onset Cachexia Acute Dehydration Acute Head and neck cancer Acute Fever Acute Palliative care encounter Acute
[2016-11-12] MEDS: FLUTICASONE/SALMETER 250/50MCG DISKUS IH SCH (08:36)
[2016-11-12] MEDS: ENOXAPARIN 40 MG/0.4 ML SYR SC SCH (09:02)
[2016-11-12] MEDS: clonazePAM 1 MG TAB PO SCH (09:02)
[2016-11-12] MEDS: BIOTENE DRY MOUTH MOUTHWASH 237 ML BTL MM SCH ×3 (09:03→21:43)
[2016-11-12] MEDS: PATCH REMOVAL 1 EA PATCH TD SCH (09:03)
[2016-11-12] MEDS: FLUTICASONE NASAL 120 SPRAYS/16 GM MDI EACHNARE SCH (09:03)
[2016-11-12] MEDS: MAGNESIUM HYDROXIDE 30 ML UDCUP TUBE SCH (09:03)
[2016-11-12] MEDS: PROCHLORPERAZINE MALEATE 10 MG TAB TUBE PRN (11:08)
--- NOTE | 2016-11-12 12:33 | HOSPPROG ---
Hospitalist Progress Note Assessment/Plan: 65 yo F with hx of head and neck cancer, as well as hx of perforated diverticulitis with ostomy placement and recent issues with pyometra/phlegmon in pelvis # head neck cancer-currently underling daily xrt, last cisplatin was 11/09 - Expect completion of tx as an inpatient given her debilitated state and lack of viable placement options - cont cisplatin per Oncology - cont XRT per oncology - continue magic mouthwash # Sever protein calorie malnutrition-with BMI of 15, - tube feeds increased to 20cc/hr overnight - cont TPN for now to supplement calories - cont TF's- need to attempt more aggressive uptitrating the TF's # anxiety- patient found taking personal Klonopin from her purse- a.m. dose added p.r.n. for insomnia/XRT - continue otherwise twice daily p.r.n. - risks of polypharmacy discussed with patient at length # N/V - improved - Abd xray (personally reviewed and interpreted) no SBO - cont zofran, promethazine and valium - continue scopolamine patch # hyponatremia - resolved- 136 - continue following on TPN and adjusting fluid accordingly - follow daily # FTT- in setting of above, has had issues in particular managing PICC, PEG, ostomy-She is cachectic and having difficulty with her ADLs. -Will need snf after discharge. # neck pain- patient's as pain poorly controlled today - continue oxycodone to 30mg scheduled Q4 - continue tylenol, ultram, ibuprofen prn # acute on chronic pain with continuous opiate use and dependence- oxygen saturations 95% on RA - meds as above # pyometra/pelvic phlegmon-with d&c on 10/10 showing e coli/citrobacter, plan to continue abx through 10/31/[address] - shows drained uterine cavity -completed Augmentin - follow clinically # diverticulitis with perforation and ostomy- supportive care and ostomy care # neutropenia: 2/2 chemo, following counts # anemia: as above, no need for tx today # IP status, will need to complete course of treatment in house I have discussed the case with RN - need to re-commit to uptitrating tube feeds - increased overnight and plan to continue this today Subjective: no significant nausea this am Objective: Vital Signs Temp Pulse Resp BP Pulse Ox 36.9 C 91 18 135/80 H 94 11/12/16 07:11 11/12/16 08:38 11/12/16 08:38 11/12/16 07:11 11/12/16 08:38 Laboratory Results 11/12/16 05:50 11/12/16 05:50 11/11/16 11/12/16 11/13/16 05:59 05:59 05:59 Intake Total 1567 2263 1049 Output Total 2150 400 Balance 1567 113 649 PT 12.6 SEC (12.0-15.0) 11/08/16 06:00 INR 0.95 (0.83-1.16) 11/08/16 06:00 - Physical Exam Constitutional: cachectic Eyes: anicteric sclera Ears, Nose, Mouth, Throat: moist mucous membranes Cardiovascular: regular rate and rhythym Respiratory: no respiratory distress Gastrointestinal: normoactive bowel sounds, soft, non-tender abdomen Genitourinary: no bladder fullness Skin: warm Musculoskeletal: No asymmetric calves Neurologic: AAOx3 Psychiatric: depressed, flat affect Lymph, Heme, Immunologic: no cervical LAD ICD10 Worksheet Patient Problems: Problems Problem Status Onset Cachexia Acute Dehydration Acute Head and neck cancer Acute Fever Acute Palliative care encounter Acute
[2016-11-12] MEDS: ONDANSETRON 4 MG/2 ML VIAL IVP PRN ×2 (15:07→19:33)
[2016-11-12] MEDS: ACETAMINOPHEN 325 MG TAB TUBE PRN ×2 (15:34→21:46)
[2016-11-12] MEDS: GABAPENTIN 300 MG CAP TUBE SCH (21:30)
[2016-11-12] MEDS: LIDOCAINE 5% 1 EA PATCH TD SCH (21:36)
[2016-11-12] MEDS: TPN 1 EA BAG IV SCH (21:38)
[2016-11-13] MEDS: IBUPROFEN SUSP 100 MG/5 ML UDCUP TUBE PRN (00:13)
[2016-11-13] MEDS: clonazePAM 1 MG TAB PO PRN ×2 (00:16→16:01)
[2016-11-13] MEDS: NYSTATIN SUSP 500000 UNIT/5 ML UDCUP PO SCH ×4 (05:33→20:30)
[2016-11-13] MEDS: LEVOTHYROXINE 75 MCG TAB TUBE SCH (05:34)
[2016-11-13] MEDS: ACETAMINOPHEN 325 MG TAB TUBE PRN (05:51)
[2016-11-13] MEDS: FLUTICASONE/SALMETER 250/50MCG DISKUS IH SCH (08:50)
[2016-11-13] MEDS: MAGNESIUM HYDROXIDE 30 ML UDCUP TUBE SCH (09:11)
[2016-11-13] MEDS: PROCHLORPERAZINE MALEATE 10 MG TAB TUBE PRN ×2 (09:12→14:50)
[2016-11-13] MEDS: PATCH REMOVAL 1 EA PATCH TD SCH (09:12)
[2016-11-13] MEDS: FLUTICASONE NASAL 120 SPRAYS/16 GM MDI EACHNARE SCH (09:13)
[2016-11-13] MEDS: MBX SOLN 30 ML BOTTLE PO PRN (09:14)
[2016-11-13] MEDS: BIOTENE DRY MOUTH MOUTHWASH 237 ML BTL MM SCH ×3 (09:16→23:36)
[2016-11-13] MEDS: ENOXAPARIN 40 MG/0.4 ML SYR SC SCH (09:16)
--- NOTE | 2016-11-13 10:12 | HOSPPROG ---
Hospitalist Progress Note Assessment/Plan: 65 yo F with hx of head and neck cancer, as well as hx of perforated diverticulitis with ostomy placement and recent issues with pyometra/phlegmon in pelvis. She is admitted with failure to thrive during her treatment for head and neck cancer. # head neck cancer-currently getting daily xrt and weekly cisplatin, last cisplatin was 11/09, expect completion of tx as an inpatient given her debilitated state and lack of viable placement options * cont cisplatin per Oncology * cont XRT per oncology, continue magic mouthwash as needed # Sever protein calorie malnutrition-with BMI of 15, has had difficulty tolerating tube feeds due to high residuals. Currently on 20 cc per hour * Continue TPN until tube feeds closer to goal. * Likely will need to be off of TPN prior to going home # anxiety- patient found taking personal Klonopin from her purse- a.m. dose added p.r.n. for insomnia/XRT * Patient is not to take her home medications * Continue Klonopin in-house # N/V - continues to have high residuals and difficulty getting tube feeds over 20 cc/hour * cont symptomatic treatment with zofran, promethazine and valium and scopolamine patch # hyponatremia - resolved- 136 * Follow sodium and electrolytes while on TPN # FTT- in setting of above, has had issues in particular managing PICC, PEG, ostomy-She is cachectic and having difficulty with her ADLs. Possible SNF after discharge # neck pain and acute on chronic pain- no complaints of neck pain today, primarily oral pain. Continue medications as prescribed, adjust as needed # pyometra/pelvic phlegmon (abscess)-with d&c on 10/10 showing e coli/ citrobacter. Status post completion of antibiotics # diverticulitis with perforation and ostomy- supportive care and ostomy care # pancytopenia, continue to follow counts # IP status, will need to complete course of treatment in house Subjective: Patient new to me and chart reviewed. Complains of some discomfort in her oropharynx but nonspecifically neck pain. No abdominal pain her nausea comes and goes. No shortness of breath or chest pain. No rash Objective: Vital Signs Temp Pulse Resp BP Pulse Ox 36.5 C 82 16 132/71 H 97 11/13/16 07:23 11/13/16 07:23 11/13/16 07:23 11/13/16 07:23 11/13/16 07:23 Laboratory Results 11/12/16 05:50 11/12/16 05:50 11/12/16 11/13/16 11/14/16 05:59 05:59 05:59 Intake Total 2263 2806 145 Output Total 2150 2300 700 Balance 113 506 -555 PT 12.6 SEC (12.0-15.0) 11/08/16 06:00 INR 0.95 (0.83-1.16) 11/08/16 06:00 - Physical Exam Constitutional: chronically ill appearing, uncomfortable Eyes: PERRL, anicteric sclera, EOMI Ears, Nose, Mouth, Throat: hearing normal, ears appear normal, dry mucous membranes Cardiovascular: regular rate and rhythym, no murmur, rub, or gallop, pulses symmetric bilaterally, No edema Respiratory: no respiratory distress, clear to auscultation Gastrointestinal: other (Colostomy), No normoactive bowel sounds, No tenderness , No guarding, No rebound Genitourinary: no bladder fullness Skin: warm, No normal color (Pale) Musculoskeletal: generalized weakness Neurologic: AAOx3 Psychiatric: interacting appropriately, not anxious, not encephalopathic ICD10 Worksheet Patient Problems: Problems Problem Status Onset Fever Acute Dehydration Acute Palliative care encounter Acute Cachexia Acute Head and neck cancer Acute
[2016-11-13] MEDS: clonazePAM 1 MG TAB PO SCH ×2 (10:40→18:20)
[2016-11-13 11:04] LABS: ANION GAP 8 mEq/L (8-16); CALCIUM 8.4 mg/dL (8.5-10.4); CARBON DIOXIDE 26 mEq/l (22-31); CHLORIDE 100 mEq/L (97-110); CREATININE 0.4 mg/dL (0.6-1.0); GLOMERULAR FILTRATION RATE > 60; GLUCOSE 89 mg/dL (70-100); POTASSIUM 4.2 mEq/L (3.5-5.2); SODIUM 134 mEq/L (134-144)
[2016-11-13] MEDS: METOCLOPRAMIDE 10 MG TAB TUBE PRN ×2 (12:02→18:06)
[2016-11-13] MEDS: oxyCODONE ORAL SOLUTION 10 MG/0.5 ML UDSYR TUBE PRN ×2 (12:02→20:50)
--- NOTE | 2016-11-13 13:06 | SOAPPROG ---
SOAP Progress Note Assessment/Plan: Assessment: 1) T2N2M0 SCC (Head and neck cancer) 2) H/o perforated diverticulitis s/o colostomy 3) Weakness 4) Protein calorie malnutrition 5) Multifactorial anemia Plan: Continues to receive weekly Cisplatin with XRT. Last dose Cisplatin was 11/09. She has completed roughly 4 weeks of therapy. She reports that she has a total of 8 XRT treatments remaining. She wants to delay her next Cisplatin until later in the week next week, which is reasonable. She had more nausea with her most recent treatment. Continue TPN. Will remain inpatient until completes XRT (about 2 weeks more). Her questions were answered. Case d/w Dr. Solares 11/13/16 13:04 11/13/16 13:06 Subjective: Overall feels well today. Denies pain or nausea. Objective: Vital Signs Temp Pulse Resp BP Pulse Ox 36.5 C 82 16 132/71 H 97 11/13/16 07:23 11/13/16 07:23 11/13/16 07:23 11/13/16 07:23 11/13/16 07:23 Laboratory Results 11/12/16 05:50 11/13/16 10:30 11/12/16 11/13/16 11/14/16 05:59 05:59 05:59 Intake Total 2263 2806 552 Output Total 2150 2300 700 Balance 113 506 -148 PT 12.6 SEC (12.0-15.0) 11/08/16 06:00 INR 0.95 (0.83-1.16) 11/08/16 06:00 - Time Spent With Patient Time Spent With Patient: 20 minutes Physical Exam - Physical Exam General Appearance: alert, no apparent distress Abdomen: non-tender (ostomy appears healthy. no tenderness at PEG site), soft Neuro/Psych: alert, normal mood/affect ICD10 Worksheet Patient Problems: Problems Problem Status Onset Cachexia Acute Dehydration Acute Head and neck cancer Acute Fever Acute Palliative care encounter Acute
[2016-11-13] MEDS: TPN 1 EA BAG IV SCH (20:30)
[2016-11-13] MEDS: GABAPENTIN 300 MG CAP TUBE SCH (20:30)
[2016-11-13] MEDS: LIDOCAINE 5% 1 EA PATCH TD SCH (21:50)
[2016-11-14] MEDS: IBUPROFEN SUSP 100 MG/5 ML UDCUP TUBE PRN (01:05)
[2016-11-14] MEDS: ACETAMINOPHEN 325 MG TAB TUBE PRN (04:15)
[2016-11-14] MEDS: NYSTATIN SUSP 500000 UNIT/5 ML UDCUP PO SCH ×4 (05:51→20:21)
[2016-11-14] MEDS: LEVOTHYROXINE 75 MCG TAB TUBE SCH (05:51)
[2016-11-14] MEDS: FLUTICASONE/SALMETER 250/50MCG DISKUS IH SCH (08:58)
[2016-11-14] MEDS: FLUTICASONE NASAL 120 SPRAYS/16 GM MDI EACHNARE SCH (09:16)
[2016-11-14] MEDS: PATCH REMOVAL 1 EA PATCH TD SCH (09:28)
--- NOTE | 2016-11-14 09:28 | HOSPPROG ---
Hospitalist Progress Note Assessment/Plan: 65 yo F with hx of head and neck cancer, as well as hx of perforated diverticulitis with ostomy placement and recent issues with pyometra/phlegmon in pelvis. She is admitted with failure to thrive during her treatment for head and neck cancer. # head neck cancer-currently getting daily xrt and weekly cisplatin, last cisplatin was 11/09, expect completion of tx as an inpatient given her debilitated state and lack of viable placement options * cont cisplatin per Oncology, likely next round later in the week * cont XRT per oncology, patient has 8 more treatments. * continue magic mouthwash as needed # Sever protein calorie malnutrition-with BMI of 15, has had difficulty tolerating tube feeds due to high residuals. Currently on 20 cc per hour * Continue TPN until tube feeds closer to goal. * Likely will need to be off of TPN prior to going home # anxiety- patient found taking personal Klonopin from her purse- a.m. dose added p.r.n. for insomnia/XRT * Patient is not to take her home medications * Continue Klonopin in-house # N/V - continues to have high residuals and difficulty getting tube feeds over 20 cc/hour * cont symptomatic treatment with zofran, promethazine and valium and scopolamine patch # hyponatremia - resolved- 136 * Follow sodium and electrolytes while on TPN # FTT- in setting of above, has had issues in particular managing PICC, PEG, ostomy-She is cachectic and having difficulty with her ADLs. Possible SNF after discharge # neck pain and acute on chronic pain- no complaints of neck pain today, primarily oral pain. Continue medications as prescribed, adjust as needed # pyometra/pelvic phlegmon (abscess)-with d&c on 10/10 showing e coli/ citrobacter. Status post completion of antibiotics # diverticulitis with perforation and ostomy- supportive care and ostomy care # pancytopenia, continue to follow counts # IP status, will need to complete course of treatment in house Subjective: Continues to complain of a stuffy nose otherwise still has some intermittent nausea and pain, nothing particularly new today Objective: Vital Signs Temp Pulse Resp BP Pulse Ox 36.6 C 84 16 109/63 94 11/14/16 07:22 11/14/16 09:03 11/14/16 09:03 11/14/16 07:22 11/14/16 09:03 Laboratory Results 11/12/16 05:50 11/13/16 10:30 11/13/16 11/14/16 11/15/16 05:59 05:59 05:59 Intake Total 2806 2963 204 Output Total 2300 1800 Balance 506 1163 204 PT 12.6 SEC (12.0-15.0) 11/08/16 06:00 INR 0.95 (0.83-1.16) 11/08/16 06:00 - Physical Exam Constitutional: chronically ill appearing, cachectic Eyes: PERRL Ears, Nose, Mouth, Throat: moist mucous membranes Cardiovascular: regular rate and rhythym, no murmur, rub, or gallop Respiratory: no respiratory distress, no rales or rhonchi Gastrointestinal: normoactive bowel sounds, soft, non-tender abdomen, no palpable masses Genitourinary: no bladder fullness Skin: warm Psychiatric: interacting appropriately ICD10 Worksheet Patient Problems: Problems Problem Status Onset Fever Acute Dehydration Acute Palliative care encounter Acute Cachexia Acute Head and neck cancer Acute
[2016-11-14] MEDS: PROCHLORPERAZINE MALEATE 10 MG TAB TUBE PRN (09:37)
[2016-11-14] MEDS: MAGNESIUM HYDROXIDE 30 ML UDCUP TUBE SCH (09:37)
[2016-11-14] MEDS: SCOPOLAMINE HYDROBROMIDE 1.5 MG PATCH TD SCH ×2 (09:37→09:44)
[2016-11-14] MEDS: ENOXAPARIN 40 MG/0.4 ML SYR SC SCH (09:37)
[2016-11-14] MEDS: clonazePAM 1 MG TAB PO SCH (09:38)
[2016-11-14] MEDS: BIOTENE DRY MOUTH MOUTHWASH 237 ML BTL MM SCH ×2 (09:39→16:54)
--- NOTE | 2016-11-14 10:26 | SOAPPROG ---
SOAP Progress Note Assessment/Plan: Assessment: 1) T2N2M0 SCC (Head and neck cancer) 2) H/o perforated diverticulitis s/o colostomy 3) Weakness 4) Protein calorie malnutrition 5) Multifactorial anemia Plan: Continues to receive weekly Cisplatin with XRT. Last dose Cisplatin was 11/09. She has completed roughly 4 weeks of therapy. She reports that she has a total of 8 XRT treatments remaining. She wants to delay her next Cisplatin until later in the week next week, which is reasonable. I discussed this with pharmacy today. We will plan on her final dose of Cisplatin to be given or Tuesday of the coming week. She had more nausea with her most recent treatment. Continue TPN. Will remain inpatient until completes XRT (about 2 weeks more). Her questions were answered. Case d/w Dr. Solares and pharmacy. 11/13/16 13:04 11/13/16 13:06 11/14/16 10:22 Subjective: Remains weak and fatigued. Tolerating tube feeds. Denies nausea currently. Objective: Vital Signs Temp Pulse Resp BP Pulse Ox 36.6 C 84 16 109/63 94 11/14/16 07:22 11/14/16 09:03 11/14/16 09:03 11/14/16 07:22 11/14/16 09:03 Laboratory Results 11/12/16 05:50 11/13/16 10:30 11/13/16 11/14/16 11/15/16 05:59 05:59 05:59 Intake Total 2806 2963 204 Output Total 2300 1800 Balance 506 1163 204 PT 12.6 SEC (12.0-15.0) 11/08/16 06:00 INR 0.95 (0.83-1.16) 11/08/16 06:00 - Time Spent With Patient Time Spent With Patient: 20 minutes Physical Exam - Physical Exam General Appearance: alert, no apparent distress EENT: other (Palpable Right neck pain. Mild overlying radiation dermatitis. No areas of skin breakdown) Neuro/Psych: alert, normal mood/affect ICD10 Worksheet Patient Problems: Problems Problem Status Onset Cachexia Acute Dehydration Acute Head and neck cancer Acute Fever Acute Palliative care encounter Acute
[2016-11-14] MEDS: oxyCODONE ORAL SOLUTION 10 MG/0.5 ML UDSYR TUBE PRN ×3 (11:34→20:21)
[2016-11-14] MEDS: NS 1,000 ML IV SCH (11:43)
[2016-11-14] MEDS: METOCLOPRAMIDE 10 MG TAB TUBE PRN (13:00)
[2016-11-14] MEDS: ONDANSETRON DISINTEGRATING 4 MG TAB TUBE PRN (20:21)
[2016-11-14] MEDS: GABAPENTIN 300 MG CAP TUBE SCH (20:21)
[2016-11-14] MEDS: TPN 1 EA BAG IV SCH (21:43)
[2016-11-14] MEDS: LIDOCAINE 5% 1 EA PATCH TD SCH (23:04)
[2016-11-15] MEDS: IBUPROFEN SUSP 100 MG/5 ML UDCUP TUBE PRN (00:28)
[2016-11-15] MEDS: clonazePAM 1 MG TAB PO PRN ×2 (00:29→16:59)
[2016-11-15] MEDS: BIOTENE DRY MOUTH MOUTHWASH 237 ML BTL MM SCH ×4 (00:43→20:53)
[2016-11-15] MEDS: NYSTATIN SUSP 500000 UNIT/5 ML UDCUP PO SCH ×4 (05:13→20:52)
[2016-11-15] MEDS: LEVOTHYROXINE 75 MCG TAB TUBE SCH (05:14)
[2016-11-15] MEDS: ONDANSETRON 4 MG/2 ML VIAL IVP PRN (05:41)
[2016-11-15 05:51] LABS: ADD DIFF? YES; ADD MORPH? NO; ADD SCAN? NO; ATYPICAL LYMPHOCYTE FLAG 40 (0-99); FRAGMENT RBC FLAG 0 (0-99); HEMATOCRIT 24.3 % (38.0-47.0); LEFT SHIFT FLG 10 (0-99); LIPEMIA HEMOLYSIS FLAG 80 (0-99); MEAN CELL HEMOGLOBIN 31.4 pg (27.9-34.1); MEAN CELL HEMOGLOBIN CONCENTR. 32.9 g/dL (32.4-36.7); MEAN CELL VOLUME 95.3 fL (81.5-99.8); MEAN PLATELET VOLUME 9.7 fL (8.7-11.7); PLATELET CLUMPS FLAG 0 (0-99); PLATELET COUNT 120 10^3/uL (150-400); RED BLOOD CELL COUNT 2.55 10^6/uL (4.18-5.33); RED CELL DISTRIBUTION WIDTH 17.8 % (11.5-15.2)
[2016-11-15 06:01] LABS: INR 0.96 (0.83-1.16); PROTIME(PATIENT) 12.7 SEC (12.0-15.0)
[2016-11-15 06:02] LABS: APTT 29.6 SEC (23.0-38.0)
[2016-11-15 06:08] LABS: ALANINE AMINOTRANSFERASE 26 IU/L (9-52); ALBUMIN 2.9 g/dL (3.5-5.0); ALKALINE PHOSPHATASE 74 IU/L (38-126); ANION GAP 10 mEq/L (8-16); ASPARTATE AMINOTRANSFERASE 17 IU/L (14-46); BILIRUBIN,TOTAL 0.5 mg/dL (0.1-1.4); CALCIUM 8.2 mg/dL (8.5-10.4); CARBON DIOXIDE 25 mEq/l (22-31); CHLORIDE 101 mEq/L (97-110); CREATININE 0.4 mg/dL (0.6-1.0); GLOMERULAR FILTRATION RATE > 60; GLUCOSE 90 mg/dL (70-100); MAGNESIUM 1.9 mg/dL (1.6-2.3); POTASSIUM 3.9 mEq/L (3.5-5.2); SODIUM 136 mEq/L (134-144); TOTAL PROTEIN 5.3 g/dL (6.3-8.2); TRIGLYCERIDE 106 mg/dL (35-135)
[2016-11-15] MEDS: FLUTICASONE NASAL 120 SPRAYS/16 GM MDI EACHNARE SCH (06:20)
[2016-11-15 06:27] LABS: PLATELET ESTIMATE ADEQUATE (ADEQ)
[2016-11-15] MEDS: FLUTICASONE/SALMETER 250/50MCG DISKUS IH SCH (08:43)
[2016-11-15] MEDS: ENOXAPARIN 40 MG/0.4 ML SYR SC SCH (09:06)
[2016-11-15] MEDS: clonazePAM 1 MG TAB PO SCH (09:06)
[2016-11-15] MEDS: METOCLOPRAMIDE 10 MG TAB TUBE PRN (09:06)
[2016-11-15] MEDS: MAGNESIUM HYDROXIDE 30 ML UDCUP TUBE SCH (09:06)
[2016-11-15] MEDS: MBX SOLN 30 ML BOTTLE PO PRN (09:07)
[2016-11-15] MEDS: PATCH REMOVAL 1 EA PATCH TD SCH (09:09)
--- NOTE | 2016-11-15 10:14 | HOSPPROG ---
Hospitalist Progress Note Assessment/Plan: 65 yo F with hx of head and neck cancer, as well as hx of perforated diverticulitis with ostomy placement and recent issues with pyometra/phlegmon in pelvis. She is admitted with failure to thrive during her treatment for head and neck cancer. # head neck cancer-currently getting daily xrt and weekly cisplatin, last cisplatin was 11/09, expect completion of tx as an inpatient given her debilitated state and lack of viable placement options * cont cisplatin per Oncology, likely next round later in the week on or Tuesday * cont XRT per oncology, patient has 8 more treatments. * continue magic mouthwash as needed # Sever protein calorie malnutrition-with BMI of 15, has had difficulty tolerating tube feeds due to high residuals. Currently on 20 cc per hour, but had to be stopped overnight due to high residuals and nausea * Continue TPN until tube feeds closer to goal. * Likely will need to be off of TPN prior to going home # anxiety- patient found taking personal Klonopin from her purse- a.m. dose added p.r.n. for insomnia/XRT * Patient is not to take her home medications * Continue Klonopin in-house # N/V - continues to have high residuals and difficulty getting tube feeds over 20 cc/hour * cont symptomatic treatment with zofran, promethazine and valium and scopolamine patch # hyponatremia - resolved- 136 * Follow sodium and electrolytes while on TPN # FTT- in setting of above, has had issues in particular managing PICC, PEG, ostomy-She is cachectic and having difficulty with her ADLs. Possible SNF after discharge # neck pain and acute on chronic pain- no complaints of neck pain today, primarily oral pain. Continue medications as prescribed, adjust as needed # pyometra/pelvic phlegmon (abscess)-with d&c on 10/10 showing e coli/ citrobacter. Status post completion of antibiotics # diverticulitis with perforation and ostomy- supportive care and ostomy care # pancytopenia, continue to follow counts # IP status, will need to complete course of treatment in house Subjective: Very weak and debilitated. Feels she can't tolerate radiation therapy all week and chemo so would like to defer chemo to later on in the week. She is excited to be coming to the end of her treatment. She continues to have a lot of nausea and has been intolerant of tube feeds Objective: Vital Signs Temp Pulse Resp BP Pulse Ox 36.9 C 81 16 136/66 H 90 L 11/15/16 07:36 11/15/16 07:36 11/15/16 07:36 11/15/16 07:36 11/15/16 07:36 Laboratory Results 11/15/16 05:32 11/15/16 05:32 11/14/16 11/15/16 11/16/16 05:59 05:59 05:59 Intake Total 2963 1861 Output Total 1800 2205 500 Balance 1163 -344 -500 PT 12.7 SEC (12.0-15.0) 11/15/16 05:32 INR 0.96 (0.83-1.16) 11/15/16 05:32 - Physical Exam Constitutional: chronically ill appearing, uncomfortable, cachectic Eyes: PERRL Ears, Nose, Mouth, Throat: moist mucous membranes Cardiovascular: regular rate and rhythym Respiratory: no respiratory distress Gastrointestinal: normoactive bowel sounds, soft, non-tender abdomen, No guarding, No rebound Neurologic: AAOx3 ICD10 Worksheet Patient Problems: Problems Problem Status Onset Fever Acute Dehydration Acute Palliative care encounter Acute Cachexia Acute Head and neck cancer Acute
[2016-11-15] MEDS: PROCHLORPERAZINE MALEATE 10 MG TAB TUBE PRN (11:28)
[2016-11-15] MEDS: oxyCODONE ORAL SOLUTION 10 MG/0.5 ML UDSYR TUBE PRN ×3 (11:28→23:03)
--- NOTE | 2016-11-15 13:51 | SOAPPROG ---
SOAP Progress Note Assessment/Plan: Assessment/Plan: 66 yo woman w T2N2M0 SCC (head and neck ca) 1. H&N SCC - cont on XRT/Cisplatin will hold Cisplatin dose until later this week per pt request Has 8 radiation treatments remaining Cont TPN 2. H/O diverticular abscess and pyometria - s/p colostomy and D&C 3. Weakness 4. Protein calorie malnutrition 5. Multifactorial anemia Cont supportive care Case d/w pharmacy 11/15/16 13:48 Subjective: Cont to be weak poor toleration of tube feeds Objective: Vital Signs Temp Pulse Resp BP Pulse Ox 36.9 C 81 16 136/66 H 90 L 11/15/16 07:36 11/15/16 07:36 11/15/16 07:36 11/15/16 07:36 11/15/16 07:36 Laboratory Results 11/15/16 05:32 11/15/16 05:32 11/14/16 11/15/16 11/16/16 05:59 05:59 05:59 Intake Total 2963 1861 Output Total 1800 2205 700 Balance 1163 -344 -700 PT 12.7 SEC (12.0-15.0) 11/15/16 05:32 INR 0.96 (0.83-1.16) 11/15/16 05:32 gen - chronically ill appearing heent - R neck mass smaller but +TTP CV - RRR lungs - CTAB abd - soft, feeding tube intact ext - cachexia ICD10 Worksheet Patient Problems: Problems Problem Status Onset Cachexia Acute Dehydration Acute Head and neck cancer Acute Fever Acute Palliative care encounter Acute
[2016-11-15] MEDS: NS 1,000 ML IV SCH (18:32)
[2016-11-15] MEDS: TPN 1 EA BAG IV SCH (20:41)
[2016-11-15] MEDS: LIDOCAINE 5% 1 EA PATCH TD SCH (20:52)
[2016-11-15] MEDS: GABAPENTIN 300 MG CAP TUBE SCH (20:53)
[2016-11-16] MEDS: clonazePAM 1 MG TAB PO PRN ×2 (01:08→22:15)
[2016-11-16] MEDS: traMADol 50 MG TAB TUBE PRN ×2 (01:26→22:14)
[2016-11-16] MEDS: oxyCODONE ORAL SOLUTION 10 MG/0.5 ML UDSYR TUBE PRN ×4 (03:01→20:46)
[2016-11-16] MEDS: NYSTATIN SUSP 500000 UNIT/5 ML UDCUP PO SCH ×4 (05:16→22:14)
[2016-11-16] MEDS: LEVOTHYROXINE 75 MCG TAB TUBE SCH (05:16)
[2016-11-16] MEDS: ENOXAPARIN 40 MG/0.4 ML SYR SC SCH (08:15)
[2016-11-16] MEDS: MAGNESIUM HYDROXIDE 30 ML UDCUP TUBE SCH (08:15)
[2016-11-16] MEDS: clonazePAM 1 MG TAB PO SCH (08:16)
[2016-11-16] MEDS: BIOTENE DRY MOUTH MOUTHWASH 237 ML BTL MM SCH ×3 (08:17→22:17)
[2016-11-16] MEDS: FLUTICASONE NASAL 120 SPRAYS/16 GM MDI EACHNARE SCH (08:17)
[2016-11-16] MEDS: METOCLOPRAMIDE 10 MG TAB TUBE PRN (08:21)
[2016-11-16] MEDS: PATCH REMOVAL 1 EA PATCH TD SCH (08:52)
[2016-11-16] MEDS: FLUTICASONE/SALMETER 250/50MCG DISKUS IH SCH (09:10)
[2016-11-16] MEDS: ONDANSETRON 4 MG/2 ML VIAL IVP PRN (09:36)
--- NOTE | 2016-11-16 10:26 | HOSPPROG ---
Hospitalist Progress Note Assessment/Plan: 65 yo F with hx of head and neck cancer, as well as hx of perforated diverticulitis with ostomy placement and recent issues with pyometra/phlegmon in pelvis. She is admitted with failure to thrive during her treatment for head and neck cancer. # head neck cancer-currently getting daily xrt and weekly cisplatin, last cisplatin was 11/09, expect completion of tx as an inpatient given her debilitated state and lack of viable placement options * cont cisplatin per Oncology, likely next round later in the week on or Tuesday * cont XRT per oncology, patient has 8 more treatments. * continue magic mouthwash as needed # Sever protein calorie malnutrition-with BMI of 15, has had difficulty tolerating tube feeds due to high residuals. Currently on 20 cc per hour, but had to be stopped overnight due to high residuals and nausea * Continue TPN until tube feeds closer to goal. * Likely will need to be off of TPN prior to going home # anxiety- patient found taking personal Klonopin from her purse- a.m. dose added p.r.n. for insomnia/XRT * Patient is not to take her home medications * Continue Klonopin in-house # N/V - continues to have high residuals and difficulty getting tube feeds over 20 cc/hour * cont symptomatic treatment with zofran, promethazine and valium and scopolamine patch # hyponatremia - resolved- 136 * Follow sodium and electrolytes while on TPN # FTT- in setting of above, has had issues in particular managing PICC, PEG, ostomy-She is cachectic and having difficulty with her ADLs. Possible SNF after discharge # neck pain and acute on chronic pain- no complaints of neck pain today, primarily oral pain. Continue medications as prescribed, adjust as needed # pyometra/pelvic phlegmon (abscess)-with d&c on 10/10 showing e coli/ citrobacter. Status post completion of antibiotics # diverticulitis with perforation and ostomy- supportive care and ostomy care # pancytopenia, continue to follow counts disposition: IP status, she will stay in the hospital until she completes her radiation and chemotherapy which should be done a week from Tuesday. After that she will be going to rehab at [facility]. Case management is checking if they can do TPN at rehab or if she needs to be converted completely to tube feeds prior to discharge as well. Unfortunately she has not been tolerating tube feeds as of yet. Subjective: Still with severe nausea and unable to tolerate tube feeds more than 20 an hour. Her goal is 60. Main issue is ongoing nausea Objective: Vital Signs Temp Pulse Resp BP Pulse Ox 36.6 C 99 16 117/69 94 11/16/16 09:01 11/16/16 09:01 11/16/16 09:01 11/16/16 09:01 11/16/16 09:01 Laboratory Results 11/15/16 05:32 11/15/16 05:32 11/15/16 11/16/16 11/17/16 05:59 05:59 05:59 Intake Total 1861 3031 776 Output Total 2205 1870 Balance -344 1161 776 PT 12.7 SEC (12.0-15.0) 11/15/16 05:32 INR 0.96 (0.83-1.16) 11/15/16 05:32 - Physical Exam Constitutional: chronically ill appearing, uncomfortable, cachectic Eyes: PERRL Cardiovascular: regular rate and rhythym Respiratory: no respiratory distress Psychiatric: interacting appropriately ICD10 Worksheet Patient Problems: Problems Problem Status Onset Cachexia Acute Dehydration Acute Head and neck cancer Acute Fever Acute Palliative care encounter Acute
--- NOTE | 2016-11-16 12:54 | WOCRNPDOC ---
WOCRN Advanced Assessment Note - Skin Integrity Problem, Advanced Assess Coccyx Pressure Injury Dressing Type: Allevyn Life Dressing Description: Clean/Dry, Intact Exudate Amount: None Integumentary Issue Intervention: Visualized Under Dressing Marine Wound Tissue: Blanching, Erythema, Painful/Tender Wound Bed Color: [place] Wound Bed Constitution: Smooth Tissue Wound Edges: Epithelizing Site Measurement - Head-to-Toe Length X Width X Depth (cm): 0.7x0.3x0.1 Pressure Injury Stage: Stage 3 Skin Integrity Problem Comment: Healing. Continue offloading. Wound care will round again in approximately 2 weeks. Deepthi Herrera in room for care.
[2016-11-16] MEDS: LANSOPRAZOLE SUSP 30MG/10ML UDSYR (Adult) TUBE SCH (18:00)
[2016-11-16] MEDS: NS 1,000 ML IV SCH (18:38)
[2016-11-16] MEDS: TPN 1 EA BAG IV SCH (21:18)
[2016-11-16] MEDS: GABAPENTIN 300 MG CAP TUBE SCH (22:14)
[2016-11-16] MEDS: LIDOCAINE 5% 1 EA PATCH TD SCH (22:16)
[2016-11-17] MEDS: oxyCODONE ORAL SOLUTION 10 MG/0.5 ML UDSYR TUBE PRN ×4 (00:11→18:20)
[2016-11-17] MEDS: NYSTATIN SUSP 500000 UNIT/5 ML UDCUP PO SCH ×4 (04:47→22:54)
[2016-11-17] MEDS: LEVOTHYROXINE 75 MCG TAB TUBE SCH (04:47)
[2016-11-17 06:15] LABS: ANION GAP 8 mEq/L (8-16); CALCIUM 8.3 mg/dL (8.5-10.4); CARBON DIOXIDE 24 mEq/l (22-31); CHLORIDE 102 mEq/L (97-110); CREATININE 0.3 mg/dL (0.6-1.0); GLOMERULAR FILTRATION RATE > 60; GLUCOSE 107 mg/dL (70-100); MAGNESIUM 1.9 mg/dL (1.6-2.3); POTASSIUM 4.2 mEq/L (3.5-5.2); SODIUM 134 mEq/L (134-144)
[2016-11-17] MEDS: FLUTICASONE/SALMETER 250/50MCG DISKUS IH SCH (08:41)
[2016-11-17] MEDS: ENOXAPARIN 40 MG/0.4 ML SYR SC SCH (08:54)
[2016-11-17] MEDS: BIOTENE DRY MOUTH MOUTHWASH 237 ML BTL MM SCH ×3 (08:54→23:00)
[2016-11-17] MEDS: MAGNESIUM HYDROXIDE 30 ML UDCUP TUBE SCH (08:54)
[2016-11-17] MEDS: LANSOPRAZOLE SUSP 30MG/10ML UDSYR (Adult) TUBE SCH ×2 (08:54→23:04)
[2016-11-17] MEDS: PATCH REMOVAL 1 EA PATCH TD SCH (08:55)
[2016-11-17] MEDS: FLUTICASONE NASAL 120 SPRAYS/16 GM MDI EACHNARE SCH (09:03)
[2016-11-17] MEDS: clonazePAM 1 MG TAB PO SCH (09:29)
[2016-11-17] MEDS: ONDANSETRON 4 MG/2 ML VIAL IVP PRN ×2 (09:29→18:32)
[2016-11-17] MEDS: METOCLOPRAMIDE 10 MG TAB TUBE PRN (09:30)
--- NOTE | 2016-11-17 10:58 | HOSPPROG ---
Hospitalist Progress Note Assessment/Plan: 65 yo F with hx of head and neck cancer, as well as hx of perforated diverticulitis with ostomy placement and recent issues with pyometra/phlegmon in pelvis. She is admitted with failure to thrive during her treatment for head and neck cancer. # head neck cancer-currently getting daily xrt and weekly cisplatin, last cisplatin was 11/09, expect completion of tx as an inpatient given her debilitated state and lack of viable placement options * cont cisplatin per Oncology, likely next round later in the week on or Tuesday * cont XRT per oncology, patient has 7 more treatments. * continue magic mouthwash as needed # Sever protein calorie malnutrition-with BMI of 15, has had difficulty tolerating tube feeds due to high residuals. Currently on 20 cc per hour, but had to be stopped overnight due to high residuals and nausea * Continue TPN until tube feeds closer to goal. * Likely will need to be off of TPN prior to going home # anxiety- patient found taking personal Klonopin from her purse- a.m. dose added p.r.n. for insomnia/XRT * Patient is not to take her home medications * Continue Klonopin in-house # N/V - continues to have high residuals and difficulty getting tube feeds over 20 cc/hour * cont symptomatic treatment with zofran, promethazine and valium and scopolamine patch * PPI BID * Reglan * Will stop Ibuprofen # hyponatremia - resolved- 136 * Follow sodium and electrolytes while on TPN # FTT- in setting of above, has had issues in particular managing PICC, PEG, ostomy-She is cachectic and having difficulty with her ADLs. Possible SNF after discharge # neck pain and acute on chronic pain- no complaints of neck pain today, primarily oral pain. Continue medications as prescribed, adjust as needed # pyometra/pelvic phlegmon (abscess)-with d&c on 10/10 showing e coli/ citrobacter. Status post completion of antibiotics # diverticulitis with perforation and ostomy- supportive care and ostomy care # pancytopenia, continue to follow counts # Weakness and deconditioning: PT/OT # Coccygeal Pressure injury stage III. Wound care following. # DVT proph: Lovenox disposition: IP status, she will stay in the hospital until she completes her radiation and chemotherapy which should be done a week from Tuesday. After that she will be going to rehab at [facility]. Case management is checking if they can do TPN at rehab or if she needs to be converted completely to tube feeds prior to discharge as well. Unfortunately she cont not to tolerated adequate tube feeds Subjective: Sad. Crying. Denies active abd pain. Reports intermittent Nausea. Denies CP or SOB. First encounter with this patient. Objective: Vital Signs Temp Pulse Resp BP Pulse Ox 36.4 C 89 16 113/61 91 L 11/17/16 07:32 11/17/16 07:32 11/17/16 07:32 11/17/16 07:32 11/17/16 07:32 Laboratory Results 11/15/16 05:32 11/17/16 05:10 11/16/16 11/17/16 11/18/16 05:59 05:59 05:59 Intake Total 3031 2322 144 Output Total 1870 1150 Balance 1161 1172 144 PT 12.7 SEC (12.0-15.0) 11/15/16 05:32 INR 0.96 (0.83-1.16) 11/15/16 05:32 - Physical Exam Constitutional: chronically ill appearing, No appears nourished Eyes: PERRL, EOMI Ears, Nose, Mouth, Throat: moist mucous membranes, hearing normal Cardiovascular: regular rate and rhythym, No JVD, No edema Respiratory: no respiratory distress, no rales or rhonchi, clear to auscultation Gastrointestinal: soft, non-tender abdomen Skin: warm Neurologic: AAOx3 Psychiatric: interacting appropriately, not anxious, not encephalopathic ICD10 Worksheet Patient Problems: Problems Problem Status Onset Cachexia Acute Dehydration Acute Head and neck cancer Acute Fever Acute Palliative care encounter Acute
--- NOTE | 2016-11-17 11:23 | SOAPPROG ---
SOAP Progress Note Assessment/Plan: Assessment/Plan: 66 yo woman w T2N2M0 SCC (head and neck ca) 1. H&N SCC - cont on XRT/Cisplatin will hold Cisplatin dose until later this week per pt request - plan to give Tuesday Has 5 radiation treatments remaining Cont TPN 2. H/O diverticular abscess and pyometria - s/p colostomy and D&C 3. Weakness 4. Protein calorie malnutrition 5. Multifactorial anemia Cont supportive care Case d/w pharmacy Will need SNF at d/c 11/15/16 13:48 11/17/16 11:22 Subjective: No acute events Back from XRT today some difficulty swallowing Objective: Vital Signs Temp Pulse Resp BP Pulse Ox 36.4 C 89 16 113/61 91 L 11/17/16 07:32 11/17/16 07:32 11/17/16 07:32 11/17/16 07:32 11/17/16 07:32 Laboratory Results 11/15/16 05:32 11/17/16 05:10 11/16/16 11/17/16 11/18/16 05:59 05:59 05:59 Intake Total 3031 2322 144 Output Total 1870 1150 Balance 1161 1172 144 PT 12.7 SEC (12.0-15.0) 11/15/16 05:32 INR 0.96 (0.83-1.16) 11/15/16 05:32 ICD10 Worksheet Patient Problems: Problems Problem Status Onset Cachexia Acute Dehydration Acute Head and neck cancer Acute Fever Acute Palliative care encounter Acute
[2016-11-17] MEDS: NS 1,000 ML IV SCH (11:33)
[2016-11-17] MEDS: SCOPOLAMINE HYDROBROMIDE 1.5 MG PATCH TD SCH (11:34)
[2016-11-17] MEDS: TPN 1 EA BAG IV SCH (21:13)
[2016-11-17] MEDS: GABAPENTIN 300 MG CAP TUBE SCH (22:54)
[2016-11-17] MEDS: LIDOCAINE 5% 1 EA PATCH TD SCH (22:58)
[2016-11-18] MEDS: oxyCODONE ORAL SOLUTION 10 MG/0.5 ML UDSYR TUBE PRN ×3 (00:18→20:18)
[2016-11-18] MEDS: ONDANSETRON DISINTEGRATING 4 MG TAB TUBE PRN (00:40)
[2016-11-18] MEDS: PROMETHAZINE HCL 25 MG/ML INJ IVP PRN ×3 (01:00→22:36)
[2016-11-18] MEDS: LEVOTHYROXINE 75 MCG TAB TUBE SCH (05:41)
[2016-11-18] MEDS: NYSTATIN SUSP 500000 UNIT/5 ML UDCUP PO SCH ×5 (05:41→21:37)
[2016-11-18] MEDS: ONDANSETRON 4 MG/2 ML VIAL IVP PRN ×2 (07:05→14:27)
[2016-11-18] MEDS: ENOXAPARIN 40 MG/0.4 ML SYR SC SCH (08:08)
[2016-11-18] MEDS: MAGNESIUM HYDROXIDE 30 ML UDCUP TUBE SCH (08:08)
[2016-11-18] MEDS: PATCH REMOVAL 1 EA PATCH TD SCH (08:08)
[2016-11-18] MEDS: BIOTENE DRY MOUTH MOUTHWASH 237 ML BTL MM SCH ×3 (08:08→21:36)
[2016-11-18] MEDS: FLUTICASONE NASAL 120 SPRAYS/16 GM MDI EACHNARE SCH (08:08)
[2016-11-18] MEDS: LANSOPRAZOLE SUSP 30MG/10ML UDSYR (Adult) TUBE SCH ×2 (08:10→21:30)
[2016-11-18] MEDS: METOCLOPRAMIDE 10 MG TAB TUBE PRN (09:11)
[2016-11-18] MEDS: clonazePAM 1 MG TAB PO SCH (09:13)
[2016-11-18] MEDS: FLUTICASONE/SALMETER 250/50MCG DISKUS IH SCH (09:38)
--- NOTE | 2016-11-18 11:12 | HOSPPROG ---
Hospitalist Progress Note Assessment/Plan: 65 yo F with hx of head and neck cancer, as well as hx of perforated diverticulitis with ostomy placement and recent issues with pyometra/phlegmon in pelvis. She is admitted with failure to thrive during her treatment for head and neck cancer. # head neck cancer-currently getting daily xrt and weekly cisplatin, last cisplatin was 11/09, expect completion of tx as an inpatient given her debilitated state and lack of viable placement options * cont cisplatin per Oncology, likely next round later in the week on or Tuesday * cont XRT per oncology * continue magic mouthwash as needed # Sever protein calorie malnutrition-with BMI of 15, has had difficulty tolerating tube feeds due to high residuals. Currently on 20 cc per hour, but had to be stopped overnight due to high residuals and nausea * Continue TPN until tube feeds closer to goal. * Likely will need to be off of TPN prior to going home # anxiety- patient found taking personal Klonopin from her purse- a.m. dose added p.r.n. for insomnia/XRT * Patient is not to take her home medications * Continue Klonopin in-house # N/V - continues to have high residuals and difficulty getting tube feeds over 20 cc/hour * cont symptomatic treatment with zofran, promethazine and valium and scopolamine patch * PPI BID * Reglan # hyponatremia - resolved- 136 * Follow sodium and electrolytes while on TPN # FTT- in setting of above, has had issues in particular managing PICC, PEG, ostomy-She is cachectic and having difficulty with her ADLs. Possible SNF after discharge # neck pain and acute on chronic pain- no complaints of neck pain today, primarily oral pain. Continue medications as prescribed, adjust as needed # pyometra/pelvic phlegmon (abscess)-with d&c on 10/10 showing e coli/ citrobacter. Status post completion of antibiotics # diverticulitis with perforation and ostomy- supportive care and ostomy care # pancytopenia, continue to follow counts # Weakness and deconditioning: PT/OT # Coccygeal Pressure injury stage III. Wound care following. # DVT proph: Lovenox disposition: IP status, she will stay in the hospital until she completes her radiation and chemotherapy which should be done a week from Tuesday. After that she will be going to rehab at [facility]. Case management is checking if they can do TPN at rehab or if she needs to be converted completely to tube feeds prior to discharge as well. Unfortunately she cont not to tolerated adequate tube feeds Subjective: Some abd discomfort. + Nausea. No Emesis. No CP or SOB. Tearful Objective: Vital Signs Temp Pulse Resp BP Pulse Ox 36.7 C 87 16 126/69 H 94 11/18/16 09:03 11/18/16 09:03 11/18/16 09:03 11/18/16 09:03 11/18/16 09:03 Laboratory Results 11/15/16 05:32 11/17/16 05:10 11/17/16 11/18/16 11/19/16 05:59 05:59 05:59 Intake Total 2322 2014 Output Total 1150 1150 Balance 1172 865 PT 12.7 SEC (12.0-15.0) 11/15/16 05:32 INR 0.96 (0.83-1.16) 11/15/16 05:32 - Physical Exam Constitutional: chronically ill appearing Eyes: PERRL, EOMI Ears, Nose, Mouth, Throat: moist mucous membranes, hearing normal Cardiovascular: regular rate and rhythym, No JVD, No edema Respiratory: no respiratory distress, clear to auscultation Gastrointestinal: soft, non-tender abdomen, No tenderness, No guarding, No rebound, No distension Skin: warm Neurologic: AAOx3 Psychiatric: interacting appropriately, not anxious, not encephalopathic, depressed ICD10 Worksheet Patient Problems: Problems Problem Status Onset Cachexia Acute Dehydration Acute Head and neck cancer Acute Fever Acute Palliative care encounter Acute
[2016-11-18] MEDS: clonazePAM 1 MG TAB PO PRN (18:13)
[2016-11-18] MEDS: TPN 1 EA BAG IV SCH (20:19)
[2016-11-18] MEDS: traMADol 50 MG TAB TUBE PRN (21:29)
[2016-11-18] MEDS: GABAPENTIN 300 MG CAP TUBE SCH (21:29)
[2016-11-18] MEDS: LIDOCAINE 5% 1 EA PATCH TD SCH (21:37)
[2016-11-19 05:26] LABS: ANION GAP 9 mEq/L (8-16); CALCIUM 8.4 mg/dL (8.5-10.4); CARBON DIOXIDE 26 mEq/l (22-31); CHLORIDE 103 mEq/L (97-110); CREATININE 0.4 mg/dL (0.6-1.0); GLOMERULAR FILTRATION RATE > 60; GLUCOSE 80 mg/dL (70-100); POTASSIUM 4.4 mEq/L (3.5-5.2); SODIUM 138 mEq/L (134-144)
[2016-11-19] MEDS: NYSTATIN SUSP 500000 UNIT/5 ML UDCUP PO SCH ×4 (05:49→20:51)
[2016-11-19] MEDS: LEVOTHYROXINE 75 MCG TAB TUBE SCH (05:55)
[2016-11-19] MEDS: FLUTICASONE/SALMETER 250/50MCG DISKUS IH SCH (08:15)
[2016-11-19] MEDS: clonazePAM 1 MG TAB PO SCH (09:24)
[2016-11-19] MEDS: ONDANSETRON 4 MG/2 ML VIAL IVP PRN (09:41)
--- NOTE | 2016-11-19 10:26 | HOSPPROG ---
Hospitalist Progress Note Assessment/Plan: 65 yo F with hx of head and neck cancer, as well as hx of perforated diverticulitis with ostomy placement and recent issues with pyometra/phlegmon in pelvis. She is admitted with failure to thrive during her treatment for head and neck cancer. # head neck cancer-currently getting daily xrt and weekly cisplatin, last cisplatin was 11/09, expect completion of tx as an inpatient given her debilitated state and lack of viable placement options * cont cisplatin per Oncology, likely next round later in the week on or Tuesday * cont XRT per oncology * continue magic mouthwash as needed # Sever protein calorie malnutrition-with BMI of 15, has had difficulty tolerating tube feeds due to high residuals. Currently on 20 cc per hour, but had to be stopped overnight due to high residuals and nausea * Continue TPN until tube feeds closer to goal. * Likely will need to be off of TPN prior to going home # anxiety- patient found taking personal Klonopin from her purse- a.m. dose added p.r.n. for insomnia/XRT * Patient is not to take her home medications * Continue Klonopin in-house # N/V - continues to have high residuals and difficulty getting tube feeds over 20 cc/hour * cont symptomatic treatment with zofran, promethazine and valium and scopolamine patch * PPI BID * Reglan # hyponatremia - resolved- 136 * Follow sodium and electrolytes while on TPN # FTT- in setting of above, has had issues in particular managing PICC, PEG, ostomy-She is cachectic and having difficulty with her ADLs. Possible SNF after discharge # neck pain and acute on chronic pain- no complaints of neck pain today, primarily oral pain. Continue medications as prescribed, adjust as needed # pyometra/pelvic phlegmon (abscess)-with d&c on 10/10 showing e coli/ citrobacter. Status post completion of antibiotics # diverticulitis with perforation and ostomy- supportive care and ostomy care # pancytopenia, continue to follow counts # Weakness and deconditioning: PT/OT # Coccygeal Pressure injury stage III. Wound care following. # DVT proph: Lovenox disposition: IP status, she will stay in the hospital until she completes her radiation and chemotherapy which should be done a week from Tuesday. After that she will be going to rehab at [facility]. Case management is checking if they can do TPN at rehab or if she needs to be converted completely to tube feeds prior to discharge as well. -will get Chemo today -check labs in a.m., including prealbumin. -Nutrition/Pharmacy following re TPN/Tube Feeds. Subjective: Feels better today. Slep good. Nausea is better. No abd pain. Objective: Vital Signs Temp Pulse Resp BP Pulse Ox 36.7 C 94 20 140/73 H 92 11/19/16 08:02 11/19/16 08:13 11/19/16 08:13 11/19/16 08:02 11/19/16 08:13 Laboratory Results 11/15/16 05:32 11/19/16 04:50 11/18/16 11/19/16 11/20/16 05:59 05:59 05:59 Intake Total 2014 2477 Output Total 1150 1375 Balance 865 1103 PT 12.7 SEC (12.0-15.0) 11/15/16 05:32 INR 0.96 (0.83-1.16) 11/15/16 05:32 - Physical Exam Constitutional: chronically ill appearing Eyes: PERRL, anicteric sclera, EOMI Ears, Nose, Mouth, Throat: moist mucous membranes, hearing normal Cardiovascular: regular rate and rhythym, No JVD, No edema Respiratory: no respiratory distress, no rales or rhonchi, clear to auscultation Gastrointestinal: other (s/nt/nd, ostomy bag with output), No tenderness Skin: warm Neurologic: AAOx3 Psychiatric: interacting appropriately, not encephalopathic ICD10 Worksheet Patient Problems: Problems Problem Status Onset Cachexia Acute Dehydration Acute Head and neck cancer Acute Fever Acute Palliative care encounter Acute
[2016-11-19] MEDS: ACETAMINOPHEN 325 MG TAB TUBE PRN (11:18)
[2016-11-19] MEDS: LANSOPRAZOLE SUSP 30MG/10ML UDSYR (Adult) TUBE SCH ×2 (11:19→22:48)
[2016-11-19] MEDS: ENOXAPARIN 40 MG/0.4 ML SYR SC SCH (11:19)
[2016-11-19] MEDS ORDERED: NS IV SCH ×3 (12:00→17:30)
[2016-11-19] MEDS ORDERED: MAGNESIUM SULFATE IV SCH ×2 (12:00→17:30)
[2016-11-19] MEDS ORDERED: POTASSIUM CL IV SCH ×2 (12:00→17:30)
--- NOTE | 2016-11-19 12:07 | SOAPPROG ---
SOAP Progress Note Assessment/Plan: Assessment/Plan: 66 yo woman w T2N2M0 SCC (head and neck ca) 1. H&N SCC - cont on XRT/Cisplatin last Cisplatin dose today - delated due to pt preference orders written Has 3 radiation treatments remaining Cont TPN 2. H/O diverticular abscess and pyometria - s/p colostomy and D&C 3. Weakness/FTT 4. Protein calorie malnutrition 5. Multifactorial anemia Cont supportive care Case d/w pharmacy Will need SNF at d/c 11/17/16 11:22 11/19/16 12:05 Subjective: No change No acute events Objective: Vital Signs Temp Pulse Resp BP Pulse Ox 36.7 C 94 20 140/73 H 92 11/19/16 08:02 11/19/16 08:13 11/19/16 08:13 11/19/16 08:02 11/19/16 08:13 Laboratory Results 11/15/16 05:32 11/19/16 04:50 11/18/16 11/19/16 11/20/16 05:59 05:59 05:59 Intake Total 20148 Output Total 1150 1375 Balance 865 1103 PT 12.7 SEC (12.0-15.0) 11/15/16 05:32 INR 0.96 (0.83-1.16) 11/15/16 05:32 Gen - chronically ill appearing HEENT - anicteric; R neck mass smaller CV - RRR Chest - CTAB Abd - soft, BS+, PEG and ostomy Ext - no edema ICD10 Worksheet Patient Problems: Problems Problem Status Onset Cachexia Acute Dehydration Acute Head and neck cancer Acute Fever Acute Palliative care encounter Acute
[2016-11-19] MEDS: FLUTICASONE NASAL 120 SPRAYS/16 GM MDI EACHNARE SCH (12:22)
[2016-11-19] MEDS: BIOTENE DRY MOUTH MOUTHWASH 237 ML BTL MM SCH ×3 (12:22→23:01)
[2016-11-19] MEDS ORDERED: PALONOSETRON HCL 0.25 MG/5 ML VIAL IVP SCH (14:00)
[2016-11-19] MEDS ORDERED: FOSAPREPITANT 150 MG in NS 250 ML IV SCH (14:00)
[2016-11-19] MEDS ORDERED: DEXAMETHASONE SOD PHOSPHATE 10 MG in NS 50 ML IV SCH (14:00)
[2016-11-19] MEDS: MAGNESIUM HYDROXIDE 30 ML UDCUP TUBE SCH (14:17)
[2016-11-19] MEDS: PATCH REMOVAL 1 EA PATCH TD SCH (15:20)
[2016-11-19] MEDS ORDERED: CISPLATIN IV SCH (15:30)
[2016-11-19] MEDS: oxyCODONE ORAL SOLUTION 10 MG/0.5 ML UDSYR TUBE PRN (17:13)
[2016-11-19] MEDS: TPN 1 EA BAG IV SCH (20:20)
[2016-11-19] MEDS: GABAPENTIN 300 MG CAP TUBE SCH (20:52)
[2016-11-19] MEDS: LIDOCAINE 5% 1 EA PATCH TD SCH (20:57)
[2016-11-19] MEDS: METOCLOPRAMIDE 10 MG TAB TUBE PRN (21:21)
[2016-11-19] MEDS: clonazePAM 1 MG TAB PO PRN (22:48)
[2016-11-20] MEDS: NYSTATIN SUSP 500000 UNIT/5 ML UDCUP PO SCH ×4 (05:05→20:59)
[2016-11-20] MEDS: LEVOTHYROXINE 75 MCG TAB TUBE SCH (05:06)
[2016-11-20] MEDS: ACETAMINOPHEN 325 MG TAB TUBE PRN ×2 (05:32→20:27)
[2016-11-20 05:47] LABS: % IMMATURE GRANULYOCYTES 0.8 % (0.0-1.1); ABSOLUTE IMMATURE GRANULOCYTES 0.02 10^3/uL (0.00-0.10); ADD DIFF? NO; ADD MORPH? NO; ADD SCAN? NO; ATYPICAL LYMPHOCYTE FLAG 10 (0-99); FRAGMENT RBC FLAG 0 (0-99); HEMATOCRIT 24.7 % (38.0-47.0); HEMOGLOBIN 8.1 g/dL (12.6-16.3); LEFT SHIFT FLG 10 (0-99); LIPEMIA HEMOLYSIS FLAG 80 (0-99); MEAN CELL HEMOGLOBIN 31.5 pg (27.9-34.1); MEAN CELL HEMOGLOBIN CONCENTR. 32.8 g/dL (32.4-36.7); MEAN CELL VOLUME 96.1 fL (81.5-99.8); PLATELET CLUMPS FLAG 0 (0-99); PLATELET COUNT 108 10^3/uL (150-400); RED BLOOD CELL COUNT 2.57 10^6/uL (4.18-5.33); RED CELL DISTRIBUTION WIDTH 18.1 % (11.5-15.2)
[2016-11-20 06:02] LABS: ALANINE AMINOTRANSFERASE 19 IU/L (9-52); ALBUMIN 3.1 g/dL (3.5-5.0); ALKALINE PHOSPHATASE 81 IU/L (38-126); ANION GAP 9 mEq/L (8-16); ASPARTATE AMINOTRANSFERASE 19 IU/L (14-46); BILIRUBIN,TOTAL 0.3 mg/dL (0.1-1.4); CALCIUM 8.8 mg/dL (8.5-10.4); CARBON DIOXIDE 24 mEq/l (22-31); CHLORIDE 103 mEq/L (97-110); CREATININE 0.3 mg/dL (0.6-1.0); GLOMERULAR FILTRATION RATE > 60; GLUCOSE 164 mg/dL (70-100); POTASSIUM 4.1 mEq/L (3.5-5.2); SODIUM 136 mEq/L (134-144); TOTAL PROTEIN 5.6 g/dL (6.3-8.2)
[2016-11-20 06:09] LABS: PREALBUMIN 16.4 mg/dL (17.6-36.0)
[2016-11-20] MEDS: FLUTICASONE/SALMETER 250/50MCG DISKUS IH SCH (08:36)
[2016-11-20] MEDS: ENOXAPARIN 40 MG/0.4 ML SYR SC SCH (08:40)
[2016-11-20] MEDS: oxyCODONE ORAL SOLUTION 10 MG/0.5 ML UDSYR TUBE PRN ×2 (08:41→20:19)
[2016-11-20] MEDS: MAGNESIUM HYDROXIDE 30 ML UDCUP TUBE SCH (08:41)
[2016-11-20] MEDS: clonazePAM 1 MG TAB PO SCH (08:41)
[2016-11-20] MEDS: BIOTENE DRY MOUTH MOUTHWASH 237 ML BTL MM SCH ×3 (08:42→21:01)
[2016-11-20] MEDS: LANSOPRAZOLE SUSP 30MG/10ML UDSYR (Adult) TUBE SCH ×2 (08:55→20:29)
[2016-11-20] MEDS: FLUTICASONE NASAL 120 SPRAYS/16 GM MDI EACHNARE SCH (09:04)
[2016-11-20] MEDS: PATCH REMOVAL 1 EA PATCH TD SCH (09:06)
[2016-11-20] MEDS: SCOPOLAMINE HYDROBROMIDE 1.5 MG PATCH TD SCH (11:09)
--- NOTE | 2016-11-20 12:35 | SOAPPROG ---
SOAP Progress Note Assessment/Plan: E&M for H&N cancer * SCC H&N; TxN2b: week 5 of weekly cisplatin + xrt. Received cis 30mg/m2 10/23, 11/01, 11/09, 11/19. Has 2 or 3 more radiation treatments then finished. * Severe protein calorie malnutrition and FTT: On TPN. Too high residuals for TF. * Cancer related pain: Fentanyl patch and methadone stopped as not helping. Pain generally controlled with oxycodone but needs occasional extra for breakthrough * Pyometra/diverticulitis - abx stopped by Dr Nicholson's * Anemia: multifactorial due to chronic inflammation, malnutrition, chemotherapy. transfuse for <7.0. Currently stable. * Dysphonia: related to radiation. Will continue magic mouthwash and add nystatin. Pain with swallowing but no trouble breathing. * Disposition: once therapy is complete then she will need prolonged rehabilitation. Subjective: Not much change. Still very weak. Tearful about making sure she gets adequate pain meds. They are effective but wear off too early. Objective: Vital Signs Temp Pulse Resp BP Pulse Ox 36.3 C 93 17 138/82 H 94 11/20/16 08:00 11/20/16 08:00 11/20/16 08:00 11/20/16 08:00 11/20/16 08:00 Laboratory Results 11/20/16 05:25 11/20/16 05:25 11/19/16 11/20/16 11/21/16 05:59 05:59 05:59 Intake Total 2478 1312 50 Output Total 1375 1200 110 Balance 1103 112 -60 PT 12.7 SEC (12.0-15.0) 11/15/16 05:32 INR 0.96 (0.83-1.16) 11/15/16 05:32 Physical Exam - Physical Exam General Appearance: cachetic EENT: other (dry) Respiratory: lungs clear Cardiac/Chest: regular rate, rhythm Abdomen: other (colostomy on left with small amt stool) Lymphatic: other (right posterior node continues to shrink) ICD10 Worksheet Patient Problems: Problems Problem Status Onset Cachexia Acute Dehydration Acute Head and neck cancer Acute Fever Acute Palliative care encounter Acute
[2016-11-20] MEDS: ONDANSETRON 4 MG/2 ML VIAL IVP PRN (14:42)
--- NOTE | 2016-11-20 17:01 | HOSPPROG ---
Hospitalist Progress Note Assessment/Plan: DIAGNOSES: # head and neck squamous cell cancer -currently getting XRT/chemo -cisplatin given sat 10/23 # intractable nausea vomiting after chemotherapy -better today and tolerating feeds ok # neutropenia after chemotherapy -will follow cell counts closely, may need to be placed on neutropenic precautions # blurring of vision L eye L lateral field, ?etiology (new symptom 10/26) -will try to reexamine with ophthalmoscopy today -no grossly obvious corneal lesion; # severe protein calorie malnutrition, with cachexia, ongoing -tube feeds by PEG # FTT - multifactorial; she is overwhelmed by her self care duties (PICC, PEG, ostomy) - nutrition, PT, OT, CM assistance # uncontrolled cancer pain - sounds somewhat better today (neck and upper abdomen) -cont oxycodone IR prn at increased dose -fentayl patch was ineffective, likely due to minimal sub Q fat -I have added lidoderm patch for her neck, will see how that helps -she is unable to swallow pills; have mentioned liquid methadone by tube, she has been reluctant but will continue to offer that to her, as it can be given as liquid thru PEG and a low dose may be very effective for her # hx pyometra/diverticulitis - currently on augmentin, 3 week course will be completed 10/29 - appreciate Dr Nicholson's help # ostomy (recent perforated colon treated elsewhere): no problems w ostomy or appliances # dvt ppx - lovenox 30 I have reviewed her progress and plans with Dr Pope today DC planning is difficult: she is unable to care for self at home but due to her high intensity nursing needs and daily radiation with weekly chemo (4 more weeks of each) SNF placement may not be possible. SUBJECTIVE: nausea much better today taking tube feeds ok today mentions sudden onset of blurry vision in the L lateral visual field of L eye only, no pain or tearing OBJECTIVE Vitals reviewed: stable without fever Exam: Severe cachexia still present alert oriented, looks a bit more relaxed today Her L eye appears grossly normal, vision in R eye normal, but w R eye covered notes "blurring" of L lateral vis field in Left eye, no visual field loss and central vision is good skin warm dry color ok, no jaundice resps not labored lungs clear BSs heart regular abd soft nondistended nontender, bowel sounds present; perc gastrostomy tube in good position and secured limbs warm, no edema iv site ok Laboratory data: now neutropenic at 1680 Objective: Vital Signs Temp Pulse Resp BP Pulse Ox 36.3 C 93 17 138/82 H 94 11/20/16 08:00 11/20/16 08:00 11/20/16 08:00 11/20/16 08:00 11/20/16 08:00 Laboratory Results 11/20/16 05:25 11/20/16 05:25 11/19/16 11/20/16 11/21/16 06:59 06:59 06:59 Intake Total 2478 1312 50 Output Total 1375 1200 110 Balance 1103 112 -60 PT 12.7 SEC (12.0-15.0) 11/15/16 05:32 INR 0.96 (0.83-1.16) 11/15/16 05:32 ICD10 Worksheet Patient Problems: Problems Problem Status Onset Cachexia Acute Dehydration Acute Head and neck cancer Acute Fever Acute Palliative care encounter Acute
--- NOTE | 2016-11-20 17:06 | HOSPPROG ---
Hospitalist Progress Note Assessment/Plan: DIAGNOSES: # head and neck squamous cell cancer -currently getting XRT/chemo -cisplatin # nausea vomiting after chemotherapy # neutropenia after chemotherapy -better today # severe protein calorie malnutrition, with cachexia, ongoing -not tolerating PEG food with high residuals, currently receiving TPN # encephalopathy, multifactorial with chemotherapy and cancer # FTT - multifactorial; she is overwhelmed by her self care duties (PICC, PEG, ostomy) - nutrition, PT, OT, CM assistance # uncontrolled cancer pain - sounds somewhat better today (neck and upper abdomen) -pain medication doses increased today will follow closely # hx pyometra/diverticulitis - now off antibiotic without recurrence of fever or symptoms -appreciate Dr Nicholson's help # ostomy (recent perforated colon treated elsewhere): no problems w ostomy or appliances # dvt ppx - lovenox 30 I have reviewed her progress and plans with Dr Murray today PLANS: -continue radiation therapy, 3 doses left -continue TPN -ostomy care -DVT prophylaxis -physical occupational therapy DISPOSITION: She will need [facility] facility care for rehabilitation once she has completed her radiation therapy SUBJECTIVE: No nausea vomiting However still getting significant residuals with minimal tube feeding volume Still with a lot of headache and abdominal discomfort No fever symptoms OBJECTIVE Vitals reviewed: stable without fever Exam: Severe cachexia still present alert somewhat disoriented skin warm dry pale, no jaundice resps not labored lungs clear BSs heart regular abd soft nondistended nontender, bowel sounds present; perc gastrostomy tube in good position and secured, ostomy looks good and functioning well limbs warm, no edema iv site ok Laboratory data: Neutrophil count 2000 Hemoglobin stable at 8 Platelets slightly down 108k Chemistry stable Objective: Vital Signs Temp Pulse Resp BP Pulse Ox 36.3 C 93 17 138/82 H 94 11/20/16 08:00 11/20/16 08:00 11/20/16 08:00 11/20/16 08:00 11/20/16 08:00 Laboratory Results 11/20/16 05:25 11/20/16 05:25 11/19/16 11/20/16 11/21/16 06:59 06:59 06:59 Intake Total 2478 1312 50 Output Total 1375 1200 110 Balance 1103 112 -60 PT 12.7 SEC (12.0-15.0) 11/15/16 05:32 INR 0.96 (0.83-1.16) 11/15/16 05:32 - Time Spent With Patient Time Spent with Patient: greater than 35 minutes Time Spent with Patient: Greater than 35 minutes spent on this patients care, greater than 50% of time spent counseling, educating, and coordinating care regarding the above mentioned plan. ICD10 Worksheet Patient Problems: Problems Problem Status Onset Cachexia Acute Dehydration Acute Head and neck cancer Acute Fever Acute Palliative care encounter Acute
[2016-11-20] MEDS: ONDANSETRON DISINTEGRATING 4 MG TAB TUBE PRN (18:18)
[2016-11-20] MEDS: clonazePAM 1 MG TAB PO PRN (20:28)
[2016-11-20] MEDS: GABAPENTIN 300 MG CAP TUBE SCH (20:28)
[2016-11-20] MEDS: METOCLOPRAMIDE 10 MG TAB TUBE PRN (20:29)
[2016-11-20] MEDS: TPN 1 EA BAG IV SCH (21:00)
[2016-11-20] MEDS: LIDOCAINE 5% 1 EA PATCH TD SCH (21:01)
[2016-11-21] MEDS: oxyCODONE ORAL SOLUTION 10 MG/0.5 ML UDSYR TUBE PRN ×2 (02:41→08:51)
[2016-11-21] MEDS: ONDANSETRON DISINTEGRATING 4 MG TAB TUBE PRN ×2 (02:41→21:51)
[2016-11-21] MEDS: ACETAMINOPHEN 325 MG TAB TUBE PRN ×3 (02:48→21:51)
[2016-11-21] MEDS: METOCLOPRAMIDE 10 MG TAB TUBE PRN ×2 (05:50→21:50)
[2016-11-21] MEDS: LEVOTHYROXINE 75 MCG TAB TUBE SCH (05:50)
[2016-11-21] MEDS: NYSTATIN SUSP 500000 UNIT/5 ML UDCUP PO SCH ×4 (05:51→21:50)
[2016-11-21] MEDS: SALMETER IH SCH (08:31)
[2016-11-21] MEDS: FLUTICASONE IH SCH (08:31)
[2016-11-21] MEDS: clonazePAM 1 MG TAB PO SCH (08:50)
[2016-11-21] MEDS: ENOXAPARIN 40 MG/0.4 ML SYR SC SCH (08:58)
[2016-11-21] MEDS: MAGNESIUM HYDROXIDE 30 ML UDCUP TUBE SCH ×2 (08:58→08:59)
[2016-11-21] MEDS: FLUTICASONE NASAL 120 SPRAYS/16 GM MDI EACHNARE SCH (08:59)
[2016-11-21] MEDS: MBX SOLN 30 ML BOTTLE PO PRN ×2 (09:00→15:24)
[2016-11-21] MEDS: PATCH REMOVAL 1 EA PATCH TD SCH (09:05)
[2016-11-21] MEDS: BIOTENE DRY MOUTH MOUTHWASH 237 ML BTL MM SCH ×3 (09:06→22:57)
[2016-11-21] MEDS: LANSOPRAZOLE SUSP 30MG/10ML UDSYR (Adult) TUBE SCH ×2 (09:08→22:05)
[2016-11-21] MEDS: ONDANSETRON 4 MG/2 ML VIAL IVP PRN (10:11)
[2016-11-21] MEDS: traMADol 50 MG TAB TUBE PRN (11:44)
--- NOTE | 2016-11-21 11:51 | SOAPPROG ---
SOAP Progress Note Assessment/Plan: E&M for H&N cancer * SCC H&N; TxN2b: week 5 of weekly cisplatin + xrt. Received cis 30mg/m2 10/23, 11/01, 11/09, 11/19. Has 2 or 3 more radiation treatments to finished. * Severe protein calorie malnutrition and FTT: On TPN. Too high residuals for TF. * Cancer related pain: Fentanyl patch and methadone stopped as not helping. Pain generally controlled with oxycodone but needs occasional extra for breakthrough. Will try also increasing gabapentin * Pyometra/diverticulitis - abx stopped by Dr Nicholson's * Anemia: multifactorial due to chronic inflammation, malnutrition, chemotherapy. transfuse for <7.0. Currently stable. * Dysphonia: related to radiation. Will continue magic mouthwash and add nystatin. Pain with swallowing but no trouble breathing. * Disposition: once therapy is complete then she will need prolonged rehabilitation. Subjective: Anxious about having and being able to control pain. No new problems. Throat still sore. Objective: Vital Signs Temp Pulse Resp BP Pulse Ox 36.7 C 90 16 120/70 94 11/21/16 07:53 11/21/16 07:53 11/21/16 07:53 11/21/16 07:53 11/21/16 07:53 Laboratory Results 11/20/16 05:25 11/20/16 05:25 11/20/16 11/21/16 11/22/16 05:59 05:59 05:59 Intake Total 1312 1904 Output Total 1200 1710 Balance 112 194 PT 12.7 SEC (12.0-15.0) 11/15/16 05:32 INR 0.96 (0.83-1.16) 11/15/16 05:32 Physical Exam - Physical Exam General Appearance: cachetic Respiratory: lungs clear Cardiac/Chest: regular rate, rhythm Abdomen: soft, other (PEG and Colostomy without sign of infection.) Lymphatic: other (right posterior node is shrinking) ICD10 Worksheet Patient Problems: Problems Problem Status Onset Cachexia Acute Dehydration Acute Head and neck cancer Acute Fever Acute Palliative care encounter Acute
[2016-11-21] MEDS: GABAPENTIN 300 MG CAP TUBE SCH ×2 (15:23→21:51)
--- NOTE | 2016-11-21 15:45 | HOSPPROG ---
Hospitalist Progress Note Assessment/Plan: DIAGNOSES: # head and neck squamous cell cancer -currently getting XRT/chemo -cisplatin # nausea vomiting after chemotherapy # neutropenia after chemotherapy -better today # severe protein calorie malnutrition, with cachexia, ongoing -not tolerating PEG food with high residuals, currently receiving TPN # encephalopathy, multifactorial with chemotherapy and cancer # FTT - multifactorial; she is overwhelmed by her self care duties (PICC, PEG, ostomy) - nutrition, PT, OT, CM assistance # uncontrolled cancer pain - sounds somewhat better today (neck and upper abdomen) -pain medication doses increased today will follow closely # hx pyometra/diverticulitis - now off antibiotic without recurrence of fever or symptoms -appreciate Dr Nicholson's help # ostomy (recent perforated colon treated elsewhere): no problems w ostomy or appliances # dvt ppx - lovenox 30 I have reviewed her progress and plans with Dr Murray today PLANS: -continue radiation therapy, 3 doses left -continue TPN -ostomy care -DVT prophylaxis -physical occupational therapy -holding on her tube feeds as she could not take even 10 ml per hour DISPOSITION: [facility] will need [facility] care for rehabilitation once she has completed her radiation therapy SUBJECTIVE: still w some CONWAY and abd pain but less trouble w that today today more nausea and some dry heaves despite no tube feeds and using antiemetics OBJECTIVE Vitals reviewed: stable without fever Exam: Severe cachexia alert somewhat a bit better oriented at the moment skin warm dry pale, no jaundice resps not labored lungs clear BSs heart regular abd soft nondistended nontender, bowel sounds present limbs warm, no edema iv site ok Objective: Vital Signs Temp Pulse Resp BP Pulse Ox 36.7 C 90 16 120/70 94 11/21/16 07:53 11/21/16 07:53 11/21/16 07:53 11/21/16 07:53 11/21/16 07:53 Laboratory Results 11/20/16 05:25 11/20/16 05:25 11/20/16 11/21/16 11/22/16 06:59 06:59 06:59 Intake Total 1312 1904 Output Total 1200 1710 Balance 112 194 PT 12.7 SEC (12.0-15.0) 11/15/16 05:32 INR 0.96 (0.83-1.16) 11/15/16 05:32 ICD10 Worksheet Patient Problems: Problems Problem Status Onset Cachexia Acute Dehydration Acute Head and neck cancer Acute Fever Acute Palliative care encounter Acute
[2016-11-21] MEDS: NS 1,000 ML IV SCH (17:44)
[2016-11-21] MEDS: TPN 1 EA BAG IV SCH (21:50)
[2016-11-21] MEDS: clonazePAM 1 MG TAB PO PRN (21:51)
[2016-11-21] MEDS: LIDOCAINE 5% 1 EA PATCH TD SCH (22:56)
[2016-11-22] MEDS: ONDANSETRON DISINTEGRATING 4 MG TAB TUBE PRN ×3 (01:58→18:19)
[2016-11-22] MEDS: ACETAMINOPHEN 325 MG TAB TUBE PRN ×2 (01:58→15:24)
[2016-11-22 04:44] LABS: ADD DIFF? YES; ADD MORPH? NO; ADD SCAN? NO; ATYPICAL LYMPHOCYTE FLAG 0 (0-99); FRAGMENT RBC FLAG 0 (0-99); HEMATOCRIT 24.1 % (38.0-47.0); HEMOGLOBIN 7.8 g/dL (12.6-16.3); LEFT SHIFT FLG 10 (0-99); LIPEMIA HEMOLYSIS FLAG 80 (0-99); MEAN CELL HEMOGLOBIN 31.8 pg (27.9-34.1); MEAN CELL HEMOGLOBIN CONCENTR. 32.4 g/dL (32.4-36.7); MEAN CELL VOLUME 98.4 fL (81.5-99.8); MEAN PLATELET VOLUME 9.7 fL (8.7-11.7); PLATELET CLUMPS FLAG 0 (0-99); PLATELET COUNT 102 10^3/uL (150-400); RED BLOOD CELL COUNT 2.45 10^6/uL (4.18-5.33); RED CELL DISTRIBUTION WIDTH 19.2 % (11.5-15.2)
[2016-11-22 04:54] LABS: INR 0.95 (0.83-1.16); PROTIME(PATIENT) 12.6 SEC (12.0-15.0)
[2016-11-22 04:55] LABS: APTT 31.1 SEC (23.0-38.0)
[2016-11-22 05:00] LABS: ALANINE AMINOTRANSFERASE 24 IU/L (9-52); ALBUMIN 2.8 g/dL (3.5-5.0); ALKALINE PHOSPHATASE 71 IU/L (38-126); ANION GAP 9 mEq/L (8-16); ASPARTATE AMINOTRANSFERASE 16 IU/L (14-46); BILIRUBIN,TOTAL 0.3 mg/dL (0.1-1.4); CALCIUM 8.3 mg/dL (8.5-10.4); CARBON DIOXIDE 26 mEq/l (22-31); CHLORIDE 101 mEq/L (97-110); CREATININE 0.4 mg/dL (0.6-1.0); GLOMERULAR FILTRATION RATE > 60; GLUCOSE 98 mg/dL (70-100); MAGNESIUM 1.8 mg/dL (1.6-2.3); POTASSIUM 3.6 mEq/L (3.5-5.2); SODIUM 136 mEq/L (134-144); TRIGLYCERIDE 153 mg/dL (35-135)
[2016-11-22 05:23] LABS: PLATELET ESTIMATE DECREASED (ADEQ)
[2016-11-22] MEDS: LEVOTHYROXINE 75 MCG TAB TUBE SCH (05:42)
[2016-11-22] MEDS: NYSTATIN SUSP 500000 UNIT/5 ML UDCUP PO SCH ×4 (06:49→23:10)
[2016-11-22] MEDS: PROMETHAZINE HCL 25 MG/ML INJ IVP PRN (07:49)
[2016-11-22] MEDS: GABAPENTIN 300 MG CAP TUBE SCH ×3 (09:16→23:09)
[2016-11-22] MEDS: LANSOPRAZOLE SUSP 30MG/10ML UDSYR (Adult) TUBE SCH ×2 (09:16→23:09)
[2016-11-22] MEDS: ENOXAPARIN 40 MG/0.4 ML SYR SC SCH (09:16)
[2016-11-22] MEDS: MBX SOLN 30 ML BOTTLE PO PRN (09:17)
[2016-11-22] MEDS: FLUTICASONE NASAL 120 SPRAYS/16 GM MDI EACHNARE SCH (09:18)
[2016-11-22] MEDS: MAGNESIUM HYDROXIDE 30 ML UDCUP TUBE SCH (09:18)
[2016-11-22] MEDS: BIOTENE DRY MOUTH MOUTHWASH 237 ML BTL MM SCH ×3 (09:19→21:10)
[2016-11-22] MEDS: clonazePAM 1 MG TAB PO SCH (09:21)
[2016-11-22] MEDS: PATCH REMOVAL 1 EA PATCH TD SCH (09:30)
[2016-11-22] MEDS: SALMETER IH SCH (11:15)
[2016-11-22] MEDS: FLUTICASONE IH SCH (11:15)
[2016-11-22] MEDS: ONDANSETRON 4 MG/2 ML VIAL IVP PRN (11:27)
[2016-11-22] MEDS ORDERED: MAGNESIUM SULF 1 GM/DEXTROSE 100 ML IV ONE (12:00)
--- NOTE | 2016-11-22 12:46 | SOAPPROG ---
SOAP Progress Note Assessment/Plan: Assessment: E&M for H&N cancer * SCC H&N; TxN2b: week 5 of weekly cisplatin + xrt. Received cis 30mg/m2 10/23, 11/01, 11/09, 11/19. Has 2 or 3 more radiation treatments to finished. * Severe protein calorie malnutrition and FTT: On TPN. Too high residuals for TF. * Cancer related pain: Fentanyl patch and methadone stopped as not helping. Pain generally controlled with oxycodone but needs occasional extra for breakthrough. Will try also increasing gabapentin * Pyometra/diverticulitis - abx stopped by Dr Nicholson's * Anemia: multifactorial due to chronic inflammation, malnutrition, chemotherapy. transfuse for <7.0. Currently stable. * Dysphonia: related to radiation. Will continue magic mouthwash and add nystatin. Pain with swallowing but no trouble breathing. * Disposition: once therapy is complete then she will need prolonged rehabilitation. Subjective: Anxious about having and being able to control pain. No new problems. Throat still sore. Objective: 11/22/16 12:45 Objective: Vital Signs Temp Pulse Resp BP Pulse Ox 98.1 F 82 12 127/82 H 92 11/22/16 07:30 11/22/16 12:11 11/22/16 12:11 11/22/16 07:30 11/22/16 12:11 Laboratory Results 11/22/16 04:25 11/22/16 04:25 11/21/16 11/22/16 11/23/16 05:59 05:59 05:59 Intake Total 1904 1580 Output Total 1710 950 Balance 194 630 PT 12.6 SEC (12.0-15.0) 11/22/16 04:25 INR 0.95 (0.83-1.16) 11/22/16 04:25 Physical Exam - Physical Exam General Appearance: other (sleepy post rt) ICD10 Worksheet Patient Problems: Problems Problem Status Onset Cachexia Acute Dehydration Acute Head and neck cancer Acute Fever Acute Palliative care encounter Acute
[2016-11-22] MEDS: oxyCODONE ORAL SOLUTION 10 MG/0.5 ML UDSYR TUBE PRN (15:25)
--- NOTE | 2016-11-22 15:36 | HOSPPROG ---
Hospitalist Progress Note Assessment/Plan: DIAGNOSES: # head and neck squamous cell cancer -currently getting XRT/chemo (2 more doses of RT after today so will complete 11/24) -cisplatin should be done now therefore # neutropenia after chemotherapy -slightly lower count today but trend is stable # severe protein calorie malnutrition, with cachexia, ongoing -not tolerating PEG food with high residuals, currently receiving TPN, unable to eat # encephalopathy, multifactorial with chemotherapy and cancer # FTT - multifactorial; she is overwhelmed by her self care duties (PICC, PEG, ostomy) - nutrition, PT, OT, CM assistance # uncontrolled cancer pain - sounds somewhat better today # hx pyometra/diverticulitis - now off antibiotic without recurrence of fever or symptoms # ostomy (recent perforated colon treated elsewhere): no problems w ostomy or appliances # dvt ppx - lovenox 30 I have reviewed her progress and plans with Dr Dior today PLANS: -continue radiation therapy, 2 doses left -continue TPN -ostomy care -DVT prophylaxis -physical occupational therapy -holding on her tube feeds as she could not take even 10 ml per hour DISPOSITION: She will need [facility] care for rehabilitation once she has completed her radiation therapy SUBJECTIVE: tolerated Rad Tx well today very fatigued still some CONWAY but better controlled today remains extremely weak OBJECTIVE Vitals reviewed: stable without fever Exam: Severe cachexia alert somewhat a bit better oriented at the moment skin warm dry pale, no jaundice resps not labored lungs clear BSs heart regular abd soft nondistended nontender, bowel sounds present limbs warm, no edema iv site ok Lab data: abit more neutropenic today at 910, otherwise stable (no fevers) Objective: Vital Signs Temp Pulse Resp BP Pulse Ox 37.0 C 80 16 139/64 H 95 11/22/16 14:59 11/22/16 14:59 11/22/16 14:59 11/22/16 14:59 11/22/16 14:59 Laboratory Results 11/22/16 04:25 11/22/16 04:25 11/21/16 11/22/16 11/23/16 06:59 06:59 06:59 Intake Total 1904 1580 Output Total 9380 710 2105 Balance 194 630 -1300 PT 12.6 SEC (12.0-15.0) 11/22/16 04:25 INR 0.95 (0.83-1.16) 11/22/16 04:25 ICD10 Worksheet Patient Problems: Problems Problem Status Onset Cachexia Acute Dehydration Acute Head and neck cancer Acute Fever Acute Palliative care encounter Acute
[2016-11-22] MEDS: TPN 1 EA BAG IV SCH (21:09)
[2016-11-22] MEDS: LIDOCAINE 5% 1 EA PATCH TD SCH (21:09)
[2016-11-23] MEDS: traMADol 50 MG TAB TUBE PRN ×2 (05:09→23:13)
[2016-11-23] MEDS: PROMETHAZINE HCL 25 MG/ML INJ IVP PRN ×3 (05:09→16:48)
[2016-11-23] MEDS: NYSTATIN SUSP 500000 UNIT/5 ML UDCUP PO SCH ×4 (06:14→22:03)
[2016-11-23] MEDS: LEVOTHYROXINE 75 MCG TAB TUBE SCH (06:31)
[2016-11-23] MEDS: oxyCODONE ORAL SOLUTION 10 MG/0.5 ML UDSYR TUBE PRN ×2 (08:07→11:59)
[2016-11-23] MEDS: GABAPENTIN 300 MG CAP TUBE SCH ×3 (08:07→22:02)
[2016-11-23] MEDS: MAGNESIUM HYDROXIDE 30 ML UDCUP TUBE SCH (08:07)
[2016-11-23] MEDS: ENOXAPARIN 40 MG/0.4 ML SYR SC SCH (08:07)
[2016-11-23] MEDS: LANSOPRAZOLE SUSP 30MG/10ML UDSYR (Adult) TUBE SCH ×2 (08:07→22:02)
[2016-11-23] MEDS: PATCH REMOVAL 1 EA PATCH TD SCH (08:08)
[2016-11-23] MEDS: clonazePAM 1 MG TAB PO SCH (08:10)
[2016-11-23] MEDS: ONDANSETRON 4 MG/2 ML VIAL IVP PRN ×2 (08:11→16:48)
--- NOTE | 2016-11-23 08:27 | SOAPPROG ---
SOAP Progress Note Assessment/Plan: Assessment: E&M for H&N cancer * SCC H&N; TxN2b: week 5 of weekly cisplatin + xrt. Received cis 30mg/m2 10/23, 11/01, 11/09, 11/19. Has 2 more radiation treatments to finish. * Severe protein calorie malnutrition and FTT: On TPN. Too high residuals for TF. * Cancer related pain: Fentanyl patch and methadone stopped as not helping. Pain generally controlled with oxycodone but needs occasional extra for breakthrough. Will try also increasing gabapentin * Pyometra/diverticulitis - abx stopped by Dr Nicholson's * Anemia: multifactorial due to chronic inflammation, malnutrition, chemotherapy. transfuse for <7.0. Currently stable. * Dysphonia: related to radiation. Will continue magic mouthwash and add nystatin. Pain with swallowing but no trouble breathing. * Disposition: once therapy is complete then she will need prolonged rehabilitation.Plan is for pet 2 to 3 months post completion therapy, may need resection residual r neck mass if residual cancer Subjective: Headache and nausea this am Objective: 11/22/16 12:45 11/23/16 08:20 Objective: Vital Signs Temp Pulse Resp BP Pulse Ox 98.0 F 88 15 141/83 H 92 11/23/16 05:39 11/23/16 05:39 11/23/16 05:39 11/23/16 05:39 11/23/16 05:39 Laboratory Results 11/22/16 04:25 11/22/16 04:25 11/22/16 11/23/16 11/24/16 05:59 05:59 05:59 Intake Total 1580 1524 Output Total 950 2500 Balance 630 -976 PT 12.6 SEC (12.0-15.0) 11/22/16 04:25 INR 0.95 (0.83-1.16) 11/22/16 04:25 Physical Exam - Physical Exam General Appearance: cachetic Respiratory: lungs clear Cardiac/Chest: regular rate, rhythm Abdomen: normal bowel sounds ICD10 Worksheet Patient Problems: Problems Problem Status Onset Cachexia Acute Dehydration Acute Head and neck cancer Acute Fever Acute Palliative care encounter Acute
[2016-11-23] MEDS: FLUTICASONE NASAL 120 SPRAYS/16 GM MDI EACHNARE SCH (09:57)
[2016-11-23] MEDS: BIOTENE DRY MOUTH MOUTHWASH 237 ML BTL MM SCH ×3 (09:58→22:03)
[2016-11-23] MEDS: FLUTICASONE IH SCH (11:20)
[2016-11-23] MEDS: SALMETER IH SCH (11:20)
[2016-11-23] MEDS: SCOPOLAMINE HYDROBROMIDE 1.5 MG PATCH TD SCH (11:54)
--- NOTE | 2016-11-23 15:42 | HOSPPROG ---
Hospitalist Progress Note Assessment/Plan: DIAGNOSES: # head and neck squamous cell cancer -currently getting XRT/chemo (1 more dose of RT after today) -cisplatin should be done now therefore # neutropenia after chemotherapy # severe protein calorie malnutrition, with cachexia, ongoing -not tolerating PEG food with high residuals, currently receiving TPN, unable to eat # encephalopathy, multifactorial with chemotherapy and cancer # FTT - multifactorial; she is overwhelmed by her self care duties (PICC, PEG, ostomy) - nutrition, PT, OT, CM assistance # uncontrolled cancer pain - sounds somewhat better today # hx pyometra/diverticulitis - now off antibiotic without recurrence of fever or symptoms # ostomy (recent perforated colon treated elsewhere): no problems w ostomy or appliances # dvt ppx - lovenox 30 I have reviewed her progress and plans with Dr Dior today PLANS: -continue radiation therapy, her last doses tomorrow -continue TPN -ostomy care -DVT prophylaxis -physical occupational therapy -holding on her tube feeds as she could not take even 10 ml per hour DISPOSITION: She will need [facility] facility care for rehabilitation once she has completed her radiation therapy SUBJECTIVE: tolerated Rad Tx well again today, has her last dose scheduled for tomorrow very fatigued still, headache and other pains continue to improve slowly remains extremely weak OBJECTIVE Vitals reviewed: stable without fever Exam: Severe cachexia alert better oriented today but still mildly disoriented skin warm dry pale, no jaundice resps not labored lungs clear BSs heart regular ostomy looks good and functioning well abd soft nondistended nontender, bowel sounds present, limbs warm, no edema iv site ok Objective: Vital Signs Temp Pulse Resp BP Pulse Ox 36.4 C 89 12 116/69 92 11/23/16 09:00 11/23/16 11:21 11/23/16 11:21 11/23/16 09:00 11/23/16 11:21 Laboratory Results 11/22/16 04:25 11/22/16 04:25 11/22/16 11/23/16 11/24/16 06:59 06:59 06:59 Intake Total 1580 1524 Output Total 950 2500 Balance 630 -976 PT 12.6 SEC (12.0-15.0) 11/22/16 04:25 INR 0.95 (0.83-1.16) 11/22/16 04:25 ICD10 Worksheet Patient Problems: Problems Problem Status Onset Cachexia Acute Dehydration Acute Head and neck cancer Acute Fever Acute Palliative care encounter Acute
[2016-11-23] MEDS: TPN 1 EA BAG IV SCH (20:26)
[2016-11-23] MEDS: LIDOCAINE 5% 1 EA PATCH TD SCH (23:26)
[2016-11-24] MEDS: PROMETHAZINE HCL 25 MG/ML INJ IVP PRN ×4 (01:27→21:34)
[2016-11-24] MEDS: ONDANSETRON 4 MG/2 ML VIAL IVP PRN ×3 (03:40→15:38)
[2016-11-24] MEDS: PROCHLORPERAZINE MALEATE 10 MG TAB TUBE PRN (04:27)
[2016-11-24] MEDS: clonazePAM 1 MG TAB PO PRN (04:31)
[2016-11-24 05:41] LABS: ANION GAP 8 mEq/L (8-16); CALCIUM 8.2 mg/dL (8.5-10.4); CARBON DIOXIDE 24 mEq/l (22-31); CHLORIDE 101 mEq/L (97-110); CREATININE 0.4 mg/dL (0.6-1.0); GLOMERULAR FILTRATION RATE > 60; GLUCOSE 83 mg/dL (70-100); MAGNESIUM 1.7 mg/dL (1.6-2.3); POTASSIUM 4.3 mEq/L (3.5-5.2); SODIUM 133 mEq/L (134-144)
[2016-11-24] MEDS: LEVOTHYROXINE 75 MCG TAB TUBE SCH (06:34)
[2016-11-24] MEDS: METOCLOPRAMIDE 10 MG TAB TUBE PRN ×2 (06:34→18:55)
[2016-11-24] MEDS: NYSTATIN SUSP 500000 UNIT/5 ML UDCUP PO SCH ×4 (07:24→21:34)
[2016-11-24] MEDS: MAGNESIUM HYDROXIDE 30 ML UDCUP TUBE SCH (08:26)
[2016-11-24] MEDS: LANSOPRAZOLE SUSP 30MG/10ML UDSYR (Adult) TUBE SCH ×2 (08:26→21:44)
[2016-11-24] MEDS: GABAPENTIN 300 MG CAP TUBE SCH ×3 (08:26→21:34)
[2016-11-24] MEDS: ENOXAPARIN 40 MG/0.4 ML SYR SC SCH (08:26)
[2016-11-24] MEDS: clonazePAM 1 MG TAB PO SCH (08:26)
[2016-11-24] MEDS ORDERED: MAGNESIUM SULF 1 GM/DEXTROSE 100 ML IV ONE (09:00)
[2016-11-24] MEDS: FLUTICASONE IH SCH (09:15)
[2016-11-24] MEDS: SALMETER IH SCH (09:15)
--- NOTE | 2016-11-24 09:57 | SOAPPROG ---
SOAP Progress Note Assessment/Plan: Assessment: E&M for H&N cancer * SCC H&N; TxN2b: week 5 of weekly cisplatin + xrt. Received cis 30mg/m2 10/23, 11/01, 11/09, 11/19. Finishes RT today. If nausea persists , consider low dose zyprexa * Severe protein calorie malnutrition and FTT: On TPN. Too high residuals for TF. * Cancer related pain: Fentanyl patch and methadone stopped as not helping. Pain generally controlled with oxycodone but needs occasional extra for breakthrough. Will try also increasing gabapentin * Pyometra/diverticulitis - abx stopped by Dr Nicholson's * Anemia: multifactorial due to chronic inflammation, malnutrition, chemotherapy. transfuse for <7.0. Currently stable. * Dysphonia: related to radiation. Will continue magic mouthwash and add nystatin. Pain with swallowing but no trouble breathing. * Disposition: once therapy is complete then she will need prolonged rehabilitation.Plan is for pet 2 to 3 months post completion therapy, may need resection residual r neck mass if residual cancer Subjective: Headache and nausea this am, feels pretty miserable Objective: 11/22/16 12:45 11/23/16 08:20 11/24/16 09:53 Objective: Vital Signs Temp Pulse Resp BP Pulse Ox 98.4 F 99 12 142/78 H 91 L 11/24/16 08:00 11/24/16 09:16 11/24/16 09:16 11/24/16 08:00 11/24/16 09:16 Laboratory Results 11/22/16 04:25 11/24/16 05:00 11/23/16 11/24/16 11/25/16 05:59 05:59 05:59 Intake Total 1524 1521 200 Output Total 2500 50 200 Balance -976 1471 0 PT 12.6 SEC (12.0-15.0) 11/22/16 04:25 INR 0.95 (0.83-1.16) 11/22/16 04:25 Physical Exam - Physical Exam General Appearance: cachetic Abdomen: non-tender, No normal bowel sounds (bs decreased) ICD10 Worksheet Patient Problems: Problems Problem Status Onset Cachexia Acute Dehydration Acute Head and neck cancer Acute Fever Acute Palliative care encounter Acute
[2016-11-24] MEDS: FLUTICASONE NASAL 120 SPRAYS/16 GM MDI EACHNARE SCH (10:06)
[2016-11-24] MEDS: PATCH REMOVAL 1 EA PATCH TD SCH (10:06)
[2016-11-24] MEDS: BIOTENE DRY MOUTH MOUTHWASH 237 ML BTL MM SCH ×3 (11:34→21:48)
[2016-11-24] MEDS: NS 1,000 ML IV SCH (11:34)
[2016-11-24] MEDS: oxyCODONE ORAL SOLUTION 10 MG/0.5 ML UDSYR TUBE PRN ×2 (11:39→18:55)
--- NOTE | 2016-11-24 17:21 | HOSPPROG ---
Hospitalist Progress Note Assessment/Plan: # head and neck squamous cell cancer -currently getting XRT/chemo, last dose radiation today -cisplatin done -discussed care plan with Dr Dior, hopeful dc to LTAC vs SNF depending upon if able to TF vs TPN # neutropenia after chemotherapy -stable #anemia -stable, transfuse per heme/onc if < 7 hgb # severe protein calorie malnutrition, with cachexia -not tolerating PEG food, receiving TPN, unable to eat -? if palliative considered (do not see consult in this hospitalization), will discuss with ONC tomorrow # encephalopathy, multifactorial with chemotherapy and cancer -clear sensorium currently # FTT - multifactorial - nutrition, PT, OT, CM assistance, to LTAC vs SNF # uncontrolled cancer pain -says OK with current regimen, unable to take long acting pain meds bc won't take orally # hx pyometra/diverticulitis - off antibiotic without recurrence of fever or symptoms # ostomy (recent perforated colon treated elsewhere) -stable, no problems w ostomy or appliances DVT prophy - lovenox FULL CODE, ? AD/LW/palliative DISPO: She will need assisted facility vs LTAC, discussed care plan with SW today and asked her to touch base with pt also Subjective: Worried about discharge, wants to be involved in decisions. + nausea. Says pain OK with meds. Objective: Vital Signs Temp Pulse Resp BP Pulse Ox 97.6 F 88 18 126/70 H 92 11/24/16 15:52 11/24/16 15:52 11/24/16 15:52 11/24/16 15:52 11/24/16 15:52 Laboratory Results 11/22/16 04:25 11/24/16 05:00 11/23/16 11/24/16 11/25/16 11:59 11:59 11:59 Intake Total 1524 1721 Output Total 2500 250 Balance -976 1471 PT 12.6 SEC (12.0-15.0) 11/22/16 04:25 INR 0.95 (0.83-1.16) 11/22/16 04:25 - Time Spent With Patient Time Spent with Patient: greater than 35 minutes Time Spent with Patient: Greater than 35 minutes spent on this patients care, greater than 50% of time spent counseling, educating, and coordinating care regarding the above mentioned plan. - Pending Discharge Pending Discharge Within 24 Hours: No Pending Discharge Within 48 Hours: Yes Pending Discharge Date: 11/26/16 Pending Discharge Time: 11:00 - Physical Exam Constitutional: chronically ill appearing, cachectic Eyes: anicteric sclera Ears, Nose, Mouth, Throat: moist mucous membranes Cardiovascular: regular rate and rhythym Respiratory: no respiratory distress, clear to auscultation Gastrointestinal: No guarding, No rebound Psychiatric: interacting appropriately, not encephalopathic ICD10 Worksheet Patient Problems: Problems Problem Status Onset Fever Acute Dehydration Acute Palliative care encounter Acute Cachexia Acute Head and neck cancer Acute
[2016-11-24] MEDS: traMADol 50 MG TAB TUBE PRN (19:46)
[2016-11-24] MEDS: TPN 1 EA BAG IV SCH (20:30)
[2016-11-24] MEDS: LIDOCAINE 5% 1 EA PATCH TD SCH (21:48)
[2016-11-25] MEDS: ONDANSETRON 4 MG/2 ML VIAL IVP PRN ×2 (01:39→14:59)
[2016-11-25] MEDS: clonazePAM 1 MG TAB PO PRN (01:44)
[2016-11-25] MEDS: PROCHLORPERAZINE MALEATE 10 MG TAB TUBE PRN ×2 (04:39→12:30)
[2016-11-25] MEDS: oxyCODONE ORAL SOLUTION 10 MG/0.5 ML UDSYR TUBE PRN ×3 (04:39→19:21)
[2016-11-25 05:06] LABS: ANION GAP 11 mEq/L (8-16); CALCIUM 8.4 mg/dL (8.5-10.4); CARBON DIOXIDE 22 mEq/l (22-31); CHLORIDE 103 mEq/L (97-110); CREATININE 0.4 mg/dL (0.6-1.0); GLOMERULAR FILTRATION RATE > 60; GLUCOSE 110 mg/dL (70-100); MAGNESIUM 1.8 mg/dL (1.6-2.3); POTASSIUM 4.2 mEq/L (3.5-5.2); SODIUM 136 mEq/L (134-144)
[2016-11-25 05:20] LABS: % IMMATURE GRANULYOCYTES 0.6 % (0.0-1.1); ABSOLUTE IMMATURE GRANULOCYTES 0.03 10^3/uL (0.00-0.10); ADD DIFF? NO; ADD MORPH? NO; ADD SCAN? NO; ATYPICAL LYMPHOCYTE FLAG 0 (0-99); FRAGMENT RBC FLAG 0 (0-99); HEMATOCRIT 25.3 % (38.0-47.0); HEMOGLOBIN 8.4 g/dL (12.6-16.3); LEFT SHIFT FLG 30 (0-99); LIPEMIA HEMOLYSIS FLAG 80 (0-99); MEAN CELL HEMOGLOBIN 31.8 pg (27.9-34.1); MEAN CELL HEMOGLOBIN CONCENTR. 33.2 g/dL (32.4-36.7); MEAN CELL VOLUME 95.8 fL (81.5-99.8); MEAN PLATELET VOLUME 9.9 fL (8.7-11.7); PLATELET CLUMPS FLAG 0 (0-99); PLATELET COUNT 100 10^3/uL (150-400); RED BLOOD CELL COUNT 2.64 10^6/uL (4.18-5.33); RED CELL DISTRIBUTION WIDTH 18.2 % (11.5-15.2)
[2016-11-25] MEDS: LEVOTHYROXINE 75 MCG TAB TUBE SCH (06:07)
[2016-11-25] MEDS: NYSTATIN SUSP 500000 UNIT/5 ML UDCUP PO SCH ×4 (06:08→20:35)
[2016-11-25] MEDS: traMADol 50 MG TAB TUBE PRN (06:34)
[2016-11-25] MEDS: FLUTICASONE IH SCH (09:23)
[2016-11-25] MEDS: SALMETER IH SCH (09:23)
[2016-11-25] MEDS: GABAPENTIN 300 MG CAP TUBE SCH ×3 (09:38→20:35)
[2016-11-25] MEDS: METOCLOPRAMIDE 10 MG TAB TUBE PRN ×2 (09:38→16:19)
[2016-11-25] MEDS: clonazePAM 1 MG TAB PO SCH ×2 (09:49→09:56)
[2016-11-25] MEDS: BIOTENE DRY MOUTH MOUTHWASH 237 ML BTL MM SCH ×2 (09:50→17:31)
[2016-11-25] MEDS: FLUTICASONE NASAL 120 SPRAYS/16 GM MDI EACHNARE SCH (09:50)
[2016-11-25] MEDS: MAGNESIUM HYDROXIDE 30 ML UDCUP TUBE SCH (09:51)
[2016-11-25] MEDS: PATCH REMOVAL 1 EA PATCH TD SCH (09:51)
[2016-11-25] MEDS: ENOXAPARIN 40 MG/0.4 ML SYR SC SCH (09:52)
[2016-11-25] MEDS: ACETAMINOPHEN 325 MG TAB TUBE PRN (10:48)
[2016-11-25] MEDS: LANSOPRAZOLE SUSP 30MG/10ML UDSYR (Adult) TUBE SCH ×2 (10:48→20:35)
--- NOTE | 2016-11-25 11:07 | WOCRNPDOC ---
WOCRN Advanced Assessment Note - Skin Integrity Problem, Advanced Assess Coccyx Pressure Injury Dressing Type: Allevyn Life Dressing Description: Clean/Dry, Intact Exudate Amount: None Exudate Color: Yellow Wound Bed Constitution: Dried Exudate Site Measurement - Head-to-Toe Length X Width X Depth (cm): 1x0.5x0 Pressure Injury Stage: Stage 3 Skin Integrity Problem Comment: Healing. No concerns. Pain is less in area. Wound care will sign off. Please reconsult prn.
[2016-11-25] MEDS: NS 1,000 ML IV SCH (12:30)
--- NOTE | 2016-11-25 15:21 | HOSPPROG ---
Hospitalist Progress Note Assessment/Plan: # head and neck squamous cell cancer -currently getting XRT/chemo, last dose radiation yesterday -cisplatin done -discussed care plan with Dr Dior, MIKE/HUBER, ready to discharge to SNF tomorrow # neutropenia after chemotherapy -stable #anemia -stable, transfuse per heme/onc if < 7 hgb # severe protein calorie malnutrition, with cachexia -not tolerating PEG food, receiving TPN, would like to try PO and tube feeds , but explained these can be adjusted at SNF -? if palliative considered, OK per ONC -MIKE/CM to discuss with her/sister # encephalopathy, multifactorial with chemotherapy and cancer -resolved # FTT - multifactorial - nutrition, PT, OT, CM assistance, SNF likely in AM # cancer pain -says OK with current regimen, unable to take long acting pain meds bc won't take orally # hx pyometra/diverticulitis - off antibiotic without recurrence of fever or symptoms # ostomy (recent perforated colon treated elsewhere) -stable, no problems w ostomy or appliances - trial tube feeds revwd with her, sister, pharmacy and master glazier #constipation -no BM in > 3 days -bowel regimen started DVT prophy - lovenox FULL CODE, ? AD/LW/palliative DISPO: likely discharge to intermediate facility tomorrow Subjective: Feels a bit better today, sister in room. Wants to try tube feeds again. Very nervous to leave hospital, won't go to LTAC, wants SNF. No BM in > 3 days. Objective: Vital Signs Temp Pulse Resp BP Pulse Ox 97.9 F 99 16 120/67 92 11/25/16 11:15 11/25/16 11:15 11/25/16 11:15 11/25/16 11:15 11/25/16 11:15 Laboratory Results 11/25/16 04:45 11/25/16 04:45 11/24/16 11/25/16 11/26/16 11:59 11:59 11:59 Intake Total 1721 1200 Output Total 250 1300 Balance 1471 -100 PT 12.6 SEC (12.0-15.0) 11/22/16 04:25 INR 0.95 (0.83-1.16) 11/22/16 04:25 - Time Spent With Patient Time Spent with Patient: greater than 25 minutes Time Spent with Patient: Greater than 25 minutes spent on this patients care, greater than 50% of time spent counseling, educating, and coordinating care regarding the above mentioned plan. - Pending Discharge Pending Discharge Within 24 Hours: Yes Pending Discharge Date: 11/26/16 Pending Discharge Time: 11:00 - Physical Exam Constitutional: chronically ill appearing, cachectic Cardiovascular: regular rate and rhythym Respiratory: no respiratory distress, no rales or rhonchi, clear to auscultation Psychiatric: interacting appropriately, not encephalopathic, thought process linear, anxious, flat affect, agitated ICD10 Worksheet Patient Problems: Problems Problem Status Onset Cachexia Acute Dehydration Acute Head and neck cancer Acute Fever Acute Palliative care encounter Acute
[2016-11-25] MEDS ORDERED: MAGNESIUM CITRATE 300 ML BOTTLE PO ONE (17:42)
[2016-11-25] MEDS ORDERED: SENNOSIDES 17.6 MG/10 ML UDL PO PRN (17:43)
[2016-11-25] MEDS ORDERED: LACTULOSE 20 GM/30 ML UDCUP PO PRN (17:43)
[2016-11-25] MEDS ORDERED: BISACODYL 10 MG SUPP PR PRN (17:43)
[2016-11-25] MEDS: TPN 1 EA BAG IV SCH (20:34)
[2016-11-25] MEDS: LIDOCAINE 5% 1 EA PATCH TD SCH (22:18)
[2016-11-26] MEDS: BIOTENE DRY MOUTH MOUTHWASH 237 ML BTL MM SCH ×4 (00:29→22:07)
[2016-11-26] MEDS: oxyCODONE ORAL SOLUTION 10 MG/0.5 ML UDSYR TUBE PRN ×2 (01:03→14:45)
[2016-11-26] MEDS: PROMETHAZINE HCL 25 MG/ML INJ IVP PRN ×2 (01:28→18:22)
[2016-11-26] MEDS: LEVOTHYROXINE 75 MCG TAB TUBE SCH (05:32)
[2016-11-26] MEDS: traMADol 50 MG TAB TUBE PRN ×2 (05:32→14:45)
[2016-11-26] MEDS: clonazePAM 1 MG TAB PO PRN (05:48)
[2016-11-26] MEDS: NYSTATIN SUSP 500000 UNIT/5 ML UDCUP PO SCH ×5 (05:58→22:12)
[2016-11-26] MEDS: clonazePAM 1 MG TAB PO SCH (08:17)
[2016-11-26] MEDS: ENOXAPARIN 40 MG/0.4 ML SYR SC SCH (09:23)
[2016-11-26] MEDS: FLUTICASONE NASAL 120 SPRAYS/16 GM MDI EACHNARE SCH (09:23)
[2016-11-26] MEDS: PATCH REMOVAL 1 EA PATCH TD SCH (09:24)
[2016-11-26] MEDS: SALMETER IH SCH (09:31)
[2016-11-26] MEDS: FLUTICASONE IH SCH (09:31)
[2016-11-26] MEDS: LANSOPRAZOLE SUSP 30MG/10ML UDSYR (Adult) TUBE SCH (09:40)
[2016-11-26 09:48] LABS: ANION GAP 10 mEq/L (8-16); CALCIUM 8.2 mg/dL (8.5-10.4); CARBON DIOXIDE 24 mEq/l (22-31); CHLORIDE 102 mEq/L (97-110); CREATININE 0.4 mg/dL (0.6-1.0); GLOMERULAR FILTRATION RATE > 60; GLUCOSE 106 mg/dL (70-100); MAGNESIUM 1.8 mg/dL (1.6-2.3); SODIUM 136 mEq/L (134-144)
[2016-11-26] MEDS: GABAPENTIN 300 MG CAP TUBE SCH ×3 (09:51→22:06)
[2016-11-26] MEDS: ONDANSETRON 4 MG/2 ML VIAL IVP PRN (09:51)
[2016-11-26] MEDS: MAGNESIUM HYDROXIDE 30 ML UDCUP TUBE SCH (09:51)
--- NOTE | 2016-11-26 11:00 | SOAPPROG ---
SOAP Progress Note Assessment/Plan: Assessment: E&M for H&N cancer * SCC H&N; TxN2b: week 5 of weekly cisplatin + xrt. Received cis 30mg/m2 10/23, 11/01, 11/09, 11/19. RT completed. Will try low dose zyprexa , some risk of extrapyramidal issues if contimued for care home with reglan * Severe protein calorie malnutrition and FTT: On TPN. Will try tube feedings again over the weekend * Cancer related pain: Fentanyl patch and methadone stopped as not helping. Pain generally controlled with oxycodone but needs occasional extra for breakthrough. Will try also increasing gabapentin * Pyometra/diverticulitis - abx stopped by Dr Nicholson's * Anemia: multifactorial due to chronic inflammation, malnutrition, chemotherapy. transfuse for <7.0. Currently stable. * Dysphonia: related to radiation. Will continue magic mouthwash and add nystatin. Pain with swallowing but no trouble breathing. * Disposition: D/C to rehab probably Tuesday Plan is for pet 2 to 3 months post completion therapy, may need resection residual r neck mass if residual cancer Subjective: Nausea this am Objective: 11/22/16 12:45 11/23/16 08:20 11/24/16 09:53 11/26/16 10:57 Objective: Vital Signs Temp Pulse Resp BP Pulse Ox 98.6 F 80 18 134/77 H 89 L 11/26/16 08:00 11/26/16 09:30 11/26/16 09:30 11/26/16 08:00 11/26/16 08:00 Laboratory Results 11/25/16 04:45 11/26/16 08:50 11/25/16 11/26/16 11/27/16 05:59 05:59 05:59 Intake Total 1400 1140 Output Total 1500 2445 Balance -100 -1305 PT 12.6 SEC (12.0-15.0) 11/22/16 04:25 INR 0.95 (0.83-1.16) 11/22/16 04:25 Physical Exam - Physical Exam General Appearance: mild distress Neck: other (Right neck mass decreased) ICD10 Worksheet Patient Problems: Problems Problem Status Onset Cachexia Acute Dehydration Acute Head and neck cancer Acute Fever Acute Palliative care encounter Acute
[2016-11-26] MEDS: METOCLOPRAMIDE 10 MG TAB TUBE SCH ×2 (11:52→16:57)
[2016-11-26] MEDS: SCOPOLAMINE HYDROBROMIDE 1.5 MG PATCH TD SCH (11:52)
--- NOTE | 2016-11-26 14:33 | HOSPPROG ---
Hospitalist Progress Note Assessment/Plan: # head and neck squamous cell cancer * Status post chemo and radiation # severe protein calorie malnutrition, with cachexia * This is the issue with keeping on the hospital * Chronic nausea - multifactorial but suspect component of anxiety * Would prefer for her to be on tube feeds are abdomen TPN when she goes to intermediate facility * Will try tube feeding again. * Schedule Reglan * Try acupuncture * Try Zyprexa at night # neutropenia after chemotherapy -stable #anemia -stable, transfuse per heme/onc if < 7 hgb # encephalopathy, multifactorial with chemotherapy and cancer -resolved # FTT - multifactorial - nutrition, PT, OT, CM assistance, SNF likely in AM # cancer pain -says OK with current regimen, unable to take long acting pain meds bc won't take orally # hx pyometra/diverticulitis - off antibiotic without recurrence of fever or symptoms # ostomy (recent perforated colon treated elsewhere) -stable, no problems w ostomy or appliances - trial tube feeds revwd with her, sister, pharmacy and software developer intern Subjective: Continued nausea Objective: Vital Signs Temp Pulse Resp BP Pulse Ox 37.0 C 80 18 134/77 H 89 L 11/26/16 08:00 11/26/16 09:30 11/26/16 09:30 11/26/16 08:00 11/26/16 08:00 Laboratory Results 11/25/16 04:45 11/26/16 08:50 11/25/16 11/26/16 11/27/16 05:59 05:59 05:59 Intake Total 1400 1140 Output Total 1500 2445 Balance -100 -1305 PT 12.6 SEC (12.0-15.0) 11/22/16 04:25 INR 0.95 (0.83-1.16) 11/22/16 04:25 Discussed with Oncology - Physical Exam Constitutional: no apparent distress, appears nourished, not in pain, chronically ill appearing, cachectic Eyes: anicteric sclera, EOMI Ears, Nose, Mouth, Throat: moist mucous membranes, hearing normal Cardiovascular: regular rate and rhythym, no murmur, rub, or gallop Respiratory: no respiratory distress, no rales or rhonchi, clear to auscultation Gastrointestinal: normoactive bowel sounds, soft, non-tender abdomen, no palpable masses, other (G-tube and colostomy) Skin: warm Neurologic: AAOx3 Psychiatric: interacting appropriately, not anxious, not encephalopathic, thought process linear ICD10 Worksheet Patient Problems: Problems Problem Status Onset Cachexia Acute Dehydration Acute Head and neck cancer Acute Fever Acute Palliative care encounter Acute
[2016-11-26] MEDS: TPN 1 EA BAG IV SCH (20:05)
[2016-11-26] MEDS: OLANZapine 2.5 MG TAB PO SCH (20:58)
[2016-11-26] MEDS: ACETAMINOPHEN 325 MG TAB TUBE PRN (20:59)
[2016-11-26] MEDS: LIDOCAINE 5% 1 EA PATCH TD SCH (22:12)
[2016-11-27] MEDS: ONDANSETRON DISINTEGRATING 4 MG TAB TUBE PRN (01:57)
[2016-11-27] MEDS: LEVOTHYROXINE 75 MCG TAB TUBE SCH (05:54)
[2016-11-27] MEDS: METOCLOPRAMIDE 10 MG TAB TUBE SCH ×3 (06:24→18:18)
[2016-11-27] MEDS: NYSTATIN SUSP 500000 UNIT/5 ML UDCUP PO SCH ×4 (06:32→20:30)
[2016-11-27] MEDS: oxyCODONE ORAL SOLUTION 10 MG/0.5 ML UDSYR TUBE PRN ×3 (07:56→23:55)
[2016-11-27] MEDS: PROCHLORPERAZINE MALEATE 10 MG TAB TUBE PRN (07:56)
[2016-11-27] MEDS: MAGNESIUM HYDROXIDE 30 ML UDCUP TUBE SCH (08:00)
[2016-11-27] MEDS: GABAPENTIN 300 MG CAP TUBE SCH ×3 (08:00→21:24)
[2016-11-27] MEDS: clonazePAM 1 MG TAB PO SCH (08:01)
[2016-11-27] MEDS: ENOXAPARIN 40 MG/0.4 ML SYR SC SCH (08:01)
[2016-11-27] MEDS: FLUTICASONE NASAL 120 SPRAYS/16 GM MDI EACHNARE SCH (08:08)
[2016-11-27] MEDS: MBX SOLN 30 ML BOTTLE PO PRN (08:10)
[2016-11-27] MEDS: PATCH REMOVAL 1 EA PATCH TD SCH (08:11)
[2016-11-27] MEDS: BIOTENE DRY MOUTH MOUTHWASH 237 ML BTL MM SCH ×3 (08:12→22:00)
[2016-11-27] MEDS: SALMETER IH SCH (08:44)
[2016-11-27] MEDS: FLUTICASONE IH SCH (08:44)
[2016-11-27] MEDS ORDERED: NS 1,000 ML IV ONE (10:51)
--- NOTE | 2016-11-27 11:35 | SOAPPROG ---
SOAP Progress Note Assessment/Plan: E&M for H&N cancer * SCC H&N; TxN2b: Has completed treatment with cisplatin + xrt. Received cis 30mg/m2 10/23, 11/01, 11/09, 11/19. Will try low dose zyprexa , some risk of extrapyramidal issues if contimued for outsole skiver with reglan * Severe protein calorie malnutrition and FTT: On TPN. Tube feeds resumed this morning. * Cancer related pain: Fentanyl patch and methadone stopped as not helping. Pain generally controlled with oxycodone but needs occasional extra for breakthrough. Will try also increasing gabapentin * Pyometra/diverticulitis - abx stopped by Dr Nicholson's * Anemia: multifactorial due to chronic inflammation, malnutrition, chemotherapy. transfuse for <7.0. Currently stable. * Dysphonia: related to radiation. Will continue magic mouthwash and add nystatin. Pain with swallowing but no trouble breathing. * Disposition: D/C to rehab probably Tuesday Plan is for pet 2 to 3 months post completion therapy, may need resection residual r neck mass if residual cancer 11/27/16 11:32 Subjective: anxious about having tube feeds resumed, but thus far, doing well wtih them. Oxycodone continues to help the pain Objective: Vital Signs Temp Pulse Resp BP Pulse Ox 36.6 C 92 20 124/67 H 96 11/27/16 08:20 11/27/16 08:42 11/27/16 08:42 11/27/16 08:20 11/27/16 08:42 Laboratory Results 11/25/16 04:45 11/26/16 08:50 11/26/16 11/27/16 11/28/16 05:59 05:59 05:59 Intake Total 3052 570 0821 Output Total 2445 200 600 Balance -4796 566 7373 PT 12.6 SEC (12.0-15.0) 11/22/16 04:25 INR 0.95 (0.83-1.16) 11/22/16 04:25 Physical Exam - Physical Exam General Appearance: cachetic Neck: other (firm mass at the angle of the right jaw is smaller compared to start of treatment) Respiratory: lungs clear Abdomen: soft, other (ostomy and feeding tube) Extremities: No pedal edema Neuro/Psych: alert, oriented x 3 (somewhat anxious) ICD10 Worksheet Patient Problems: Problems Problem Status Onset Cachexia Acute Dehydration Acute Head and neck cancer Acute Fever Acute Palliative care encounter Acute
--- NOTE | 2016-11-27 13:03 | HOSPPROG ---
Hospitalist Progress Note Assessment/Plan: # head and neck squamous cell cancer * Status post chemo and radiation # severe protein calorie malnutrition, with cachexia * This is the issue with keeping on the hospital * Chronic nausea - multifactorial but suspect component of anxiety * Would prefer for her to be on tube feeds are abdomen TPN [facility] * Will try tube feeding again. * Schedule Reglan * Try acupuncture * Try Zyprexa at night # neutropenia after chemotherapy -stable #anemia -stable, transfuse per heme/onc if < 7 hgb # encephalopathy, multifactorial with chemotherapy and cancer -resolved # FTT - multifactorial - nutrition, PT, OT, CM assistance, SNF likely in AM # cancer pain -says OK with current regimen, unable to take long acting pain meds bc won't take orally # hx pyometra/diverticulitis - off antibiotic without recurrence of fever or symptoms # ostomy (recent perforated colon treated elsewhere) -stable, no problems w ostomy or appliances - trial tube feeds revwd with her, sister, pharmacy and sql report writer Subjective: doing ok with tube feeds so far Objective: Vital Signs Temp Pulse Resp BP Pulse Ox 36.6 C 92 20 124/67 H 96 11/27/16 08:20 11/27/16 08:42 11/27/16 08:42 11/27/16 08:20 11/27/16 08:42 Laboratory Results 11/25/16 04:45 11/26/16 08:50 11/26/16 11/27/16 11/28/16 05:59 05:59 05:59 Intake Total 4628 371 4907 Output Total 2445 200 600 Balance -1168 135 0568 PT 12.6 SEC (12.0-15.0) 11/22/16 04:25 INR 0.95 (0.83-1.16) 11/22/16 04:25 - Physical Exam Constitutional: no apparent distress, appears nourished, not in pain, chronically ill appearing, cachectic Eyes: PERRL, anicteric sclera Ears, Nose, Mouth, Throat: dry mucous membranes Cardiovascular: regular rate and rhythym, no murmur, rub, or gallop Respiratory: no respiratory distress, no rales or rhonchi, clear to auscultation Gastrointestinal: normoactive bowel sounds, soft, non-tender abdomen, no palpable masses Neurologic: AAOx3 Psychiatric: interacting appropriately, not anxious, not encephalopathic, thought process linear ICD10 Worksheet Patient Problems: Problems Problem Status Onset Cachexia Acute Dehydration Acute Head and neck cancer Acute Fever Acute Palliative care encounter Acute
[2016-11-27] MEDS: clonazePAM 1 MG TAB PO PRN (16:48)
[2016-11-27] MEDS: TPN 1 EA BAG IV SCH (20:30)
[2016-11-27] MEDS: OLANZapine 2.5 MG TAB PO SCH (20:30)
[2016-11-27] MEDS: LIDOCAINE 5% 1 EA PATCH TD SCH (20:47)
[2016-11-27] MEDS: PROMETHAZINE HCL 25 MG/ML INJ IVP PRN (23:54)
[2016-11-28] MEDS: LEVOTHYROXINE 75 MCG TAB TUBE SCH (06:18)
[2016-11-28] MEDS: METOCLOPRAMIDE 10 MG TAB TUBE SCH ×3 (06:19→18:43)
[2016-11-28] MEDS: FLUTICASONE IH SCH (08:43)
[2016-11-28] MEDS: SALMETER IH SCH (08:43)
[2016-11-28] MEDS: NYSTATIN SUSP 500000 UNIT/5 ML UDCUP PO SCH ×4 (09:14→20:06)
[2016-11-28] MEDS: MAGNESIUM HYDROXIDE 30 ML UDCUP TUBE SCH (09:16)
[2016-11-28] MEDS: GABAPENTIN 300 MG CAP TUBE SCH ×3 (09:16→21:56)
[2016-11-28] MEDS: clonazePAM 1 MG TAB PO SCH (09:16)
[2016-11-28] MEDS: ENOXAPARIN 40 MG/0.4 ML SYR SC SCH (09:17)
[2016-11-28] MEDS: BIOTENE DRY MOUTH MOUTHWASH 237 ML BTL MM SCH ×3 (09:18→22:23)
[2016-11-28] MEDS: FLUTICASONE NASAL 120 SPRAYS/16 GM MDI EACHNARE SCH (09:18)
[2016-11-28] MEDS: PATCH REMOVAL 1 EA PATCH TD SCH (09:19)
[2016-11-28] MEDS: MBX SOLN 30 ML BOTTLE PO PRN (09:20)
[2016-11-28] MEDS: CYCLOBENZAPRINE 10 MG TAB PO PRN ×2 (11:25→18:43)
[2016-11-28] MEDS: ACETAMINOPHEN 325 MG TAB TUBE PRN (11:25)
[2016-11-28] MEDS: oxyCODONE ORAL SOLUTION 10 MG/0.5 ML UDSYR TUBE PRN ×2 (13:17→16:28)
--- NOTE | 2016-11-28 13:17 | HOSPPROG ---
Hospitalist Progress Note Assessment/Plan: # head and neck squamous cell cancer * Status post chemo and radiation # severe protein calorie malnutrition, with cachexia * This is the issue with keeping on the hospital * Chronic nausea - multifactorial but suspect component of anxiety * Would prefer for her to be on tube feeds are abdomen TPN when she goes to shelter facility * nightly Zyprexa may be helping * on scheduled Reglan * may try to get acupuncture to see tomorrow * overall is improving - will push up tube feed rate today and tonight - she is at 10 cc an hour now and goal is 60 # neutropenia after chemotherapy -stable #anemia -stable, transfuse per heme/onc if < 7 hgb # encephalopathy, multifactorial with chemotherapy and cancer -resolved # FTT - multifactorial - nutrition, PT, OT, CM assistance, SNF likely in AM # cancer pain -says OK with current regimen, unable to take long acting pain meds bc won't take orally # hx pyometra/diverticulitis - off antibiotic without recurrence of fever or symptoms # ostomy (recent perforated colon treated elsewhere) -stable, no problems w ostomy or appliances - trial tube feeds revwd with her, sister, pharmacy and phone specialist Subjective: had a fall this morning. Complaining of some back spasms afterwards Objective: Vital Signs Temp Pulse Resp BP Pulse Ox 36.6 C 88 16 129/69 H 92 11/28/16 08:00 11/28/16 08:44 11/28/16 08:44 11/28/16 08:44 11/28/16 08:44 Laboratory Results 11/25/16 04:45 11/26/16 08:50 11/27/16 11/28/16 11/29/16 05:59 05:59 05:59 Intake Total 520 3994 Output Total 200 800 Balance 320 3194 PT 12.6 SEC (12.0-15.0) 11/22/16 04:25 INR 0.95 (0.83-1.16) 11/22/16 04:25 discussed with Oncology - Physical Exam Constitutional: no apparent distress, not in pain, chronically ill appearing, cachectic Eyes: anicteric sclera Ears, Nose, Mouth, Throat: moist mucous membranes Cardiovascular: regular rate and rhythym Respiratory: no respiratory distress, no rales or rhonchi, clear to auscultation Gastrointestinal: normoactive bowel sounds, soft, non-tender abdomen, no palpable masses Skin: warm Musculoskeletal: other ( no back tenderness on any bony structures) Neurologic: AAOx3 Psychiatric: interacting appropriately, not anxious, not encephalopathic, thought process linear ICD10 Worksheet Patient Problems: Problems Problem Status Onset Cachexia Acute Dehydration Acute Head and neck cancer Acute Fever Acute Palliative care encounter Acute
[2016-11-28] MEDS: TPN 1 EA BAG IV SCH (20:05)
[2016-11-28] MEDS: LIDOCAINE 5% 1 EA PATCH TD SCH (20:06)
[2016-11-28] MEDS: OLANZapine 2.5 MG TAB PO SCH (21:57)
[2016-11-29] MEDS: clonazePAM 1 MG TAB PO PRN ×2 (01:28→18:50)
[2016-11-29] MEDS: CYCLOBENZAPRINE 10 MG TAB PO PRN (01:28)
[2016-11-29] MEDS ORDERED: NS 1,000 ML IV ONE (04:25)
[2016-11-29 04:54] LABS: % IMMATURE GRANULYOCYTES 0.9 % (0.0-1.1); ABSOLUTE IMMATURE GRANULOCYTES 0.04 10^3/uL (0.00-0.10); ADD DIFF? NO; ADD MORPH? NO; ADD SCAN? NO; ATYPICAL LYMPHOCYTE FLAG 0 (0-99); FRAGMENT RBC FLAG 0 (0-99); HEMATOCRIT 21.8 % (38.0-47.0); HEMOGLOBIN 7.2 g/dL (12.6-16.3); LEFT SHIFT FLG 10 (0-99); LIPEMIA HEMOLYSIS FLAG 80 (0-99); MEAN CELL HEMOGLOBIN 31.6 pg (27.9-34.1); MEAN CELL VOLUME 95.6 fL (81.5-99.8); MEAN PLATELET VOLUME 9.7 fL (8.7-11.7); PLATELET CLUMPS FLAG 0 (0-99); PLATELET COUNT 83 10^3/uL (150-400); RED BLOOD CELL COUNT 2.28 10^6/uL (4.18-5.33); RED CELL DISTRIBUTION WIDTH 18.5 % (11.5-15.2)
[2016-11-29 05:01] LABS: INR 1.03 (0.83-1.16); PROTIME(PATIENT) 13.4 SEC (12.0-15.0)
[2016-11-29 05:02] LABS: APTT 35.5 SEC (23.0-38.0)
[2016-11-29 05:23] LABS: ALANINE AMINOTRANSFERASE 27 IU/L (9-52); ALBUMIN 2.9 g/dL (3.5-5.0); ALKALINE PHOSPHATASE 90 IU/L (38-126); ANION GAP 10 mEq/L (8-16); ASPARTATE AMINOTRANSFERASE 16 IU/L (14-46); BILIRUBIN,TOTAL 0.4 mg/dL (0.1-1.4); CALCIUM 8.3 mg/dL (8.5-10.4); CARBON DIOXIDE 22 mEq/l (22-31); CHLORIDE 99 mEq/L (97-110); CREATININE 0.4 mg/dL (0.6-1.0); GLOMERULAR FILTRATION RATE > 60; GLUCOSE 100 mg/dL (70-100); MAGNESIUM 1.7 mg/dL (1.6-2.3); POTASSIUM 4.3 mEq/L (3.5-5.2); SODIUM 131 mEq/L (134-144); TOTAL PROTEIN 5.4 g/dL (6.3-8.2); TRIGLYCERIDE 91 mg/dL (35-135)
[2016-11-29] MEDS: LEVOTHYROXINE 75 MCG TAB TUBE SCH (05:57)
[2016-11-29] MEDS: NYSTATIN SUSP 500000 UNIT/5 ML UDCUP PO SCH ×4 (06:04→22:43)
[2016-11-29] MEDS ORDERED: MAGNESIUM SULF 1 GM/DEXTROSE 100 ML IV ONE (08:00)
--- NOTE | 2016-11-29 08:39 | HOSPPROG ---
Hospitalist Progress Note Assessment/Plan: 70 yo female with head and neck cancer squamous cell, FTT, cachexia, on tube feedings with increasing rate. Patient new to me today. -head and neck squamous cell carcinoma: Patient is status post chemo and radiation therapy and per Oncology no further chemo radiation will be given. She is stable in this regard and will be followed by Oncology. -pneumonia right lower lobe and left lower lobe, new problem: This is a new finding since admission and may be contributing to her weakness and cachexia. With the CT scan from October on my review shows no evidence of pneumonia the she has developed this since that time. Will begin pulmonary care of antibiotics bronchodilators and obtain a swallowing study as the patient is taking oral food. The etiology here is likely aspiration. -neutropenia after chemotherapy: Stable -anemia: This is secondary to her cachexia and her radiation and chemotherapy. The hemoglobin is improved post transfusion. We will further transfuse for hemoglobin less than 7. -SPCM: Multifactorial secondary to the pneumonia cancer and radiation and chemotherapy. Patient is currently on tube feedings and we are increasing the rate and hopefully will be able to obtain a full dose rate of 60 milliliters/ hour. Previously she has been intolerant to this but today she is tolerating it. At home she has tolerated bolus PEG tube nutritional feedings. -encephalopathy: Multifactorial with chemotherapy, ongoing cancer, and now the new finding of pneumonia. Her encephalopathy is improved and is likely resolved. I believe she is at her baseline. -failure to thrive in an adult: This is multifactorial and being addressed with PEG tube nutrition PT OT. The patient will likely need an SNF placement. Additionally her weakness is complicated by the new finding of a pneumonia. -cancer pain: Current pain medication regime peers to be adequately covering her pain. -history of diverticulitis: She is currently off antibiotics without a recurrence of fever or symptoms of abdominal pain. Today she will be placed back on Invanz antibiotics for the new finding of pneumonia. -colostomy: History of a recent perforated colon and treated elsewhere. She is currently stable without problems with the ostomy or the appliances. -disposition: Patient will need to be discharged to a SNF. -code status: Full Subjective: Reports her abdomen is feeling improved without abdominal pain. She continues to feel quite weak denies having chest pain or cough. Objective: Vital Signs Temp Pulse Resp BP Pulse Ox 37.2 C 104 H 20 143/66 H 95 07/24/17 08:16 11/29/16 08:16 11/29/16 08:16 11/29/16 08:16 11/29/16 08:16 Laboratory Results 11/29/16 04:43 11/29/16 04:43 11/28/16 11/29/16 11/30/16 05:59 05:59 05:59 Intake Total 3994 200 2238 Output Total 800 200 Balance 3194 200 2038 PT 13.4 SEC (12.0-15.0) 11/29/16 04:43 INR 1.03 (0.83-1.16) 11/29/16 04:43 - Time Spent With Patient Time Spent with Patient: greater than 35 minutes Time Spent with Patient: Greater than 35 minutes spent on this patients care, greater than 50% of time spent counseling, educating, and coordinating care regarding the above mentioned plan. - Pending Discharge Pending Discharge Within 24 Hours: No Pending Discharge Within 48 Hours: Yes Pending Discharge Date: 12/01/16 Pending Discharge Time: 11:00 - Physical Exam Constitutional: no apparent distress, chronically ill appearing, cachectic Eyes: PERRL Ears, Nose, Mouth, Throat: moist mucous membranes, hearing normal Cardiovascular: regular rate and rhythym, no murmur, rub, or gallop Respiratory: bronchial breath sounds, rhonchi Gastrointestinal: normoactive bowel sounds, soft, non-tender abdomen, other (Up ostomy site appears to be functioning well and is nontender) Genitourinary: no bladder fullness Skin: warm, other (Pale appearance overall) Musculoskeletal: generalized weakness Neurologic: AAOx3, CN II-XII Intact ICD10 Worksheet Patient Problems: Problems Problem Status Onset Fever Acute Dehydration Acute Palliative care encounter Acute Cachexia Acute Head and neck cancer Acute
[2016-11-29] MEDS: METOCLOPRAMIDE 10 MG TAB TUBE SCH ×3 (09:10→16:44)
[2016-11-29] MEDS: GABAPENTIN 300 MG CAP TUBE SCH ×3 (09:10→22:04)
[2016-11-29] MEDS: ENOXAPARIN 40 MG/0.4 ML SYR SC SCH (09:10)
[2016-11-29] MEDS: MAGNESIUM HYDROXIDE 30 ML UDCUP TUBE SCH (09:10)
[2016-11-29] MEDS: clonazePAM 1 MG TAB PO SCH (09:10)
[2016-11-29] MEDS: PATCH REMOVAL 1 EA PATCH TD SCH (09:18)
[2016-11-29] MEDS: SALMETER IH SCH (09:25)
[2016-11-29] MEDS: FLUTICASONE IH SCH (09:25)
[2016-11-29] MEDS: FLUTICASONE NASAL 120 SPRAYS/16 GM MDI EACHNARE SCH (09:31)
[2016-11-29] MEDS: BIOTENE DRY MOUTH MOUTHWASH 237 ML BTL MM SCH ×3 (09:31→22:05)
--- NOTE | 2016-11-29 11:17 | SOAPPROG ---
SOAP Progress Note Assessment/Plan: Assessment: 1. Head and neck cancer, TxT2b. 2. Perf diverticulitus - s/p ostomy 3. Malnutrition 4. Anemia of chronic inflammation Definitive chemo/RT completed last week. Plan: - continue to advance tube feeds. Currently at 30 cc/hr - rehab - no further antineoplastic therapy planned for now. will need a PET-CT in about 3 months to assess for response. Subjective: tired. Objective: exam: cachectic Lungs CTAB CV RRR no MGR Abd: +BS NT nD Ext: no edema Vital Signs Temp Pulse Resp BP Pulse Ox 37.2 C 92 12 143/66 H 97 11/29/16 08:16 11/29/16 09:26 11/29/16 09:26 11/29/16 08:16 11/29/16 09:26 Laboratory Results 11/29/16 04:43 11/29/16 04:43 11/28/16 11/29/16 11/30/16 05:59 05:59 05:59 Intake Total 3994 200 2238 Output Total 800 200 Balance 3194 200 2038 PT 13.4 SEC (12.0-15.0) 11/29/16 04:43 INR 1.03 (0.83-1.16) 11/29/16 04:43 ICD10 Worksheet Patient Problems: Problems Problem Status Onset Cachexia Acute Dehydration Acute Head and neck cancer Acute Fever Acute Palliative care encounter Acute
[2016-11-29] MEDS: ERTAPENEM 1 GM in NS 100 ML IV SCH (15:00)
[2016-11-29] MEDS: TPN 1 EA BAG IV SCH (21:03)
[2016-11-29] MEDS: LEVALBUTEROL 0.63 MG/3 ML DEYVIAL IH SCH (21:28)
[2016-11-29] MEDS: OLANZapine 2.5 MG TAB PO SCH (22:05)
[2016-11-29] MEDS: LIDOCAINE 5% 1 EA PATCH TD SCH (22:57)
[2016-11-30] MEDS: METOCLOPRAMIDE 10 MG TAB TUBE SCH ×3 (05:47→18:06)
[2016-11-30] MEDS: LEVOTHYROXINE 75 MCG TAB TUBE SCH (05:47)
[2016-11-30] MEDS: NYSTATIN SUSP 500000 UNIT/5 ML UDCUP PO SCH ×4 (05:48→21:47)
[2016-11-30] MEDS: ALTEPLASE 2 MG VIAL IVP PRN (06:10)
[2016-11-30] MEDS: LEVALBUTEROL 0.63 MG/3 ML DEYVIAL IH SCH ×3 (06:28→22:24)
[2016-11-30 06:59] LABS: ABSOLUTE IMMATURE GRANULOCYTES 0.04 10^3/uL (0.00-0.10); ABSOLUTE NRBC COUNT 0.03 10^3/uL (0-0.01); ADD DIFF? NO; ADD MORPH? YES; ADD SCAN? NO; ATYPICAL LYMPHOCYTE FLAG 20 (0-99); FRAGMENT RBC FLAG 0 (0-99); LEFT SHIFT FLG 10 (0-99); LIPEMIA HEMOLYSIS FLAG 80 (0-99); MEAN CELL HEMOGLOBIN 31.3 pg (27.9-34.1); MEAN CELL HEMOGLOBIN CONCENTR. 32.5 g/dL (32.4-36.7); MEAN CELL VOLUME 96.2 fL (81.5-99.8); MEAN PLATELET VOLUME 10.1 fL (8.7-11.7); NRBC-AUTO% 0.7 % (0.0-0.2); PLATELET CLUMPS FLAG 0 (0-99); PLATELET COUNT 74 10^3/uL (150-400); RED BLOOD CELL COUNT 2.08 10^6/uL (4.18-5.33); RED CELL DISTRIBUTION WIDTH 18.3 % (11.5-15.2)
[2016-11-30 07:11] LABS: HEMOGLOBIN 6.5 g/dL (12.6-16.3)
[2016-11-30 07:37] LABS: PLATELET ESTIMATE DECREASED (ADEQ)
[2016-11-30 07:43] LABS: HYPOCHROMIA 1+; MICROCYTES 1+
[2016-11-30] MEDS: PATCH REMOVAL 1 EA PATCH TD SCH (09:00)
[2016-11-30] MEDS: SALMETER IH SCH (09:46)
[2016-11-30] MEDS: FLUTICASONE IH SCH (09:46)
[2016-11-30] MEDS: FLUTICASONE NASAL 120 SPRAYS/16 GM MDI EACHNARE SCH (10:45)
[2016-11-30] MEDS: ENOXAPARIN 40 MG/0.4 ML SYR SC SCH (10:46)
[2016-11-30] MEDS: ERTAPENEM 1 GM in NS 100 ML IV SCH (10:47)
[2016-11-30] MEDS: GABAPENTIN 300 MG CAP TUBE SCH ×3 (10:48→21:47)
[2016-11-30] MEDS: MAGNESIUM HYDROXIDE 30 ML UDCUP TUBE SCH (10:48)
[2016-11-30] MEDS: clonazePAM 1 MG TAB PO SCH (10:49)
[2016-11-30] MEDS: BIOTENE DRY MOUTH MOUTHWASH 237 ML BTL MM SCH ×3 (11:13→21:47)
--- NOTE | 2016-11-30 13:45 | SOAPPROG ---
TRUNG Progress Note Assessment/Plan: Assessment: 1. Head and neck cancer, TxT2b. 2. Perf diverticulitus - s/p ostomy 3. Malnutrition 4. Anemia of chronic inflammation Definitive chemo/RT completed last week. Plan: - transfuse 2 units RBCs - will need to stay on TPN for now given high residuals with tube feeds - plts low today due to chemo/RT; expect spontaneous recovery - dispo: pt to be discharged today to SNF after PICC repositioning - will need f/u with Dr. Dior in 2-3 weeks d/w Dr De Leon 25 min w/ pt and in coordination of care. Subjective: upset that PICC line needs to be repositioned. Thinks something "terrible" will happen and will prevent her from being discharged to SNF. Objective: exam: chronically ill. tearful exam otherwise unchanged. Vital Signs Temp Pulse Resp BP Pulse Ox 36.7 C 101 H 20 112/67 93 11/30/16 09:14 11/30/16 09:14 11/30/16 09:14 11/30/16 09:14 11/30/16 09:14 Laboratory Results 11/30/16 06:50 11/29/16 04:43 11/29/16 11/30/16 12/01/16 05:59 05:59 05:59 Intake Total 200 2298 1675 Output Total 2500 Balance 200 -202 1675 PT 13.4 SEC (12.0-15.0) 11/29/16 04:43 INR 1.03 (0.83-1.16) 11/29/16 04:43 ICD10 Worksheet Patient Problems: Problems Problem Status Onset Cachexia Acute Dehydration Acute Head and neck cancer Acute Fever Acute Palliative care encounter Acute
--- NOTE | 2016-11-30 14:29 | HOSPPROG ---
Hospitalist Progress Note Assessment/Plan: 70 yo female with head and neck cancer squamous cell, FTT, cachexia, on tube feedings with increasing rate. New problem today the of gastric residual with her feedings, a new anemia requiring transfusion, and a question of swallowing difficulties and the need for further evaluation. additionally it has been noted that her PICC line was coiled in her left internal jugular vein and this will need to be repositioned. -head and neck squamous cell carcinoma: Patient is status post chemo and radiation therapy and per Oncology no further chemo radiation will be given. She is stable in this regard and will be followed by Oncology. the definitive chemo and radiation therapy was completed last week and no further care is contemplated. -pneumonia right lower lobe and left lower lobe, new problem: This is a new finding since admission and may be contributing to her weakness and cachexia. With the CT scan from October on my review shows no evidence of pneumonia the she has developed this since that time. Will begin pulmonary care of antibiotics bronchodilators and obtain a video swallowing study on 12/01 -neutropenia after chemotherapy: Stable -anemia: This is secondary to her cachexia and her radiation and chemotherapy. The hemoglobin is improved post transfusion And is now fallen to 6.8 without signs of overt bleeding. Patient will be transfused 2 units PRBCs today. -SPCM: Multifactorial secondary to the pneumonia cancer and radiation and chemotherapy. Tube feedings were restarted but she has not tolerated a full dose as she has had a gastric residual greater than 400 cc. The should be placed back on full-dose TPN and discharged on TPN with an effort to increase her gastric feedings to the full dose of 60 cc/hour. -encephalopathy: Multifactorial with chemotherapy, ongoing cancer, and now the new finding of pneumonia. Her encephalopathy is improved and is likely resolved. I believe she is at her baseline. -failure to thrive in an adult: This is multifactorial and being addressed with PEG tube nutrition PT OT. The patient will likely need an SNF placement. Additionally her weakness is complicated by the new finding of a pneumonia. -cancer pain: Current pain medication regime peers to be adequately covering her pain. -history of diverticulitis: She is currently off antibiotics without a recurrence of fever or symptoms of abdominal pain. Today she will be placed back on Invanz antibiotics for the new finding of pneumonia. -colostomy: History of a recent perforated colon and treated elsewhere With a functioning ostomy. She is currently stable without problems with the ostomy or the appliances. -disposition: Discharged to SNF on 12/01. Patient will need a video swallowing study prior to discharge to clarify her oral intake capacity. This will be helpful as some of her medication may be able to be given orally. If she fails the video swallowing study then she can be kept NPO with good oral care and all her nutrition will be obtained through the gastric feedings sample and/or TPN - follow up with Dr. Alex Dior in 2-3 weeks -code status: Full - time: 50 minutes coordinating her care for repositioning of the PICC line explaining the need for swallowing study and establishing her nutritional needs. Subjective: Patient wants to be discharged as soon as possible she is highly motivated to leave the hospital and wants to participate with PT and promises to work with swallowing training. She denies shortness of breath chest pain cough nausea or vomiting. Objective: Vital Signs Temp Pulse Resp BP Pulse Ox 36.7 C 101 H 20 112/67 93 11/30/16 09:14 11/30/16 09:14 11/30/16 09:14 11/30/16 09:14 11/30/16 09:14 Laboratory Results 11/30/16 06:50 11/29/16 04:43 11/29/16 11/30/16 12/01/16 05:59 05:59 05:59 Intake Total 200 2298 1675 Output Total 2500 Balance 200 -202 1675 PT 13.4 SEC (12.0-15.0) 11/29/16 04:43 INR 1.03 (0.83-1.16) 11/29/16 04:43 - Time Spent With Patient Time Spent with Patient: greater than 35 minutes Time Spent with Patient: Greater than 35 minutes spent on this patients care, greater than 50% of time spent counseling, educating, and coordinating care regarding the above mentioned plan. - Pending Discharge Pending Discharge Within 24 Hours: Yes Pending Discharge Date: 12/01/16 Pending Discharge Time: 11:00 - Physical Exam Constitutional: no apparent distress, chronically ill appearing Eyes: PERRL Ears, Nose, Mouth, Throat: hearing normal, other ( Dry mucous membranes) Cardiovascular: regular rate and rhythym, no murmur, rub, or gallop Respiratory: no respiratory distress, rhonchi ( rales noted in the left lower lobe) Gastrointestinal: normoactive bowel sounds, no palpable masses, other ( ostomy noted and functioning well and healing well) Genitourinary: no bladder fullness Skin: warm Musculoskeletal: generalized weakness, other ( significant muscle wasting in all major muscle groups) Neurologic: AAOx3, CN II-XII Intact ICD10 Worksheet Patient Problems: Problems Problem Status Onset Fever Acute Dehydration Acute Palliative care encounter Acute Cachexia Acute Head and neck cancer Acute
[2016-11-30] MEDS: LIDOCAINE 5% 1 EA PATCH TD SCH (20:02)
[2016-11-30] MEDS: OLANZapine 2.5 MG TAB PO SCH (21:47)
[2016-11-30] MEDS: TPN 1 EA BAG IV SCH (21:49)
[2016-12-01] MEDS: OXYMETAZOLINE 30 ML NASAL SPRAY EACHNARE PRN (03:55)
[2016-12-01] MEDS: oxyCODONE ORAL SOLUTION 10 MG/0.5 ML UDSYR TUBE PRN (04:01)
[2016-12-01] MEDS: NYSTATIN SUSP 500000 UNIT/5 ML UDCUP PO SCH ×3 (05:43→16:35)
[2016-12-01] MEDS: CYCLOBENZAPRINE 10 MG TAB PO PRN ×2 (05:54→12:10)
[2016-12-01 06:16] LABS: % IMMATURE GRANULYOCYTES 0.7 % (0.0-1.1); ABSOLUTE IMMATURE GRANULOCYTES 0.03 10^3/uL (0.00-0.10); ADD DIFF? NO; ADD MORPH? NO; ADD SCAN? NO; ATYPICAL LYMPHOCYTE FLAG 40 (0-99); FRAGMENT RBC FLAG 0 (0-99); HEMATOCRIT 29.1 % (38.0-47.0); LEFT SHIFT FLG 20 (0-99); LIPEMIA HEMOLYSIS FLAG 90 (0-99); MEAN CELL HEMOGLOBIN 31.6 pg (27.9-34.1); MEAN CELL HEMOGLOBIN CONCENTR. 34.4 g/dL (32.4-36.7); MEAN CELL VOLUME 92.1 fL (81.5-99.8); PLATELET CLUMPS FLAG 0 (0-99); PLATELET COUNT 69 10^3/uL (150-400); RED BLOOD CELL COUNT 3.16 10^6/uL (4.18-5.33); RED CELL DISTRIBUTION WIDTH 16.6 % (11.5-15.2)
[2016-12-01 06:27] VITALS: O2SAT 94
[2016-12-01] MEDS: LEVOTHYROXINE 75 MCG TAB TUBE SCH (06:37)
[2016-12-01] MEDS: LEVALBUTEROL 0.63 MG/3 ML DEYVIAL IH SCH ×2 (06:41→15:30)
[2016-12-01 06:49] LABS: ANION GAP 10 mEq/L (8-16); CALCIUM 8.2 mg/dL (8.5-10.4); CARBON DIOXIDE 24 mEq/l (22-31); CHLORIDE 101 mEq/L (97-110); CREATININE 0.3 mg/dL (0.6-1.0); GLOMERULAR FILTRATION RATE > 60; GLUCOSE 110 mg/dL (70-100); MAGNESIUM 1.9 mg/dL (1.6-2.3); POTASSIUM 4.2 mEq/L (3.5-5.2); SODIUM 135 mEq/L (134-144)
[2016-12-01] MEDS: MAGNESIUM HYDROXIDE 30 ML UDCUP TUBE SCH (08:17)
[2016-12-01] MEDS: GABAPENTIN 300 MG CAP TUBE SCH ×2 (08:17→15:38)
[2016-12-01] MEDS: METOCLOPRAMIDE 10 MG TAB TUBE SCH ×2 (08:17→11:56)
[2016-12-01] MEDS ORDERED: clonazePAM 0.5 MG TAB PO SCH (09:00)
[2016-12-01] MEDS: SALMETER IH SCH (09:42)
[2016-12-01] MEDS: FLUTICASONE IH SCH (09:42)
[2016-12-01 09:52] VITALS: PULSE 95; RESP 12
[2016-12-01 11:03] VITALS: BP 135/78; TEMP 98.5
[2016-12-01] MEDS: ERTAPENEM 1 GM in NS 100 ML IV SCH (13:19)
[2016-12-01] MEDS: ENOXAPARIN 40 MG/0.4 ML SYR SC SCH (13:20)
[2016-12-01] MEDS: PATCH REMOVAL 1 EA PATCH TD SCH (13:22)
[2016-12-01] MEDS: BIOTENE DRY MOUTH MOUTHWASH 237 ML BTL MM SCH ×2 (13:22→16:35)
[2016-12-01] MEDS: FLUTICASONE NASAL 120 SPRAYS/16 GM MDI EACHNARE SCH (13:22)
--- NOTE | 2016-12-01 13:38 | PDIAF ---
- Diagnosis Diagnosis: failure to thrive, head and neck cancer Code Status: Full Code - Medication Management Discharge Medications: Medications to Continue on Transfer Albuterol [Proventil Inhaler HFA (*)] 2 puffs IH Q6 PRN 09/22/16 [Last Taken ] Fluticasone/Salmeter 250/50Mcg [Advair 250/50 (*)] 1 puffs IH DAILY 09/22/16 [ Last Taken 09/24/16 08:00] Levothyroxine Sodium [Synthroid] 75 mcg PO DAILY 10/06/16 [Last Taken Unknown] Metoclopramide [Reglan 10 mg tab (*)] 10 mg PO Q8H PRN 10/06/16 [Last Taken Unknown] Prochlorperazine Maleate [Compazine 10mg (*)] 10 mg PO Q6H PRN 10/06/16 [Last Taken Unknown] clonazePAM [Clonazepam] 1 mg PO TID PRN 10/06/16 [Last Taken Unknown] Gabapentin 300 mg PO HS #30 ml 10/12/16 [Last Taken Unknown] Amoxicillin/Clavulanate Pot [Augmentin 875 MG TAB (*)] 875 mg PO BID #14 tab [Last Taken Unknown] Cyclobenzaprine [Flexeril 10 MG (*)] 5 - 10 mg PO TID PRN #0 tab 12/01/16 [Last Taken Unknown] Lidocaine 5% [Lidoderm 5% Patch (*)] 1 ea TD HS patch 12/01/16 [Last Taken Unknown] TPN [Hyperalimentation] 1 ea IV DAILY@1999 bag 12/01/16 [Last Taken Unknown] oxyCODONE IR [Oxycodone Ir (*)] 30 mg TUBE Q4 tab 12/01/16 [Last Taken Unknown] Discharge Medications: Refer to the Discharge Home Medication list for PRN reason. PICC Care - Routine: Yes - Orders Services needed: Registered Nurse, Physical Therapy, Occupational Therapy Diet Texture: Dysphagia 1 - Pureed, Thin Liquids, Non Oral Meds Tube feeding: see nursing notes - Labs/Radiology Other Lab Name, Date and Time: MRI c spine with and without emily to followup c3 lesion seen on swallow - Follow Up Care Current Providers and Referrals: Suma Nicholson MD [Medical Doctor] - 10/29/16 9:00 am DIANA GARZA [Primary Care Provider] - As per Instructions
[2016-12-01] MEDS: ONDANSETRON 4 MG/2 ML VIAL IVP PRN (15:38)
--- NOTE | 2016-12-01 20:22 | GDS ---
[f rep st] DISCHARGE SUMMARY DISCHARGE DIAGNOSES: 1. Head and neck cancers (squamous cell carcinoma). 2. Right lower lobe aspiration pneumonia. 3. Resolved neutropenia. 4. Anemia. 5. Cachexia. 6. Severe protein-calorie malnutrition. 7. Encephalopathy. 8. Adult failure to thrive. 9. Cancer pain. 10. History of diverticulitis. 11. Colostomy. CONSULTANTS: [facility], [facility]. HOSPITAL COURSE AND STAY: 1. Adult failure to thrive with initial presentation with hyponatremia, weakness, in the setting of head and neck cancer: Patient was admitted to the hospital where she ultimately underwent gastrost bucky tube placement. She was still not absorbing well and was started on TPN. On day of discharge, a swallow study was done, which revealed aspiration. It was also noted that she had an abnormal rishi earing C3 on her lateral imaging. On day of discharge, the patient states she is tired of being in [facility]. I offered further workup with MRI to further evaluate this C3 abnormality which the óscar carr would like to defer. I also spoke with Dr. Lim who thought it would be reasonable to hav e this done as an outpatient. 2. Aspiration pneumonia: The patient was started on ertapenem on 11/29/2016. On day of discharge, she is afebrile and does not have any respiratory complaints. We will plan on discharging her on a 7 day course of Augmentin as well as strict aspiration precautions. 3. Severe protein-calorie malnutrition: Once again during this hospital stay, a G tube was placed 10/22/2016. She has also been on TPN since she has not been tolerating her feeds. 4. Anemia: During this hospital stay, she has received 3 units of packed red blood cells, 1 unit o n November 07 and 2 units on the . On day of discharge, her hemoglobin is 10 up from 6.5 on the . PHYSICAL EXAM: VITAL SIGNS: On day of discharge, blood pressure 135/78, pulse 91, respiratory rate 16, O2 saturation 91% on room air. Temperature afebrile. GENERAL: Cachectic appearing, no acute distress. HEART: S1, S2. LUNGS: Clear. No wheezes, rales, or rhonchi. ABDOMEN: Soft. G-tube in place. LABS AND STUDIES: G tube placed 10/20/2016, by Interventional Radiology. Dr. Spears with redo on 0 10/22/[address] Ramos. PICC line placement. Video swallow study done on day of discharge demonstrates oropharyngeal dysphagia with prompt aspira tion with larger bolus of thin liquids without aspiration noted on thin and pureed at low volumes. Please refer to report for details. DISCHARGE MEDICATIONS: Please refer to discharge medication reconciliation in [facility] for details. DISCHARGE INSTRUCTIONS: The patient will be transferred to a senior care facility where she braxton l continue to undergo treatment with TPN tube feeds. She will need followup with Oncology to [facility] address the C3 lesion seen on the lateral views during her swallow study. Greater than 30 minutes were spent on the discharge of this patient. /[id number]/MODL
[2016-12-02 13:54] LABS: PANCREATIC ELASTASE INTERPRETA Normal; PANCREATIC ELASTASE RESULT 316.1
== END 2016-12-01 16:30 | DRG 640 ==
LOC: OBSVTOIN 11:41 → F1N 18:02
PROVIDERS: ADMIT Internal Medicine; ATTEND Student in an Organized Health Care Education/Training Program
PROC: 0DH63UZ Insertion of Feeding Device into Stomach, Percutaneous Approach (ICD-10-PCS; principal; 2016-10-20 16:14)
PROC: 0DH63UZ Insertion of Feeding Device into Stomach, Percutaneous Approach (ICD-10-PCS; 2016-10-22)
PROC: 30233N1 Transfusion of Nonautologous Red Blood Cells into Peripheral Vein, Percutaneous Approach (ICD-10-PCS; 2016-11-07)
PROC: 02HV33Z Insertion of Infusion Device into Superior Vena Cava, Percutaneous Approach (ICD-10-PCS; 2016-12-01)
DX: R62.7 Adult failure to thrive (principal); E43 Unspecified severe protein-calorie malnutrition; R64 Cachexia; C79.89 Secondary malignant neoplasm of other specified sites; C80.1 Malignant (primary) neoplasm, unspecified; E87.1 Hypo-osmolality and hyponatremia; J69.0 Pneumonitis due to inhalation of food and vomit; G13.1 Other systemic atrophy primarily affecting central nervous system in neoplastic disease; R49.0 Dysphonia; T45.1X5A Adverse effect of antineoplastic and immunosuppressive drugs, initial encounter; D70.1 Agranulocytosis secondary to cancer chemotherapy; R11.2 Nausea with vomiting, unspecified; D63.8 Anemia in other chronic diseases classified elsewhere; L89.151 Pressure ulcer of sacral region, stage 1; G89.3 Neoplasm related pain (acute) (chronic); F11.20 Opioid dependence, uncomplicated; E03.9 Hypothyroidism, unspecified; F41.9 Anxiety disorder, unspecified; N71.9 Inflammatory disease of uterus, unspecified; K57.92 Diverticulitis of intestine, part unspecified, without perforation or abscess without bleeding; R25.2 Cramp and spasm; J45.909 Unspecified asthma, uncomplicated; Z93.3 Colostomy status; Z85.3 Personal history of malignant neoplasm of breast; Z68.1 Body mass index [BMI] 19.9 or less, adult; Z87.891 Personal history of nicotine dependence; Z92.3 Personal history of irradiation
CPT/HCPCS: 82607-90; 84134-90; 92526-GN; 92610-GN; 92611-GN; 97110-GP; 97116-GP; 97162-GP; 97166-GO; 97530-GP; 97535-GO; C1729; C1769; G8978-GP-CI; G8978-GP-CJ; G8979-GP-CI; G8987-GO-CJ; G8988-GO-CI; G8996-GN-CH; G8996-GN-CJ; G8997-GN-CH; G8997-GN-CI; J0295; J1100; J1335; J1450; J1453; J1650; J2060; J2250; J2270; J2310; J2405; J2469; J2550; J2997; J3010; J3475; J9060; P9016; Q9967

== ENCOUNTER → 2016-12-12 | Outpatient (CLI) | payer OTHER ==
[~2016-12-12] MED LIST: GADOBUTROL 10 ML VIAL IVP ONE
== END ==
LOC: FIMAGING 13:21
PROVIDERS: ATTEND Nurse Practitioner
DX: R51 Headache (principal); C50.211 Malignant neoplasm of upper-inner quadrant of right female breast; C10.9 Malignant neoplasm of oropharynx, unspecified; M48.52XA Collapsed vertebra, not elsewhere classified, cervical region, initial encounter for fracture
CPT/HCPCS: 70553; 72156; A9585